=== PATIENT | female | born 1950 | race Caucasian/White ===

== ENCOUNTER 2019-07-02 12:49 | Outpatient (CLI) | payer MEDICARE, OTHER, SELFPAY ==
--- NOTE | ~2019-07-02 | US_ITS ---
. EXAMINATION: US FNA w image guidance DATE: 07/02/2019 13:57 INDICATION: Thyroid nodule. TECHNIQUE: The procedure and its benefits, risks, and benefits were discussed with the patient. Risks specifical ly discussed included bleeding. The patient verbalized understanding of the risks and agreed to proce ed. The neck was prepped and draped in the usual sterile manner. 1% lidocaine was used for local ane sthesia. 5 passes were made with a 25G needle into the lesion. Appropriate needle location was docu mented with continuous sonographic guidance. There were no immediate complications. FINDINGS: Grayscale ultrasound images demonstrate needles advanced into a 1.1 cm nodule in right thyroid lobe f or biopsy. IMPRESSION: 1. Ultrasound-guided fine needle aspiration of a right thyroid nodule. Reviewed, dictated and finalized at location A. 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
== END 2019-07-02 12:50 | disposition home or self-care (01) ==
LOC: ANHIMG 12:50
PROVIDERS: PCP Family Medicine; Visit Provider Otolaryngology
DX: E04.9 Nontoxic goiter, unspecified (principal)
CPT/HCPCS: 10005; 88108; 88173

== ENCOUNTER 2019-07-08 13:46 | Outpatient (RCR) | payer MEDICARE, OTHER, SELFPAY ==
--- NOTE | 2019-07-08 15:23 | PTOPEVAL ---
INITIAL PHYSICAL THERAPY EVALUATION Thank you for referring Krissy to [facility] [place]. PT eval this revealed + L Peggy Daniels for which Eply manuever was done. Will follow up with Krissy later this week to see if symptoms return and if further skilled PT is needed. If further PT is needed, plan of care will be done and forwarded to you for review and signing. I agree with Krissy's evaluation. Referring Physician Date Admitting Provider: Attending Provider: Douglas Gutierres MD Referring Provider: *PT Outpatient Evaluation Start: 07/08/19 14:13 Freq: Status: Active Protocol: Document 07/08/19 14:10 YUNIEL (Rec: 07/08/19 15:23 YUNIEL [id number]) Therapy Assessment Status Assessment Status Assessment Status Evaluation Outpatient Past Medical History Neurological History Hx Neurological Disorders No Significant History Cardiovascular History Hx Hypercholesterolemia Yes Hx Hypertension Yes Hx Other Cardiac Disorders Yes: carotid blockage via ultrasound Respiratory History Hx Chronic Obstructive Pulmonary Disease Yes: does have O2 as needed (COPD) Hx Sleep Apnea Yes: CPAP when sleeping, napping Gastrointestinal History Hx Appendectomy Yes: 1981 Hx Cholecystectomy Yes: 1981 Hx Other Gastrointestinal Disorders Yes: some liver disease - heriditary Genitourinary History Hx Genitourinary Disorders No Significant History Musculoskeletal History Hx Arthritis Yes Hx Back Pain Yes: bulging discs Hx Osteoporosis Yes: monthly injections Endocrine History Hx Diabetes Yes Hx Other Endocrine Disorders Yes: thyroid nodules, goiter HEENT History Hx Cataracts Yes: bilat Hx Dental Problems Yes: denture - upper Reproductive History Hx Tubal Ligation Yes Evaluation Information Problem Diagnosis BPPV, vertigo Onset 6 months - ongoing Subjective Information She has had short bouts of Query Text:As Reported By Patient/ BPPV - often in the past - but Family short lived This episode has been ongoing x 6 months Gets dizzy rolling over in bed - usually to the L side, but on occasions R side. Always gets dizziness looking down, occasionally when looks up. Lately - when gets up in middle of night to go bathroom - will have have increase in diz
--- NOTE | 2019-07-11 10:47 | PCPTNOTE ---
PHYSICAL THERAPY DISCHARGE NOTE Admitting Provider: Attending Provider: Douglas Gutierres MD Patient:Krissy Silva Date of :1950 Follow up phone call was made to Krissy this date. She is no longer having any dizziness - feeling really pleased that dizziness is gone. Reviewed with Krissy how to perform a modified Eply manuever in the event her symptoms return. In addition, she is to call if she has any questions or concerns. She is not in need of further skilled PT, therefore she will be discharged from physical therapy at this time. The goals have been achieved. Thank you for referring Krissy to [facility]. Please review, sign, date and return this discharge summary CINDY. I have been updated about Krissy's current status and I agree with discharge from the above service at this time. Referring Physician Date
== END 2019-07-15 09:44 | disposition home or self-care (01) ==
LOC: ANHPT 13:46
PROVIDERS: PCP Family Medicine; Visit Provider Otolaryngology
DX: R09.89 Other specified symptoms and signs involving the circulatory and respiratory systems (principal)
CPT/HCPCS: 97162

== ENCOUNTER 2019-12-25 12:29 | Outpatient (CLI) | payer MEDICARE, OTHER, SELFPAY ==
--- NOTE | ~2019-12-25 | CT_ITS ---
EXAMINATION: CT lung screening DATE: 12/25/2019 12:56 INDICATION: Personal history of nicotine dependence, prior smoker with 30 pack year history TECHNIQUE: Computed tomography (CT) of the chest was performed without intravenous contrast. The dose -length product (DLP) was 109.90 mGy-cm. 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 COMPARISON: 12/18/2018 FINDINGS: There is mild emphysema. There is a 2 mm nodule of the right lung apex on image 19. The ada gs are free of acute opacities. There is no pleural effusion or pneumothorax. No pathologically enlar ged thoracic lymph nodes are identified. The heart size is normal. There is calcified coronary artery atherosclerosis. Calcification of the mitral annulus is also noted. There are multiple thoracic comp ression deformities without significant change since the prior examination. IMPRESSION: 1. Lung-RADS category 2: Benign appearance or behavior. Continue annual screening with noncontrast lo w-dose chest CT in 12 months. Reviewed, dictated and finalized at location B. IMPRESSION: 1. Lung-RADS category 2: Benign appearance or behavior. Continue annual screeni ng with noncontrast low-dose chest CT in 12 months.
--- NOTE | ~2019-12-25 | XR_ITS ---
EXAMINATION: XR wrist RT min 3V DATE: 12/25/2019 13:03 INDICATION: Right wrist pain. TECHNIQUE: 4 views of right wrist were obtained. COMPARISON: Right hand radiographs 08/23/2016, right wrist radiographs 06/15/2008 FINDINGS: Bone alignment is normal. No acute fracture. There is an old healed fracture of distal radi us with neutral tilt of the distal articular surface. There is mild osteoarthritis of first carpometa carpal joint and first and fifth metacarpophalangeal joints and severe osteoarthritis of first interp halangeal joint and fifth proximal interphalangeal joint. There is a dystrophic calcification dorsal to radiocarpal compartment. IMPRESSION: 1. Polyarticular osteoarthritis. Reviewed, dictated and finalized at location A.
== END 2019-12-25 12:30 | disposition home or self-care (01) ==
PROVIDERS: PCP Physician Assistant; Visit Provider Nurse Practitioner Family
DX: Z12.2 Encounter for screening for malignant neoplasm of respiratory organs (principal); Z87.891 Personal history of nicotine dependence; M19.031 Primary osteoarthritis, right wrist
CPT/HCPCS: 73110; G0297

== ENCOUNTER 2019-12-26 09:38 | Outpatient (CLI) | payer MEDICARE, OTHER, SELFPAY ==
[2019-12-26 10:08] LABS: Basophils Percent Auto 0.6 % (0.2-1.2); Eosinophils Absolute Auto 0.1 K/mm3 (0-0.3); Eosinophils Percent Auto 1.5 % (0-4.4); Hematocrit 41.5 % (37.0-47.0); Hemoglobin 13.5 g/dL (12.0-15.0); Immature Granulocyte Absolute 0.01 K/mm3 (0.00-0.031); Immature Granulocyte Percent A 0.2 % (0-0.5); Lymphocytes Percent Auto 12.8 % (18.3-44.2); Mean Corpuscular HGB Conc 32.5 g/dl (32-36); Mean Corpuscular Hemoglobin 26.6 pg (26-34); Mean Corpuscular Volume 81.7 fl (80-100); Mean Platelet Volume 10.8 fl (7.4-10.4); Monocytes Absolute Auto 0.3 K/mm3 (0.1-0.6); Monocytes Percent Auto 5.5 % (2.6-8.5); Neutrophils Absolute Auto 4.3 K/mm3 (1.3-6.7); Neutrophils Percent Auto 79.4 % (45.5-73.1); Platelet Count Result 181 k/mm3 (150-375); Red Blood Count 5.08 M/mm3 (4.2-5.4); Red Cell Distribution Width 13.5 % (11.5-14.5); White Blood Count 5.5 K/mm3 (4.5-10.0)
[2019-12-26 15:31] LABS: Alanine Aminotransferase 20 U/L (4-35); Albumin Level 3.7 g/dL (3.5-5.1); Alkaline Phosphatase 113 U/L (38-126); Anion Gap 15.5 mmol/L (7-16); Aspartate Amino Transferase 22 U/L (14-36); Bilirubin,Total 0.9 mg/dL (0.2-1.3); Blood Urea Nitrogen 13 mg/dL (7-17); Calcium 9.1 mg/dL (8.4-10.2); Carbon Dioxide 26 mmol/L (22-30); Chloride 94 mmol/L (98-107); Cholesterol 250 mg/dL (0-200); Estimated Glomerular Filt Rate > 60; Glucose 593 mg/dL (65-105); HDL Direct 38 mg/dL; Potassium 4.5 mmol/L (3.4-5.0); Sodium 131 mmol/L (137-145); Triglycerides 405 mg/dL (<150)
[2019-12-26 15:35] LABS: LDL Cholesterol Direct 150 mg/dL
[2019-12-26 15:40] LABS: Free T4 Free Thyroxine 1.64 ng/mL (0.78-2.19)
[2019-12-26 15:45] LABS: Hemoglobin A1C 12.2 % (<5.7)
[2019-12-26 15:57] LABS: Thyroid Stimulating Hormone 0.957 uIU/mL (0.465-4.680)
== END 2019-12-26 09:39 | disposition home or self-care (01) ==
PROVIDERS: PCP Physician Assistant; Visit Provider Family Medicine
DX: E78.2 Mixed hyperlipidemia (principal); R60.9 Edema, unspecified; I10 Essential (primary) hypertension; E11.49 Type 2 diabetes mellitus with other diabetic neurological complication
CPT/HCPCS: 36415; 80053; 80061; 83036; 84439; 84443; 85025

== ENCOUNTER 2020-06-08 15:31 | Outpatient (CLI) | payer MEDICARE, OTHER, SELFPAY ==
--- NOTE | ~2020-06-08 | MM_ITS ---
EXAMINATION: MM screening [facility] BI w stacey HISTORY: Screening TECHNIQUE: Craniocaudal and mediolateral oblique 3-D tomosynthesis images were obtained and synthetic 2-D images were generated. CAD analysis was submitted and interpreted. COMPARISON: Comparison to multiple prior studies sequentially, with oldest reviewed study dated 01/2011. BREAST PARENCHYMAL COMPOSITION: There are scattered areas of fibroglandular density. FINDINGS: There is no evidence of suspicious mass, calcification, or architectural distortion to sugg est malignancy in either breast. There has been no suspicious interval change. IMPRESSION: 1. No mammographic evidence of malignancy. 2. Recommend routine screening mammography in one year. BI-RADS Category 1: Negative Reviewed, dictated and finalized at location A. 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
== END 2020-06-08 15:32 | disposition home or self-care (01) ==
LOC: ANHIMG 15:39
PROVIDERS: PCP Family Medicine; Visit Provider Family Medicine
DX: Z12.31 Encounter for screening mammogram for malignant neoplasm of breast (principal)
CPT/HCPCS: 77063; 77067

== ENCOUNTER 2020-10-31 13:25 | Emergency (ER) | payer MEDICARE, OTHER, SELFPAY ==
[2020-10-31 13:38] VITALS: BP 136/72; PULSE 111; RESP 18; TEMP 36.6; O2SAT 95
[2020-10-31] MEDS: SODIUM CHLORIDE 0.9% IV 1,000 ML 999 ML IV CONT (14:26)
[2020-10-31] MEDS: ONDANSETRON INJ 4 MG/2 ML VIAL IV PUSH (14:26)
[2020-10-31] MEDS: HYDROmorphone HCL INJ (*CRX) 1 MG/ML SYR 0.5 MG IV PUSH ×2 (14:28→17:33)
[2020-10-31 14:42] LABS: Basophils Percent Auto 0.4 % (0.2-1.2); Eosinophils Absolute Auto 0.1 K/mm3 (0-0.3); Eosinophils Percent Auto 0.9 % (0-4.4); Immature Granulocyte Absolute 0.02 K/mm3 (0.00-0.031); Immature Granulocyte Percent A 0.2 % (0-0.5); Lymphocytes Absolute Auto 0.92 K/mm3 (0.9-3.2); Lymphocytes Percent Auto 11.3 % (18.3-44.2); Mean Corpuscular HGB Conc 33.3 g/dl (32-36); Mean Corpuscular Hemoglobin 27.7 pg (26-34); Mean Platelet Volume 10.5 fl (7.4-10.4); Monocytes Absolute Auto 0.7 K/mm3 (0.1-0.6); Monocytes Percent Auto 8.1 % (2.6-8.5); Neutrophils Absolute Auto 6.5 K/mm3 (1.3-6.7); Neutrophils Percent Auto 79.1 % (45.5-73.1); Platelet Count Result 206 k/mm3 (150-375); Red Cell Distribution Width 15.4 % (11.5-14.5); White Blood Count 8.2 K/mm3 (4.5-10.0)
[2020-10-31 14:55] LABS: Lactic Acid Reflex 1.2 mmol/L (0.7-2.1)
[2020-10-31 14:57] LABS: Alanine Aminotransferase 15 U/L (4-35); Albumin Level 3.7 g/dL (3.5-5.1); Alkaline Phosphatase 137 U/L (38-126); Anion Gap 9 mmol/L (8-16); Aspartate Amino Transferase 20 U/L (14-36); Bilirubin,Total 0.9 mg/dL (0.2-1.3); Blood Urea Nitrogen 13 mg/dL (7-17); CRP 8.1 mg/dL (<1.0); Calcium 9.2 mg/dL (8.4-10.2); Carbon Dioxide 25 mmol/L (22-30); Chloride 96 mmol/L (98-107); Estimated CRCL calculation 70 ml/min; Estimated Glomerular Filt Rate > 60; Glucose 339 mg/dL (65-105); Potassium 4.7 mmol/L (3.4-5.0); Sodium 130 mmol/L (137-145)
--- NOTE | 2020-10-31 15:14 | ED.EXTPRO ---
HPI - Extremity Problem General Chief complaint: Extremity Problem,Nontraumatic Stated complaint: right groin pain/post op Time Seen by Provider: 10/31/20 13:55 Related Data Home Medications Medication Instructions Recorded Confirmed aspirin 325 mg tablet 325 mg PO DAILY 05/26/19 06/01/20 calcium carbonate-vitamin D3 1 tablet PO BID 06/27/19 06/01/20 [Calcium 500 + D] Allergies Allergy/AdvReac Type Severity Reaction Status Date / Time azithromycin Allergy Intermediate Rash Verified 07/14/20 13:36 erythromycin base Allergy Unknown Unknown Verified 07/14/20 13:36 iodine Allergy Unknown Skin Verified 07/14/20 13:36 Reaction Contrast Media Allergy Unknown HIVES Uncoded 07/14/20 13:36 PENDING SALE TO [facility] Past Medical History Medical History Hepatitis C antibody test negative History of hearing problem History of tobacco abuse Myocardial infarction Nonrheumatic aortic (valve) stenosis with insufficiency Obstructive sleep apnea (adult) (pediatric) Osteoarthrosis, unspecified whether generalized or localized, forearm Protrusion of intervertebral disc (~10/26/02) Surgical History Surgical History History of appendectomy (~07/26/1966) History of cholecystectomy (~07/26/05) History of hernia repair History of tonsillectomy and adenoidectomy Hx of CABG Family History Family History Mother Family history of arthritis Family history of osteoporosis Hypertension Asthma Family history of kidney disease Family history of Alzheimer's disease Sibling Family history of arthritis Family history of malignant neoplasm of esophagus Family history of primary malignant neoplasm of liver Diabetes mellitus Hypertension Family history of elevated blood lipids Family history of cardiovascular disease Acute myocardial infarction, Onset Age: 49 Cerebrovascular accident Family history of kidney disease Grandparent Family history of cardiovascular disease Father Family history of chronic obstructive pulmonary disease, Onset Age: 69 Family history of emphysema, Onset Age: 69 Other Family history of liver disease Social History Social History Smoking end date: 10/10/11 Alcohol intake: never Gender identity (if verbalized by the patient): Female Spiritual care concerns: No Course Consultations Consultation #1: [facility], no bed available at this time, probably tomorrow afternoon. Unable to get hold of their vascular surgeon on-call. Date: 10/31/20 Time: 17:11 Consultation #2: DR OCONNELL, vascular surgeon at [facility], who accepted patient transfer to the ED. Date: 10/31/20 Time: 17:34 Vital Signs Vital signs: Vital Signs Temperature 36.6 C 10/31/20 13:38 Pulse Rate 111 H 10/31/20 13:38 Respiratory Rate 18 10/31/20 13:38 Blood Pressure 136/72 10/31/20 13:38 Pulse Oximetry 95 10/31/20 13:38 Temperature 36.6 C 10/31/20 13:38 Pulse Rate 111 H 10/31/20 13:38 Respiratory Rate 18 10/31/20 13:38 Blood Pressure 136/72 10/31/20 13:38 Pulse Oximetry 95 10/31/20 13:38 MDM - Extremity (Nontraumatic) Lab Data Result diagrams: 10/31/20 14:32 10/31/20 14:32 Labs: Lab Results 10/31/20 10/31/20 10/31/20 Range/Units 14:32 14:32 14:32 WBC 8.2 (4.5-10.0) K/mm3 RBC 4.70 (4.2-5.4) M/mm3 Hgb 13.0 (12.0-15.0) g/dL Hct 39.0 (37.0-47.0) % MCV 83.0 (80-100) fl MCH 27.7 (26-34) pg MCHC 33.3 (32-36) g/dl RDW 15.4 H (11.5-14.5) % Plt Count 206 (150-375) k/mm3 MPV 10.5 H (7.4-10.4) fl Immature Gran % (Auto) 0.2 (0-0.5) % Neut % (Auto) 79.1 H (45.5-73.1) % Lymph % (Auto) 11.3 L (18.3-44.2) % Dukes % (Auto) 8.1 (2.6-8.5) %
[2020-10-31 16:00] VITALS: BP 128/57; PULSE 94; RESP 18; O2SAT 100
[2020-10-31 18:04] VITALS: BP 129/56; PULSE 95; RESP 18; O2SAT 97
== END 2020-10-31 18:06 | disposition short-term general hospital (02) ==
PROVIDERS: Emergency Provider Emergency Medicine; PCP Family Medicine
DX: T81.42XA Infection following a procedure, deep incisional surgical site, initial encounter (principal); E11.65 Type 2 diabetes mellitus with hyperglycemia; I25.2 Old myocardial infarction; I35.2 Nonrheumatic aortic (valve) stenosis with insufficiency; G47.33 Obstructive sleep apnea (adult) (pediatric); Z95.1 Presence of aortocoronary bypass graft; Z79.82 Long term (current) use of aspirin; Z79.4 Long term (current) use of insulin
CPT/HCPCS: 36415; 80053; 83605; 85025; 86140; 87040; 96365; 96367; 96375; 96376; 99285; J1170; J2405; J2543; J3370; J7030

== ENCOUNTER 2021-02-21 15:53 | Outpatient (CLI) | payer MEDICARE, OTHER, SELFPAY ==
--- NOTE | ~2021-02-21 | CT_ITS ---
EXAMINATION: CT lung screening EXAM DATE: 02/21/2021 16:15 INDICATION: Z87.891 - Personal history of nicotine dependence. TECHNIQUE: Spiral low dose CT of the chest without contrast. Axial, coronal and sagittal images were reviewed. The dose-length product (DLP) for this examination was 144.43 mGy-cm. The exposure was t ailored according to patient size (auto mA exposure control), and iterative reconstruction (ASIR) was used as additional dose reduction technique. Comparison is made to prior examination from 12/25/2019. FINDINGS: There is a new lobulated 6-7 mm right lower lobe nodule. Mild biapical scarring. Mild emph ysema and moderate hyperinflation. Tracheobronchial tree is patent. There is no mediastinal, hilar or axillary lymphadenopathy. There are no pleural or pericardial effusions. There is no pneumotho rax. Heart normal in size. There is moderate coronary arterial calcification, arterial sclerosis. Nodular cirrhotic liver. Left adrenal gland adenoma. There is thoracic spondylosis without osteobla stic or osteolytic lesions identified. IMPRESSION: Lung-RADS category 4A, suspicious (5-15 % chance of malignancy); recommend followup nonco ntrast chest CT 3 months. Reviewed, dictated and finalized at location A. IMPRESSION: Lung-RADS category 4A, suspicious (5-15 % chance of malignancy); re commend followup noncontrast chest CT 3 months.
== END 2021-02-21 15:54 | disposition home or self-care (01) ==
LOC: ANHIMG 15:58
PROVIDERS: PCP Family Medicine; Visit Provider Nurse Practitioner Family
DX: Z12.2 Encounter for screening for malignant neoplasm of respiratory organs (principal); Z87.891 Personal history of nicotine dependence; R91.8 Other nonspecific abnormal finding of lung field
CPT/HCPCS: 71271

== ENCOUNTER 2021-03-04 11:19 | Emergency (ER) | payer MEDICARE, OTHER, SELFPAY ==
[2021-03-04] VITALS (55 sets, daily range): BP systolic 105–162; BP diastolic 46–108; PULSE 89–106; RESP 13–30; TEMP 36.4–36.8; O2SAT 89–100
--- NOTE | ~2021-03-04 | NM_ITS ---
EXAMINATION: NM pulmonary perfusion DATE: 03/04/2021 15:40 INDICATION: Shortness of breath. TECHNIQUE: 5 mCi Tc-99m MAA was administered intravenously for perfusion images. Scintigraphic image s of the chest were obtained. COMPARISON: Chest 2 views 03/04/2021, chest CT 02/21/2021 FINDINGS: Perfusion images show large defects in all lobes with stripe signs. Prior imaging demonstrate emphyse ma and lower lung bronchiectasis. IMPRESSION: 1. Nondiagnostic (intermediate probability for pulmonary embolism). Reviewed, dictated and finalized at location A.
--- NOTE | ~2021-03-04 | XR_ITS ---
XR chest 2V DATE: 03/04/2021 12:31 INDICATION: Shortness of breath, cough. Fatigue. History of smoking. COPD, hypertension. TECHNIQUE: PA and lateral views COMPARISON: 02/21/2021 CT lung screening 12/27/2015 2 view chest FINDINGS: Normal heart size. Extensive thoracic and abdominal aortic calcification. No hilar or mediastinal enlargement. No pulmonary infiltrate or consolidation, pleural effusion or pulmonary vascular congestion or pneumo thorax. Diffuse osteopenia. Chronic compression fracture deformities of some thoracic and upper lumbar verteb ra. IMPRESSION: Bilateral moderate hyperinflation; no active cardiac pulmonary disease Reviewed, dictated and finalized at location A. IMPRESSION: Bilateral moderate hyperinflation; no active cardiac pulmonary dise ase
--- NOTE | 2021-03-04 11:56 | ECG_ITS ---
Measurements Intervals [place] Rate: 95 P: 78 CT: 124 QRS: 52 QRSD: 87 T: 66 QT: 319 QTc: 402 Interpretive Statements SINUS RHYTHM BASELINE ARTIFACT- I, II, III, AVR, AVL, V1-V2 NORMAL ECG Electronically Signed On 03-04-2021 12:21:11 CDT by Dony Pelayo D.O.
[2021-03-04 12:16] LABS: Basophils Absolute Auto 0.1 K/mm3 (0.0-0.1); Basophils Percent Auto 0.9 % (0.2-1.2); Eosinophils Absolute Auto 0.2 K/mm3 (0-0.3); Eosinophils Percent Auto 3.2 % (0-4.4); Hematocrit 39.6 % (37.0-47.0); Immature Granulocyte Absolute 0.02 K/mm3 (0.00-0.031); Immature Granulocyte Percent A 0.4 % (0-0.5); Lymphocytes Absolute Auto 0.72 K/mm3 (0.9-3.2); Lymphocytes Percent Auto 12.9 % (18.3-44.2); Mean Corpuscular HGB Conc 30.3 g/dl (32-36); Mean Corpuscular Hemoglobin 23.3 pg (26-34); Mean Corpuscular Volume 76.9 fl (80-100); Mean Platelet Volume 10.3 fl (7.4-10.4); Monocytes Absolute Auto 0.6 K/mm3 (0.1-0.6); Monocytes Percent Auto 10.2 % (2.6-8.5); Neutrophils Absolute Auto 4.1 K/mm3 (1.3-6.7); Neutrophils Percent Auto 72.4 % (45.5-73.1); Platelet Count Result 204 k/mm3 (150-375); Red Blood Count 5.15 M/mm3 (4.2-5.4); Red Cell Distribution Width 16.5 % (11.5-14.5); White Blood Count 5.6 K/mm3 (4.5-10.0)
--- NOTE | 2021-03-04 12:24 | PC.NURSE ---
Pt taken to radiology
[2021-03-04 12:26] LABS: Prothrombin Time 12.6 Seconds (11.1-14.7)
[2021-03-04 12:27] LABS: Partial Thromboplastin Time 24.3 SECONDS (22.3-36.8)
[2021-03-04 12:40] LABS: Anion Gap 7 mmol/L (8-16); Blood Urea Nitrogen 11 mg/dL (7-17); Calcium 8.8 mg/dL (8.4-10.2); Carbon Dioxide 30 mmol/L (22-30); Chloride 98 mmol/L (98-107); Estimated CRCL calculation 82 ml/min; Estimated Glomerular Filt Rate > 60; Glucose 182 mg/dL (65-110); Potassium 4.3 mmol/L (3.4-5.0); Sodium 135 mmol/L (137-145)
[2021-03-04 12:54] LABS: NT Pro B Type Natriuretic Pept 162 pg/mL (5-100); Troponin I < 0.012 ng/mL (0.000-0.034)
--- NOTE | 2021-03-04 13:06 | ED.SOB ---
HPI - SOB/Dyspnea General Chief Complaint: Shortness of Breath/Dyspnea Stated Complaint: sob Time Seen by Provider: 03/04/21 12:57 Source: patient Mode of arrival: ambulatory Limitations: no limitations History of Present Illness MD elicited complaint: shortness of breath and cough Pertinent past history: congestive heart failure Onset (ago): day(s) (2) Context: occurred during exertion Timing: constant and progressively worsening Severity: moderate Exacerbating factors: lying flat, exertion and inspiration Relieving factors: rest Known history of: congestive heart failure and diabetes Associated symptoms: pain with inspiration and cough Treatment prior to arrival: bronchodilator Related Data Home oxygen amount: none Home Medications Medication Instructions Recorded Confirmed aspirin 325 mg tablet 325 mg PO DAILY 05/26/19 11/09/20 calcium carbonate-vitamin D3 1 tablet PO BID 06/27/19 11/09/20 [Calcium 500 + D] Allergies Allergy/AdvReac Type Severity Reaction Status Date / Time azithromycin Allergy Intermediate Rash Verified 03/04/21 11:34 erythromycin base Allergy Unknown Unknown Verified 03/04/21 11:34 iodine Allergy Unknown Skin Verified 03/04/21 11:34 Reaction Contrast Media Allergy Unknown HIVES Uncoded 03/04/21 11:34 Review of Systems Review of Systems: CONSTITUTIONAL: no fever, no weight loss, no confusion EYES: no vision changes, no eye pain ENT: no rhinorrhea, no sore throat, no difficulty swallowing CARDIOVASCULAR: no chest pain, no leg edema, no palpitations RESPIRATORY: positive for cough, positive for shortness of breath, no hemoptysis GASTROINTESTINAL: no abdominal pain, no nausea, no vomiting, no diarrhea GENITOURINARY: no flank pain, no dysuria, no hematuria SKIN: no rash, no jaundice MUSCULOSKELETAL: no back pain, no trauma. NEUROLOGIC: No headache, no dizziness, no focal weakness PSYCHIATRIC: No hallucinations, no suicidal ideation PMFSH Past Medical History Medical History Hepatitis C antibody test negative History of hearing problem History of tobacco abuse Myocardial infarction Nonrheumatic aortic (valve) stenosis with insufficiency Obstructive sleep apnea (adult) (pediatric) Osteoarthrosis, unspecified whether generalized or localized, forearm Protrusion of intervertebral disc (~10/26/02) Surgical History Surgical History History of appendectomy (~07/26/1966) History of cholecystectomy (~07/26/05) History of hernia repair History of tonsillectomy and adenoidectomy Hx of CABG Family History Family History Mother Family history of arthritis Family history of osteoporosis Hypertension Asthma Family history of kidney disease Family history of Alzheimer's disease Sibling Family history of arthritis Family history of malignant neoplasm of esophagus Family history of primary malignant neoplasm of liver Diabetes mellitus Hypertension Family history of elevated blood lipids Family history of cardiovascular disease Acute myocardial infarction, Onset Age: 49 Cerebrovascular accident Family history of kidney disease Grandparent Family history of cardiovascular disease Father Family history of chronic obstructive pulmonary disease, Onset Age: 69 Family history of emphysema, Onset Age: 69 Other Family history of liver disease Social History Social History Smoking status: Former smoker Smoking end date: 10/10/11 Alcohol intake: never Gender identity (if verbalized by the patient): Female Spiritual care concerns: No Exam Narrative: General: alert, afebrile, answering all questions appropriately Head: normocephalic, atraumatic Eyes: EOMI bilaterally, anicteric, no injection ENT: moist mucous membranes, or
[2021-03-04] MEDS: ALBUTEROL SULFATE NEB 2.5 MG/0.5 ML INH INHALATION (13:17)
--- NOTE | 2021-03-04 15:13 | PC.NURSE ---
Pt taken to radiology
--- NOTE | 2021-03-04 15:49 | PC.NURSE ---
Pt returned from radiology
[2021-03-04 18:12] LABS: Alanine Aminotransferase 17 U/L (4-35); Albumin Level 3.8 g/dL (3.5-5.1); Alkaline Phosphatase 151 U/L (38-126); Aspartate Amino Transferase 28 U/L (14-36); Bilirubin,Total 0.9 mg/dL (0.2-1.3)
--- NOTE | 2021-03-04 19:07 | PC.NURSE ---
Report given to LAVONNE Romero
[2021-03-04] MEDS: APIXABAN 5 MG TABLET 10 MG PO (19:32)
== END 2021-03-04 19:46 | disposition home or self-care (01) ==
PROVIDERS: Emergency Medicine; Emergency Provider Emergency Medicine; PCP Family Medicine
DX: I26.99 Other pulmonary embolism without acute cor pulmonale (principal); I50.9 Heart failure, unspecified; E11.9 Type 2 diabetes mellitus without complications; I25.2 Old myocardial infarction; G47.33 Obstructive sleep apnea (adult) (pediatric); M19.90 Unspecified osteoarthritis, unspecified site; I35.2 Nonrheumatic aortic (valve) stenosis with insufficiency; Z79.82 Long term (current) use of aspirin; Z95.1 Presence of aortocoronary bypass graft; Z87.891 Personal history of nicotine dependence; Z79.4 Long term (current) use of insulin
CPT/HCPCS: 36415; 71046; 78580; 80048; 80076; 83880; 84484; 85025; 85610; 85730; 93005; 94640; 99284; A9270; A9540

== ENCOUNTER 2021-03-25 09:57 | Outpatient (CLI) | payer MEDICARE, OTHER, SELFPAY ==
--- NOTE | ~2021-03-25 | US_ITS ---
EXAMINATION: US venous doppler LE EXAM DATE: 03/25/2021 10:29 INDICATION: R60.9 - Edema, unspecified. TECHNIQUE: Multiple grayscale, color flow and Doppler images of the lower extremity deep venous syste ms bilaterally were obtained and reviewed. Comparison is made to prior examination from 08/10/2015. FINDINGS: Right side: The right common femoral, femoral and profunda veins demonstrate normal color flow, respi ratory variation, augmentation and compressibility. Compressibility, color flow confirmed within the right popliteal, posterior tibial, peroneal, and greater saphenous veins. Left side: The left common femoral, femoral and profunda veins demonstrate normal color flow, respira tory variation, augmentation and compressibility. Compressibility, color flow confirmed within the l eft popliteal, posterior tibial, peroneal, and greater saphenous veins. IMPRESSION: 1. No lower extremity deep venous thrombosis bilaterally. Reviewed, dictated and finalized at location B.
== END 2021-03-25 09:58 | disposition home or self-care (01) ==
LOC: ANHIMG 10:01
PROVIDERS: PCP Family Medicine; Visit Provider Nurse Practitioner Family
DX: R60.9 Edema, unspecified (principal)
CPT/HCPCS: 93970

== ENCOUNTER 2021-04-11 08:12 | Outpatient (CLI) | payer MEDICARE, OTHER, SELFPAY ==
--- NOTE | 2021-05-03 13:36 | WPDSLEEPSTUD ---
Sleep Study Date of Study: 04/11/21 <Gala Manning DO - Last Filed: 05/03/21 13:58> Ordering Provider: Horace Villa APRN <Gala Manning, DO - Last Filed: 05/03/21 13:58> Interpreting Physician: Gala Manning DO <Gala Manning DO - Last Filed: 05/03/21 13:58> Sleep Study Type: Split Polysomnogram <Gala Manning DO - Last Filed: 05/03/21 13:58> Height: 1.57 m <Gala Manning DO - Last Filed: 05/03/21 13:58> Weight: 80.286 kg <Gala Manning DO - Last Filed: 05/03/21 13:58> Body Mass Index: 32.3 <Gala Manning DO - Last Filed: 05/03/21 13:58> Neck Circumference (inches): 16 <Gala Manning DO - Last Filed: 05/03/21 13:58> [place]: 2 <Gala Manning DO - Last Filed: 05/03/21 13:58> Reason for Sleep Study The patient has known SAMIRA and has to have a sleep study to re-qualify for PAP Therapy. <Gala Manning, DO - Last Filed: 05/03/21 13:58> Sleep History The patient is a 71-year-old female with SAMIRA on PAP, Insulin Dependent diabetes, aortic stenosis, peripheral arterial disease, COPD, liver cirrhosis and history of myocardial infarction that had a sleep study ordered by her access rn because she needs to requalify for PAP therapy. The patient denies awakening from sleep short of breath. She denies awakening at night with heartburn, belching or cough. She denies snoring loudly enough that others complain. She occasionally has difficulty sleeping which she has a cold. She denies waking up gasping for air throughout the night. She denies sweating excessively at night. She denies falling asleep during the day and while driving. She denies sleep paralysis, cataplexy and hypnagogic / hypnopompic hallucinations. She denies having nightmares. She denies having thoughts race through her mind. She denies feeling sad or depressed. She rarely feels anxious. She denies noticing parts of her body jerk. She denies crawling and aching feelings in her legs. She occasionally has leg pain during the night. She denies grinding her teeth during sleep and awakening with morning jaw pain. She rarely wakes up feeling stiff in the morning with sore and achy muscles. The patient goes to bed at 11:00 p.m. on both weekdays and weekends. It takes her a significant amount of time to fall asleep. She typically wakes up 4 times per night. When she awakens, she will change positions and try to go back to sleep. She did not list a wake-up time. When she awakens, she does not stay in bed. She currently lives with her . She does not consume any caffeinated beverages within 2 hours of bedtime. She does not engage in physical exercise before bedtime. She will watch television before falling asleep. She will occasionally take naps in the afternoon or the evening but they are not refreshing. She has 2 cups of coffee per day. She denies tobacco, alcohol recreational drug use. <Gala Manning DO - Last Filed: 05/03/21 13:58> [facility] Past Medical History Medical History: Medical History Hepatitis C antibody test negative History of hearing problem History of tobacco abuse Myocardial infarction Nonrheumatic aortic (valve) stenosis with insufficiency Obstructive sleep apnea (adult) (pediatric) Osteoarthrosis, unspecified whether generalized or localized, forearm Protrusion of intervertebral disc (~10/26/02) <Gala Manning DO - Last Filed: 05/03/21 13:58> Surgical History Surgical History: Surgical History History of appendectomy (~07/26/1966) History of cholecystectomy (~07/26/05) History of hernia repair History of tonsillectomy and adenoidectomy Hx of CABG <Gala Manning DO - Last Filed: 05/03/21 13:58> Family History Family History: Family History (Reviewed 1
[2021-05-03 13:58] VITALS: BMI 32.3
== END 2021-04-12 01:04 | disposition home or self-care (01) ==
LOC: ANHCSM 08:15
PROVIDERS: PCP Family Medicine; Visit Provider Nurse Practitioner Family
DX: G47.33 Obstructive sleep apnea (adult) (pediatric) (principal); Z99.89 Dependence on other enabling machines and devices
CPT/HCPCS: 95810

== ENCOUNTER 2021-05-31 09:32 | Outpatient (CLI) | payer MEDICARE, OTHER, SELFPAY ==
--- NOTE | ~2021-05-31 | CT_ITS ---
EXAMINATION: CT diagnostic chest wo con EXAM DATE: 05/31/2021 10:01 INDICATION: R91.1 - Solitary pulmonary nodule. TECHNIQUE: Spiral CT of the chest without contrast. Axial, coronal and sagittal images of the chest were reviewed. Coronal maximum intensity pixel images of chest reviewed. The dose-length product ( DLP) for this examination was 359.96 mGy-cm. The exposure was tailored according to patient size (au to mA exposure control), and iterative reconstruction (ASIR) was used as additional dose reduction te chnique. Comparison is made to prior examination from 02/21/2021. FINDINGS: Previously seen newly developed right lower lobe lobular nodule has essentially resolved, c onsistent with postinfectious residua. Small amount of lingular, right middle lobe, right apical scar ring is unchanged. The lungs are hyperinflated which can be seen with chronic obstructive pulmonary d isease (a clinical diagnosis of functional impairment), but is not diagnostic of it. There is mild br onchiectasis and mild to moderate emphysema. There are no pleural or pericardial effusions. Trache obronchial tree is patent. There is no mediastinal, hilar or axillary lymphadenopathy. There is n o pneumothorax. Heart normal in size. There is moderate coronary arterial calcification, arterial sclerosis. There are dense mitral annular calcifications. Nodular cirrhotic liver. Left adrenal hyp erplasia. Probable cholecystectomy. Multiple chronic thoracic mild to moderate compression fractures, and at L1. IMPRESSION: 1. Nearly resolved right lower lobe nodule, postinfectious. No suspicious lung opacities. 2. Chronic emphysema, hyperinflation, bronchiectasis. 3. Cirrhosis. Reviewed, dictated and finalized at location A. [employer]KER GIFT WRAPPING
== END 2021-05-31 09:33 | disposition home or self-care (01) ==
LOC: ANHIMG 09:37
PROVIDERS: PCP Family Medicine; Visit Provider Nurse Practitioner Family
DX: R91.1 Solitary pulmonary nodule (principal); I25.10 Atherosclerotic heart disease of native coronary artery without angina pectoris; M48.54XA Collapsed vertebra, not elsewhere classified, thoracic region, initial encounter for fracture; K74.60 Unspecified cirrhosis of liver; J43.9 Emphysema, unspecified; J47.9 Bronchiectasis, uncomplicated
CPT/HCPCS: 71250

== ENCOUNTER 2021-06-08 07:36 | Outpatient (CLI) | payer MEDICARE, OTHER, SELFPAY ==
--- NOTE | 2021-06-13 10:50 | WPDSLEEPSTUD ---
Sleep Study Date of Study: 06/08/21 Ordering Provider: Lola Soto MD Interpreting Physician: Lola Soto MD Sleep Study Type: Polysomnogram Height: 1.57 m Weight: 74.843 kg Body Mass Index: 30.2 Neck Circumference (inches): 16 [place]: 3 Reason for Sleep Study The patient has known SAMIRA and has to have a sleep study to re-qualify for PAP Therapy * 04/11/2021 she attempted a split night sleep study however was not able to fall asleep; total recording time was 125.6 minutes without sleep; she left AMA at 11:07 pm. This patient has chronic respiratory failure on 2 L of oxygen in the day and with sleep, and 3 L with exertion. She is not a candidate for home sleep test due to her oxygen requirement. At the prior study in March, she took 2 tablets of trazodone at the sleep lab but was not able to fall asleep. She also says that she was unable to fall asleep because she always uses her CPAP. Without CPAP, she feels airway closing which prevents her from falling asleep. I talked to the patient and she agrees to come back to the sleep lab for an in-lab split titration and we will prescribed Lunesta which is more effective than trazodone to initiate and maintain sleep. Sleep History Krissy Silva is a 71-year-old female with SAMIRA on PAP, insulin dependent diabetes, aortic stenosis, peripheral arterial disease, COPD, liver cirrhosis and history of myocardial infarction that had a sleep study ordered by her reconsignment clerk because she needs to requalify for PAP therapy. The patient denies awakening from sleep short of breath. She denies awakening at night with heartburn, belching or cough. She denies snoring loudly enough that others complain. She occasionally has difficulty sleeping which she has a cold. She denies waking up gasping for air throughout the night. She denies sweating excessively at night. She denies falling asleep during the day and while driving. She denies sleep paralysis, cataplexy and hypnagogic / hypnopompic hallucinations. She denies having nightmares. She denies having thoughts race through her mind. She denies feeling sad or depressed. She rarely feels anxious. She denies noticing parts of her body jerk. She denies crawling and aching feelings in her legs. She occasionally has leg pain during the night. She denies grinding her teeth during sleep and awakening with morning jaw pain. She rarely wakes up feeling stiff in the morning with sore and achy muscles. The patient goes to bed at 11:00 p.m. on both weekdays and weekends. It takes her a significant amount of time to fall asleep. She typically wakes up 4 times per night. When she awakens, she will change positions and try to go back to sleep. She did not list a wake-up time. When she awakens, she does not stay in bed. She currently lives with her . She does not consume any caffeinated beverages within 2 hours of bedtime. She does not engage in physical exercise before bedtime. She will watch television before falling asleep. She will occasionally take naps in the afternoon or the evening but they are not refreshing. Habits: She has 2 cups of coffee per day. She denies tobacco, alcohol recreational drug use. [facility] Past Medical History Medical History (Updated 06/13/21 @ 13:12 by Lola Soto MD) Chronic hypoxemic respiratory failure Sees Dr Soto Chronic obstructive pulmonary disease, unspecified Essential (primary) hypertension Hepatitis C antibody test negative History of hearing problem History of tobacco abuse Myocardial infarction Nonalcoholic steatohepatitis (SHAH) Nonrheumatic aortic (valve) stenosis with insufficiency Obstructive sleep apnea (adult) (pediatric) Osteoarthrosis, unspecified whether generalized or localized, forearm Protrusion of intervertebral disc (~10/26/02) Type 2 diabetes mellitus with neurologic complication, without long-term current use of insulin Surgical History Surgical History (Reviewed 06/07/21 @
[2021-06-13 13:14] VITALS: BMI 30.2
== END 2021-06-09 07:05 | disposition home or self-care (01) ==
LOC: ANHCSM 07:37
PROVIDERS: PCP Family Medicine; Visit Provider Internal Medicine Critical Care Medicine
DX: G47.10 Hypersomnia, unspecified (principal); R06.83 Snoring; G47.33 Obstructive sleep apnea (adult) (pediatric)
CPT/HCPCS: 95810

== ENCOUNTER 2021-07-05 09:38 | Outpatient (CLI) | payer MEDICARE, OTHER, SELFPAY ==
[2021-07-05 11:01] LABS: Basophils Percent Auto 0.6 % (0.2-1.2); Eosinophils Absolute Auto 0.1 K/mm3 (0-0.3); Eosinophils Percent Auto 2.2 % (0-4.4); Hematocrit 39.7 % (37.0-47.0); Hemoglobin 11.7 g/dL (12.0-15.0); Immature Granulocyte Absolute 0.01 K/mm3 (0.00-0.031); Immature Granulocyte Percent A 0.2 % (0-0.5); Lymphocytes Absolute Auto 1.13 K/mm3 (0.9-3.2); Lymphocytes Percent Auto 22.4 % (18.3-44.2); Mean Corpuscular HGB Conc 29.5 g/dl (32-36); Mean Corpuscular Volume 81.4 fl (80-100); Mean Platelet Volume 10.7 fl (7.4-10.4); Monocytes Absolute Auto 0.5 K/mm3 (0.1-0.6); Monocytes Percent Auto 8.9 % (2.6-8.5); Neutrophils Absolute Auto 3.3 K/mm3 (1.3-6.7); Neutrophils Percent Auto 65.7 % (45.5-73.1); Platelet Count Result 184 k/mm3 (150-375); Red Blood Count 4.88 M/mm3 (4.2-5.4)
[2021-07-05 11:16] LABS: Alanine Aminotransferase 18 U/L (4-35); Albumin Level 3.6 g/dL (3.5-5.1); Alkaline Phosphatase 118 U/L (38-126); Anion Gap 3 mmol/L (8-16); Aspartate Amino Transferase 26 U/L (14-36); Bilirubin,Total 0.5 mg/dL (0.2-1.3); Blood Urea Nitrogen 13 mg/dL (7-17); Calcium 8.9 mg/dL (8.4-10.2); Carbon Dioxide 32 mmol/L (22-30); Chloride 101 mmol/L (98-107); Cholesterol 184 mg/dL (0-200); Estimated Glomerular Filt Rate > 60; Glucose 99 mg/dL (65-110); HDL Direct 56 mg/dL; Potassium 4.6 mmol/L (3.4-5.0); Sodium 136 mmol/L (137-145); Triglycerides 66 mg/dL (<150)
[2021-07-05 11:27] LABS: LDL Cholesterol Direct 101 mg/dL
[2021-07-05 11:39] LABS: Hemoglobin A1C 11.5 % (<5.7)
[2021-07-05 12:10] LABS: Free T4 Free Thyroxine 1.18 ng/mL (0.78-2.19)
== END 2021-07-05 09:39 | disposition home or self-care (01) ==
LOC: ANHLAB 09:44
PROVIDERS: PCP Family Medicine; Visit Provider Physician Assistant
DX: J44.9 Chronic obstructive pulmonary disease, unspecified (principal); E11.8 Type 2 diabetes mellitus with unspecified complications; Z79.4 Long term (current) use of insulin; E11.40 Type 2 diabetes mellitus with diabetic neuropathy, unspecified; K74.69 Other cirrhosis of liver; E66.09 Other obesity due to excess calories; Z68.30 Body mass index [BMI] 30.0-30.9, adult; I35.0 Nonrheumatic aortic (valve) stenosis
CPT/HCPCS: 36415; 80053; 80061; 83036; 84439; 84443; 85025

== ENCOUNTER 2021-07-27 14:58 | Outpatient (CLI) | payer MEDICARE, OTHER, SELFPAY ==
[2021-07-27 15:43] LABS: Prothrombin Time 12.5 Seconds (11.1-14.7)
[2021-07-27 17:23] LABS: Ferritin 9.02 ng/mL (11.1-264)
== END 2021-07-27 14:59 | disposition home or self-care (01) ==
PROVIDERS: PCP Family Medicine; Referring Provider Internal Medicine Gastroenterology; Visit Provider Nurse Practitioner Family
DX: G47.61 Periodic limb movement disorder (principal); K74.69 Other cirrhosis of liver
CPT/HCPCS: 36415; 82105; 82728; 85610

== ENCOUNTER 2021-08-11 02:46 | Day surgery (SDC) | payer MEDICARE, OTHER, SELFPAY ==
[2021-08-02 12:10] VITALS: BMI 28.7
--- NOTE | 2021-08-10 13:16 | WPDGICN ---
Assessment and Plan Assessment and plan (1) Colon cancer screening: Code(s): Z12.11 - Encounter for screening for malignant neoplasm of colon Status: Acute Assessment and Plan: Colonoscopy with possible biopsy or polypectomy or cautery or injection of substances. (2) Chronic diarrhea: Code(s): K52.9 - Noninfective gastroenteritis and colitis, unspecified Status: Acute Assessment and Plan: will start cholestyramine powder at bedtime GI Consult Note Consult date/time: 08/10/21 13:16 HPI: Krissy Silva is a 71 year old female referred for consideration for colon cancer screening. She does not have a family history of colon cancer. She has not seen blood in her stools. She states that she has had loose and sometimes uncontrollable bowel movements for several years. She had a cholecystectomy many years ago. Review of Systems Review of Systems: All systems reviewed & are unremarkable except as noted in HPI and below PMFSH Past Medical History Medical History Abnormal angiogram (~07/2020) right lower leg Chronic hypoxemic respiratory failure Sees Dr Soto Chronic obstructive pulmonary disease, unspecified Essential (primary) hypertension Hepatitis C antibody test negative History of hearing problem History of tobacco abuse History of vaginal delivery x3 Myocardial infarction Nonalcoholic steatohepatitis (SHAH) Nonrheumatic aortic (valve) stenosis with insufficiency Obstructive sleep apnea (adult) (pediatric) Osteoarthrosis, unspecified whether generalized or localized, forearm Protrusion of intervertebral disc (~10/26/02) Type 2 diabetes mellitus with neurologic complication, without long-term current use of insulin Surgical History Surgical History History of appendectomy (~1993) History of cholecystectomy (~1982) History of foot surgery removal of left great toe mass History of hernia repair (~1993) History of shoulder surgery right bicep tendon repair History of tonsillectomy and adenoidectomy (~1966) History of tubal ligation (~1982) Hx of CABG S/P cataract extraction (~2012) Family History Family History Mother Family history of arthritis Family history of osteoporosis Hypertension Asthma Family history of kidney disease Family history of Alzheimer's disease Sibling Family history of arthritis Family history of malignant neoplasm of esophagus Family history of primary malignant neoplasm of liver Diabetes mellitus Hypertension Family history of elevated blood lipids Family history of cardiovascular disease Acute myocardial infarction, Onset Age: 49 Cerebrovascular accident Family history of kidney disease Grandparent Family history of cardiovascular disease Father Family history of chronic obstructive pulmonary disease, Onset Age: 69 Family history of emphysema, Onset Age: 69 Other Family history of liver disease Social History Social History Smoking end date: 10/10/11 Alcohol intake: never Living arrangements: with family Gender identity (if verbalized by the patient): Female Spiritual care concerns: No Meds Home Medications and Allergies Home Medications Medication Instructions Recorded Confirmed Type denosumab 60 mg/mL subcutaneous 60 mg SUB-Q [id number] #1 ml 05/26/19 08/02/21 Rx syringe calcium carbonate-vitamin D3 1 tablet PO BID 06/27/19 08/02/21 History [Calcium 500 + D] betamethasone valerate 0.1 % 1 applic TOPICAL BID PRN #45 gm 09/09/19 08/02/21 Rx topical cream bupropion HCl 150 mg tablet,12 hr See Rx Instructions .ROUTE 03/22/21 08/02/21 Rx sustained-release .COMPLEX #90 tablet carvedilol 3.125 mg tablet 3.125 mg PO Q12H #180 tablet 03/22/21 08/02/21 Rx
[2021-08-11 06:55] VITALS: BP 152/61; PULSE 110; RESP 25; O2SAT 93; BMI 29.2
--- NOTE | 2021-08-11 07:13 | WPDANESEPPF ---
Anes - Initial Pre Proc Eval Procedure: Operation Date: 08/11/21 08:00 Proposed Procedures p Screening Colonoscopy - Fredo Denis MD Date/Time: 08/11/21 07:13 Surgeon: Fredo Denis MD Pre Op Diagnosis: neoplasm screening Patient Data Age: 71 Gender: F Height: 1.6 m Weight: 75 kg Last Vital Signs Pulse 110 H 08/11/21 06:55 Resp 25 H 08/11/21 06:55 BP 152/61 H 08/11/21 06:55 Pulse Ox 93 08/11/21 06:55 Allergies Allergy/AdvReac Type Severity Reaction Status Date / Time azithromycin Allergy Intermediate Rash Verified 08/11/21 06:54 erythromycin base Allergy Unknown Unknown Verified 08/11/21 06:54 iodine Allergy Unknown Skin Verified 08/11/21 06:54 Reaction Contrast Media Allergy Unknown HIVES Uncoded 08/11/21 06:54 Home Medications Medication Instructions Recorded Confirmed Type denosumab 60 mg/mL subcutaneous 60 mg SUB-Q [id number] #1 ml 05/26/19 08/02/21 Rx syringe calcium carbonate-vitamin D3 1 tablet PO BID 06/27/19 08/02/21 History [Calcium 500 + D] betamethasone valerate 0.1 % 1 applic TOPICAL BID PRN #45 gm 09/09/19 08/02/21 Rx topical cream bupropion HCl 150 mg tablet,12 hr See Rx Instructions .ROUTE 03/22/21 08/02/21 Rx sustained-release .COMPLEX #90 tablet carvedilol 3.125 mg tablet 3.125 mg PO Q12H #180 tablet 03/22/21 08/02/21 Rx ezetimibe 10 mg-simvastatin 40 mg 1 tablet PO DAILY #90 tablet 03/22/21 08/02/21 Rx tablet fluticasone 250 mcg-salmeterol 50 1 inh INHALATION BID #60 each 03/22/21 08/02/21 Rx mcg/dose blistr powdr for inhalation furosemide 20 mg tablet 20 mg PO BID #180 tablet 03/22/21 08/02/21 Rx insulin aspart U-100 100 unit/mL 5 unit SUBCUT TID #15 ml 03/22/21 08/02/21 Rx (3 mL) subcutaneous pen insulin glargine 100 unit/mL 40 unit SUB-Q DAILY 90 Days #36 ml 03/22/21 08/02/21 Rx subcutaneous solution lisinopril 10 mg tablet 10 mg PO DAILY #90 tablet 03/22/21 08/02/21 Rx ropinirole 0.5 mg tablet See Rx Instructions .ROUTE 03/22/21 08/02/21 Rx .COMPLEX #360 tablet tiotropium bromide 18 mcg capsule 1 cap INHALATION DAILY #90 03/22/21 08/02/21 Rx with inhalation device inhalation trazodone 50 mg tablet 50 mg PO .QHS #90 tablet 03/22/21 08/02/21 Rx apixaban 5 mg tablet 5 mg PO BID #60 tablet 04/01/21 07/06/21 Rx albuterol sulfate 90 mcg/actuation 2 inh INHALATION Q4H PRN #8.5 g 06/07/21 08/02/21 Rx aerosol inhaler Patient hx anesthesia problems: none Family hx anesthesia problems: none Results Review: All pre-operative results and documents have been reviewed as part of the pre-operative evaluation. [facility] Past Medical History Medical History Abnormal angiogram (~07/2020) right lower leg Chronic hypoxemic respiratory failure Sees Dr Soto Chronic obstructive pulmonary disease, unspecified Essential (primary) hypertension Hepatitis C antibody test negative History of hearing problem History of tobacco abuse History of vaginal delivery x3 Myocardial infarction Nonalcoholic steatohepatitis (SHAH) Nonrheumatic aortic (valve) stenosis with insufficiency Obstructive sleep apnea (adult) (pediatric) Osteoarthrosis, unspecified whether generalized or localized, forearm Protrusion of intervertebral disc (~10/26/02) Type 2 diabetes mellitus with neurologic complication, without long-term current use of insulin Surgical History Surgical History History of appendectomy (~1993) History of cholecystectomy (~1982) History of foot surgery removal of left great toe mass History of hernia repair (~1993) History of shoulder surgery right bicep tendon repair History of tonsillectomy and adenoidectomy (~1966) History of tubal ligation (~1982) Hx of CABG S/P cataract extraction (~2012) Family History Family History Mother Family history of arthritis Famil
[2021-08-11] MEDS: LACTATED RINGERS 1,000 ML 150 ML IV CONT (07:15)
[2021-08-11 07:31] LABS: Glucose Point of Care 114 mg/dl (65-105)
[2021-08-11 08:24] VITALS: BP 97/32; PULSE 101; RESP 20; O2SAT 100
[2021-08-11 08:34] VITALS: BP 84/32; PULSE 106; RESP 24; O2SAT 100
[2021-08-11 08:40] LABS: Glucose Point of Care 116 mg/dl (65-105)
[2021-08-11 08:44] VITALS: BP 115/57; PULSE 104; RESP 20; O2SAT 100
== END 2021-08-11 08:53 | disposition home or self-care (01) ==
PROVIDERS: PCP Family Medicine; Visit Provider Internal Medicine Gastroenterology
PROC: 0DJD8ZZ Inspection of Lower Intestinal Tract, Via Natural or Artificial Opening Endoscopic (ICD-10-PCS; CPT 45378; principal; 2021-08-11 08:00)
DX: Z12.11 Encounter for screening for malignant neoplasm of colon (principal); K62.1 Rectal polyp; R19.7 Diarrhea, unspecified; I10 Essential (primary) hypertension; J96.11 Chronic respiratory failure with hypoxia; J44.9 Chronic obstructive pulmonary disease, unspecified; I25.2 Old myocardial infarction; K75.81 Nonalcoholic steatohepatitis (NASH); I35.2 Nonrheumatic aortic (valve) stenosis with insufficiency; G47.33 Obstructive sleep apnea (adult) (pediatric); E11.49 Type 2 diabetes mellitus with other diabetic neurological complication; Z95.1 Presence of aortocoronary bypass graft; Z79.4 Long term (current) use of insulin; Z79.01 Long term (current) use of anticoagulants; Z79.51 Long term (current) use of inhaled steroids
CPT/HCPCS: 45385; 82948; 88305; J2704; J7120

== ENCOUNTER 2021-08-15 10:16 | Emergency (ER) | payer MEDICARE, OTHER, SELFPAY ==
--- NOTE | ~2021-08-15 | XR_ITS ---
EXAMINATION: XR chest 2V 08/15/2021 10:52 INDICATION: Nonproductive cough for 3 days PROCEDURE: 2 view chest COMPARISON: Comparison to multiple prior studies sequentially, with oldest reviewed study dated 08/08. FINDINGS: The lungs are clear. The cardiomediastinal silhouette is within normal limits. There are no pleural effusions. There is no pneumothorax suspected. The lungs are hyperinflated which is cons istent with, but not diagnostic of chronic obstructive pulmonary disease. There is atherosclerosis an d ectasia of the aorta. Chronic lingular infiltrate, likely scarring. IMPRESSION: 1: NO ACUTE CARDIOPULMONARY DISEASE. Reviewed, dictated and finalized at location A.
[2021-08-15 10:27] VITALS: BP 148/60; PULSE 99; RESP 24; TEMP 36.6; O2SAT 95
--- NOTE | 2021-08-15 10:58 | ED.URI ---
HPI - URI/Sore Throat General Chief Complaint: Upper Respiratory Infection Stated Complaint: Cough,Sore Throat Time Seen by Provider: 08/15/21 10:58 Source: patient, RN notes reviewed and old records reviewed Mode of arrival: ambulatory Limitations: no limitations History of Present Illness HPI Narrative: 71-year-old female who presents to [facility] with complaints of acute cough, nasal congestion with drainage since Sunday. Patient has history of COPD and uses oxygen per nasal cannula as needed at home, SAO2 95% on room air while in clinic but patient is somewhat tachypneic but able to speak in full sentences.. Patient states that she just doesn't feel well she has been sleeping a lot more lately and the cough is productive at times of greenish tinged mucous. Patient denies any increase in dyspnea denies any fevers, chills or sweats, reports no swelling of her extremities.Patient states that she took a rapid COVID test yesterday that was negative, has had COVID immunizations and flu shot.Patient states that she is using her inhalers as prescribed. MD elicited complaint: cough Pertinent past history: COPD Related Data Home Medications Medication Instructions Recorded Confirmed calcium carbonate-vitamin D3 1 tablet PO BID 06/27/19 08/15/21 [Calcium 500 + D] aspirin 81 mg PO DAILY 08/15/21 08/15/21 Allergies Allergy/AdvReac Type Severity Reaction Status Date / Time azithromycin Allergy Intermediate Rash Verified 08/15/21 10:27 erythromycin base Allergy Unknown Unknown Verified 08/15/21 10:27 iodine Allergy Unknown Skin Verified 08/15/21 10:27 Reaction Contrast Media Allergy Unknown HIVES Uncoded 08/15/21 10:27 Review of Systems Review of Systems: CONSTITUTIONAL: Denies fever, chills, or sweats. EYES: Denies visual changes, redness, or discharge. ENT: Positive rhinorrhea, congestion,no sore throat, or otalgia, is hoarse. CARDIOVASCULAR: Denies chest pain, palpitations, or edema. RESPIRATORY: Positive for cough or dyspnea. GASTROINTESTINAL: Denies abdominal pain, nausea, vomiting, or diarrhea. GENITOURINARY: Denies dysuria or hematuria. SKIN: Denies rash or itching. MUSCULOSKELETAL: Denies back pain, joint pain, or myalgia. NEUROLOGIC: Denies headache, numbness, or weakness. PSYCHIATRIC: Positive for history of anxiety or depression. All systems reviewed & are unremarkable except as noted in HPI and below PMFSH Past Medical History Medical History Abnormal angiogram (~07/2020) right lower leg Aortic stenosis echocardiogram 12- show valve area of 1.[address] Antoine Chronic hypoxemic respiratory failure Sees Dr Soto Hepatitis C antibody test negative History of hearing problem History of tobacco abuse History of vaginal delivery x3 Myocardial infarction Neck mass Nonalcoholic steatohepatitis (SHAH) Nonrheumatic aortic (valve) stenosis with insufficiency Osteoarthrosis, unspecified whether generalized or localized, forearm Protrusion of intervertebral disc (~10/26/02) Surgical History Surgical History History of appendectomy (~1993) History of cholecystectomy (~1982) History of foot surgery removal of left great toe mass History of hernia repair (~1993) History of shoulder surgery right bicep tendon repair History of tonsillectomy and adenoidectomy (~1966) History of tubal ligation (~1982) Hx of CABG S/P cataract extraction (~2012) Family History Family History Mother Family history of arthritis Family history of osteoporosis Hypertension Asthma Family history of kidney disease Family history of Alzheimer's disease Sibling Family history of arthritis Family history of malignant neoplasm of esophagus Family history of primary malignant neoplasm of liver Diabetes mellitus Hypertension Family history
[2021-08-15 18:38] VITALS: BP 148/60; PULSE 99; RESP 24; TEMP 36.6; O2SAT 95
[2021-08-15 19:10] VITALS: BP 148/60; PULSE 99; RESP 24; TEMP 36.6; O2SAT 95
== END 2021-08-15 11:28 | disposition home or self-care (01) ==
PROVIDERS: Emergency Provider Registered Nurse; PCP Family Medicine
DX: J44.1 Chronic obstructive pulmonary disease with (acute) exacerbation (principal); J00 Acute nasopharyngitis [common cold]; I35.0 Nonrheumatic aortic (valve) stenosis; I25.2 Old myocardial infarction; K75.81 Nonalcoholic steatohepatitis (NASH); M19.09 Primary osteoarthritis, other specified site; Z95.1 Presence of aortocoronary bypass graft; Z98.49 Cataract extraction status, unspecified eye; Z79.82 Long term (current) use of aspirin
CPT/HCPCS: 71046; 87880; 99213; G0463

== ENCOUNTER 2021-10-12 15:05 | Outpatient (CLI) | payer MEDICARE, OTHER, SELFPAY ==
--- NOTE | ~2021-10-12 | DEXA_ITS ---
Bone Density Report Name: FLACO BOO Age: 71 Sex: Female Ethnicity: White Date of : 1950 Indication: postmenopausal osteoporosis; monitoring treatment; height loss; prior fracture; asthma or emphysema; Referring Provider: ROMEL, LOLA Rousseau Study: Bone densitometry was performed. Exam Date: October 12, 2021 Accession number: [id number] Bone Density: Region BMD T-score Z-score Classification AP Spine(L1-L4) 0.755 -2.7 -0.4 Osteoporosis Femoral Neck (Left) 0.397 -4.1 -2.1 Osteoporosis Total Hip (Left) 0.575 -3.0 -1.4 Osteoporosis Femoral Neck (Right) 0.521 -3.0 -1.0 Osteoporosis Total Hip (Right) 0.553 -3.2 -1.5 Osteoporosis Total Hip Mean 0.564 -3.1 -1.5 Osteoporosis World Health Organization criteria for BMD impression classify patients as: Normal (T-score at or above -1.0), Osteopenia (T-score between -1.0 and -2.5), or Osteoporosis (T-score at or below -2.5). 10-year Fracture Risk: FRAX not reported because: Some T-score for Spine Total or Hip Total or Femoral Neck at or below -2.5 Prior hip or vertebral fracture Treated for osteoporosis Previous Exams: Region Exam Age BMD T-score BMD Change BMD Change Date g/cm2 vs Baseline vs Previous AP Spine (L1-L4) 10/12/2021 71 0.755 -2.7 0.046 (6.4%)# 0.058 (8.3%)* 01/03/2016 65 0.697 -3.2 -0.013 (-1.8%) -0.013 (-1.8%) 03/11/2013 63 0.709 -3.1 Total Hip(Left) 10/12/2021 71 0.575 -3.0 -0.037 (-6.1%) -0.043 (-6.9%) 01/03/2016 65 0.618 -2.7 0.005 (0.9%)# 0.005 (0.9%)# 03/11/2013 63 0.612 -2.7 Total Hip(Right) 10/12/2021 71 0.553 -3.2 -0.062 (-10.1% -0.078 (-12.4% 01/03/2016 65 0.631 -2.5 0.016 (2.6%)# 0.016 (2.6%)# 03/11/2013 63 0.615 -2.7 *Denotes significance at 95% confidence level, LSC for AP Spine = 0.022 g/cm2, LSC for Total Hip = 0.027 g/cm2 # Denotes dissimilar scan types or analysis methods Clinical Information Provided by Patient: Have had a previous hip or vertebral fracture Has had a low trauma fracture Is being treated for osteoporosis Has used the following medications: Prolia (i.e. denosumab), Vitamin D, Calcium Has the following medical conditions: Asthma or Emphysema Patient maximum height was 66 Menopause Age: 43 No regular weight bearing exercise Does not regularly consume dairy products Drinks caffeinated beverages Onset of menses at age 8 Number of children 3 Impression: The patient has established osteoporos
--- NOTE | ~2021-10-12 | MM_ITS ---
EXAMINATION: MM screening [facility] BI w stacey HISTORY: Screening mammogram TECHNIQUE: Craniocaudal and mediolateral oblique 3-D tomosynthesis images were obtained and synthetic 2-D images were generated. CAD analysis was submitted and interpreted. COMPARISON: 06/08/2020, 02/06/2018, 01/03/2016 BREAST PARENCHYMAL COMPOSITION: There are scattered areas of fibroglandular density. FINDINGS: There is no suspicious mass, calcification, or architectural distortion to suggest malignan cy in either breast. There has been no suspicious interval change. IMPRESSION: 1. No mammographic evidence of malignancy. 2. Recommend routine screening mammography in one year. BI-RADS Category 1: Negative Reviewed, dictated and finalized at location A.
== END 2021-10-12 15:06 | disposition home or self-care (01) ==
LOC: ANHIMG 15:06
PROVIDERS: PCP Family Medicine; Visit Provider Physician Assistant Medical
DX: Z12.31 Encounter for screening mammogram for malignant neoplasm of breast (principal); Z78.0 Asymptomatic menopausal state; M81.0 Age-related osteoporosis without current pathological fracture
CPT/HCPCS: 77063; 77067; 77080

== ENCOUNTER 2021-10-14 20:53 | Emergency (ER) | payer MEDICARE, OTHER, SELFPAY ==
[2021-10-14 21:09] VITALS: BP 141/52; PULSE 100; RESP 18; TEMP 36.4; O2SAT 96
[2021-10-14 22:45] LABS: Basophils Absolute Auto 0.1 K/mm3 (0.0-0.1); Basophils Percent Auto 0.8 % (0.2-1.2); Eosinophils Absolute Auto 0.1 K/mm3 (0-0.3); Eosinophils Percent Auto 1.8 % (0-4.4); Hematocrit 43.4 % (37.0-47.0); Immature Granulocyte Absolute 0.02 K/mm3 (0.00-0.031); Immature Granulocyte Percent A 0.3 % (0-0.5); Mean Corpuscular HGB Conc 32.3 g/dl (32-36); Mean Corpuscular Volume 83.6 fl (80-100); Mean Platelet Volume 10.1 fl (7.4-10.4); Monocytes Absolute Auto 0.5 K/mm3 (0.1-0.6); Monocytes Percent Auto 7.7 % (2.6-8.5); Neutrophils Absolute Auto 4.6 K/mm3 (1.3-6.7); Neutrophils Percent Auto 68.4 % (45.5-73.1); Platelet Count Result 167 k/mm3 (150-375); Red Blood Count 5.19 M/mm3 (4.2-5.4); Red Cell Distribution Width 15.3 % (11.5-14.5); White Blood Count 6.7 K/mm3 (4.5-10.0)
[2021-10-14 22:56] LABS: INR 1.1; Prothrombin Time 13.6 Seconds (11.1-14.7)
[2021-10-14 22:57] LABS: Alanine Aminotransferase 21 U/L (6-35); Albumin Level 3.7 g/dL (3.5-5.1); Alkaline Phosphatase 124 U/L (38-126); Anion Gap 7 mmol/L (8-16); Aspartate Amino Transferase 26 U/L (14-36); Bilirubin,Total 0.3 mg/dL (0.2-1.3); Blood Urea Nitrogen 20 mg/dL (7-17); Calcium 8.6 mg/dL (8.4-10.2); Carbon Dioxide 28 mmol/L (22-30); Chloride 101 mmol/L (98-107); Creatine Kinase 70 U/L (30-135); Estimated CRCL calculation 82 ml/min; Estimated Glomerular Filt Rate > 60; Glucose 173 mg/dL (65-110); Partial Thromboplastin Time 24.1 SECONDS (22.3-36.8); Potassium 3.8 mmol/L (3.4-5.0); Sodium 136 mmol/L (137-145)
[2021-10-14 22:59] LABS: D Dimer 0.64 ug/mL (<0.48)
--- NOTE | 2021-10-14 23:25 | ED.LOWEXIN ---
HPI - Extremity Injury (Lower) General Chief Complaint: Extremity Injury, Lower Stated Complaint: possible blood clot to leg Time Seen by Provider: 10/14/21 21:56 Source: patient History of Present Illness HPI Narrative: Patient presents with right lower extremity pain and swelling. Reports symptoms started today have been getting worse so she came to the ER for evaluation she is concerned maybe she had a blood clot. She denies any trauma to the area she denies any erythema or warmth. She reports her left leg is usually swollen but today's episode is on her right. She does report a history of poor perfusion to her bilateral lower extremities and does see a vascular surgeon. She denies any chest pain or shortness of breath denies any fevers chills nausea vomiting or cough. She denies any recent hospitalizations or surgeries denies prior history of blood clots. Related Data Home Medications Medication Instructions Recorded Confirmed calcium carbonate-vitamin D3 1 tablet PO BID 06/27/19 09/07/21 [Calcium 500 + D] aspirin 81 mg PO DAILY 08/15/21 09/07/21 Allergies Allergy/AdvReac Type Severity Reaction Status Date / Time azithromycin Allergy Intermediate Rash Verified 09/28/21 08:43 erythromycin base Allergy Unknown Unknown Verified 09/28/21 08:43 iodine Allergy Unknown Skin Verified 09/28/21 08:43 Reaction procaine [From Novocain] AdvReac Intermediate increased Verified 09/28/21 08:43 heart rate Contrast Media Allergy Unknown HIVES Uncoded 09/28/21 08:43 Review of Systems Review of Systems: CONSTITUTIONAL: Denies fever, chills, or sweats. EYES: Denies visual changes, redness, or discharge. ENT: Denies rhinorrhea, congestion, sore throat, or otalgia. CARDIOVASCULAR: Denies chest pain, palpitations, or edema. RESPIRATORY: Denies cough or dyspnea. GASTROINTESTINAL: Denies abdominal pain, nausea, vomiting, or diarrhea. GENITOURINARY: Denies dysuria or hematuria. SKIN: Denies rash or itching. MUSCULOSKELETAL: Denies back pain, joint pain, or myalgia. NEUROLOGIC: Denies headache, numbness, dizziness, or weakness. PSYCHIATRIC: Denies anxiety or depression. All systems reviewed & are unremarkable except as noted in HPI and below PMFSH Past Medical History Medical History Aortic stenosis echocardiogram - show valve area of 1.[address] Antoine Chronic hypoxemic respiratory failure Sees Dr Soto Hepatitis C antibody test negative History of tobacco abuse History of vaginal delivery x3 Neck mass Nonalcoholic steatohepatitis (SHAH) Nonrheumatic aortic (valve) stenosis with insufficiency Osteoarthrosis, unspecified whether generalized or localized, forearm Protrusion of intervertebral disc (~10/26/02) Wound infection Surgical History Surgical History History of appendectomy (~1993) History of cholecystectomy (~1982) History of foot surgery removal of left great toe mass History of hernia repair (~1993) x2 History of shoulder surgery right bicep tendon repair History of tonsillectomy and adenoidectomy (~1966) History of tubal ligation (~1982) S/P cataract extraction (~2012) both eyes Family History Family History Mother Family history of arthritis Family history of osteoporosis Hypertension Asthma Family history of kidney disease Family history of Alzheimer's disease Sibling Family history of arthritis Family history of malignant neoplasm of esophagus Family history of primary malignant neoplasm of liver Diabetes mellitus Hypertension Family history of elevated blood lipids Family history of cardiovascular disease Acute myocardial infarction, Onset Age: 49 Cerebrovascular accident Family history of kidney disease Grandparent Family history of cardiovascular disease Father Family history o
[2021-10-14 23:37] VITALS: BP 120/60; PULSE 95; RESP 20; O2SAT 95
== END 2021-10-14 23:43 | disposition home or self-care (01) ==
PROVIDERS: Emergency Provider Emergency Medicine; PCP Family Medicine
DX: M79.604 Pain in right leg (principal); J96.11 Chronic respiratory failure with hypoxia; I35.0 Nonrheumatic aortic (valve) stenosis; K75.81 Nonalcoholic steatohepatitis (NASH); M19.90 Unspecified osteoarthritis, unspecified site; Z98.42 Cataract extraction status, left eye; Z98.41 Cataract extraction status, right eye; Z87.891 Personal history of nicotine dependence
CPT/HCPCS: 36415; 80053; 82550; 85025; 85380; 85610; 85730; 99283

== ENCOUNTER 2021-10-15 07:21 | Outpatient (CLI) | payer MEDICARE, OTHER, SELFPAY ==
--- NOTE | ~2021-10-15 | US_ITS ---
EXAMINATION: US venous doppler LE RT DATE: 10/15/2021 08:04 INDICATION: Right lower limb pain and swelling TECHNIQUE: Grayscale ultrasound images without and with compression and Doppler ultrasound images of the right lower extremity veins were obtained. COMPARISON: 03/25/2021 FINDINGS: The visualized portions of right common femoral vein, profunda (deep) femoral vein, femoral vein, pop liteal vein, peroneal trunk, posterior tibial veins, peroneal veins, gastrocnemius vein, lesser saphe nous vein and greater saphenous vein outflow are patent. IMPRESSION: 1. No deep venous thrombosis in the right lower limb. Reviewed, dictated and finalized at location A.
== END 2021-10-15 07:22 | disposition home or self-care (01) ==
PROVIDERS: PCP Family Medicine; Visit Provider Family Medicine
DX: M79.89 Other specified soft tissue disorders (principal)
CPT/HCPCS: 93971

== ENCOUNTER 2021-10-26 14:19 | Outpatient (CLI) | payer MEDICARE, OTHER, SELFPAY | END 2021-10-26 14:20 | disposition home or self-care (01) | PROVIDERS: PCP Family Medicine; Visit Provider Nurse Practitioner Family | DX: G47.61 Periodic limb movement disorder (principal); E61.1 Iron deficiency | CPT/HCPCS: 36415; 82728 ==

== ENCOUNTER 2021-11-10 07:40 | Outpatient (CLI) | payer MEDICARE, OTHER, SELFPAY ==
--- NOTE | 2021-11-11 19:49 | WPDSLEEPSTUD ---
Sleep Study Date of Study: 11/10/21 Ordering Provider: Horace Villa APRN Interpreting Physician: Lola Soto MD Sleep Study Type: Polysomnogram Height: 1.57 m Weight: 66.224 kg Body Mass Index: 26.6 Neck Circumference (inches): 16 [place]: 3 Reason for Sleep Study patient has known SAMIRA and has to have a sleep study to re-qualify for PAP Therapy * 04/11/2021 she attempted a split night sleep study however was not able to fall asleep; total recording time was 125.6 minutes without sleep; she left AMA at 11:07 pm. This patient has chronic respiratory failure on 2 L of oxygen in the day and with sleep, and 3 L with exertion.? She is not a candidate for home sleep test due to her oxygen requirement.? At the prior study in March, she took 2 tablets of trazodone at the sleep lab but was not able to fall asleep.? She also says that she was unable to fall asleep because she always uses her CPAP. Without CPAP, she feels airway closing which prevents her from falling asleep. I talked to the patient and she agrees to come back to the sleep lab for an in-lab split titration and we will prescribed Lunesta which is more effective than trazodone to initiate and maintain sleep. * 06/08/2021 Basic PSG with hypoxemia, 10 minutes below 88% Sleep History Krissy Silva is a 71 year old with obstructive sleep apnea who had a basic sleep study on Jun 08, 2021 which show sustained hypoxemia but not enough apnea to qualify to start CPAP. That study showed fragmented sleep which is often seen with people to have severe sleep apnea with inability to accumulate enough sleep to qualify to start PAP.. insulin dependent diabetes, aortic stenosis, peripheral arterial disease, COPD, liver cirrhosis and history of myocardial infarction that had a sleep study ordered by her account collector? because she needs to requalify for PAP therapy.? The patient denies awakening from sleep short of breath.? She denies awakening at night with heartburn, belching or cough.? She denies snoring loudly enough that others complain.? She occasionally has difficulty sleeping which she has a cold.? She denies waking up gasping for air throughout the night.? She denies sweating excessively at night.? She denies falling asleep during the day and while driving.? She denies sleep paralysis, cataplexy and hypnagogic / hypnopompic hallucinations.? She denies having nightmares.? She denies having thoughts race through her mind.? She denies feeling sad or depressed.? She rarely feels anxious.? She denies noticing parts of her body jerk.? She denies crawling and aching feelings in her legs.? She occasionally has leg pain during the night.? She denies grinding her teeth during sleep and awakening with morning jaw pain.? She rarely wakes up feeling stiff in the morning with sore and achy muscles. The patient goes to bed at 11:00 p.m. on both weekdays and weekends.? It takes her a significant amount of time to fall asleep.? She typically wakes up 4 times per night.? When she awakens, she will change positions and try to go back to sleep.? She did not list a wake-up time.? When she awakens, she does not stay in bed.? She currently lives with her .? She does not consume any caffeinated beverages within 2 hours of bedtime.? She does not engage in physical exercise before bedtime.? She will watch television before falling asleep.? She will occasionally take naps in the afternoon or the evening but they are not refreshing.? Habits: She has 2 cups of coffee per day.? She denies tobacco, alcohol recreational drug use. [facility] Past Medical History Medical History Aortic stenosis echocardiogram 05-15 show valve area of 1.[address] Antoine Chronic hypoxemic respiratory failure Sees Dr Soto Hepatitis C antibody test negative History of tobacco abuse History of vaginal delivery x3 Neck mass Nonalcoholic steatohepatitis (SHAH) Nonrheumatic aortic (valve)
[2021-11-11 20:54] VITALS: BMI 26.6
== END 2021-11-11 07:53 | disposition home or self-care (01) ==
LOC: ANHCSM 07:41
PROVIDERS: PCP Family Medicine; Visit Provider Nurse Practitioner Family
DX: G47.33 Obstructive sleep apnea (adult) (pediatric) (principal); G47.61 Periodic limb movement disorder
CPT/HCPCS: 95810

== ENCOUNTER 2021-11-17 07:38 | Outpatient (CLI) | payer MEDICARE, OTHER, SELFPAY ==
--- NOTE | 2021-12-12 15:09 | WPDSLEEPSTUD ---
Sleep Study Date of Study: 11/17/21 Ordering Provider: Horace Villa APRN Interpreting Physician: Gala Manning, Sleep Study Type: BiPAP Titration Height: 1.57 m Weight: 75.296 kg Body Mass Index: 30.3 Neck Circumference (inches): 14.5 [place]: 4 Reason for Sleep Study The patient had a basic nocturnal polysomnogram on November 10, 2021 shows mild obstructive sleep apnea with an apnea hypopnea index 9.6, desaturation to 75% and 93.2% of the study spent below 88%, 432.4 minutes. Sleep History Krissy Silva is a 71 year old with obstructive sleep apnea who had a basic sleep study on Jun 08, 2021 which show sustained hypoxemia but not enough apnea to qualify to start CPAP.? That study showed fragmented sleep which is often seen with people to have severe sleep apnea with inability to accumulate enough sleep to qualify to start PAP..? insulin dependent diabetes, aortic stenosis, peripheral arterial disease, COPD, liver cirrhosis and history of myocardial infarction that had a sleep study ordered by her incident response analyst? because she needs to requalify for PAP therapy.? The patient denies awakening from sleep short of breath.? She denies awakening at night with heartburn, belching or cough.? She denies snoring loudly enough that others complain.? She occasionally has difficulty sleeping which she has a cold.? She denies waking up gasping for air throughout the night.? She denies sweating excessively at night.? She denies falling asleep during the day and while driving.? She denies sleep paralysis, cataplexy and hypnagogic / hypnopompic hallucinations.? She denies having nightmares.? She denies having thoughts race through her mind.? She denies feeling sad or depressed.? She rarely feels anxious.? She denies noticing parts of her body jerk.? She denies crawling and aching feelings in her legs.? She occasionally has leg pain during the night.? She denies grinding her teeth during sleep and awakening with morning jaw pain.? She rarely wakes up feeling stiff in the morning with sore and achy muscles. The patient goes to bed at 11:00 p.m. on both weekdays and weekends.? It takes her a significant amount of time to fall asleep.? She typically wakes up 4 times per night.? When she awakens, she will change positions and try to go back to sleep.? She did not list a wake-up time.? When she awakens, she does not stay in bed.? She currently lives with her .? She does not consume any caffeinated beverages within 2 hours of bedtime.? She does not engage in physical exercise before bedtime.? She will watch television before falling asleep.? She will occasionally take naps in the afternoon or the evening but they are not refreshing.? Habits: She has 2 cups of coffee per day.? She denies tobacco, alcohol recreational drug use. [facility] Past Medical History Medical History Aortic stenosis echocardiogram - show valve area of 1.[address] Antoine Chronic hypoxemic respiratory failure Sees Dr Soto Hepatitis C antibody test negative History of tobacco abuse History of vaginal delivery x3 Neck mass Nonalcoholic steatohepatitis (SHAH) Nonrheumatic aortic (valve) stenosis with insufficiency Osteoarthrosis, unspecified whether generalized or localized, forearm Protrusion of intervertebral disc (~10/26/02) Wound infection Surgical History Surgical History History of appendectomy (~1993) History of cholecystectomy (~1982) History of foot surgery removal of left great toe mass History of hernia repair (~1993) x2 History of shoulder surgery right bicep tendon repair History of tonsillectomy and adenoidectomy (~1966) History of tubal ligation (~1982) S/P cataract extraction (~2012) both eyes Family History Family History Mother Family history of arthritis Family h
[2021-12-12 18:02] VITALS: BMI 30.3
== END 2021-11-18 06:58 | disposition home or self-care (01) ==
LOC: ANHCSM 07:48
PROVIDERS: PCP Family Medicine; Visit Provider Nurse Practitioner Family
DX: G47.30 Sleep apnea, unspecified (principal); G47.33 Obstructive sleep apnea (adult) (pediatric)
CPT/HCPCS: 95811

== ENCOUNTER 2022-04-25 09:13 | Outpatient (CLI) | payer MEDICARE, OTHER, SELFPAY ==
--- NOTE | ~2022-04-25 | XR_ITS ---
XR chest 2V 04/25/2022 10:00 Indication: Abnormal weight loss. Procedure: PA and lateral views of the chest Comparison: Comparison to multiple prior studies sequentially, with oldest reviewed study dated 10/21. Findings: There is chronic lingular atelectasis/scarring. The lungs are hyperinflated which is consis tent with, but not diagnostic of chronic obstructive pulmonary disease. There is atherosclerosis of t he aorta. Right lung clear. There are multiple chronic compression fractures of the thoracic spine. Impression: 1: No acute cardiopulmonary disease. No significant interval change from prior studies. Reviewed, dictated and finalized at location A. MONIA DISTILLER Impression: 1: No acute cardiopulmonary disease. No significant interval change from prior studies.
[2022-04-25 09:54] LABS: Basophils Percent Auto 0.7 % (0.2-1.2); Eosinophils Absolute Auto 0.1 K/mm3 (0-0.3); Eosinophils Percent Auto 2.2 % (0-4.4); Hematocrit 41.6 % (37.0-47.0); Hemoglobin 14.3 g/dL (12.0-15.0); Immature Granulocyte Absolute 0.03 K/mm3 (0.00-0.031); Immature Granulocyte Percent A 0.5 % (0-0.5); Lymphocytes Absolute Auto 0.73 K/mm3 (0.9-3.2); Lymphocytes Percent Auto 12.5 % (18.3-44.2); Mean Corpuscular HGB Conc 34.4 g/dl (32-36); Mean Corpuscular Hemoglobin 28.8 pg (26-34); Mean Corpuscular Volume 83.7 fl (80-100); Mean Platelet Volume 9.7 fl (7.4-10.4); Monocytes Absolute Auto 0.5 K/mm3 (0.1-0.6); Monocytes Percent Auto 8.7 % (2.6-8.5); Neutrophils Absolute Auto 4.4 K/mm3 (1.3-6.7); Neutrophils Percent Auto 75.4 % (45.5-73.1); Platelet Count Result 258 k/mm3 (150-375); Red Blood Count 4.97 M/mm3 (4.2-5.4); White Blood Count 5.9 K/mm3 (4.5-10.0)
[2022-04-25 10:09] LABS: Alanine Aminotransferase 15 U/L (6-35); Albumin Level 3.6 g/dL (3.5-5.1); Alkaline Phosphatase 74 U/L (38-126); Anion Gap 8 mmol/L (8-16); Aspartate Amino Transferase 22 U/L (14-36); Blood Urea Nitrogen 8 mg/dL (7-17); Calcium 8.3 mg/dL (8.4-10.2); Carbon Dioxide 33 mmol/L (22-30); Chloride 96 mmol/L (98-107); Cholesterol 172 mg/dL (0-200); Estimated Glomerular Filt Rate > 60; Glucose 145 mg/dL (65-110); HDL Direct 33 mg/dL; Potassium 4.1 mmol/L (3.4-5.0); Sodium 137 mmol/L (137-145); Triglycerides 104 mg/dL (<150)
[2022-04-25 10:20] LABS: LDL Cholesterol Direct 102 mg/dL
[2022-04-25 10:37] LABS: Thyroid Stimulating Hormone 0.747 uIU/mL (0.465-4.680)
[2022-04-25 10:51] LABS: Creatinine Urine 156.6 mg/dL
[2022-04-25 10:56] LABS: MALB Creatinine Ratio 52.3 mg/g (0-30); Microalbumin Urine Random 81.9 mg/L (0-16.7)
== END 2022-04-25 09:14 | disposition home or self-care (01) ==
PROVIDERS: PCP Family Medicine; Visit Provider Physician Assistant
DX: R63.4 Abnormal weight loss (principal); E11.40 Type 2 diabetes mellitus with diabetic neuropathy, unspecified; K74.69 Other cirrhosis of liver; I35.0 Nonrheumatic aortic (valve) stenosis; E78.2 Mixed hyperlipidemia
CPT/HCPCS: 36415; 71046; 80053; 80061; 82043; 83036; 84436; 84443; 85025

== ENCOUNTER 2022-06-14 10:03 | Outpatient (CLI) | payer MEDICARE, OTHER, SELFPAY ==
--- NOTE | ~2022-06-14 | CT_ITS ---
EXAMINATION: CT lung screening DATE: 06/14/2022 10:23 INDICATION: ct lung screening TECHNIQUE: Computed tomography (CT) of the chest was performed without intravenous contrast. Addition al 3D reconstructions utilizing coronal maximum intensity projection (MIP) were performed. Automated exposure control and iterative reconstruction technique were employed. The dose-length product was 11 1.49 mGy-cm. COMPARISON: 05/31/2021 and 02/21/2021 FINDINGS: Mild apical emphysema. Mild bronchiectasis in the bilateral lower lungs. Stable appearance of chronic mild atelectasis/scarring at the inferior lingula. Unchanged 3 mm nodule in the left upper lobe on s eries 4, image 24. No new or enlarging pulmonary nodules. No pneumonia, pulmonary edema or pleural ef fusion. Heart size is normal. Atherosclerotic coronary artery calcifications. Aortic valve and mitral annular calcification. Additional atherosclerotic calcifications along the normal caliber thoracic a yakelin as well as the arteries arising from the arch No pathologically enlarged thoracic lymphadenopath y. Nodular liver surface consistent with cirrhosis. Likely cholecystectomy. Moderate thoracic spondyl osis with multiple chronic compression fractures in the mid to lower thoracic spine or lumbar spine. IMPRESSION: 1. Lung-RADS category 2: Benign appearance or behavior. Continue annual screening with noncontrast lo w-dose chest CT in 12 months. 2. Cirrhosis. Reviewed, dictated and finalized at location A. RV[facility] RESEARCH KENNEL IMPRESSION: 1. Lung-RADS category 2: Benign appearance or behavior. Continue annual screeni ng with noncontrast low-dose chest CT in 12 months. 2. Cirrhosis.
== END 2022-06-14 10:04 | disposition home or self-care (01) ==
PROVIDERS: PCP Family Medicine; Visit Provider Nurse Practitioner Family
DX: Z12.2 Encounter for screening for malignant neoplasm of respiratory organs (principal); Z87.891 Personal history of nicotine dependence; K76.0 Fatty (change of) liver, not elsewhere classified
CPT/HCPCS: 71271

== ENCOUNTER 2022-08-07 07:03 | Outpatient (CLI) | payer MEDICARE, OTHER, SELFPAY ==
[2022-08-07 09:07] LABS: Alanine Aminotransferase 24 U/L (6-35); Albumin Level 3.7 g/dL (3.5-5.1); Alkaline Phosphatase 62 U/L (38-126); Anion Gap 4 mmol/L (8-16); Aspartate Amino Transferase 28 U/L (14-36); Bilirubin,Total 0.8 mg/dL (0.2-1.3); Blood Urea Nitrogen 14 mg/dL (7-17); Calcium 8.3 mg/dL (8.4-10.2); Carbon Dioxide 28 mmol/L (22-30); Chloride 106 mmol/L (98-107); Estimated Glomerular Filt Rate > 60; Glucose 96 mg/dL (65-110); Potassium 3.9 mmol/L (3.4-5.0); Sodium 138 mmol/L (137-145)
[2022-08-07 09:15] LABS: Free T4 Free Thyroxine 1.58 ng/mL (0.78-2.19); Vitamin D 25 Hydroxy 20.5 ng/mL
[2022-08-11 04:53] LABS: C-Peptide 0.79 ng/mL (0.80-3.85)
[2022-08-11 20:13] LABS: Glutamic acid decarboxylase AA <5 IU/mL (<5)
== END 2022-08-07 07:04 | disposition home or self-care (01) ==
LOC: ANHLAB 07:05
PROVIDERS: PCP Family Medicine; Visit Provider Nurse Practitioner Family
DX: R79.89 Other specified abnormal findings of blood chemistry (principal); K75.81 Nonalcoholic steatohepatitis (NASH); I10 Essential (primary) hypertension; E83.51 Hypocalcemia; E11.9 Type 2 diabetes mellitus without complications; E78.2 Mixed hyperlipidemia
CPT/HCPCS: 36415; 80053; 82306; 82607; 84439; 84443; 84681; 86341

== ENCOUNTER 2022-10-19 16:16 | Emergency (ER) | payer MEDICARE, OTHER, SELFPAY ==
--- NOTE | ~2022-10-19 | CT_ITS ---
EXAMINATION: CT abdomen pelvis wo con DATE: 10/19/2022 17:23 INDICATION: Right flank pain. Nausea. TECHNIQUE: Computed tomography (CT) of the abdomen and pelvis was performed without intravenous contr ast. Automated exposure control and iterative reconstruction technique were employed. The dose-length product was 344.52 mGy-cm. COMPARISON: Chest CT 06/14/2022 FINDINGS: The visualized portions of the lung bases demonstrate mild atelectasis in lingula. No pleur al effusion. The heart size is normal. There are coronary artery calcifications. There are calcificat ions of aortic valve. No pericardial effusion. The liver demonstrates a nodular surface contour and h ypertrophy of left lateral segment, consistent with cirrhosis. There is a paraumbilical portacaval sh unt. The gallbladder is absent. The spleen is normal in size. The pancreas and right adrenal gland ar e normal. There is a 1.6 cm mass in left adrenal gland measuring low-attenuation, consistent with an adenoma. There is mild right hydronephrosis and hydroureter. There is a 2 mm stone at right ureterove sicular junction. There are two 1-2 mm stones in left kidney. There is calcified atherosclerosis of t he aorta and many of the other arteries. There are changes of ventral hernia repair. There are no dil ated loops of bowel. The appendix is not visualized. There are no pathologically enlarged lymph nodes . There is no free intraperitoneal fluid. There is subcutaneous scarring in right inguinal region. Th ere is severe lumbar spondylosis. There are multiple chronic vertebral body fractures. IMPRESSION: 1. 2 mm stone at right ureterovesicular junction with mild right hydronephrosis and hydroureter. 2. Small nonobstructing left kidney stones. 3. Cirrhosis of the liver with portal venous hypertension. Reviewed, dictated and finalized at location E.
[2022-10-19 16:19] VITALS: BP 172/78; PULSE 93; RESP 20; TEMP 36.4; O2SAT 97
[2022-10-19 16:54] LABS: Basophils Percent Auto 0.6 % (0.2-1.2); Eosinophils Absolute Auto 0.2 K/mm3 (0-0.3); Eosinophils Percent Auto 2.4 % (0-4.4); Hematocrit 43.8 % (37.0-47.0); Hemoglobin 14.6 g/dL (12.0-15.0); Immature Granulocyte Absolute 0.01 K/mm3 (0.00-0.031); Immature Granulocyte Percent A 0.1 % (0-0.5); Lymphocytes Absolute Auto 1.45 K/mm3 (0.9-3.2); Lymphocytes Percent Auto 21.5 % (18.3-44.2); Mean Corpuscular HGB Conc 33.3 g/dl (32-36); Mean Corpuscular Hemoglobin 29.4 pg (26-34); Mean Corpuscular Volume 88.3 fl (80-100); Mean Platelet Volume 10.6 fl (7.4-10.4); Monocytes Absolute Auto 0.5 K/mm3 (0.1-0.6); Monocytes Percent Auto 7.9 % (2.6-8.5); Neutrophils Absolute Auto 4.6 K/mm3 (1.3-6.7); Neutrophils Percent Auto 67.5 % (45.5-73.1); Platelet Count Result 168 k/mm3 (150-375); Red Blood Count 4.96 M/mm3 (4.2-5.4); Red Cell Distribution Width 13.1 % (11.5-14.5); White Blood Count 6.8 K/mm3 (4.5-10.0)
[2022-10-19 16:57] LABS: Appearance Urine Cloudy (Clear); Bacteria Urine 1+ /hpf; Bilirubin Urine Negative (Negative); Blood Urine 3+ (Negative); Color Urine Dark Yellow (Yellow); Glucose Urine UA 1+ mg/dL (Negative); Ketones Urine Trace mg/dL (Negative); Leukocyte Esterase Ur Trace LEU/UL (Negative); Nitrate Urine Negative (Negative); Non Pathogenic Casts 0-2; Protein Urine 1+ mg/dL (Negative); RBC Urine >100 /hpf (0-2); Specific Grav Ur 1.023 (1.001-1.035); Squamous Epithelial Cell Urine Moderate /hpf (Few); WBC Urine 0-5 /hpf; pH Urine 5.5 (5.0-9.0)
[2022-10-19 16:58] LABS: Add Urine Microscopic? YES
[2022-10-19] MEDS: ONDANSETRON INJ 4 MG/2 ML VIAL IV PUSH (17:15)
[2022-10-19] MEDS: HYDROmorphone HCL INJ (*CRX) 1 MG/ML SYR 0.25 MG IV PUSH (17:15)
[2022-10-19 17:54] LABS: Alanine Aminotransferase 26 U/L (6-35); Albumin Level 4.1 g/dL (3.5-5.1); Alkaline Phosphatase 78 U/L (38-126); Anion Gap 5 mmol/L (8-16); Aspartate Amino Transferase 31 U/L (14-36); Bilirubin,Total 0.9 mg/dL (0.2-1.3); Blood Urea Nitrogen 16 mg/dL (7-17); Calcium 8.7 mg/dL (8.4-10.2); Carbon Dioxide 30 mmol/L (22-30); Chloride 102 mmol/L (98-107); Estimated CRCL calculation 78 ml/min; Estimated Glomerular Filt Rate > 60; Glucose 93 mg/dL (65-110); Potassium 4.3 mmol/L (3.4-5.0); Sodium 137 mmol/L (137-145)
--- NOTE | 2022-10-19 17:57 | ED.GENADULT ---
HPI - General Adult General Chief complaint: Urogenital-Female Stated complaint: right flank pain Time Seen by Provider: 10/19/22 16:26 History of Present Illness HPI narrative: 72-year-old female with history of kidney stones presented to the ED for evaluation of cute onset of right flank pain. Patient denies any pain with urination. Patient denies any associate nausea vomiting or diarrhea. Patient states she did notice a spike in her blood sugars in response to the pain. Patient has had previous kidney stones and has had follow-up with urology previously. Related Data Home Medications Medication Instructions Recorded Confirmed calcium carbonate 500 mg-vitamin 1 tablet PO BID 06/27/19 10/17/22 D3 5 mcg (200 unit) tablet (Calcium 500 + D) aspirin 325 mg tablet 325 mg PO DAILY 06/07/22 10/17/22 insulin aspart U-100 100 unit/mL 40 unit subcut DAILY 10/17/22 10/17/22 (3 mL) subcutaneous pen (Novolog FlexPen U-100 Insulin aspart) Allergies Allergy/AdvReac Type Severity Reaction Status Date / Time azithromycin Allergy Intermediate Rash Verified 10/19/22 16:17 erythromycin base Allergy Unknown Unknown Verified 10/19/22 16:17 iodine Allergy Unknown Skin Verified 10/19/22 16:17 Reaction procaine [From Novocain] AdvReac Intermediate increased Verified 10/19/22 16:17 heart rate Contrast Media Allergy Unknown HIVES Uncoded 10/19/22 16:17 Review of Systems Review of Systems: All systems reviewed & are unremarkable except as noted in HPI and below PMFSH Past Medical History Medical History Abnormal glandular Papanicolaou smear of cervix Adjustment reaction with anxiety and depression Age-related osteoporosis without current pathological fracture Amaurosis fugax Aortic stenosis echocardiogram 12-19 show valve area of 1.[address] Antoine Benign essential HTN Benign neoplasm of colon Bilateral carotid bruits 1-28-20 U/S shows stenosis <50 Right , 50-69% Left Sees vascular Dr Vogel Cardiomegaly Chronic bilateral low back pain with bilateral sciatica Chronic hypoxemic respiratory failure Sees Dr Soto Chronic obstructive pulmonary disease, unspecified Degeneration of lumbar or lumbosacral intervertebral disc Dupuytrens contracture Essential (primary) hypertension Foot drop, right Gastro-esophageal reflux disease without esophagitis Heart disease, unspecified Hepatitis C antibody test negative Hereditary and idiopathic neuropathy, unspecified History of tobacco abuse History of vaginal delivery x3 Idiopathic progressive neuropathy IT band syndrome Long-term insulin use Lumbago with sciatica, right side Mixed hyperlipidemia Multinodular goiter recommended u/s Neck mass Nonalcoholic steatohepatitis (SHAH) Nonrheumatic aortic (valve) stenosis Echo 1-20-- 1.2cm2, repeat echo - 1.26cm2 Nonrheumatic aortic (valve) stenosis with insufficiency Obstructive sleep apnea SAMIRA on CPAP Osteoarthrosis, unspecified whether generalized or localized, forearm Other affections of shoulder region, not elsewhere classified Other chronic pain Other cirrhosis of liver Other intervertebral disc degeneration, lumbar region Other rheumatic mitral valve diseases Other specified diabetes mellitus with diabetic neuropathy, unspecified Overweight (BMI 25.0-29.9) PLMD (periodic limb movement disorder) Protrusion of intervertebral disc (~10/26/02) Psoriasis PVD (peripheral vascular disease) Sees Dr Chacko Renal cell carcinoma seen on mri in 2015, Stable on mri 2021 Seborrheic keratoses, inflamed Type 2 diabetes mellitus with neurologic complication, without long-term current use of insulin Wound infection Surgical History Surgical History History of appendectomy (~1993) History of cholecystectomy (~1982) History of foot surgery removal of left great toe mass History of hernia repair (~1993) x2
[2022-10-19] MEDS: traMADol HCL (*CRX) 50 MG TABLET PO (18:03)
[2022-10-19] MEDS: TAMSULOSIN HCL 0.4 MG CAPSULE PO (18:03)
[2022-10-19 18:05] VITALS: PULSE 94; RESP 16; O2SAT 98
[2022-10-19 18:44] VITALS: BP 140/61; PULSE 99; RESP 20; O2SAT 95
== END 2022-10-19 18:45 | disposition home or self-care (01) ==
PROVIDERS: Emergency Provider Emergency Medicine; PCP Family Medicine
DX: N13.2 Hydronephrosis with renal and ureteral calculous obstruction (principal); C64.9 Malignant neoplasm of unspecified kidney, except renal pelvis; I35.0 Nonrheumatic aortic (valve) stenosis; I10 Essential (primary) hypertension; J96.11 Chronic respiratory failure with hypoxia; J44.9 Chronic obstructive pulmonary disease, unspecified; E78.2 Mixed hyperlipidemia; K74.60 Unspecified cirrhosis of liver; E11.49 Type 2 diabetes mellitus with other diabetic neurological complication; E11.40 Type 2 diabetes mellitus with diabetic neuropathy, unspecified; E11.51 Type 2 diabetes mellitus with diabetic peripheral angiopathy without gangrene; I73.9 Peripheral vascular disease, unspecified; G47.33 Obstructive sleep apnea (adult) (pediatric); K21.9 Gastro-esophageal reflux disease without esophagitis; M21.371 Foot drop, right foot; M72.0 Palmar fascial fibromatosis [Dupuytren]; Z87.891 Personal history of nicotine dependence; Z87.442 Personal history of urinary calculi; Z90.49 Acquired absence of other specified parts of digestive tract; Z98.42 Cataract extraction status, left eye; Z98.41 Cataract extraction status, right eye; Z79.4 Long term (current) use of insulin; K76.6 Portal hypertension
CPT/HCPCS: 36415; 74176; 80053; 81001; 85025; 96365; 96375; 99284; A9270; J0696; J1170; J2405

== ENCOUNTER 2022-10-24 09:51 | Outpatient (CLI) | payer MEDICARE, OTHER, SELFPAY ==
--- NOTE | ~2022-10-24 | US_ITS ---
EXAMINATION: US thyroid DATE: 10/24/2022 10:22 INDICATION: Thyroid nodules. TECHNIQUE: Multiple ultrasound images of the thyroid were obtained. COMPARISON: Ultrasound 06/10/2019, 04/16/2014 FINDINGS: The right thyroid lobe measures 5.0 x 2.5 x 2.7 cm. The left thyroid lobe measures 5.8 x 2.8 x 3.1 c m. In the right thyroid lobe, there is a 10 mm cystic nodule (TI-RADS TR1). In the left thyroid lobe , there is a 2.0 cm predominantly solid, hyperechoic, wider than tall nodule with ill-defined margin without echogenic foci (TR3), increased from 1.4 cm on 06/10/19. There are multiple subcentimeter nodu les in the thyroid. IMPRESSION: 1. Thyroid nodules. Thyroid ultrasound is recommended in 2 years. Reviewed, dictated and finalized at location L.
== END 2022-10-24 09:52 | disposition home or self-care (01) ==
PROVIDERS: PCP Family Medicine; Visit Provider Internal Medicine Endocrinology, Diabetes & Metabolism
DX: E04.2 Nontoxic multinodular goiter (principal)
CPT/HCPCS: 76536

== ENCOUNTER 2022-11-02 09:30 | Outpatient (RCR) | payer MEDICARE, OTHER, SELFPAY ==
[2022-09-12 10:58] VITALS: BMI 31.1
[2022-09-13 09:31] VITALS: BMI 31.1
[2022-11-02 13:34] VITALS: BMI 31.1; BMI 31.6
== END 2022-11-06 09:06 | disposition home or self-care (01) ==
LOC: ANHDMC 09:30
PROVIDERS: PCP Family Medicine; Visit Provider Nurse Practitioner Family
DX: E11.69 Type 2 diabetes mellitus with other specified complication (principal); Z79.4 Long term (current) use of insulin; Z71.89 Other specified counseling; Z71.3 Dietary counseling and surveillance
CPT/HCPCS: 97802; 97803; G0108; G0109

== ENCOUNTER 2022-11-14 16:15 | Emergency (ER) | payer MEDICARE, OTHER, SELFPAY ==
[2022-11-14 16:28] VITALS: BP 174/67; PULSE 110; RESP 12; TEMP 36.6; O2SAT 98
--- NOTE | 2022-11-14 16:29 | ED.LOWEXIN ---
HPI - Extremity Injury (Lower) General Chief Complaint: Extremity Problem,Nontraumatic Stated Complaint: lt foot pain Time Seen by Provider: 11/14/22 16:30 Source: patient, RN notes reviewed and old records reviewed Mode of arrival: ambulatory Limitations: no limitations History of Present Illness HPI Narrative: 72 year old female who [facility] with complaints of pain to the bottom of her left foot which started yesterday evening, Reports that she was unable to sleep last night due to the pain. Patient reports that she had pedicure yesterday with no trauma or any open areas on left foot noted and after returning home from getting pedicure she started having pain. Patient reports history of neuropathy and muscle cramps but states pain is different and is aggravated with movement. Patient reports that she has taken Tylenol, used ice and elevation to left foot. MD complaint: other (left plantar foot pain) Onset (ago): day(s) (last pm) Type of Injury: other (none) Severity scale (1-10): 10 Exacerbating factors: movement Treatments prior to arrival: cold therapy and other (Tylenol and Elevation) Related Data Home Medications Medication Instructions Recorded Confirmed calcium carbonate 500 mg-vitamin 1 tablet PO BID 06/27/19 11/14/22 D3 5 mcg (200 unit) tablet (Calcium 500 + D) aspirin 325 mg tablet 325 mg PO DAILY 06/07/22 11/14/22 insulin aspart U-100 100 unit/mL 40 unit subcut DAILY 10/17/22 11/14/22 (3 mL) subcutaneous pen (Novolog FlexPen U-100 Insulin aspart) Allergies Allergy/AdvReac Type Severity Reaction Status Date / Time erythromycin base Allergy Mild Hives Verified 11/14/22 16:24 procaine [From Novocain] AdvReac Intermediate increased Verified 11/14/22 16:24 heart rate azithromycin AdvReac Mild Hives Verified 11/14/22 16:24 iodine AdvReac Mild Hives Verified 11/14/22 16:24 Contrast Media AdvReac Mild Hives Uncoded 11/14/22 16:24 Review of Systems Review of Systems: CONSTITUTIONAL: Denies fever, chills, or sweats. EYES: Denies visual changes, redness, or discharge. ENT: Denies rhinorrhea, congestion, sore throat, or otalgia. CARDIOVASCULAR: Denies chest pain, palpitations, or edema. RESPIRATORY: Denies cough or dyspnea. GASTROINTESTINAL: Denies abdominal pain, nausea, vomiting, or diarrhea. GENITOURINARY: Denies dysuria or hematuria. SKIN: Denies rash or itching.no trauma or open skin areas to left foot. MUSCULOSKELETAL: Denies back pain, joint pain, positive for pain to the bottom of her left foot which is sharp NEUROLOGIC: Denies headache, numbness, or weakness, does have peripheral neuropathy PSYCHIATRIC: Reports history of anxiety or depression. All systems reviewed & are unremarkable except as noted in HPI and below PMFSH Past Medical History Medical History Abnormal glandular Papanicolaou smear of cervix Adjustment reaction with anxiety and depression Age-related osteoporosis without current pathological fracture Amaurosis fugax Aortic stenosis echocardiogram 12-19 show valve area of 1.[address] Antoine Benign essential HTN Benign neoplasm of colon Bilateral carotid bruits 1-28-20 U/S shows stenosis <50 Right , 50-69% Left Sees vascular Dr Vogel Calcium oxalate calculus of kidney Cardiomegaly Chronic bilateral low back pain with bilateral sciatica Chronic hypoxemic respiratory failure Sees Dr Soto Chronic obstructive pulmonary disease, unspecified Degeneration of lumbar or lumbosacral intervertebral disc Dupuytrens contracture Essential (primary) hypertension Foot drop, right Gastro-esophageal reflux disease without esophagitis Heart disease, unspecified Hepatitis C antibody test negative Hereditary and idiopathic neuropathy, unspecified History of tobacco abuse History of vaginal delivery x3 Idiopathic progressive neuropathy IT band syndrome Long-term insulin use Lumbago with sciatica, right side M
== END 2022-11-14 17:15 | disposition home or self-care (01) ==
PROVIDERS: Emergency Provider Registered Nurse; PCP Family Medicine
DX: E11.42 Type 2 diabetes mellitus with diabetic polyneuropathy (principal); Z79.4 Long term (current) use of insulin; M81.0 Age-related osteoporosis without current pathological fracture; I35.0 Nonrheumatic aortic (valve) stenosis; I10 Essential (primary) hypertension; J44.9 Chronic obstructive pulmonary disease, unspecified; K21.9 Gastro-esophageal reflux disease without esophagitis; E78.2 Mixed hyperlipidemia; K75.81 Nonalcoholic steatohepatitis (NASH); E11.51 Type 2 diabetes mellitus with diabetic peripheral angiopathy without gangrene; Z98.42 Cataract extraction status, left eye; Z98.41 Cataract extraction status, right eye
CPT/HCPCS: 99213; G0463

== ENCOUNTER 2023-01-11 14:26 | Outpatient (RCR) | payer MEDICARE, OTHER, SELFPAY | END 2023-01-11 17:32 | disposition home or self-care (01) | LOC: ANHDMC 14:26 | PROVIDERS: PCP Family Medicine; Visit Provider Nurse Practitioner Family | DX: E11.69 Type 2 diabetes mellitus with other specified complication (principal); Z79.4 Long term (current) use of insulin; Z71.89 Other specified counseling | CPT/HCPCS: G0109 ==

== ENCOUNTER 2023-04-09 08:34 | Outpatient (CLI) | payer MEDICARE, OTHER, SELFPAY ==
[2023-04-09 09:40] LABS: Basophils Percent Auto 0.9 % (0.2-1.2); Eosinophils Absolute Auto 0.1 K/mm3 (0-0.3); Hematocrit 47.9 % (37.0-47.0); Hemoglobin 15.1 g/dL (12.0-15.0); Immature Granulocyte Absolute 0.01 K/mm3 (0.00-0.031); Immature Granulocyte Percent A 0.2 % (0-0.5); Immature Platelet Fraction Pct 5.5 % (0.9-11.2); Lymphocytes Absolute Auto 0.94 K/mm3 (0.9-3.2); Lymphocytes Percent Auto 20.4 % (18.3-44.2); Mean Corpuscular HGB Conc 31.5 g/dl (32-36); Mean Corpuscular Hemoglobin 28.3 pg (26-34); Mean Corpuscular Volume 89.7 fl (80-100); Mean Platelet Volume 10.9 fl (7.4-10.4); Monocytes Absolute Auto 0.3 K/mm3 (0.1-0.6); Monocytes Percent Auto 6.7 % (2.6-8.5); Neutrophils Absolute Auto 3.2 K/mm3 (1.3-6.7); Neutrophils Percent Auto 69.8 % (45.5-73.1); Platelet Count Result 145 k/mm3 (150-375); Red Blood Count 5.34 M/mm3 (4.2-5.4); Red Cell Distribution Width 14.4 % (11.5-14.5); White Blood Count 4.6 K/mm3 (4.5-10.0)
[2023-04-09 09:49] LABS: INR 0.9; Prothrombin Time 12.7 Seconds (11.1-14.7)
[2023-04-09 10:07] LABS: Alanine Aminotransferase 28 U/L (6-35); Alkaline Phosphatase 110 U/L (38-126); Aspartate Amino Transferase 36 U/L (14-36); Blood Urea Nitrogen 10 mg/dL (7-17); Carbon Dioxide 29 mmol/L (22-30); Chloride 101 mmol/L (98-107); Estimated Glomerular Filt Rate > 60; Glucose 118 mg/dL (65-110); Potassium 4.3 mmol/L (3.4-5.0)
[2023-04-09 10:11] LABS: Anion Gap 8 mmol/L (8-16); Sodium 138 mmol/L (137-145)
[2023-04-13 18:57] LABS: Alpha Fetoprotein Tumor Marker 1.8 ng/mL (<6.1)
== END 2023-04-09 08:35 | disposition home or self-care (01) ==
PROVIDERS: PCP Family Medicine
DX: K74.60 Unspecified cirrhosis of liver (principal)
CPT/HCPCS: 36415; 80053; 82105; 85025; 85055; 85610

== ENCOUNTER 2023-04-23 13:40 | Outpatient (CLI) | payer MEDICARE, OTHER, SELFPAY ==
[2023-04-23 13:50] VITALS: PULSE 90; O2SAT 97
[2023-04-23 13:55] VITALS: PULSE 105; O2SAT 86
[2023-04-23 14:00] VITALS: PULSE 104; O2SAT 87
[2023-04-23 14:05] VITALS: PULSE 106; O2SAT 91
[2023-04-23 14:10] VITALS: PULSE 90; O2SAT 94
--- NOTE | 2023-04-23 15:06 | HOMEO2EVAL ---
Evaluation was performed at [facility] Home Oxygen Evaluation RC: Home Oxygen (O2) Evaluation Start: 04/23/23 15:00 Freq: Status: Active Protocol: RPE Activity Type Activity Date Activity User E-sign Co-sign Detail Recorded Client Recorded Date Recorded By Document 04/23/23 13:50 [email or web address] 04/23/23 15:03 PKH Document 04/23/23 13:55 [email or web address] 04/23/23 15:03 PKH Document 04/23/23 14:00 [email or web address] 04/23/23 15:05 PKH Document 04/23/23 14:05 [email or web address] 04/23/23 15:03 PK Document 04/23/23 14:10 [email or web address] 04/23/23 15:03 PK 04/23/23 04/23/23 04/23/23 13:50 13:55 14:00 Home O2 Evaluation [Oxygen] -Test Phase Resting Exercise Exercise -Oxygen Delivery Room Air Room Air Nasal Cannula -Oxygen Flow Rate (L/min) -Fraction of Inspired Oxygen (%) 1 [Pulse Oximetry] -Pulse Oximetry (90-100 %) 97 86 L 87 L [Pulse Rate] -Pulse Rate (60-100 beats/min) 90 105 H 104 H [Charges] -Treatment Charges O2 Evaluation - Outpatient 04/23/23 04/23/23 14:05 14:10 Home O2 Evaluation [Oxygen] -Test Phase Exercise Resting -Oxygen Delivery Nasal Cannula Room Air -Oxygen Flow Rate (L/min) 2 -Fraction of Inspired Oxygen (%) [Pulse Oximetry] -Pulse Oximetry (90-100 %) 91 94 [Pulse Rate] -Pulse Rate (60-100 beats/min) 106 H 90 [Charges] -Treatment Charges
--- NOTE | 2023-04-24 09:19 | P.PCNPFT_ITS ---
PFT Procedure Performed PFT Procedure Performed Spirometry with Pre/Post Bronchodilator Plethysmography (Lung Vol) Diffusing Cap (DLCO) Flow Vol Loop PFT Interpretation This is a pulmonary function test with pre and post-bronchodilator spirometry, plethysmography and diffusing capacity. The test was performed and results interpreted in accordance with the 2019 and 2005 ATS/ERS Task Force guidelines respectively using the Global Lung Function Initiative-2012 reference equations. Patient demonstrated good effort and cooperation. Reproducibility criteria were met. The quality of the pre bronchodilator spirometry maneuver was Grade A and post bronchodilator spirometry maneuver was Grade A. Findings: Spirometry: There is decreased maximal expiratory airflow at all lung volumes with concave expiratory flow tracing. The contour the inspiratory flow tracing is normal. The pre bronchodilator FVC is 1.89 L, 75% predicted. The pre bronchodilator FEV1 is 0.75 L, 38% predicted. The pre bronchodilator FEV1: FVC ratio is 40%. The post bronchodilator FVC is 2.03 L, representing an 8% increase. The post bronchodilator FEV1 is 0.79 L, representing a 6% increase. The post bronchodilator FEV1: FVC ratio is 39%. Plethysmography: The total lung capacity is 6.13 L, 130% predicted. The functional residual capacity is 4.92 L, 182% predicted. The residual volume is 4.24 L, 196% predicted. Diffusing capacity: The diffusing capacity unadjusted for hemoglobin and carboxyhemoglobin is 9.9, 51% predicted. The diffusing capacity adjusted for alveolar volume is 4.23, 98% predicted. In comparison to previous pulmonary function testing on 09/23/2015 in which only a pre bronchodilator spirometry was performed the pre bronchodilator FVC is unchanged from 1.81 L to 1.89 L. The pre bronchodilator FEV1 is unchanged from 0.72 L to 0.75 L. The total lung capacity is unchanged from 5.72 L to 6.13 L. The functional residual capacity is unchanged from 4.37 L to 4.92 L. The residual volume is increased from 3.64 L to 4.24 L. The diffusing capacity unadjusted for hemoglobin and carboxyhemoglobin is decreased from 12.1 to 9.9. The diffusing capacity adjusted for alveolar volume is unchanged from 3.93 to 4.23. Impression: There is a severe obstructive abnormality without significant i mprovement after inhaling a single dose of albuterol. The increase in residual volume is consistent with air trapping from an obstructive abnormality. Hyperinflation is present as demonstrated by the increase in functional residual capacity and total lung capacity and is consistent with an obstructive abnormality. The diffusing capacity unadjusted for hemoglobin and carboxyhemoglobin is moderately decreased and normalizes when adjusted for alveolar volume. In comparison to previous pulmonary function testing on 09/23/2015 there has been a greater than anticipated time dependent increase in the residual volume. There has been a greater than anticipated time dependent decrease in the diffusing capacity unadjusted for hemoglobin and carboxyhemoglobin with no significant change in the FVC, FEV1, total lung capacity, functional residual capacity or diffusing capacity adjusted for alveolar volume. Clinical correlation is recommended.
== END 2023-04-23 13:41 | disposition home or self-care (01) ==
LOC: ANHPFT 13:41
PROVIDERS: PCP Family Medicine; Visit Provider Physician Assistant
DX: J44.9 Chronic obstructive pulmonary disease, unspecified (principal); J96.11 Chronic respiratory failure with hypoxia; R94.2 Abnormal results of pulmonary function studies
CPT/HCPCS: 94060; 94618; 94726; 94729

== ENCOUNTER 2023-06-15 13:41 | Outpatient (CLI) | payer MEDICARE, OTHER, SELFPAY ==
--- NOTE | ~2023-06-15 | CT_ITS ---
EXAMINATION: CT lung screening DATE: 06/15/2023 14:02 INDICATION: Personal history of nicotine dependence, prior smoker with 30 pack year history TECHNIQUE: Computed tomography (CT) of the chest was performed without intravenous contrast. The dose -length product (DLP) was 97.42 mGy-cm. 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 COMPARISON: 06/14/2022 FINDINGS: There is mild emphysema. There is a 2 mm nodule of the right lung apex on image 25. The ada gs are free of acute opacities. No pleural effusion or pneumothorax. No pathologically enlarged thora cic lymph nodes are identified. The heart size is normal. There is calcified coronary artery atherosc lerosis. There are mitral and aortic annulus calcifications. There is nodularity of the liver surface , consistent with cirrhosis. Multiple thoracic and lumbar compression fractures are again noted. IMPRESSION: 1. Lung-RADS category 2: Benign appearance or behavior. Continue annual screening with noncontrast lo w-dose chest CT in 12 months. Reviewed, dictated and finalized at location F. ET TRIMMER IMPRESSION: 1. Lung-RADS category 2: Benign appearance or behavior. Continue annual screeni ng with noncontrast low-dose chest CT in 12 months.
== END 2023-06-15 13:42 | disposition home or self-care (01) ==
LOC: ANHIMG 13:42
PROVIDERS: PCP Family Medicine; Visit Provider Nurse Practitioner Family
DX: Z12.2 Encounter for screening for malignant neoplasm of respiratory organs (principal); Z87.891 Personal history of nicotine dependence
CPT/HCPCS: 71271

== ENCOUNTER 2023-07-06 01:20 | Day surgery (SDC) | payer MEDICARE, OTHER, SELFPAY ==
[2023-07-05 12:31] VITALS: BMI 26.2
[2023-07-06] VITALS (19 sets, daily range): BP systolic 109–160; BP diastolic 52–86; PULSE 108–117; RESP 17–26; TEMP 36.4; O2SAT 90–96; BMI 26.2
[2023-07-06 07:57] LABS: Basophils Percent Auto 0.6 % (0.2-1.2); Hemoglobin 15.3 g/dL (12.0-15.0); Lymphocytes Absolute Auto 0.29 K/mm3 (0.9-3.2); Mean Corpuscular HGB Conc 32.6 g/dl (32-36); Mean Corpuscular Hemoglobin 27.7 pg (26-34); Mean Corpuscular Volume 85.1 fl (80-100); Mean Platelet Volume 10.1 fl (7.4-10.4); Monocytes Percent Auto 0.9 % (2.6-8.5); Neutrophils Absolute Auto 2.9 K/mm3 (1.3-6.7); Neutrophils Percent Auto 89.5 % (45.5-73.1); Platelet Count Result 236 k/mm3 (150-375); Red Blood Count 5.52 M/mm3 (4.2-5.4); Red Cell Distribution Width 13.2 % (11.5-14.5); White Blood Count 3.2 K/mm3 (4.5-10.0)
[2023-07-06 08:10] LABS: Anion Gap 8 mmol/L (8-16); Blood Urea Nitrogen 13 mg/dL (7-17); Calcium 9.5 mg/dL (8.4-10.2); Carbon Dioxide 26 mmol/L (22-30); Chloride 103 mmol/L (98-107); Estimated CRCL calculation 65 ml/min; Estimated Glomerular Filt Rate > 60; Glucose 193 mg/dL (65-110); Potassium 4.2 mmol/L (3.4-5.0); Sodium 137 mmol/L (137-145)
--- NOTE | 2023-07-06 09:13 | WPDMODSED ---
Moderate Sedation Note-Pt Data Patient Data Diagnosis: aortic stenosis significant by exam and recent echo severe COPD peripheral vascular disease hepatic cirrhosis Present Complaint: exertional dyspnea/chest pain recently worsening Procedure to be performed/Plan: right left heart catheterization Allergies Allergy/AdvReac Type Severity Reaction Status Date / Time iodine Allergy Severe Hives Verified 07/06/23 07:43 azithromycin Allergy Mild Hives Verified 07/06/23 07:43 erythromycin base Allergy Mild Hives Verified 07/06/23 07:43 procaine [From Novocain] AdvReac Intermediate increased Verified 07/06/23 07:43 heart rate Contrast Media Allergy Mild Hives Uncoded 07/06/23 07:43 Home Medications Medication Instructions Recorded Confirmed Type denosumab 60 mg/mL subcutaneous 60 mg subcut [id number] #1 mL 05/26/19 07/05/23 Rx syringe (Prolia) calcium carbonate 500 mg-vitamin 1 tablet PO BID 06/27/19 07/05/23 History D3 5 mcg (200 unit) tablet (Calcium 500 + D) albuterol sulfate 2.5 mg/3 mL 2.5 mg (3 mL) inhalation TID PRN 03/03/22 07/05/23 Rx (0.083 %) solution for nebulization shortness of breath or wheezing #270 mL cholestyramine-aspartame 4 gram 4 g PO DAILY #90 ea 04/21/22 07/05/23 Rx oral powder for susp in a packet (Cholestyramine Light) fluticasone 250 mcg-salmeterol 50 1 inh inhalation BID #60 ea 04/21/22 07/05/23 Rx mcg/dose blistr powdr for inhalation (Advair Diskus) tiotropium bromide 18 mcg capsule 1 cap inhalation DAILY #90 04/21/22 07/05/23 Rx with inhalation device (Spiriva inhalations with HandiHaler) aspirin 325 mg tablet 325 mg PO DAILY 06/07/22 07/05/23 History albuterol sulfate 90 mcg/actuation 1 - 2 inh inhalation Q4-6H PRN 10/12/22 07/05/23 Rx aerosol inhaler shortness of breath or wheezing #8.5 grams cholecalciferol (vitamin D3) 1,250 1,250 mcg PO WEEKLY #14 tabs 10/17/22 07/05/23 Rx mcg (50,000 unit) tablet ezetimibe 10 mg-simvastatin 80 mg 1 tablet PO DAILY #90 tabs 10/17/22 07/05/23 Rx tablet semaglutide 2 mg/dose (8 mg/3 mL) 2 mg (0.75 mL) subcut WEEKLY 90 11/02/22 07/05/23 Rx subcutaneous pen injector (Ozempic) days #9 mL empagliflozin 10 mg tablet 10 mg PO DAILY 90 days #90 tabs 11/23/22 07/05/23 Rx (Jardiance) blood-glucose sensor (FreeStyle #6 ea 01/17/23 06/01/23 Rx Porsche 3 Sensor device) ostomy supplies (Skin Prep Wipes) #50 ea 01/17/23 05/15/23 Rx bupropion HCl 150 mg tablet,12 hr 300 mg PO DAILY #180 tabs 03/16/23 07/05/23 Rx sustained-release trazodone 50 mg tablet 50 mg PO .QHS #90 tabs 03/16/23 07/05/23 Rx carvedilol 3.125 mg tablet (Coreg) 3.125 mg PO Q12H #180 tabs 05/02/23 07/05/23 Rx furosemide 20 mg tablet 20 mg PO BID #180 tabs 05/02/23 07/05/23 Rx lisinopril 5 mg tablet 5 mg PO DAILY #90 tabs 05/02/23 07/05/23 Rx benzonatate 200 mg capsule 200 mg PO TID PRN cough #90 caps 06/05/23 07/05/23 Rx insulin glargine 100 unit/mL (3 20 unit subcut QPM 07/05/23 07/05/23 History mL) subcutaneous pen (Lantus Solostar U-100 Insulin) ropinirole 0.5 mg tablet 1 mg PO BID 07/05/23 07/05/23 History Current Medications: Active Medications Sodium Chloride (Normal Saline Iv) 500 mls @ 100 mls/hr IV CONT .Q5H PRICILLA Sedation/Anesthesia: No previous sedation/anesthesia problems (including family history). [facility] Past Medical History Medical History Abnormal glandular Papanicolaou smear of cervix Adjustment reaction with anxiety and depression Age-related osteoporosis without current pathological fracture Amaurosis fugax Aortic stenosis echocardiogram 12- show valve area of 1.[address] Antoine Benign essential HTN Benign neoplasm of colon Bilateral carotid bruits -28-20 U/S shows stenosis <50 Right , 50-69% Left Sees vascular Dr Vogel Calcium oxalate calculus of kidney Cardiomegaly Chronic bilateral low back pain with bilateral sciatica Chronic
--- NOTE | 2023-07-06 10:24 | WPDCARDPROC ---
Cardiac Cath Procedure Note Date of procedure:: 07/06/23 Performing physician:: Vitaly Antoine MD Indication:: Severe / symptomatic aortic stenosis Brief clinical history:: this is a 73-year-old woman who has significant chronic COPD, hepatic cirrhosis and peripheral vascular disease. She has had mild aortic stenosis which has now progressed to severe resulting in symptoms of worsening exertional dyspnea with chest pain. Right left heart catheterization has now been recommended to determine if she is a candidate for aortic valve replacement Procedure Procedure performed:: right and left heart catheterization Sedation/Medication given:: fentanyl 25 mg Versed 2 mg case start time 9:40 a.m. case end time 10:18 a.m. sedation provided by Cassidy Willis RN, trained observer Access site:: right femoral artery right femoral vein Estimated blood loss:: 25 cc Procedure note:: patient was brought to the cardiac catheterization lab in the postabsorptive state where the right femoral triangle was prepared and draped in the normal fashion. Anesthesia was provided with 1% lidocaine infiltrated locally. Using the modified Seldinger technique the femoral artery was punctured and over the guidewire I placed Six Bulgarian a 45 cm sheath into the descending aorta. following this the femoral vein was punctured and a 7 Bulgarian vascular sheath was placed in standard fashion. I then used a balloon tip [place]-Cy catheter to document right-sided hemodynamics, inject thermodilution cardiac outputs and measure av O2 difference. Following this the [place]-Cy catheter was removed. The left coronary artery was then injected using a 5 Bulgarian FL4 catheter in multiple projections. The right coronary was then injected using a 5 Bulgarian JR4 catheter. JR4 catheter was then used with a straight wire to probe in cross the stenotic aortic valve and the catheter was advanced into the right ventricle. Using a long exchange J wire this was exchanged for a 5 Bulgarian angled pigtail catheter. Following this simultaneous pressures were recorded in the left ventricle and central aorta using the 45 cm sheath. Following this aortic valve area was calculated. A left ventriculogram was then injected using the pigtail catheter. The case was then terminated the catheters were removed patient was taken to the holding area for manual sheath removal. Findings:: Hemodynamics: Right atrial 8 mm of Hg, right ventricle 53 over 12, pulmonary artery 50 over 28, pulmonary capillary wedge pressure 22, central aorta 1 46 over 60, left ventricle 200 over 2 end-diastolic pressure 15. Thermodilution cardiac output measures 4.5 liters/minute giving an index of 2.7. Knee valve gradient is 44.8 mmHg valve area 0.59 cm2 left ventricle: The LV is hypertrophied and normal in size LV contractility is hyperdynamic with an ejection fraction of greater than 80%. the aortic valve is moderately calcified mitral valve annulus is heavily calcified The left main coronary artery is nicely patent the left anterior descending is a moderate caliber artery extending down to and just around the apex. The LAD in the mid portion has modest luminal irregularities but there is no angiographically significant disease identified. The circumflex is a moderate to large caliber artery giving rise to the marginal branches and a posterior branch. The circumflex also has modest luminal irregularities but no Angiographically significant disease is identified. The right coronary artery is large in caliber dominant to the posterior circulation. The ostium of the right coronary is calcified but there are no stenotic lesions seen. Conclusion:: 1. Right coronary dominant circulation with no significant coronary artery disease identified 2. left ventricular hypertrophy with hyperdynamic systolic function 3. severe aortic valve stenosis with mean gradient of 44 and valve area of 0.59 cm2
== END 2023-07-06 17:27 | disposition home or self-care (01) ==
PROVIDERS: PCP Family Medicine; Visit Provider Specialist
PROC: 4A023N8 Measurement of Cardiac Sampling and Pressure, Bilateral, Percutaneous Approach (ICD-10-PCS; CPT 93453; principal; 2023-07-06 09:00)
DX: Z01.810 Encounter for preprocedural cardiovascular examination (principal); I35.0 Nonrheumatic aortic (valve) stenosis; J44.9 Chronic obstructive pulmonary disease, unspecified; I73.9 Peripheral vascular disease, unspecified; K74.69 Other cirrhosis of liver; M81.0 Age-related osteoporosis without current pathological fracture; I10 Essential (primary) hypertension; J96.11 Chronic respiratory failure with hypoxia; G60.3 Idiopathic progressive neuropathy; E78.2 Mixed hyperlipidemia; K75.81 Nonalcoholic steatohepatitis (NASH); G47.33 Obstructive sleep apnea (adult) (pediatric); E11.40 Type 2 diabetes mellitus with diabetic neuropathy, unspecified; E11.51 Type 2 diabetes mellitus with diabetic peripheral angiopathy without gangrene; L40.9 Psoriasis, unspecified; Z79.51 Long term (current) use of inhaled steroids; Z79.82 Long term (current) use of aspirin; Z79.85 Long-term (current) use of injectable non-insulin antidiabetic drugs; Z79.4 Long term (current) use of insulin; Z79.01 Long term (current) use of anticoagulants
CPT/HCPCS: 36415; 80048; 85025; 93460; C1769; C1887; C1894; J1644; J2250; J3010; J7040

== ENCOUNTER 2023-07-07 16:16 | Emergency (ER) | payer MEDICARE, OTHER, SELFPAY ==
[2023-07-07 16:18] VITALS: BP 174/96; PULSE 122; RESP 24; O2SAT 99
--- NOTE | 2023-07-07 17:59 | ED.GENADULT ---
HPI - General Adult General Chief complaint: Wound/Laceration Stated complaint: FLUID FROM CARDIAC CATH SITE Time Seen by Provider: 07/07/23 17:21 Source: patient and family Mode of arrival: ambulatory Limitations: no limitations History of Present Illness HPI narrative: 73 YEARS OLD WHITE FEMALE CAME TO THE EMERGENCY ROOM BY PRIVATE CAR FROM HOME COMPLAINING OF THE PUNCTURE WOUND OF THE CARDIAC CATHETERIZATION AND RIGHT GROIN AREA YESTERDAY IS LEAKING CLEAR FLUID. SHE DENIES ANY PAIN, FEVER, CHILLS, NAUSEA, VOMITING, CHEST PAIN OR SHORTNESS OF BREATH. Related Data Home Medications Medication Instructions Recorded Confirmed calcium carbonate 500 mg-vitamin 1 tablet PO BID 06/27/19 07/05/23 D3 5 mcg (200 unit) tablet (Calcium 500 + D) aspirin 325 mg tablet 325 mg PO DAILY 06/07/22 07/05/23 insulin glargine 100 unit/mL (3 20 unit subcut QPM 07/05/23 07/05/23 mL) subcutaneous pen (Lantus Solostar U-100 Insulin) ropinirole 0.5 mg tablet 1 mg PO BID 07/05/23 07/05/23 Allergies Allergy/AdvReac Type Severity Reaction Status Date / Time iodine Allergy Severe Hives Verified 07/06/23 07:43 azithromycin Allergy Mild Hives Verified 07/06/23 07:43 erythromycin base Allergy Mild Hives Verified 07/06/23 07:43 procaine [From Novocain] AdvReac Intermediate increased Verified 07/06/23 07:43 heart rate Contrast Media Allergy Mild Hives Uncoded 07/06/23 07:43 Review of Systems Review of Systems: All systems reviewed & are unremarkable except as noted in HPI and below [facility] Past Medical History Medical History Abnormal glandular Papanicolaou smear of cervix Adjustment reaction with anxiety and depression Age-related osteoporosis without current pathological fracture Amaurosis fugax Aortic stenosis echocardiogram 12-19 show valve area of 1.[address] Antoine Benign essential HTN Benign neoplasm of colon Bilateral carotid bruits 1-28-20 U/S shows stenosis <50 Right , 50-69% Left Sees vascular Dr Vogel Calcium oxalate calculus of kidney Cardiomegaly Chronic bilateral low back pain with bilateral sciatica Chronic hypoxemic respiratory failure Sees Dr Soto Chronic obstructive pulmonary disease, unspecified Degeneration of lumbar or lumbosacral intervertebral disc Dupuytrens contracture Essential (primary) hypertension Foot drop, right Gastro-esophageal reflux disease without esophagitis Heart disease, unspecified Hepatitis C antibody test negative Hereditary and idiopathic neuropathy, unspecified History of tobacco abuse History of vaginal delivery x3 Idiopathic progressive neuropathy IT band syndrome Long-term insulin use Lumbago with sciatica, right side Mixed hyperlipidemia Multinodular goiter recommended u/s Neck mass Nonalcoholic steatohepatitis (SHAH) Nonrheumatic aortic (valve) stenosis Echo 1-20-- 1.2cm2, repeat echo - 1.26cm2 Nonrheumatic aortic (valve) stenosis with insufficiency Obstructive sleep apnea SAMIRA on CPAP Osteoarthrosis, unspecified whether generalized or localized, forearm Other affections of shoulder region, not elsewhere classified Other chronic pain Other cirrhosis of liver Other intervertebral disc degeneration, lumbar region Other rheumatic mitral valve diseases Other specified diabetes mellitus with diabetic neuropathy, unspecified Overweight (BMI 25.0-29.9) PLMD (periodic limb movement disorder) Protrusion of intervertebral disc (~10/26/02) Psoriasis PVD (peripheral vascular disease) Sees Dr Chacko Renal cell carcinoma seen on mri in 2015, Stable on mri 2021 Seborrheic keratoses, inflamed 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
[2023-07-07 18:21] VITALS: BP 124/51; PULSE 114; RESP 18; O2SAT 95
== END 2023-07-07 18:27 | disposition home or self-care (01) ==
PROVIDERS: Emergency Provider Emergency Medicine; PCP Family Medicine
DX: Z98.61 Coronary angioplasty status (principal); I10 Essential (primary) hypertension; E78.2 Mixed hyperlipidemia; J44.9 Chronic obstructive pulmonary disease, unspecified; E11.9 Type 2 diabetes mellitus without complications; Z79.82 Long term (current) use of aspirin; Z79.4 Long term (current) use of insulin; Z87.891 Personal history of nicotine dependence
CPT/HCPCS: 99282

== ENCOUNTER 2023-07-09 15:29 | Outpatient (CLI) | payer MEDICARE, OTHER, SELFPAY ==
[2023-07-09 16:21] LABS: Appearance Urine Clear (Clear); Bacteria Urine None Seen /hpf; Bilirubin Urine Negative (Negative); Blood Urine 2+ (Negative); Color Urine Yellow (Yellow); Glucose Urine UA 3+ mg/dL (Negative); Ketones Urine Negative (Negative); Leukocyte Esterase Ur Negative LEU/UL (Negative); Nitrate Urine Negative (Negative); Non Pathogenic Casts 0-2; Protein Urine Negative (Negative); Specific Grav Ur 1.028 (1.001-1.035); Squamous Epithelial Cell Urine None seen /hpf (Few); Urobilinogen Urine 0.2 mg/dL (<2.0); WBC Urine 0-5 /hpf; pH Urine 5.5 (5.0-9.0)
[2023-07-09 16:26] LABS: Add Urine Microscopic? YES
== END 2023-07-09 15:30 | disposition home or self-care (01) ==
LOC: ANHLAB 15:32
PROVIDERS: PCP Family Medicine; Visit Provider Nurse Practitioner Adult Health
DX: R33.9 Retention of urine, unspecified (principal)
CPT/HCPCS: 81001

== ENCOUNTER 2023-09-27 08:55 | Outpatient (CLI) | payer MEDICARE, OTHER, SELFPAY ==
[2023-09-27 19:17] LABS: Anion Gap 5 mmol/L (4-12); Blood Urea Nitrogen 16 mg/dL (7-17); Calcium 9.3 mg/dL (8.4-10.2); Carbon Dioxide 28 mmol/L (22-30); Chloride 103 mmol/L (98-107); Cholesterol 181 mg/dL (0-200); Estimated Glomerular Filt Rate > 60; Glucose 102 mg/dL (65-110); HDL Direct 61 mg/dL; Potassium 4.4 mmol/L (3.4-5.0); Sodium 136 mmol/L (137-145); Triglycerides 102 mg/dL (<150)
[2023-09-27 19:27] LABS: LDL Cholesterol Direct 95 mg/dL
[2023-09-27 19:49] LABS: Thyroid Stimulating Hormone 0.537 uIU/mL (0.465-4.680)
[2023-09-27 20:26] LABS: Free T4 Free Thyroxine 1.74 ng/mL (0.78-2.19)
== END 2023-09-27 08:56 | disposition home or self-care (01) ==
PROVIDERS: PCP Family Medicine; Visit Provider Nurse Practitioner Family
DX: E11.49 Type 2 diabetes mellitus with other diabetic neurological complication (principal); E78.2 Mixed hyperlipidemia; E83.51 Hypocalcemia; I10 Essential (primary) hypertension; K75.81 Nonalcoholic steatohepatitis (NASH); R79.89 Other specified abnormal findings of blood chemistry
CPT/HCPCS: 36415; 80048; 80061; 82607; 84439; 84443

== ENCOUNTER 2023-10-27 10:08 | Emergency (ER) | payer MEDICARE, OTHER, SELFPAY ==
[2023-10-27 10:22] VITALS: BP 150/52; PULSE 94; RESP 16; TEMP 36.6; O2SAT 97
--- NOTE | 2023-10-27 10:51 | ED.GENADULT ---
HPI - General Adult General Chief complaint: Extremity Problem,Nontraumatic Stated complaint: L FOOT PAIN Time Seen by Provider: 10/27/23 10:52 Source: patient Mode of arrival: ambulatory Limitations: no limitations History of Present Illness HPI narrative: 73-year-old female patient presents to the [facility] with complaints of a wound to her left foot. Patient states she got a pedicure about 6 days ago and they used a razor to her heel. Patient is a type 2 diabetic and does have vascular issues to the left leg. Patient states her heel now feels like knife pain and states that her foot has been redness faded very painful to try and walk on. Patient states she has been putting Neosporin to the wounds of the heel. Denies fevers, body aches or chills. Related Data Home Medications Medication Instructions Recorded Confirmed calcium carbonate 500 mg-vitamin 1 tablet PO BID 06/27/19 10/27/23 D3 5 mcg (200 unit) tablet (Calcium 500 + D) aspirin 325 mg tablet 325 mg PO DAILY 06/07/22 10/27/23 ropinirole 0.5 mg tablet 1 mg PO BID 07/05/23 10/27/23 carvedilol 3.125 mg tablet (Coreg) 3.125 mg PO Q12H 09/27/23 10/27/23 clopidogrel 75 mg tablet (Plavix) 75 mg PO DAILY 09/27/23 10/27/23 Allergies Allergy/AdvReac Type Severity Reaction Status Date / Time iodine Allergy Severe Hives Verified 10/27/23 10:16 azithromycin Allergy Mild Hives Verified 10/27/23 10:16 erythromycin base Allergy Mild Hives Verified 10/27/23 10:16 procaine [From Novocain] AdvReac Intermediate increased Verified 10/27/23 10:16 heart rate Contrast Media Allergy Mild Hives Uncoded 10/27/23 10:16 Review of Systems Review of Systems: CONSTITUTIONAL: Denies fever, chills, or sweats. EYES: Denies visual changes, redness, or discharge. ENT: Denies rhinorrhea, congestion, sore throat, or otalgia. CARDIOVASCULAR: Denies chest pain, palpitations, or edema. RESPIRATORY: Denies cough or dyspnea. GASTROINTESTINAL: Denies abdominal pain, nausea, vomiting, or diarrhea. GENITOURINARY: Denies dysuria or hematuria. SKIN: Denies rash or itching. positive wound to left foot times days. MUSCULOSKELETAL: Denies back pain, joint pain, or myalgia. NEUROLOGIC: Denies headache, numbness, or weakness. PSYCHIATRIC: Denies anxiety or depression. [facility] Past Medical History Medical History Abnormal glandular Papanicolaou smear of cervix Adjustment reaction with anxiety and depression Age-related osteoporosis without current pathological fracture Amaurosis fugax Aortic stenosis echocardiogram 12-19 show valve area of 1.[address] Antoine Benign essential HTN Benign neoplasm of colon Bilateral carotid bruits 06-24-20 U/S shows stenosis <50 Right , 50-69% Left Sees vascular Dr Vogel Calcium oxalate calculus of kidney Cardiomegaly Chronic bilateral low back pain with bilateral sciatica Chronic hypoxemic respiratory failure Sees Dr Soto Chronic obstructive pulmonary disease, unspecified Degeneration of lumbar or lumbosacral intervertebral disc Dupuytrens contracture Essential (primary) hypertension Foot drop, right Gastro-esophageal reflux disease without esophagitis Heart disease, unspecified Hepatitis C antibody test negative Hereditary and idiopathic neuropathy, unspecified History of tobacco abuse History of vaginal delivery x3 Idiopathic progressive neuropathy IT band syndrome Long-term insulin use Lumbago with sciatica, right side Mixed hyperlipidemia Multinodular goiter recommended u/s Neck mass Nonalcoholic steatohepatitis (SHAH) Nonrheumatic aortic (valve) stenosis Echo 120-- 1.2cm2, repeat echo 11-16 1.26cm2 Nonrheumatic aortic (valve) stenosis with insufficiency Obstructive sleep apnea SAMIRA on CPAP Osteoarthrosis, unspecified whether generalized or localized, forearm Other affections of shoulder region, not elsewhere classified Other chronic pain Other cirrhosis of liver Other
== END 2023-10-27 11:15 | disposition home or self-care (01) ==
PROVIDERS: Emergency Provider Nurse Practitioner Family; PCP Family Medicine
DX: L03.116 Cellulitis of left lower limb (principal); Z87.891 Personal history of nicotine dependence; M81.0 Age-related osteoporosis without current pathological fracture; I35.0 Nonrheumatic aortic (valve) stenosis; I10 Essential (primary) hypertension; R09.89 Other specified symptoms and signs involving the circulatory and respiratory systems; J44.9 Chronic obstructive pulmonary disease, unspecified; M51.36 Other intervertebral disc degeneration, lumbar region; M51.37 Other intervertebral disc degeneration, lumbosacral region; K21.9 Gastro-esophageal reflux disease without esophagitis; E78.2 Mixed hyperlipidemia; K75.81 Nonalcoholic steatohepatitis (NASH); G47.33 Obstructive sleep apnea (adult) (pediatric); I73.9 Peripheral vascular disease, unspecified; E11.9 Type 2 diabetes mellitus without complications; Z85.528 Personal history of other malignant neoplasm of kidney; Z85.828 Personal history of other malignant neoplasm of skin
CPT/HCPCS: 99213; G0463

== ENCOUNTER 2023-11-15 07:48 | Outpatient (CLI) | payer MEDICARE, OTHER, SELFPAY ==
--- NOTE | ~2023-11-15 | MM_ITS ---
EXAMINATION: MM screening yisel BI w stacey HISTORY: Screening TECHNIQUE: Craniocaudal and mediolateral oblique 3-D tomosynthesis images were obtained and synthetic 2-D images were generated. CAD analysis was submitted and interpreted. COMPARISON: Comparison to multiple prior studies sequentially, with oldest reviewed study dated 12/2015. BREAST PARENCHYMAL COMPOSITION: Not dense: There are scattered areas of fibroglandular density. FINDINGS: There is no evidence of suspicious mass, calcification, or architectural distortion to sugg est malignancy in either breast. There has been no suspicious interval change. IMPRESSION: 1. No mammographic evidence of malignancy. 2. Recommend routine screening mammography in one year. BI-RADS Category 1: Negative Reviewed, dictated and finalized at location B.
--- NOTE | ~2023-11-15 | DEXA_ITS ---
? Bone Density Report? Name:? FLACO BOO Patient ID:??? [id number] Age:? 73 Sex:? Female Ethnicity:? White Date of : 1950 Indication: postmenopausal; screening for osteoporosis; height loss; prior fracture; asthma or emphysema; Referring Provider: TAMMIE CANTU Study: Bone densitometry was performed. Exam Date: November 15, 2023 Accession number: [id number] Bone Density: Region?BMD??? T-score? Z-score?? Classification AP Spine(L1-L4)? 0.692?? -3.2? -0.8? Osteoporosis Femoral Neck (Left)? 0.384?? -4.2? -2.1? Osteoporosis Total Hip (Left)? 0.559?? -3.1? -1.4? Osteoporosis Femoral Neck (Right)? 0.488?? -3.2? -1.2? Osteoporosis Total Hip (Right)? 0.549?? -3.2? -1.5? Osteoporosis Femoral Neck Mean? 0.436?? -3.7? -1.7? Osteoporosis Total Hip Mean? 0.554?? -3.2? -1.4? Osteoporosis World Health Organization criteria for BMD impression classify patients as: Normal (T-score at or above -1.0), Osteopenia (T-score between -1.0 and -2.5), or Osteoporosis (T-score at or below -2.5). 10-year Fracture Risk: FRAX not reported because: ? Some T-score for Spine Total or Hip Total or Femoral Neck at or below -2.5 ? Prior hip or vertebral fracture ? Treated for osteoporosis Clinical Information Provided by Patient: Have had a previous hip or vertebral fracture Has had a low trauma fracture Is being treated for osteoporosis Has used the following medications: Fosamax (i.e. alendronate), Prolia (i.e. denosumab), Vitamin D, Calcium Has the following medical conditions: Asthma or Emphysema Patient maximum height was 65 Menopause Age: 49 Drinks caffeinated beverages Onset of menses at age 8 Number of children 3 Impression: The patient has established osteoporosis, based on the Left Femoral Neck T-score and the existence of a prior fracture. The patient has risk factors, including: previous fracture. Discussion: It is important to ask patients whether they are taking their medications and to encourage continued and appropriate compliance with their osteoporosis therapies to reduce fracture risk. It is also important to review their risk factors and encourage appropriate calcium and vitamin D intakes, exercise, fall prevention and other lifestyle measures. Follow-Up: Consider a repeat BMD and Vertebral Fracture Assessment (VFA) exam in 2 years or sooner if medically necessary, to reassess this patient's status. Reported by: Dr. Malik Brannon on 11/16/2023 2:42:00 PM. SAYDA
== END 2023-11-15 07:49 | disposition home or self-care (01) ==
LOC: CHSIMG 07:49
PROVIDERS: PCP Family Medicine; Visit Provider Nurse Practitioner Family
DX: Z12.31 Encounter for screening mammogram for malignant neoplasm of breast (principal); Z78.0 Asymptomatic menopausal state; M81.0 Age-related osteoporosis without current pathological fracture
CPT/HCPCS: 77063; 77067; 77080

== ENCOUNTER 2023-12-10 15:00 | Outpatient (RCR) | payer MEDICARE, OTHER, SELFPAY ==
[2023-08-31 09:04] VITALS: PULSE 89
== END 2023-12-10 15:27 | disposition home or self-care (01) ==
LOC: ANHCPREHAB 15:00
PROVIDERS: PCP Family Medicine; Visit Provider Specialist
DX: Z95.2 Presence of prosthetic heart valve (principal)
CPT/HCPCS: 93798

== ENCOUNTER 2024-01-15 08:59 | Outpatient (CLI) | payer MEDICARE, OTHER, SELFPAY ==
--- NOTE | ~2024-01-15 | US_ITS ---
EXAMINATION: US thyroid DATE: 01/15/2024 10:09 INDICATION: Nontoxic single thyroid nodule TECHNIQUE: Multiple ultrasound images of the thyroid were obtained. COMPARISON: None. FINDINGS: The right thyroid lobe measures 5.3 x 2.6 x 2.3 cm. The left thyroid lobe measures 5.7 x 2.6 x 2.4 c m. No significant interval change in a 1.8 cm solid isoechoic polyp than wide nodule with smooth and ill-defined margins and without echogenic foci in the left thyroid lobe (TI-RADS 4, moderately suspic ious , FNA if >=1.5 cm, annual followup is >=1 cm). No significant change in a few additional subcent imeter nodules in the thyroid the 2 largest an 8 mm mixed hypoechoic solid and cystic TI RADS 4 nodul e with echogenic foci in the left thyroid lobe and 5 mm cystic TI RADS 1 nodule in the right thyroid lobe. IMPRESSION: 1. Multinodular goiter. Recommend ultrasound-guided fine-needle aspiration of the 1.8 cm TI-RADS 4 le ft thyroid nodule. Reviewed, dictated and finalized at location A. IMPRESSION: 1. Multinodular goiter. Recommend ultrasound-guided fine-needle aspiration of t he 1.8 cm TI-RADS 4 left thyroid nodule.
== END 2024-01-15 09:00 | disposition home or self-care (01) ==
LOC: ANHIMG 09:01
PROVIDERS: PCP Family Medicine; Visit Provider Internal Medicine Endocrinology, Diabetes & Metabolism
DX: E04.2 Nontoxic multinodular goiter (principal)
CPT/HCPCS: 76536

== ENCOUNTER 2024-03-05 12:40 | Outpatient (CLI) | payer MEDICARE, OTHER, SELFPAY ==
--- NOTE | ~2024-03-05 | US_ITS ---
EXAMINATION: US FNA w image guidance DATE: 03/05/2024 13:45 INDICATION: Left thyroid nodule. TECHNIQUE: The procedure and its benefits and risks were discussed with the patient. Risks specifically discusse d included bleeding. The patient verbalized understanding of the risks and agreed to proceed. The nec k was prepped and draped in the usual sterile manner. 1% lidocaine was used for local anesthesia. 7 passes were made with a 25G needle into the lesion under ultrasound guidance. There were no immedia te complications. FINDINGS: Grayscale ultrasound images demonstrate needles advanced into a 1.8 cm nodule in left thyroid lobe fo r biopsy. IMPRESSION: 1. Ultrasound-guided fine needle aspiration of a left thyroid nodule. Reviewed, dictated and finalized at location A.
== END 2024-03-05 12:41 | disposition home or self-care (01) ==
LOC: ANHIMG 12:41
PROVIDERS: PCP Family Medicine; Visit Provider Internal Medicine Endocrinology, Diabetes & Metabolism
DX: E04.1 Nontoxic single thyroid nodule (principal)
CPT/HCPCS: 10005; 88172; 88173; 88305

== ENCOUNTER 2024-05-01 08:54 | Outpatient (CLI) | payer MEDICARE, OTHER, SELFPAY ==
[2024-05-01 13:22] LABS: Creatinine Urine 99.6 mg/dL
[2024-05-01 14:24] LABS: Microalbumin Urine Random 724.1 mg/L (0-16.7)
[2024-05-01 21:06] LABS: Vitamin D 25 Hydroxy 34.8 ng/mL
== END 2024-05-01 08:55 | disposition home or self-care (01) ==
LOC: ANHGOSHLAB 08:58
PROVIDERS: Internal Medicine Endocrinology, Diabetes & Metabolism; PCP Family Medicine; Visit Provider Nurse Practitioner Family
DX: E78.2 Mixed hyperlipidemia (principal); E83.51 Hypocalcemia; I10 Essential (primary) hypertension; K75.81 Nonalcoholic steatohepatitis (NASH); R79.89 Other specified abnormal findings of blood chemistry; Z79.899 Other long term (current) drug therapy; E11.49 Type 2 diabetes mellitus with other diabetic neurological complication
CPT/HCPCS: 36415; 82043; 82306

== ENCOUNTER 2024-05-26 13:44 | Outpatient (CLI) | payer MEDICARE, OTHER, SELFPAY ==
--- NOTE | ~2024-05-26 | CT_ITS ---
CT Scan of the Chest without Contrast: Clinical Indication: Lung cancer screening, nicotine dependence Technique: Contiguous sections were acquired throughout the chest without intravenous contrast. Dose reduction technique was used on this scan by utilizing automated exposure control and iterative recon struction technique. The dose-length product (DLP) was 138.02 mGy-cm. COMPARISON: 06/15/2023 Findings: There is no evidence of any significant mediastinal, hilar or axillary lymphadenopathy. There are ext ensive atherosclerotic calcifications of the aorta and coronary arteries. Aortic valve replacement pr esent. There is no evidence of pleural or pericardial effusion. Stable minimal right apical scarring. Stable focal scarring in the lingula. No suspicious pulmonary n odule. Images through the upper abdomen reveal nodular contour of liver. Numerous compression fractures are unchanged, involving T5, T6, T7, T8, T9, T12, and L2. Impression: Lung RADS 1-S: Negative. 12 month follow-up screening CT advised. Cirrhotic liver. Numerous compression fractures, as above, unchanged. Reviewed, dictated and finalized at location M. RAL SCIENCES PROFESSOR Impression: Lung RADS 1-S: Negative. 12 month follow-up screening CT advised. Cirrhotic liver. Numerous compression fractures, as above, unchanged.
== END 2024-05-26 13:45 | disposition home or self-care (01) ==
PROVIDERS: PCP Family Medicine; Visit Provider Physician Assistant
DX: Z12.2 Encounter for screening for malignant neoplasm of respiratory organs (principal); K74.60 Unspecified cirrhosis of liver; S22.050A Wedge compression fracture of T5-T6 vertebra, initial encounter for closed fracture; S22.060A Wedge compression fracture of T7-T8 vertebra, initial encounter for closed fracture; S22.070A Wedge compression fracture of T9-T10 vertebra, initial encounter for closed fracture; S22.080A Wedge compression fracture of T11-T12 vertebra, initial encounter for closed fracture; S32.020A Wedge compression fracture of second lumbar vertebra, initial encounter for closed fracture; Z87.891 Personal history of nicotine dependence; X58.XXXA Exposure to other specified factors, initial encounter
CPT/HCPCS: 71271

== ENCOUNTER 2024-08-15 08:54 | Outpatient (CLI) | payer MEDICARE, OTHER, SELFPAY ==
--- OUTSIDE RECORDS SUMMARY | 2024-08-15 09:58 | XMS_ITS ---
Author Organization [facility] [address] Address [address] [place] [address] Care Team Providers Care Sales Service Technician Name Role Phone Vitaly Frye MD Primary Care Provider [phone] Vitaly Antoine MD Unavailable [phone] Yao Al MD Unavailable Active Problems Problem Noted Date Diagnosed Date Rotator cuff arthropathy of right shoulder 07/15 Right shoulder pain 07/15/2024 Displaced fracture of proximal end of right bennie lino 07/15/2024 Status post transcatheter ao rtic valve replacement (TAVR) using bioprosthesis 08/06/2023 Assessment & Plan (08/01/2024 2:17 PM FINANCE TEACHER): S/p TAVR 1 year ago. The valve is functioning well. No additional TAVR follow up scheduled at this time. Assessment & Plan (09/07/2023 3:33 PM CDT): S/p TAVR 1 month ago. The valve is functioning well. We will plan for a 1 year TAVR follow up. Mixed hyperlipidemia 07/26/2023 Shortness of breath 07/26/2023 Encounter for examination fo r normal comparison and control in clinical research program 07/24/2023 History of procedure for peripheral vascular dis ease 08/10/2021 Assessment & Plan (08/09/2022 10:10 AM CDT): Her asymptomatic lower extremity arterial disease remains stable. We recommend repeat ABIs in one year. Assessment & Plan (08/10/2021 9:27 AM CDT): Stable lower extremity arterial disease. Monitor with repeat ABIs in one year. Certainly if there are interval problems, we would be happy to see her sooner. Thrombocytopenia 12/01/2020 Normochromic normocytic anemia 12/01/2020 PAD (peripheral artery disease) 12/01/2020 Assessment & Plan (08/06/2024 9:53 AM CDT): Stable lower extremity arterial disease both symptomatically and based on doppler studies. Repeat lower extremity arterial doppler in one year. Assessment & Plan (08/08/2023 8:55 AM CDT): Stable right leg arterial disease and some progression left leg arterial disease based on ABIs however she remains asymptomatic from a peripheral vascular disease perspective. She plans to enroll in cardiac rehab and remain as active as she can be s/p TAVR. She'll return in one year for repeat ABIs. Assessment & Plan (03/23/2021 2:20 PM CDT): Impression: Healed right groin incision. Plan: Patient follow-up in 3 months for re-evaluation and repeat lower extremity arterial Doppler surveillance. Hyponatremia 12/01/2020 Lactic acidosis 11/28/2020 Gastroesophageal reflux disease without esophagi tis 11/04/2020 Chronic respiratory failure 11/01/2020 Obstructive sleep apnea syndrome 11/01/2020 Hypertension 06/23/2020 Assessment & Plan (02/09/2021 3:49 PM CDT): Impression: Chronic, stable hypertension, controlled with medication. Blood pressure is stable this office visit. Plan: Medications reviewed, no changes made. Continue blood pressure management as per primary care provider. Assessment & Plan (08/20/2020 3:02 PM CDT): Impression: Stable chronic hypertension. Plan: Medications reviewed and recommend continuing daily antihypertensive regimen as directed by patient's primary care physician. Carotid stenosis, asymptomatic, bilateral 2019 Assessment & Plan (08/10/2021 9:24 AM CDT): Minimal disease based on Doppler study. Repeat in 2-5 years for observation. Assessment & Plan (08/20/2020 3:05 PM CDT): Impression: Stable asymptomatic bilateral carotid artery disease. No interim neurological deficits. Plan: Continue ongoing risk factor modifications and follow-up for her otherwise next annual surveillance visit. Assessment & Plan (06/22/2019 12:23 PM FINANCE TEACHER): Patient has mild to moderate carotid stenosis 50-79% on the left. This however remains asymptomatic and does not correlate with her positional symptoms. Most likely etiology is either orthostatic hypotension and or inner ear abnormality based upon the patient's history. Do recommend ongoing yearly carotid duplex surveillance and follow-up however. Benign paroxysmal positional vertigo due to bilateral vestibular disorder 06/22/2019 Assessment & Plan (06/22/2019 12:23 PM FINANCE TEACHER): Per patient she has been diagnosed with this prior and is set to see an ear nose and throat surgeon for evaluation for recently discovered thyroid nodule in addition to worsening dizziness. Diabetes mellitus 06/22/2019 Assessment & Plan (02/09/2021 3:48 PM CDT): Impression: Patient reports her blood sugars are well controlled with insulin. Plan: Medications reviewed, no changes made. Continue diabetic management as per primary care provider. Assessment & Plan (06/22/2019 12:24 PM FINANCE TEACHER): Per patient blood sugars well controlled. Continue current insulin regimen per primary care physician. 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 Functional gait disorder Weakness generalized Current Treatment and Therapy Plans No current plan information found. Past Treatment and Therapy Plans No past plan information found. Lifetime Dose Tracking * Chemical Lifetime Dose Automatic Entry Manual Entr y Air kerma at the reference point (Ka,r) 194 mGy 0 mGy 194 mGy Resolved Problems Problem Noted Date Diagnosed Date Resolved Date Aortic stenosis 08/03/2023 12/20/2023 Wound infection 11/28/2020 08/10/2021 Assessment & Plan (12/17/2020 1:22 PM CDT): Impression: Open surgical wound right groin status post incision and drainage of a large seroma. Her wound is clean and granulating and being treated with wound VAC therapy. Plan: Continue wound VAC treatment. Patient follow-up in 2 weeks for re- evaluation. Assessment & Plan (11/30/2020 8:56 AM CDT): Impression: Patient recovering status post I&D right groin. Her seroma drainage has significantly decreased. Plan: Continue incisional wound VAC therapy. Patient may require further debridement if her drainage persists. Patient also have arterial duplex studies performed prior to next visit. Other chest pain 11/04/2020 11/08/2020 Postoperative infection, initial encounter 10/31/2020 11/08/2020 Ischemic rest pain of lower extremity 08/20/2020 10/31/2020 Assessment & Plan (10/12/2020 3:36 PM CDT): Impression: Patient recovering status post right lower extremity angiogram with endovascular intervention. She also had a significant finding of a flow limiting right common femoral stenosis during her right lower extremity angiogram. She is having ongoing disabling claudication. Plan: Recommended further surgical treatment with a right femoral endarterectomy to be performed by Dr. Chacko over the next 1-2 weeks. The procedure and associated risks were discussed with the patient detail in which she acknowledged and agreed to proceed. Assessment & Plan (10/06/2020 8:39 AM CDT): Impression: Patient recovering status post right lower extremity angiogram with atherectomy balloon angioplasty of right anterior tibial artery to treat disabling claudication. Her symptoms have minimally improved. Plan: Will plan for follow-up in 2 weeks for re-evaluation with baseline lower extremity arterial duplex. Patient may require further open vascular reconstruction. Will discuss surgical treatment at that time. Assessment & Plan (08/20/2020 3:02 PM CDT): Impression: Patient with history of lower extremity arterial occlusive disease with recent worsening progression over the past 2-3 weeks. She currently has constant ischemic rest pain that is disrupting her sleep at night. No open ulcerations. Plan: I recommended further surgical treatment including a right lower extremity angiogram with possible intervention to be performed by Dr. Chacko. The procedure and associated risks were discussed with the patient in detail in which she acknowledged and agreed to proceed. Nonrheumatic aortic valve stenosis 04/25/2017 12/20/2023 HCC (hepatocellular carcinoma) 06/21/2016 10/31/2020 Pre-transplant evaluation fo r liver transplant 06/21/2016 10/31/2020 Overview (06/16/2019): Overview: Formatting of this note may be different from the original. Diagnosis: SHAH; HCC Referring Scrap Dealer: Danilo Arizmendi MELD: 01/22 Blood Type: A pos BMI: 30 Short H/P summary: DM type II since 1992: Htn x 8 years. Quit smoking 4 years ago; >1 ppd X 40 years. 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 Evaluation Testing Date and Results: Labs: 08/16/2016 A1c-12.6: Glucose-360: Chol-180 HDL-41: LDL-98: Triglycerides- 206: Serologies: CMV: Tox Screen-Neg: Alpha 1 Anti: AFP: [id number]: Ceruloplasmin: LEE: Anti Smooth muscle ab: Mitochondrial: Quant Gold-Neg: Tox Screen-neg: RPR: TSH- 1.376 : Radiology: 08/16/2016 CT chest w/o contrast: There is a left-sided three-vessel aortic arch. The aorta and main pulmonary arteries are normal in course and caliber. Calcific atherosclerosis of the coronary arteries and imaged portion of the aorta is present. Mild atelectasis or scarring is present within the anterior aspect of the right lung apex. Additionally groundglass attenuation and numerous grouped nodules measuring up to 4 mm are seen within the right lung apex medially. No pleural effusion or focal pleural thickening is identified. There is no evidence of pneumothorax. The trachea is patent and midline.Bone windows demonstrate no suspicious lytic or blastic lesions. Grouped right upper lobe pulmonary nodules with surrounding groundglass attenuation are favored to be infectious or inflammatory. Short-term follow-up chest CT in 3 months is recommended to ensure resolution. Emphysema Pano: Multiple dental restorations are identified, and numerous teeth are absent. No acute mandibular fracture is identified. Both temporomandibular joints are intact. No periapical abscess is present. IMPRESSION IMPRESSION: No evidence of periapical abscess. Dictated by Inga Boudreaux MD (residential energy auditor). This report was approved by Inga Boudreaux M.D. on 08/16/2016 3:36 PM . I, Dr. DUKE SKELTON M.D. have personally reviewed and interpreted this examination/study. MRI abdomen with and without contrast: 05/11/16 There is a new subcapsular 1.3 cm arterial enhancing observation in the anterior aspect of the hepatic segment 3 (series 8 image 66) with subtle washout (series 12 image 66 and series 13 image 66). There is mild central intrahepatic biliary dilatation. The mid common bile duct remains mildly dilated measuring 1.3 cm maximal diameter with gradual tapering, similar to the prior exam. The hepatic arterial anatomy is conventional. The portal vein and its major branches are patent. The hepatic veins are patent. The gallbladder is absent. Multiple perisplenic and paraesophageal varices are seen. Multiple subcentimeter cysts are seen in both kidneys. A 1.6 cm left adrenal adenoma is unchanged. A 10 mm right inferior pole cystic lesion with a thick enhancing rim is unchanged (series 8 image 62). The spleen, pancreas, right adrenal gland, and kidneys are otherwise normal. No free intraperitoneal fluid is identified. Mild degenerative changes in the thoracolumbar spine with Schmorl's nodes are seen. Chronic T12, L2 and L4 superior endplate deformities are unchanged 1. A new subcapsular 1.3 cm arterial enhancing observation in hepatic segment 3 with subtle washout (LR 5), consistent with a hepatocellular carcinoma. 2. Hepatic cirrhosis with sequela of portal hypertension. 3. Mild diffuse hepatic steatosis. 4. A 10 mm right inferior pole cystic lesion with a thick enhancing rim, unchanged. Renal cell carcinoma cannot be ruled out. 5. A 1.7 cm left adrenal adenoma, unchanged. A critical results message was sent to Dr. Arizmendi at 11:50 AM on 05/11/2016. Dictated by Mgiuelina Price MD (residential energy auditor). This report was approved by Miguelina Price M.D. on 05/11/2016 10:[address] VENKAT Rivera M.D. have personally reviewed and interpreted this examination/study. Ultrasound-retroperitoneal Right kidney: 12.6 x 5.5 x 4.9 cm Left kidney: 12.3 x 5.4 x 4.9 cm The renal parenchymal echogenicity is within normal limits. No hydronephrosis or urolithiasis is identified. In the lateral right lower pole is a solid, hyperechoic mass demonstrating internal flow measuring 1.3 x 1.4 x 1.3 cm corresponding to the lesion demonstrated on MRI. No suspicious masses are seen in the left kidney. Blood flow is seen within the renal arteries and veins. The bladder is nondistended. IMPRESSION IMPRESSION: 1. A 1.4 cm right inferior pole solid mass corresponding to the lesion demonstrated on MRI, suspicious for renal cell carcinoma. Report dictated by Vitaly Virk M.D. (resident). This report was approved by Vitaly Virk M.D. on 08/16/2016 9:[address] DUKE Rivera M.D. have personally reviewed and interpreted this examination/study Cardiology: Echo: 1. Rhythm is sinus rhythm. 2. There is severe concentric left ventricular hypertrophy. The left ventricular mass index is 144 gm/M . The left ventricular cavity size is normal (diastolic volume index 53 ml/M2). Normal global left ventricular systolic function and regional wall motion with ejection fraction of 71 %. 3. Abnormal relaxation filling pattern of the left ventricle for age (stage 1 diastolic dysfunction). Left atrial pressure and left ventricular end-diastolic pressure both mildly to moderately elevated. 4. Severe mitral annular calcification. No mitral regurgitation. No mitral valve stenosis. 5. Moderate aortic valve stenosis, peak gradient of 27 mmHg, mean gradient 14.5 mmHg, YOUSUF 1.3 cm /area index 0.68 cm2/M2. Trivial aortic regurgitation. 6. The left atrial cavity size is moderately severely increased (volume index 56 ml/M2). No evidence of iipaj-qk-fkks shunt with bubble study. 7. The right ventricular ejection fraction is normal. The right ventricular cavity size is normal. Normal estimated right ventricular systolic pressure of 27 mmHg. High normal mean PA pressure of 18-20 mmHg. 8. Trace tricuspid valve regurgitation. Normal pulmonary vascular resistance of 1.7 Wood units. 9. Normal right atrial size (volume index 30 ml/M2) with normal right atrial pressure (4 mmHg). 10. There is no pericardial or pleural effusion. 11. Findings consistent with moderate aortic stenosis, hypertrophic heart disease, diastolic dysfunction, mildly to moderately elevated left heart filling pressure, normal LV systolic function, calcified but normally functioning mitral valve, high normal pulmonary artery pressure, normal pulmonary vascular resistance, tanya venous pressure and tanya right heart chambers. 12. Acceptable candidate for dobutamine ECHO or pharm nuclear stress to screen for CAD/ischemia. 13. No prior ECHO for comparison. DSE: Cardiac Cath: ABGs: Component Value Flag Ref Range Units Status pH, Arterial 7.37 7.35 - 7.45 Final pCO2 Arterial 46 (H) 35 - 45 mmHg Final pO2 Arterial 30 (L) 71 - 95 mmHg Final HCO3 Arterial 26.0 22.0 - 26.0 mmol/L Final TCO2 Arterial 27.4 25.0 - 29.0 mmol/L Final Base Excess Arterial 0.4 -2.0 - 2.0 mmol/L Final Hgb Arterial 11.5 (L) 12.0 - 15.5 g/dL Final Oxyhemoglobin Arterial 50.5 (LL) 95.0 - 100.0 % Final Comment: Called ECHO, unable to locate patient. Called Out Patient testing and no answer. Carboxyhemoglobin 0.5 0.0 - 3.0 % Final Methemoglobin 0.0 0.0 - 2.0 % Final FIO2 Arterial 0.0 % Final Comment: no 08/16/16 Pulmonary consult; Dr. Lai ASSESSMENT: 1. Chronic hypoxemic respiratory failure due to: A. COPD, very severe (GOLD 4), category C B. Question of hepatopulmonary syndrome C. Other causes? 2. History of obstructive sleep apnea (SAMIRA) +/- Sleep-related hypoxemia disorder on CPAP at 10 cmH2O + O2 L/ min 3. History of valvular heart disease with severe aortic stenosis 4. History of cryptogenic cirrhosis 5. Family history of hemachromatosis (brother) 6. Hypertensive heart disease with stage 1 diastolic dysfunction 7. History of systemic hypertension 8. History of diabetes mellitus 9. History of depression and anxiety ASSESSMENT: 1. Chronic hypoxemic respiratory failure due to: A. COPD, very severe (GOLD 4), category C B. Question of hepatopulmonary syndrome C. Other causes? 2. History of obstructive sleep apnea (SAMIRA) +/- Sleep-related hypoxemia disorder on CPAP at 10 cmH2O + O2 L/ min 3. History of valvular heart disease with severe aortic stenosis 4. History of cryptogenic cirrhosis 5. Family history of hemachromatosis (brother) 6. Hypertensive heart disease with stage 1 diastolic dysfunction 7. History of systemic hypertension 8. History of diabetes mellitus 9. History of depression and anxiety PLAN: Diagnostic: 1. Complete PFT with bronchodilator 2. ABG 3. Oxygen desaturation study 4. Clinical shunt study 5. Does the patient have alpha-antitrypsin level and phenotype result? 6. Awaiting 2d echo result to rule out pulmonary hypertension/shunt Therapeutic: 1. Continue chronic obstructive pulmonary disease (COPD) regimen as per Emmanuel Mucker [place]: A. Salmeterol/fluticasone (Advair) 250 mcg 1 puff bid B. Start tiotropium (Spiriva) 1 capsule inhaled via handihaler daily. C. Albuterol MDI 2 puffs every 6 hrs as needed for cough, wheezing, or dyspnea. D. Consider roflumilast if she has 2 or more exacerbations per year. E. O2 at 2 L/min with exertion 2. Continue CPAP at 10 cmH2O + O2 at 2 L/min side flow as per Emmanuel Mucker [place] 3. Her very severe COPD may preclude her from liver transplantation 4. Follow-up with results Sourav Lai MD, [facility], [facility], [facility] Timber Management Professor, [facility] [employer] of Internal Medicine Division of Pulmonary, Critical Care, and Sleep Medicine [facility] EGD: 02/15/15 In the lower third esophagus, an abnormality was noted: no varices. The gastroesophageal junction (upper level of gastric fold) was located 40 cm from the incisors. In the whole stomach, mild chronic diffuse gastritis was seen. The gastritis had the following findings: erythematous, bile staining. The duodenum was examined and no abnormalities were seen. Continue present medications: Probiotic,eg align. Return to primary physician as needed. Colonoscopy: Mammo: Pap: SW: RD: BMI= 30.55, Class I Obesity. Based on last available A1C, pt is a marginal candidate for liver transplant from a Nutrition Standpoint until A1C is within Transplant guideline of < 9. Last A1C was 12.8 on 08/10/15. No recent A1C available. Recommendations/Interventions: 1. Pt needs to see an Calender Machine Operator Helper as she currently does not. 2. Pt (with her daughter, Cassidy) instructed on Cirrhosis Nutrition Therapy Guidlelines. Pt given handout along with RD contact information. 3. Recommended pt view Nutrition Facts for carb and sodium - content 60 g of Carb and 600 mg of sodium/ meal acceptable. Infection of superficial inc isional surgical site after procedure 08/10/2021 Right groin wound 08/10/2021 Assessment & Plan (02/09/2021 4:04 PM CDT): Impression: Patient is status post right femoral endarterectomy as well as multiple incision and drainage of right groin seroma. Right groin wound is healing with granulated tissue with no surrounding erythema or edema. Plan: Recommend daily dressing changes with triple antibiotic ointment and 4 x 4. Patient to follow-up in 4 weeks for re-evaluation. Assessment & Plan (01/28/2021 12:45 PM CDT): Impression: Patient is status post right femoral endarterectomy as well as multiple incision and drainage of right groin seroma. She has been utilizing a wound VAC to a right groin. Right groin wound is clean with granulating tissue with no surrounding erythema, or edema. Plan: Recommend daily dressing changes with wound gel, and 4 x 4. Patient to follow-up in 2 weeks for re-evaluation.
--- OUTSIDE RECORDS SUMMARY | 2024-08-15 09:59 | XMS_ITS | Clinical Summary ---
Author Organization [facility] [place] [address] [facility] [address] Address [address] [place] [address] Care Team Providers Care Farm Management Agent Name Role Phone Vitaly Frye MD Primary Care Provider [phone] Vitaly Antoine MD Unavailable [phone] Yao Al MD Unavailable [phone] Allergies Active Allergy Reactions Criticality Noted Date Comments Azithromycin Hives Medium 10/31/2020 Iodinated Contrast Media Anaphylaxis,Hives,Itch ing High 10/31/2020 Erythromycin Hives,Itching High 08/25/2020 Iodine Anaphylaxis,Hives High 08/25/2020 Iohexol Anaphylaxis,Swelling High 08/22/2012 Facial swelling-Iodinated contrast Procaine Palpitations Low 09/05/2021 Medications denosumab (PROLIA) 60 mg/mL syringe syringe inject 1 milliliter by subcutaneous route every 6 months in the upper arm, upper thigh or abdomen 0 Syringe 0 017 Active buPROPion SR (WELLBUTRIN SR) 150 mg 12 hr tablet take 1 tablet by oral route every day 0 0 017 Active albuterol HFA (PROAIR HFA) 90 mcg/actuation inhaler inhale 2 puff by inhalation route every 4 - 6 hours as needed 0 Inhaler 0 017 Active fluticasone-leonel meterol (ADVAIR DISKUS) 250-50 mcg/dose diskus inhaler inhale 2 puff by inhalation route 2 times every day in the morning and evening approximately 12 hours apart 0 0 017 Active furosemide (LASIX) 20 mg tablet Take 1 tablet (20 mg total) by mouth 2 (two) times a day Active rOPINIRole (REQUIP) 0.5 mg tablet Take 1 tablet (0.5 mg total) by mouth nightly Active cholecalciferol (VITAMIN D-3) 25 mcg (1,000 unit) tablet Take 2 tablets (2,000 Units total) by mouth every morning Active semaglutide (OZEMPIC SUBQ) Inject under the skin once a week Sunday Active traZODone (DESYREL) 50 mg tablet Take 1 tablet (50 mg total) by mouth as needed for sleep Active aspirin 81 mg enteric coated tablet Take 1 tablet (81 mg total) by mouth daily Active insulin glargine (LANTUS) 100 unit/mL vial for injection Inject 20 Units under the skin nightly for 24 days 2025 Active lisinopriL (PRINIVIL,ZESTR IL) 10 mg tablet Take 0.5 tablets (5 mg total) by mouth daily Active carvediloL (COREG) 6.25 mg tabletIndicatio ns:Primary hypertension Take 1 tablet (6.25 mg total) by mouth 2 (two) times a day with meals 180 tablet 3 Active glimepiride (AMARYL) 1 mg tabletIndicatio ns:type 2 diabetes mellitus Take 1 tablet (1 mg total) by mouth 2 (two) times a day Not start just received Active calcium carbonate/vitam in D3 (CALCIUM 500 + D ORAL) Take by mouth 2 (two) times a day Active ezetimibe-simva statin (VYTORIN) 10-80 mg per tablet Take 1 tablet by mouth every morning Active albuterol 2.5 mg /3 mL (0.083 %) nebulizer solution Take 3 mL (2.5 mg total) by nebulization as needed for wheezing Active docusate sodium (COLACE) 100 mg capsuleIndicati ons:constipatio n Take 1 capsule (100 mg total) by mouth every morning Active empagliflozin (JARDIANCE) 25 mg tablet Take 1 tablet (25 mg total) by mouth every morning Active tiotropium (SPIRIVA WITH HANDIHALER) 18 mcg per inhalation capsule inhale 1 capsule by inhalation route every day 0 0 017 2024 Discontinued(T herapy completed) empagliflozin (JARDIANCE) 10 mg tablet Take 2.5 tablets (25 mg total) by mouth breaker unit assembler before breakfast 2024 Discontinued Active Problems Problem Noted Date Diagnosed Date Rotator cuff arthropathy of right shoulder 07/15 Right shoulder pain 07/15/2024 Displaced fracture of proximal end of right bennie lino 07/15/2024 Status post transcatheter ao rtic valve replacement (TAVR) using bioprosthesis 08/06/2023 Assessment & Plan (08/01/2024 2:17 PM DEBURRER STRIP): S/p TAVR 1 year ago. The valve [...] visit. Assessment & Plan (06/22/2019 12:23 PM DEBURRER STRIP): Patient has mild to moderate carotid stenosis [...] 06/22/2019 Assessment & Plan (06/22/2019 12:23 PM DEBURRER STRIP): Per patient she has been diagnosed with [...] provider. Assessment & Plan (06/22/2019 12:24 PM DEBURRER STRIP): Per patient blood sugars well controlled. Continue current insulin regimen per primary care physician. 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 Functional gait disorder Weakness generalized Resolved Problems Problem Noted Date Diagnosed Date [...] from the original. Diagnosis: SHAH; HCC Referring Strategic Planning Director: Danilo Arizmendi MELD: 01/22 Blood Type: A pos BMI: 30 Short H/P summary: DM type II since 1992: Htn x 8 years. Quit smoking 4 years ago; >1 ppd X 40 years. 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 Evaluation Testing Date and Results: Labs: 08/16/2016 A1c-12.6: Glucose-360: Chol-180 HDL-41: LDL-98: Triglycerides- 206: Serologies: CMV: Tox Screen-Neg: Alpha 1 Anti: AFP: Ob28-2-70: Ceruloplasmin: LEE: Anti Smooth muscle ab: Mitochondrial: [...] abscess. Dictated by Inga Boudreaux MD (residential program coordinator). This report was approved by Inga Boudreaux [...] at 11:50 AM on 05/11/2016. Dictated by Miguelina Price MD (residential program coordinator). This report was approved by Miguelina Price M.D. on 05/11/2016 10:45 AM . I, Dr. VENKAT IBRAHIM M.D. have personally reviewed and interpreted this [...] Virk M.D. on 08/16/2016 9:01 AM . I, Dr. DUKE SKELTON M.D. have [...] (volume index 56 ml/M2). No evidence of ikhcm-gu-ksxg shunt with bubble study. 7. The right [...] pulmonary disease (COPD) regimen as per Emmanuel Photographic Machine Operator: A. Salmeterol/fluticasone (Advair) 250 mcg 1 puff [...] at 2 L/min side flow as per Payne Photographic Machine Operator 3. Her very severe COPD may preclude her from liver transplantation 4. Follow-up with results Sourav Lai MD, [facility], [facility], [facility] Chief Ophthalmic Technician, [facility] Aircraft Navigator of Internal Medicine Division of Pulmonary, Critical Care, and Sleep Medicine [facility] EGD: 02/15/15 In the lower third esophagus, [...] Recommendations/Interventions: 1. Pt needs to see an Stress Engineer as she currently does not. 2. Pt [...] to follow-up in 2 weeks for re-evaluation. Encounters Date Type Department Care Team Description 08/06/2024 10:36 AM CDT - 08/06/2024 11:59 PM CDT Hospital Encounter [facility] - Imaging [address] [place] [phone] Rotator cuff arthropathy of right shoulder; Right shoulder pain, unspecified chronicity; Displaced fracture of proximal end of right humerus Discharge Disposition: Discharge to home or self care 08/06/2024 8:45 AM CDT Office Visit [facility] Surgery [address] [phone] Tay Deras MD PAD (peripheral artery disease) (Primary Dx) 08/06/2024 8:00 AM CDT Ancillary Procedure [facility] [address] [phone] History of procedure for peripheral vascular disease; Peripheral vascular disease 07/31/2024 12:30 PM DEBURRER STRIP Office Visit Cardiovascular and Thoracic Surgery [address] [facility] [address] [place] [phone] Emmanuel Villaseñor NP Status post transcatheter aortic valve replacement (TAVR) using bioprosthesis (Primary Dx) 07/31/2024 10:58 AM DEBURRER STRIP - 07/31/2024 11:59 PM DEBURRER STRIP Hospital Encounter [facility] OP Cardiac Testing [address] [facility] [address] [place] [address] Status post transcatheter aortic valve replacement (TAVR) using bioprosthesis Discharge Disposition: Discharge to home or self care 07/31/2024 7:30 AM DEBURRER STRIP Pre-Admission Testing [facility] Pre-Anesthesia Testing [address] [address] Preoperative testing (Primary Dx) 07/31/2024 7:00 AM DEBURRER STRIP Lab [facility] [address] [address] Preoperative testing; Rotator cuff arthropathy of right shoulder; Right shoulder pain, unspecified chronicity; Displaced fracture of proximal end of right humerus; Vitamin D deficiency 07/15/2024 Orders Only [facility] Orthopaedic Surgery [address] [facility] 12th [place] [address] [place] [address] Kylah Kirkpatrick MD Rotator cuff arthropathy of right shoulder (Primary Dx); Right shoulder pain, unspecified chronicity; Displaced fracture of proximal end of right humerus 07/10/2024 3:15 PM DEBURRER STRIP Office Visit [facility] at [address] [place] [address] Vitaly Antoine MD Status post transcatheter aortic valve replacement (TAVR) using bioprosthesis (Primary Dx) 06/18/2024 2:39 PM DEBURRER STRIP - 06/18/2024 11:59 PM DEBURRER STRIP Hospital Encounter [facility] [address] [place] [address] Discharge Disposition: Discharge to home or self care 06/18/2024 10:30 AM DEBURRER STRIP Office Visit [facility] Orthopaedic Surgery [address] [facility] 2nd [address] [place] [address] Kylah Kirkpatrick MD Rotator cuff arthropathy of right shoulder (Primary Dx); Right shoulder pain, unspecified chronicity; Displaced fracture of proximal end of right humerus from Last 3 Months Immunizations Immunization Administration Dates Next Due Influenza, Quadrivalent, Rec ombinant, Egg Free, Preservative Free, Intramuscular 03/20/2019 Influenza, Trivalent, High D ose, Split, Preservative Free, Intramuscular 03/15/2018 Influenza, Trivalent, IM (MDV) 03/18/2016 Moderna SARS-CoV-2 Monovalent Vaccination (12+ Y RS) 08/06/2020,07/09/2020 Pneumococcal Polysaccharide PPV23 08/16/2012 ZOSTER LIVE 05/25/2015 Surgical History Surgery Date Site/Laterality Comments TUBAL LIGATION 05/28/1982 - 05/27/1983 HERNIA REPAIR 05/28/1993 - 05/27/1994 x 2 CHOLECYSTECTOMY 05/28/1982 - 05/27/1983 CATARACT EXTRACTION 05/28/2012 - 05/27/2013 Bilateral ANGIOPLASTY 09/10/2020 Right dcba atherectomy , NOELLE, PA FEMORAL ENDARTERECTOMY 10/13/2020 Right com-fem INCISION AND DRAINAGE OF WOUND 11/02/2020 Right I&D rt groin sermoa 7 debridement APPENDECTOMY 05/28/1993 - 05/27/1994 FOOT SURGERY removal of left great toe amss TONSILLECTOMY AND ADENOIDECTOMY 05/28/1966 - 05/27/1967 SHOULDER ARTHROSCOPY Right right bicep tendon repair TRANSCATHETER AORTIC VALVE REPLACEMENT 08/03/2023 23 Rosales Medical History Medical History Date Comments Carotid stenosis Vertigo COPD (chronic obstructive pulmonary disease) (HC C) on oxygen HTN (hypertension) DM (diabetes mellitus) (HCC) Osteoporosis Aortic stenosis Peripheral vascular disease foll ows with Tay Deras Sleep apnea Bipap Cancer (HCC) renal cell Family History Medical History Relation Name Comments Cancer Brother Heart disease Brother Sudden Brother COPD Father COPD; Cause of : COPD Alzheimer's disease Mother Alzheime r's disease; Cause of : Alzheimer's disease Hypertension Mother Heart disease Sister Anesthesia problems Neg Hx Relation Name Status Comments Brother Father (Age 72) Mother (Age 89) Sister Social History Tobacco Use Types Packs/Day Years Used Date Smoking Tobacco: Former Cigarettes 2 55 1 958 - 2013 Passive Smoke Exposure: Past Smokeless Tobacco: Never Tobacco Cessation:Counseling Given: Not Answered Comments:Smoking History Packs/day: 1 Packs Alcohol Use Standard Drinks/Week Comments No 0 (1 standard drink = 0.6 oz pur e alcohol) Social Connection and Isolat ion Panel [NHANES] Answer Date Recorded In a typical week, how many times do you talk on the phone with family, friends, or neighbors? More than three times a week 11/30/2020 How often do you get togethe r with friends or relatives? Once a week 11/30/2020 How often do you attend chur ch or yarsanism services? Never 11/30/2020 Do you belong to any clubs o r organizations such as mandaeism groups, unions, fraternal or athletic groups, or school groups? No 11/30/2020 How often do you attend meet ings of the clubs or organizations you belong to? Never 11/30/2020 Are you , , di vorced, , never , or living with a partner? 11/30/2020 AUDIT-C Answer Date Recorded Frequency of Alcohol Consumption Not on file 07/31/2024 Q2: How many drinks containi ng alcohol do you have on a typical day when you are drinking? Patient does not drink Frequency of Binge Drinking Not on file 10/2024 Overall Financial Resource Strain (CARDIA) Answe r Date Recorded How hard is it for you to pa y for the very basics like food, housing, medical care, and heating? Not hard at all 11/30/2020 PRAPARE - Transportation Answer Date Re corded In the past 12 months, has l ack of transportation kept you from medical appointments or from getting medications? No 10/2020 In the past 12 months, has l ack of transportation kept you from meetings, work, or from getting things needed for daily living? No 11/30/2020 Personal Safety Answer Date Recorded Have you ever been in or are you currently in a harmful physical or emotional relationship or is someone making you feel afraid or unsafe? Denies 07/31/2024 Comments No Sex and Gender Information Value Date Recorded Sex Assigned at Not on file Legal Sex Female 11:07 PM DEBURRER STRIP Gender Identity Not on file Sexual Orientation Not on file Obstetrics History Last Filed Vital Signs Vital Sign Reading Time Taken Comments Blood Pressure 158/70 08/06/2024 8:13 AM CDT Pulse 88 08/06/2024 8:13 AM CDT Temperature 37.1 C (98.7 F) 08/06/2024 8:13 AM CDT Respiratory Rate 18 07/31/2024 12:10 PM DEBURRER STRIP Oxygen Saturation 92% 08/06/2024 8:13 AM CDT Inhaled Oxygen Concentration - - Weight 67.6 kg (149 lb) 08/06/2024 8:13 AM CDT Height 157.5 cm (5' 2 ) 08/06/2024 8:13 AM CDT Body Mass Index 27.25 08/06/2024 8:13 AM CDT Plan of Treatment Upcoming Encounters Date Type Department Care Team (Latest Contact Info) Description 08/26/2024 10:15 AM CDT Hospital Encounter [facility] Operating Room [address] [address] Kylah Kirkpatrick MD [address] [place] [address] 08/26/2024 10:15 AM CDT Anesthesia Event [facility] Operating Room [address] [address] Germania Barry NP [phone] [place] [address] 08/26/2024 10:15 AM CDT - 08/26/2024 1:15 PM CDT Surgery [facility] Operating Room [address] [address] [address] Kylah Kirkpatrick MD [address] [facility] [address] Right Reverse Shoulder Arthroplasty Scheduled Procedures Name Priority Associated Diagnoses Date/Ti me ARTHROPLASTY SHOULDER - REVERSE TOTAL Rotator cuff arthropathy of right shoulder Right shoulder pain, unspecified chronicity Displaced fracture of proximal end of right humerus 08/26/2024 10:15 AM CDT Health Maintenance Due Date Last Done Comments Albumin Creatinine Ratio, Urine 1950 Colon Cancer Screening-Colonoscopy 1950 Depression Screening 1950 Hepatitis C Screening 1950 Osteoporosis Screening-Bone Density Scan 1950 Dilated Eye Exam 1950 Foot Exam 1950 DTaP/Tdap/Td Vaccine (1 - Tdap) 01/28/1960 Hepatitis B Screening 1967 Lung Cancer Screening 1999 Pneumococcal vaccine 65+ (2 of 2 - PCV) 08/16/2013 08/16/2012 Well Visit 65+ 2014 Zoster Vaccine (2 of 3) 07/20/2015 05/25/2015 Hemoglobin A1C 05/31/2021 11/28/2020, 10/14/2020 Lipid Panel 11/22/2023 11/21/2022, 10/27, 11/02/2020, Additional history exists Covid-19 Vaccine (3 - 2023-2 5 season) 2024 08/06/2020, 07/09/2020 Influenza Vaccine (#1) 2024 9, 03/15/2018, 03/18/2016 Fall Risk Assessment 07/31/2025 07/31/2024 eGFR 07/31/2025 07/31/2024, 03/0 01/2024, 07/26/2023, Additional history exists Medical Devices Implanted Type Area Nurse School Device Identifier Shelf Expiration Date Model / Serial / Lot [employer] Valve Heart 23mm Marlys 3 Transcatheter [id number] - [id number] - [id number] Implanted:Qty: 1 on 08/03/2023 by Mark Lemons MD at [facility] Prosthetic Valve Right: Aortic Valve [employer] 05/28/2026 [id number] / [id number] / Angulo Vascular Device Clsr Perclose Prostyle Sut-Mediatd Closure-Repair s [id number] - S0 - [id number] Implanted:Qty: 1 on 08/03/2023 by Mark Lemons MD at [facility] Vascular Closure Device [employer] 05/27/2025 [id number] / [id number] / [id number] Ang[employer] Vascular Device Clsr Perclose Prostyle Sut-Mediatd Closure-Repair Sys [id number] - S0 - [id number] Implanted:Qty: 1 on 08/03/2023 by Mark Lemons MD at [facility] Vascular Closure Device [employer] 05/27/2025 [id number] / 0 / [id number] Procedures Procedure Name Priority Date/Time Associated Diagnosis Comments CT SHOULDER RIGHT WO CONTRAST Schedule Routine, Read Routine (OP Routine) 08/06/2024 11:18 AM CDT Rotator cuff arthropathy of right shoulder Right shoulder pain, unspecified chronicity Displaced fracture of proximal end of right humerus US ARTERIAL DOPPLER LOWER EXTREMITY BILATERAL Schedule Routine, Read Routine (OP Routine) 08/06/2024 8:23 AM CDT History of procedure for peripheral vascular disease Peripheral vascular disease TRANSTHORACIC ECHO (TTE) COMPLETE W DOPPLER/CF WO CONTRAST Routine 07/31/2024 11:51 AM DEBURRER STRIP Status post transcatheter aortic valve replacement (TAVR) using bioprosthesis EGFR Routine 07/31/2024 9:19 AM DEBURRER STRIP Rotator cuff arthropathy of right shoulder Right shoulder pain, unspecified chronicity Displaced fracture of proximal end of right humerus DIFFERENTIAL AUTO Routine 07/31/2024 9:1 9 AM DEBURRER STRIP Preoperative testing COMPREHENSIVE METABOLIC PANEL Routine 07/31/2024 9:19 AM DEBURRER STRIP Rotator cuff arthropathy of right shoulder Right shoulder pain, unspecified chronicity Displaced fracture of proximal end of right humerus VITAMIN D 25 HYDROXY Routine 07/31/2024 9:19 AM DEBURRER STRIP Rotator cuff arthropathy of right shoulder Right shoulder pain, unspecified chronicity Displaced fracture of proximal end of right humerus Vitamin D deficiency CBC WITH AUTO DIFFERENTIAL Routine 07/31/2024 9:19 AM DEBURRER STRIP Preoperative testing ECG 12-LEAD Routine 07/31/2024 8:42 AM DEBURRER STRIP Preoperative testing XR TRANSFER OF OUTSIDE FILMS Routine 06/18/2024 2:39 PM DEBURRER STRIP POCT LIPID PANEL Routine 11/21/2022 8:22 AM CDT Lipid screening HEMOGLOBIN A1C Routine 11/28/2020 6:42 PM CDT from Last 3 Months or Most Recently Relevant to Health Maintenance Results * CT Shoulder Right WO Contrast (08/06/2024 11:18 AM CDT) Anatomical Region Laterality Modality Upper Extremities Right Computed Tomog morean 08/06/2024 11:5 1 AM CDT Impressions 08/06/2024 11:51 AM CDT Severe glenohumeral joint osteoarthritic change. Electronically signed by: Joe Herman M.D. Narrative 08/06/2024 11:51 AM CDT EXAM: CT SHOULDER RIGHT WO CONTRAST CLINICAL HISTORY: Right shoulder pain. Osteoarthritis. Preoperative planning. TECHNIQUE: Standard CT imaging of the right shoulder was performed. Sagittal and coronal reconstructions were performed. COMPARISON: None available. FINDINGS: There is severe glenohumeral joint osteoarthritic change. There is mild remodeling of the articular surface of the glenoid. There is generalized osteopenia. There is no evidence of acute fracture or malalignment. Old healed right rib fractures are noted. There is extensive atherosclerosis. The patient is status post TAVR procedure. Mild emphysematous changes are noted. Procedure Note Joe Herman MD - 08/06/2024 EXAM: CT SHOULDER RIGHT WO CONTRAST CLINICAL HISTORY: Right shoulder pain. Osteoarthritis. Preoperative planning. TECHNIQUE: Standard CT imaging of the right shoulder was performed. Sagittal and coronal reconstructions were performed. COMPARISON: None available. FINDINGS: There is severe glenohumeral joint osteoarthritic change. There is mild remodeling of the articular surface of the glenoid. There is generalized osteopenia. There is no evidence of acute fracture or malalignment. Old healed right rib fractures are noted. There is extensive atherosclerosis. The patient is status post TAVR procedure. Mild emphysematous changes are noted. IMPRESSION: Severe glenohumeral joint osteoarthritic change. Electronically signed by: Joe Herman M.D. Kylah Kirkpatrick MD IMG CT PROCEDURES Fin al Result * US Arterial Doppler Lower Extremity Bilateral (08/06/2024 8:23 AM CDT) Anatomical Region Laterality Modality Vascular Bilateral Ultrasound 08/06/2024 7:37 AM CDT Narrative 08/12/2024 10:18 AM CDT [facility] - Department of Vascular Surgery, Vascular Laboratory [address] [place] [address] Lower Extremity Arterial Doppler Report Patient Name: KRISSY SILVA : 1950 Study Date: 08/06/2024 7:37:00 AM Gender: F Tech: Margo Reyes RVT Location: [facility] Provider: PHI BOYLE Quality: Adequate Order Provider: PHI BOYLE PROCEDURES: Arterial Report: Bilateral lower extremity arterial Doppler exam at rest. INDICATIONS: Z98.890 Other specified postprocedural states and I73.9 Peripheral vascular disease, unspecified. MEASUREMENTS: Right Value Units Left Value Units Rt Brachial Pressure 131 mmHg Lt Brachial Pressure 134 mmHg Rt IBM WEBSPHERE COMMERCE CONSULTANT Pressure 78 mmHg Lt [employer] WEBSPHERE COMMERCE CONSULTANT Pressure 58 mmHg Rt DPA Pressure 73 mmHg Lt DPA Pressure 78 mmHg Rt 1st Digit Pressure 52 mmHg Lt 1st Digit Pressure 29 mmHg Rt PT ELVIRA Resting 0.58 Lt PT ELVIRA Resting 0.43 Rt AT ELVIRA Resting 0.54 Lt AT ELVIRA Resting 0.58 Rt Digit/Arm Index 0.39 Lt Digit/Arm Index 0.22 Right Value Units Left Value Units FINDINGS: Performing Coupon Manifest Clerk: Margo Reyes RVT. Right Common Femoral Artery Analysis: The common femoral artery waveform is multiphasic. Right Popliteal Artery Analysis: The popliteal waveform is multiphasic. Right Posterior Tibial Artery Analysis: The posterior tibial waveform is monophasic. Right Anterior Tibial Artery Analysis: The anterior tibial waveform is monophasic. Left Common Femoral Artery Analysis: The common femoral artery waveform is multiphasic. Left Popliteal Artery Analysis: The popliteal waveform is multiphasic. Left Posterior Tibial Artery Analysis: The posterior tibial waveform is monophasic. Left Anterior Tibial Artery Analysis: The anterior tibial waveform is monophasic. CONCLUSIONS: 1. The above listed Ankle/Brachial Indicies at rest are consistent with moderate peripheral arterial disease - claudication, bilaterally (for reference, claudication range is 0.50 -0.89). 2. Bilateral Digit/Arm Indices are abnormal (for reference, abnormal OLENA is <0.6). 3. There is evidence of arterial insufficiency bilaterally at the level of infrapopliteal arteries. 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 RT CORPORATE REPRESENTATIVE endarterectomy/angioplast - PREVIOUS STUDIES: Previous study on 08/08/2023 ELVIRA R 0.62 L 0.68 Previous study on 08/09/2022 ELVIRA R 0.76, L 1.31 - DISCLAIMER: The study images and the final report will be retained in the patient chart by the Vascular Laboratory for the legally required time period. This chart constitutes the legal record of any testing performed. ATTESTATION: I have reviewed and interpreted the pertinent images and measurements of this study. I attest to the conclusions in the final report that is provided above. Electronically Signed By: Tay Deras MD FACS 08/12/2024 10:14:04 AM CDT Procedure Note Tay Deras MD - 08/12/2024 [employer] [facility] [employer] [facility] - Department of Vascular Surgery,Vascular Laboratory [address] [place] [address] Lower Extremity Arterial Doppler Report Patient Name: KRISSY SILVA : 1950 Study Date: 08/06/2024 7:37:00 AM Gender: F Tech: Margo Reyes RVT Location: [facility] Provider: PHI BOYLE Quality: Adequate Order Provider: PHI BOYLE PROCEDURES: Arterial Report: Bilateral lower extremity arterial Doppler exam at rest. INDICATIONS: Z98.890 Other specified postprocedural states and I73.9 Peripheralvascular disease, unspecified. MEASUREMENTS: Right Value Units Left Value Units Rt Brachial Pressure 131 mmHg Lt Brachial Pressure 134 mmHg Rt [employer] Pressure 78 mmHg Lt [employer] Pressure 58 mmHg Rt DPA Pressure 73 mmHg Lt DPA Pressure 78 mmHg Rt 1st Digit Pressure 52 mmHg Lt 1st Digit Pressure 29 mmHg Rt PT ELVIRA Resting 0.58 Lt PT ELVIRA Resting 0.43 Rt AT ELVIRA Resting 0.54 Lt AT ELVIRA Resting 0.58 Rt Digit/Arm Index 0.39 Lt Digit/Arm Index 0.22 Right Value Units Left Value Units FINDINGS: Performing Coupon Manifest Clerk: Margo Reyes RVT. Right Common Femoral Artery Analysis: The common femoral artery waveform is multiphasic. Right Popliteal Artery Analysis: The popliteal waveform is multiphasic. Right Posterior Tibial Artery Analysis: The posterior tibial waveform is monophasic. Right Anterior Tibial Artery Analysis: The anterior tibial waveform is monophasic. Left Common Femoral Artery Analysis: The common femoral artery waveform is multiphasic. Left Popliteal Artery Analysis: The popliteal waveform is multiphasic. Left Posterior Tibial Artery Analysis: The posterior tibial waveform is monophasic. Left Anterior Tibial Artery Analysis: The anterior tibial waveform is monophasic. CONCLUSIONS: 1. The above listed Ankle/Brachial Indicies at rest are consistent withmoderate peripheral arterial disease - claudication, bilaterally (for reference,claudication range is 0.50 -0.89). 2. Bilateral Digit/Arm Indices are abnormal (for reference, abnormal DAIis <0.6). 3. There is evidence of arterial insufficiency bilaterally at the level ofinfrapopliteal arteries. 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 This chartconstitutes the legal record of any testing performed. ATTESTATION: I have reviewed and interpreted the pertinent images and measurements ofthis study. I attest to the conclusions in the final report that is provided above. Electronically Signed By: Tay Deras MD [facility] 08/12/2024 10:14:04 AM CDT us Phi CANDELARIA IMG US PROCEDURES Fin al Result * TRANSTHORACIC ECHO (TTE) COMPLETE W DOPPLER/CF WO CONTRAST (07/31/2024 11:51 AM DEBURRER STRIP) Anatomical Region Laterality Modality Ultrasound 07/31/2024 11:0 6 AM DEBURRER STRIP Narrative 07/31/2024 12:47 PM DEBURRER STRIP [facility] [address] [place] [id number] ECHOCARDIOGRAM Patient Name: KRISSY SILVA : 1950 (74y 6m) Gender: F Study Date: 07/31/2024 11:06:09 AM Ht(Inch): 62 Wt(Lb): 147.05 BSA: 1.71 Coupon Manifest Clerk: LAUREN Location: OPT Order Provider: EMMANUEL VILLASEÑOR BMI: 26.89 BP: 118/52 Ref Provider: EMMANUEL VILLASEÑOR - PROCEDURES: Echocardiographic Report: Transthoracic Echocardiogram with complete 2D, M-Mode, Spectral and Color Flow Doppler examination. 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 MEASUREMENTS: 2D/MM Value Range Doppler Value Range EF Mod BP 69 % [ 54 - 74 ] AV Peak Mihai 2.67 m/s [ 1.00 - 1.70 ] LA Dimen 2D 3.50 cm [ 2.70 - 3.80 ] AV Peak PG 28.5 mmHg RA Volume 21.00 ml AV Mean PG 15.6 mmHg TAPSE 2.10 cm [ 1.71 - 5.00 ] AV VTI 46.5 cm YOUSUF V max 1.4 cm2 YOUSUF VTI 1.8 cm2 LVOT Peak Mihai 1.40 m/s [ 0.70 - 1.10 ] LVOT Peak PG 7.9 mmHg LVOT VTI 31.1 cm MV Peak PG 10.9 mmHg MV Mean PG 3.9 mmHg MV E Peak Mihai 0.9 m/s [ 0.6 - 1.3 ] MV A Peak Mihai 1.5 m/s [ 1.0 - 1.2 ] MV PHT 179.6 ms [ 20.0 - 100.0 ] MV Decel Time 540.3 ms [ 104.0 - 258.0 ] MVA PHT 1.2 ms MV E/A Ratio 0.6 PV Peak PG 5.5 mmHg Lat E` Mihai 0.07 m/s [ 0.10 - 0.15 ] Sept E' Mihai 0.06 m/s [ 0.08 - 0.15 ] E/E` 12.86 RV S' 0.13 m/s 2D/MM Value Range Doppler Value Range - FINDINGS: BP: Blood pressure: 118/52 mmHg. Left Ventricle: Normal global and regional left ventricular systolic function. Ejection Fraction (Simpsons) is measured at 69 %. Right Ventricle: Normal right ventricular systolic function. Normal right ventricular size. Left Atrium: The left atrium is normal in size. Right Atrium: The right atrium is normal in size. Atrial Septum: Normal appearing atrial septum. Mitral Valve: Severe mitral annular calcification. Aortic Valve: There is no aortic regurgitation. Normal functioning bioprosthetic aortic valve. Tricuspid Valve: Normal tricuspid valve appearance and function. Pulmonic Valve: Normal appearance and function of the pulmonic valve. Pericardium: Normal appearing pericardial thickness. No significant pericardial effusion. Aortic Root and Aorta: The sinuses of Valsalva are normal. Normal caliber aortic root. Normal sized ascending aorta. Normal sized descending aorta. Aortic Arch: Normal caliber aortic arch. IVC: Normal appearance of the inferior vena cava. CONCLUSIONS: 1. Normal global and regional left ventricular systolic function. Ejection Fraction (Simpsons) is measured at 69 %. 2. Normal right ventricular systolic function. Normal right ventricular size. 3. Severe mitral annular calcification. 4. There is no aortic regurgitation. Normal functioning bioprosthetic aortic valve. 5. Normal appearing pericardial thickness. No significant pericardial effusion. Electronically Signed By: Mark Lemons MD 07/31/2024 12:46:30 PM DEBURRER STRIP Procedure Note Mark Lemons MD - 07/31/2024 [facility] [address] [place] [id number] ECHOCARDIOGRAM Patient Name: KRISSY SILVA : 1950 (74y 6m) Gender: F Study Date: 07/31/2024 11:06:09 AM Ht(Inch): 62 Wt(Lb): 147.05 BSA: 1.71 Coupon Manifest Clerk: LAUREN Location: OPT Order Provider: EMMANUEL VILLASEÑOR BMI: 26.89 BP: 118/52 Ref Provider: EMMANUEL VILLASEÑOR - PROCEDURES: Echocardiographic Report: Transthoracic Echocardiogram with complete 2D,M-Mode, Spectral and Color Flow Doppler examination. 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 MEASUREMENTS: 2D/MM Value Range Doppler ValueRange EF Mod BP 69 % [ 54 - 74 ] AV Peak Mihai 2.67 m/s[ 1.00 - 1.70 ] LA Dimen 2D 3.50 cm [ 2.70 - 3.80 ] AV Peak PG 28.5 mmHg RA Volume 21.00 ml AV Mean PG 15.6 mmHg TAPSE 2.10 cm [ 1.71 - 5.00 ] AV VTI 46.5 cm YOUSUF V max 1.4 cm2 YOUSUF VTI 1.8 cm2 LVOT Peak Mihai 1.40 m/s [ 0.70 - 1.10 ] LVOT Peak PG 7.9 mmHg LVOT VTI 31.1 cm MV Peak PG 10.9 mmHg MV Mean PG 3.9 mmHg MV E Peak Mihai 0.9 m/s [ 0.6 - 1.3 ] MV A Peak Mihai 1.5 m/s [ 1.0 - 1.2 ] MV PHT 179.6 ms [ 20.0 - 100.0 ] MV Decel Time 540.3 ms [ 104.0 - 258.0 ] MVA PHT 1.2 ms MV E/A Ratio 0.6 PV Peak PG 5.5 mmHg Lat E` Mihai 0.07 m/s [ 0.10 - 0.15 ] Sept E' Mihai 0.06 m/s [ 0.08 - 0.15 ] E/E` 12.86 RV S' 0.13 m/s 2D/MM Value Range Doppler ValueRange - FINDINGS: BP: Blood pressure: 118/52 mmHg. Left Ventricle: Normal global and regional left ventricular systolicfunction. Ejection Fraction (Simpsons) is measured at 69 %. Right Ventricle: Normal right ventricular systolic function. Normal rightventricular size. Left Atrium: The left atrium is normal in size. Right Atrium: The right atrium is normal in size. Atrial Septum: Normal appearing atrial septum. Mitral Valve: Severe mitral annular calcification. Aortic Valve: There is no aortic regurgitation. Normal functioningbioprosthetic aortic valve. Tricuspid Valve: Normal tricuspid valve appearance and function. Pulmonic Valve: Normal appearance and function of the pulmonic valve. Pericardium: Normal appearing pericardial thickness. No significantpericardial effusion. Aortic Root and Aorta: The sinuses of Valsalva are normal. Normal caliberaortic root. Normal sized ascending aorta. Normal sized descending aorta. Aortic Arch: Normal caliber aortic arch. IVC: Normal appearance of the inferior vena cava. CONCLUSIONS: 1. Normal global and regional left ventricular systolic function. EjectionFraction (Simpsons) is measured at 69 %. 2. Normal right ventricular systolic function. Normal right ventricularsize. 3. Severe mitral annular calcification. 4. There is no aortic regurgitation. Normal functioning bioprostheticaortic valve. 5. Normal appearing pericardial thickness. No significant pericardialeffusion. Electronically Signed By: Mark Lemons MD 07/31/2024 12:46:30 PM DEBURRER STRIP Emmanuel Villaseñor NP CV ECHO PROCEDURES Final R esult * eGFR (07/31/2024 9:19 AM DEBURRER STRIP) eGFR >90 >=60 mL/min/1. 73 m2 Comment: Interpretive Data Reference Interval Normal >/= 90 mL/min/1.73m2 Mildly decreased* 60 - 89 mL/min/1.73m2 Mildly to moderately decreased 45 - 59 mL/min/1.73m2 Moderately to severely decreased 30 - 44 mL/min/1.73m2 Severely decreased 15 - 29 mL/min/1.73m2 Kidney Failure < 15 mL/min/1.73m2 *Relative to young adult level Estimated glomerular filtration rate is determined by the 2020 CKD-EPI equation recommended by the National Kidney Foundation (A Unifying Approach to GFR Estimation: Recommendations of the NKF-ASK Task Force on Reassessing the Inclusion of Race in Diagnosing Kidney Disease, JASN 202). The CKD-EPI equation should not be used for patients with unstable renal function and has not been validated in children and those over 70. Current interpretive data was last reviewed 2021. Blood 07/31/2024 9:19 AM DEBURRER STRIP 07/31/2024 9:44 AM DEBURRER STRIP us Kylah Kirkpatrick MD LAB BLOOD ORDERABLES Final Result AMANDA MARTIN [address] [place] [address] * Differential, auto (07/31/2024 9:19 AM DEBURRER STRIP) Neutrophil abs 4.4 1.5 - 6.5 K/cumm Imm gran abs 0.0 0.0 - 0.1 K/cumm [facility] Lymphocyte abs 1.0 0.8 - 3.3 K/cumm [facility] Monocyte abs 0.5 0.2 - 0.8 K/cumm [facility] Eosinophil abs 0.2 0.0 - 0.5 K/cumm [facility] Basophil abs 0.1 0.0 - 0.1 K/cumm [facility] Neutrophil pct 72.4 % CERK[facility]A ALLISON[facility] Comment: Interpretive Data Percent cell count reference ranges are not reported, since discordance with absolute values may lead to misinterpretation of CBC data. Current Interpretive Data was last revised on 2017. Imm gran pct 0.2 % AMANDA MARTIN Comment: Interpretive Data Percent cell count reference ranges are not reported, since discordance with absolute values may lead to misinterpretation of CBC data. Current Interpretive Data was last revised on 2017. Lymphocyte pct 16.4 % AMANDA MARTIN Comment: Interpretive Data Percent cell count reference ranges are not reported, since discordance with absolute values may lead to misinterpretation of CBC data. Current Interpretive Data was last revised on 2017. Monocyte pct 7.5 % AMANDA MARTIN Comment: Interpretive Data Percent cell count reference ranges are not reported, since discordance with absolute values may lead to misinterpretation of CBC data. Current Interpretive Data was last revised on 2017. Eosinophil pct 2.7 % AMANDA ALLISONHERMES Comment: Interpretive Data Percent cell count reference ranges are not reported, since discordance with absolute values may lead to misinterpretation of CBC data. Current Interpretive Data was last revised on 2017. Basophil pct 0.8 % CERKANIKA ALLISONW Comment: Interpretive Data Percent cell count reference ranges are not reported, since discordance with absolute values may lead to misinterpretation of CBC data. Current Interpretive Data was last revised on 2017. Blood 07/31/2024 9:19 AM DEBURRER STRIP 07/31/2024 9:44 AM DEBURRER STRIP Cassandra Eng NP LAB BLOOD ORDERABLES F inal Result Performing Organization Address City/[facility]/ZIP Co de Phone Number AMANDA TRUJILLO [address] [place] [address] * CBC with auto differential (07/31/2024 9:19 AM DEBURRER STRIP) [facility] WBC 6.0 3.8 - 9.9 K/cumm Hgb 14.3 11.9 - 15.5 g/dL [facility] Hct 44.3 35.6 - 45.5 % [facility] Plt 188 150 - 400 K/cumm [facility] MPV 10.6 9.1 - 12.3 fL [facility] RBC 5.13 3.90 - 5.20 M/cumm [facility] MCV 86.4 81.3 - 96.4 fL [facility] MCH 27.9 27.1 - 33.3 pg [facility] MCHC 32.3 32.3 - 35.7 g/dL [facility] RDW CV 14.4 11.1 - 14.9 % [facility] RDW SD 45.8 35.7 - 48.1 fL [facility] NRBC abs 0.00 0.00 - 0.01 K/cumm [facility] Blood 07/31/2024 9:19 AM DEBURRER STRIP 07/31/2024 9:44 AM DEBURRER STRIP Cassandra Eng NP LAB BLOOD ORDERABLES F inal Result Performing Organization Address City/[facility]/ZIP Co de Phone Number AMANDA TRUJILLO [address] [address] [place] [address] * Vitamin D 25 hydroxy (07/31/2024 9:19 AM DEBURRER STRIP) Vitamin D 25-OH 40 30 - 80 ng/mL Blood 07/31/2024 9:19 AM DEBURRER STRIP 07/31/2024 9:44 AM DEBURRER STRIP us Kylah Kirkpatrick MD LAB BLOOD ORDERABLES Final Result [facility] [address] [facility]. Department [place] [address] * Comprehensive metabolic panel (07/31/2024 9:19 AM DEBURRER STRIP) Sodium 135 135 - 145 mmol/L Potassium, pl 4.7 3.3 - 4.9 mmol/L [facility] Chloride 98 97 - 110 mmol/L [facility] CO2 28 22 - 32 mmol/L [facility] Anion gap 10 2 - 15 mmol/L [facility] BUN 19 6 - 25 mg/dL [facility] Creatinine 0.65 0.60 - 1.10 mg/dL [facility] Glucose 114 70 - 199 mg/dL [facility] Comment: Interpretive Data Fasting glucose >/= 126 mg/dl is diagnostic for diabetes. Fasting is defined as no caloric intake for at least 8 hours. Fasting glucose between 100 mg/dl to 125 mg/dl is diagnostic of prediabetes. In a patient with classic symptoms of hyperglycemia or hyperglycemic crisis, a random glucose >/= 200 mg/dl is diagnostic for diabetes. In the absence of unequivocal hyperglycemia, results should be confirmed by repeat testing. The classification and Diagnosis of Diabetes Diabetes Care 202; 46: S19-S40. Current interpretive data was last revised 2022. Calcium 9.1 8.5 - 10.3 mg/dL [facility] Bilirubin, total 1.2 0.1 - 1.2 mg/dL [facility] Protein, pl 7.1 6.5 - 8.5 g/dL [facility] Albumin 3.8 3.5 - 5.0 g/dL [facility] Alk phos 82 40 - 130 Units/L [facility] ALT 20 7 - 45 Units/L [facility] AST 24 10 - 45 Units/L [facility] Blood 07/31/2024 9:19 AM DEBURRER STRIP 07/31/2024 9:44 AM DEBURRER STRIP us Kylah Kirkpatrick MD LAB BLOOD ORDERABLES Final Result Performing Organization Address [facility] Co de Phone Number AMANDA TRUJILLO [address] [facility] Department [place] [address] * ECG 12 lead (07/31/2024 8:42 AM DEBURRER STRIP) 07/31/2024 8:42 AM DEBURRER STRIP Narrative [facility] - 08/01/2024 9:59 AM DEBURRER STRIP Vent Rate: 92 bpm RR Interval: 649 msec [place] Interval: 148 msec QRS Duration: 81 msec QT Interval: 357 msec QTC Interval: 407 msec P-R-T Downs: 67 - 57 - 71 degrees IMPRESSION: SINUS RHYTHM NORMAL ECG Electronically Signed By: Tonio Loza MD us Cassandra Eng NP ECG ORDERABLES Final Result Performing Organization Address [facility] Phone Number [facility] * XR Outside Reference (06/18/2024 2:39 PM DEBURRER STRIP) Impressions [facility] - 06/18/2024 2:39 PM DEBURRER STRIP These images are for Reference purposes only and have not been reviewed by [facility]. There will be no report generated by a [facility] Radiologist. Narrative [facility] - 06/18/2024 2:39 PM DEBURRER STRIP EXAMINATION: Images For Reference Purposes Only us Kylah Kirkpatrick MD IMG XR PROCEDURES Fin al Result Performing Organization Address [facility] Co de Phone Number [email or web address] * POCT lipid panel (11/21/2022 8:22 AM CDT) Cholesterol, POC 190 mg/dL HDL, POC 54 mg/dL Triglycerides, POC 128 mg/dL LDL Cholesterol POC 110 mg/dL Chol/HDL Ratio, POC 2.0 Non-HDL Cholesterol, POC 136 mg/dL Cholesterol Total, POC 190 mg/dL Capillary blood 11/21/2022 8 :22 AM CDT Vitaly Antoine MD POINT OF CARE TEST ORDER RILEY Final Result * (ABNORMAL) Hemoglobin A1c (11/28/2020 6:42 PM CDT) Hgb A1C 8.5(H) 4.0 - 5.6 % AMANDA MITTAL Estimated Average Glucose 197 mg/dL AMANDA MITTAL Comment: The ADA recommends reporting an estimated Average Glucose (eAG) with all Hemoglobin A1c results using the equation derived from a study of 507 normal and diabetic adults. Minority populations were underrepresented and children were not included. (Diabetes Care 31:9316-9406, 2008). The eAG is not equivalent to a fasting glucose. Blood specimen (specimen) 11/28/2020 6:42 PM CDT 11/28/2020 7:14 PM CDT Ang Cuevas MD LAB BLOOD ORDERABLES Final Result AMANDA [address] [facility] Department [place] [address] from Last 3 Months or Most Recently Relevant to Health Maintenance Insurance MEDICARE [facility] [place] [address] [place] [address] Advance Directives For more information, please contact: [phone] * Full Code (Latest Code Status on File) Date Activated Date Inactivated Comments 08/03/2023 6:33 AM 08/04/2023 7:19 PM * Full Code Date Activated Date Inactivated Comments 11/28/2020 6:12 PM 12/06/2020 8:13 PM * Full Code Date Activated Date Inactivated Comments 11/03/2020 2:13 AM 11/08/2020 9:14 PM * Full Code Date Activated Date Inactivated Comments 10/31/2020 10:58 PM 11/03/2020 2:13 AM Care Teams Farm Management Agent Relationship Specialty Start Date End Date Vitaly Frye MD PCP - General Family Medicine 11/21/22 Vitaly Antoine MD [address] [address] Referring Physician Cardiology 07/09/23 Yao Al MD [address] [address] Consulting Physician Cardiothoracic Surgery 07/09/23
--- OUTSIDE RECORDS SUMMARY | 2024-08-15 09:59 | XMS_ITS | Encounter Summary ---
Author Organization [facility] Address [address] [place] [address] Care Team Providers Care Loader Operator/Ground Leader Name Role Phone Krunal Sanchez MD Primary Care Provider [phone] Krunal Sanchez MD Primary Care Provider [phone] Krunal Sanchez MD Unavailable Vitaly Frye MD Primary Care Provider [phone] Vitaly Antoine MD Unavailable [phone] Yao Al MD Unavailable [phone] Encounter Details Date Type Department Care Team (Late st Contact Info) Description 01/19/2016 Orders Only [facility] ProviderCristopher MD [address] [place] [address] Social History Tobacco Use Types Packs/Day Years Used Date Smoking Tobacco: Never Assessed Comments Unknown Sex and Gender Information Value Date Recorded Sex Assigned at Not on file 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 Gender Identity Not on file Sexual Orientation Not on file documented as of this encounter Plan of Treatment Upcoming Encounters Date Type Department Care Team (Latest Contact Info) Description 08/26/2024 10:15 AM CDT Hospital Encounter [facility] Operating Room [address] [place] [address] Kylah Kirkpatrick MD [address] [facility] [address] [place] [address] 08/26/2024 10:15 AM CDT Anesthesia Event [facility] Operating Room [address] [address] Germania Barry NP [id number] [place] [address] 08/26/2024 10:15 AM CDT - 08/26/2024 1:15 PM CDT Surgery [facility] Operating Room [address] [address] Kylah Kirkpatrick MD [address] [place] [address] Right Reverse Shoulder Arthroplasty Scheduled Procedures Name Priority Associated Diagnoses Date/Ti me ARTHROPLASTY SHOULDER - REVERSE TOTAL Rotator cuff arthropathy of right shoulder Right shoulder pain, unspecified chronicity Displaced fracture of proximal end of right humerus 08/26/2024 10:15 AM CDT documented as of this encounter Procedures Procedure Name Priority Date/Time Associated Diagnosis Comments CARDIOLOGY REPORT 01/19/2016 documented in this encounter Results * CARDIOLOGY REPORT (01/19/2016) Anatomical Region Laterality Modality Other Narrative 01/19/2016 Ordered by an unspecified provider. us Historical Provider [facility] MARVIN BROUSSARD Final Result documented in this encounter Visit Diagnoses Not on filedocumented in this encounter Care Teams Loader Operator/Ground Leader Relationship Specialty Start Date End Date rKunal Sanchez MD [address] [place] [address] PCP - General 09/20/16 06/17/19 Krunal Sanchez MD [address] [place] [address] PCP - General 06/18/19 11/20/22 Vitaly Frye MD [address] [place] [address] PCP - General Family Medicine 11/21/22 Krunal Sanchez MD [address] [place] [address] 06/18/19 11/20/22 Vitaly Antoine MD [address] [address] Referring Physician Cardiology 07/09/23 Yao Al MD [address] [address] Consulting Physician Cardiothoracic Surgery 07/09/23 documented as of this encounter
--- OUTSIDE RECORDS SUMMARY | 2024-08-15 09:59 | XMS_ITS | Encounter Summary ---
Author Organization [facility] Medical [facility] Address [address] [place] [address] Care Team Providers Care Document Review Specialist Name Role Phone Krunal Sanchez MD Primary Care Provider [phone] Krunal Sanchez MD Primary Care Provider [phone] Krunal Sanchez MD Unavailable Vitaly Frye MD Primary Care Provider [phone] Vitaly Antoine MD Unavailable [phone] Yao Al MD Unavailable [phone] Encounter Details Date Type Department Care Team (Late st Contact Info) Description 09/20/2016 Orders Only [facility] ProviderCristopher MD [address] [id number] Social History Tobacco Use Types Packs/Day Years Used Date Smoking Tobacco: Former Cigarettes Q uit: 05/28/2011 Comments:Smoking History Pac ks/day: 1 Packs Alcohol Use Standard Drinks/Week Comments No 0 (1 standard drink = 0.6 oz pur e alcohol) Comments Unknown Sex and Gender Information Value Date Recorded Sex Assigned at Not on file Legal Sex Female 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 [employer] Gender Identity Not on file Sexual Orientation Not on file documented as of this encounter Plan of Treatment Upcoming Encounters Date Type Department Care Team (Latest Contact Info) Description 08/26/2024 10:15 AM CDT Hospital Encounter [facility] [address] [address] Kylah Kirkpatrick MD [address] [facility] [address] [address] 08/26/2024 10:15 AM CDT Anesthesia Event [facility] [address] [address] [phone] Germania Barry SENIOR TRAINER [address] [id number] [place] [address] 08/26/2024 10:15 AM CDT - 08/26/2024 1:15 PM CDT Surgery [facility] [address] [address] [address] Kylah Kirkpatrick MD [email or web address] [place] [address] Right Reverse Shoulder Arthroplasty Scheduled Procedures Name Priority Associated Diagnoses Date/Ti me ARTHROPLASTY SHOULDER - REVERSE TOTAL Rotator cuff arthropathy of right shoulder Right shoulder pain, unspecified chronicity Displaced fracture of proximal end of right humerus 08/26/2024 10:15 AM CDT documented as of this encounter Procedures Procedure Name Priority Date/Time Associated Diagnosis Comments CARDIOLOGY REPORT 09/20/2016 documented in this encounter Results * CARDIOLOGY REPORT (09/20/2016) Anatomical Region Laterality Modality Other Narrative 09/20/2016 Ordered by an unspecified provider. us Historical Provider [facility] Final Result documented in this encounter Visit Diagnoses Not on filedocumented in this encounter Care Teams Document Review Specialist Relationship Specialty Start Date End Date Krunal Sanchez MD [address] [place] [address] PCP - General 09/20/16 06/17/19 Krunal Sanchez MD [address] [place] [address] PCP - General 06/18/19 11/20/22 Vitaly Frye MD [address] [place] [address] PCP - General Family Medicine 11/21/22 Krunal Sanchez MD [address] [place] [address] 06/18/19 11/20/22 Vitaly Antoine MD [address] [place] [id number] Referring Physician Cardiology 07/09/23 Yao Al MD [address] [place] [id number] Consulting Physician Cardiothoracic Surgery 07/09/23 documented as of this encounter
--- OUTSIDE RECORDS SUMMARY | 2024-08-15 09:59 | XMS_ITS | Referral Summary ---
Author Organization [facility] [address] Address [address] [place] [address] Care Team Providers Care Learning Disabled Teacher Name Role Phone Vitaly Frye MD Primary Care Provider [phone] Vitaly Antoine MD Unavailable [phone] Yao Al MD Unavailable [phone] Encounters Date Type Department Care Team Description 08/06/2024 10:36 AM CDT - 08/06/2024 11:59 PM CDT Hospital Encounter [facility] - [facility] [address] [place] [address] Rotator cuff arthropathy of right shoulder; Right shoulder pain, unspecified chronicity; Displaced fracture of proximal end of right humerus Discharge Disposition: Discharge to home or self care 08/06/2024 8:45 AM CDT Office Visit [facility] Surgery [address] [place] [phone] Tay Deras MD PAD (peripheral artery disease) (Primary Dx) 08/06/2024 8:00 AM CDT Ancillary Procedure [facility] [address] [place] [phone] History of procedure for peripheral vascular disease; Peripheral vascular disease 07/31/2024 7:00 AM LAUNDRY MARKER SUPERVISOR Lab [facility] [address] [place] [address] Preoperative testing; Rotator cuff arthropathy of right shoulder; Right shoulder pain, unspecified chronicity; Displaced fracture of proximal end of right humerus; Vitamin D deficiency 07/31/2024 7:30 AM LAUNDRY MARKER SUPERVISOR Pre-Admission Testing [facility] Pre-Anesthesia Testing [address] [address] Preoperative testing (Primary Dx) 07/31/2024 12:30 PM LAUNDRY MARKER SUPERVISOR Office Visit Cardiovascular and Thoracic Surgery [address] [place] [phone] Emmanuel Villaseñor NP Status post transcatheter aortic valve replacement (TAVR) using bioprosthesis (Primary Dx) 07/31/2024 10:58 AM LAUNDRY MARKER SUPERVISOR - 07/31/2024 11:59 PM LAUNDRY MARKER SUPERVISOR Hospital Encounter [facility] OP Cardiac Testing [address] [place] [address] Status post transcatheter aortic valve replacement (TAVR) using bioprosthesis Discharge Disposition: Discharge to home or self care 07/15/2024 Orders Only [facility] Orthopaedic Surgery [address] [facility] [address] [facility] 12[address] [place] [address] [place] [address] Kylah Kirkpatrick MD Rotator cuff arthropathy of right shoulder (Primary Dx); Right shoulder pain, unspecified chronicity; Displaced fracture of proximal end of right humerus 07/10/2024 3:15 PM LAUNDRY MARKER SUPERVISOR Office Visit [facility] Cardiology at [address] [place] [address] Vitaly Antoine MD Status post transcatheter aortic valve replacement (TAVR) using bioprosthesis (Primary Dx) 06/18/2024 2:39 PM LAUNDRY MARKER SUPERVISOR - 06/18/2024 11:59 PM LAUNDRY MARKER SUPERVISOR Hospital Encounter [facility] [address] [place] [address] Discharge Disposition: Discharge to home or self care 06/18/2024 10:30 AM LAUNDRY MARKER SUPERVISOR Office Visit [facility] Orthopaedic Surgery [address] 2[address] [place] [address] Kylah Kirkpatrick MD Rotator cuff arthropathy of right shoulder (Primary Dx); Right shoulder pain, unspecified chronicity; Displaced fracture of proximal end of right humerus from Last 3 Months Allergies Active Allergy Reactions Criticality Noted Date [...] by oral route every day 0 0 Active albuterol HFA (PROAIR HFA) 90 mcg/actuation [...] under the skin nightly for 24 days 03/09/2 024 02/13/ 2026 Active lisinopriL (PRINIVIL,ZESTR IL) 10 mg tablet Take 0.5 tablets (5 mg total) by mouth daily 024 Active carvediloL (COREG) 6.25 mg tabletIndicatio ns:Primary hypertension Take 1 tablet (6.25 mg total) by mouth 2 (two) times a day with meals 180 tablet 3 024 Active glimepiride (AMARYL) 1 mg tabletIndicatio ns:type [...] 2.5 tablets (25 mg total) by mouth chair inspector before breakfast 2024 Discontinued Active Problems Problem Noted Date Diagnosed Date Rotator cuff arthropathy of right shoulder 07/15 Right shoulder pain 07/15/2024 Displaced fracture of proximal end of right bennie lino 07/15/2024 Status post transcatheter ao rtic valve replacement (TAVR) using bioprosthesis 08/06/2023 Assessment & Plan (08/01/2024 2:17 PM LAUNDRY MARKER SUPERVISOR): S/p TAVR 1 year ago. The valve [...] visit. Assessment & Plan (06/22/2019 12:23 PM LAUNDRY MARKER SUPERVISOR): Patient has mild to moderate carotid stenosis [...] 06/22/2019 Assessment & Plan (06/22/2019 12:23 PM LAUNDRY MARKER SUPERVISOR): Per patient she has been diagnosed with [...] provider. Assessment & Plan (06/22/2019 12:24 PM LAUNDRY MARKER SUPERVISOR): Per patient blood sugars well controlled. Continue [...] from the original. Diagnosis: SHAH; HCC Referring Modeling Agent: Danilo Arizmendi MELD: 01/22 Blood Type: A pos BMI: 30 Short H/P summary: DM type II since 1992: Htn x 8 years. Quit smoking 4 years ago; >1 ppd X 40 years. 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 Evaluation Testing Date and Results: Labs: 08/16/2016 A1c-12.6: Glucose-360: Chol-180 HDL-41: LDL-98: Triglycerides- 206: Serologies: CMV: Tox Screen-Neg: Alpha 1 Anti: AFP: Pg98-3-30: Ceruloplasmin: LEE: Anti Smooth muscle ab: Mitochondrial: [...] periapical abscess. Dictated by Inga Boudreaux MD (radiology assistant). This report was approved by Inga Boudreaux [...] on 05/11/2016. Dictated by Miguelina Price MD (radiology assistant). This report was approved by Miguelina Price [...] (volume index 56 ml/M2). No evidence of yscyh-zp-vait shunt with bubble study. 7. The right [...] pulmonary disease (COPD) regimen as per Emmanuel Oven Heater Helper: A. Salmeterol/fluticasone (Advair) 250 mcg 1 puff [...] 2 L/min side flow as per Emmanuel Oven Heater Helper 3. Her very severe COPD may preclude her from liver transplantation 4. Follow-up with results Sourav Lai MD, [facility], [facility], [facility] Billing Clerk, [facility] Workday Consultant of Internal Medicine Division of Pulmonary, Critical Care, and Sleep Medicine [facility] EGD: 02/15/15 In the lower third esophagus, [...] Recommendations/Interventions: 1. Pt needs to see an Veterinary Anatomist as she currently does not. 2. Pt [...] to follow-up in 2 weeks for re-evaluation. Immunizations Immunization Administration Dates Next Due Influenza, Quadrivalent, Rec ombinant, Egg Free, Preservative Free, Intramuscular 03/20/2019 Influenza, Trivalent, High D ose, Split, Preservative Free, Intramuscular 03/15/2018 Influenza, Trivalent, IM (MDV) 03/18/2016 Moderna SARS-CoV-2 Monovalent Vaccination (12+ Y RS) 08/06/2020,07/09/2020 Pneumococcal Polysaccharide PPV23 08/16/2012 ZOSTER LIVE 05/25/2015 Social History Tobacco Use Types Packs/Day Years [...] often do you attend chur ch or uatsdin services? Never 11/30/2020 Do you belong to any clubs o r organizations such as anabaptist groups, unions, fraternal or athletic groups, or [...] on file Legal Sex Female 11:07 PM LAUNDRY MARKER SUPERVISOR Gender Identity Not on file Sexual Orientation Not on file Last Filed Vital Signs Vital Sign Reading Time Taken Comments Blood Pressure 158/70 08/06/2024 8:13 AM CDT Pulse 88 08/06/2024 8:13 AM CDT Temperature 37.1 C (98.7 F) 08/06/2024 8:13 AM CDT Respiratory Rate 18 07/31/2024 12:10 PM LAUNDRY MARKER SUPERVISOR Oxygen Saturation 92% 08/06/2024 8:13 AM CDT Inhaled Oxygen Concentration - - Weight 67.6 kg (149 lb) 08/06/2024 8:13 AM CDT Height 157.5 cm (5' 2 ) 08/06/2024 8:13 AM CDT Body Mass Index 27.25 08/06/2024 8:13 AM CDT Plan of Treatment Upcoming Encounters Date Type Department Care Team (Latest Contact Info) Description 08/26/2024 10:15 AM CDT Hospital Encounter [facility] Operating Room [address] [place] [address] Kylah Kirkpatrick MD [address] [place] [address] 08/26/2024 10:15 AM CDT Anesthesia Event [facility] Operating Room [address] [place] [address] Germania Barry NP [id number] [place] [address] 08/26/2024 10:15 AM CDT - 08/26/2024 1:15 PM CDT Surgery [facility] Operating Room [address] [place] [address] Kylah Kirkpatrick MD [address] [facility] [address] [place] [address] Right Reverse Shoulder Arthroplasty Scheduled Procedures Name Priority Associated Diagnoses Date/Ti me ARTHROPLASTY SHOULDER - REVERSE TOTAL Rotator cuff arthropathy of right shoulder Right shoulder pain, unspecified chronicity Displaced fracture of proximal end of right humerus 08/26/2024 10:15 AM CDT Medical Devices Implanted Type Area Hollow Core Door Frame Assembler Device Identifier Shelf Expiration Date Model / Serial / Lot [employer] Valve Heart 23mm Marlys 3 Transcatheter [id number] - [id number] - [id number] Implanted:Qty: 1 on 08/03/2023 by Mark Lemons MD at [facility] Prosthetic Valve Right: Aortic Valve [employer] 05/28/2026 [id number] / [id number] / Angulo Vascular Device Clsr Perclose Prostyle Sut-Mediatd Closure-Repair Sys 52958-46 - S0 - [id number] Implanted:Qty: 1 on 08/03/2023 by Mark Lemons MD at [facility] Vascular Closure Device [employer] 05/27/2025 [id number] / 0 / [id number] Angulo Vascular Device Clsr Perclose Prostyle Sut-Mediatd Closure-Repair Sys 19313-55 - S0 - [id number] Implanted:Qty: 1 on 08/03/2023 by Mark Lemons MD at [facility] Vascular Closure Device [employer] 05/27/2025 [id number] / 0 / [id number] Procedures Procedure Name Priority Date/Time Associated Diagnosis [...] DOPPLER/CF WO CONTRAST Routine 07/31/2024 11:51 AM LAUNDRY MARKER SUPERVISOR Status post transcatheter aortic valve replacement (TAVR) using bioprosthesis EGFR Routine 07/31/2024 9:19 AM LAUNDRY MARKER SUPERVISOR Rotator cuff arthropathy of right shoulder Right shoulder pain, unspecified chronicity Displaced fracture of proximal end of right humerus DIFFERENTIAL AUTO Routine 07/31/2024 9:1 9 AM LAUNDRY MARKER SUPERVISOR Preoperative testing COMPREHENSIVE METABOLIC PANEL Routine 07/31/2024 9:19 AM LAUNDRY MARKER SUPERVISOR Rotator cuff arthropathy of right shoulder Right shoulder pain, unspecified chronicity Displaced fracture of proximal end of right humerus VITAMIN D 25 HYDROXY Routine 07/31/2024 9:19 AM LAUNDRY MARKER SUPERVISOR Rotator cuff arthropathy of right shoulder Right shoulder pain, unspecified chronicity Displaced fracture of proximal end of right humerus Vitamin D deficiency CBC WITH AUTO DIFFERENTIAL Routine 07/31/2024 9:19 AM LAUNDRY MARKER SUPERVISOR Preoperative testing ECG 12-LEAD Routine 07/31/2024 8:42 AM LAUNDRY MARKER SUPERVISOR Preoperative testing XR TRANSFER OF OUTSIDE FILMS Routine 06/18/2024 2:39 PM LAUNDRY MARKER SUPERVISOR POCT LIPID PANEL Routine 11/21/2022 8:22 AM CDT Lipid screening HEMOGLOBIN A1C Routine 11/28/2020 6:42 PM CDT from Last 3 Months or Most Recently Relevant to Health Maintenance Results * CT Shoulder Right WO Contrast (08/06/2024 11:18 AM CDT) Anatomical Region Laterality Modality Upper Extremities Right Computed Tomog morena 08/06/2024 11:5 1 AM CDT Impressions 08/06/2024 [...] AM CDT Narrative 08/12/2024 10:18 AM CDT [employer] - Department of Vascular Surgery, Vascular Laboratory [address] [place] [address] Lower Extremity Arterial Doppler Report Patient Name: KRISSY SILVA : 1950 Study Date: 08/06/2024 7:37:00 AM Gender: F Tech: Margo Reyes [facility] [[email or web address]] Location: [facility] Provider: PHI BOYLE Quality: Adequate Order Provider: PHI BOYLE PROCEDURES: Arterial Report: Bilateral lower extremity arterial Doppler exam at rest. INDICATIONS: Z98.890 Other specified postprocedural states and I73.9 Peripheral vascular disease, unspecified. MEASUREMENTS: Right Value Units Left Value Units Rt Brachial Pressure 131 mmHg Lt Brachial Pressure 134 mmHg Rt PROPOSAL REP Pressure 78 mmHg Lt PROPOSAL REP Pressure 58 mmHg Rt DPA Pressure 73 mmHg Lt DPA Pressure 78 mmHg Rt 1st Digit Pressure 52 mmHg Lt 1st Digit Pressure 29 mmHg Rt PT ELVIRA Resting 0.58 Lt PT ELVIRA Resting 0.43 Rt AT ELVIRA Resting 0.54 Lt AT ELVIRA Resting 0.58 Rt Digit/Arm Index 0.39 Lt Digit/Arm Index 0.22 Right Value Units Left Value Units FINDINGS: Performing Cancer Program Director: Margo Reyes RVT. Right Common Femoral Artery [...] of infrapopliteal arteries. 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 RT INSIDE SALES endarterectomy/angioplast - PREVIOUS STUDIES: Previous study on [...] Procedure Note Tay Deras MD - 08/12/2024 [facility] - Department of Vascular Surgery,Vascular Laboratory [address] [place] [address] Lower Extremity Arterial Doppler Report Patient Name: KRISSY SILVA : 1950 Study Date: 08/06/2024 7:37:00 AM Gender: F Tech: Margo Reyes [facility] [[email or web address]] Location: [facility] Provider: PHI BOYLE Quality: Adequate Order Provider: PHI BOYLE PROCEDURES: Arterial Report: Bilateral lower extremity arterial Doppler exam at rest. INDICATIONS: Z98.890 Other specified postprocedural states and I73.9 Peripheralvascular disease, unspecified. MEASUREMENTS: Right Value Units Left Value Units Rt Brachial Pressure 131 mmHg Lt Brachial Pressure 134 mmHg Rt PROPOSAL REP Pressure 78 mmHg Lt PROPOSAL REP Pressure 58 mmHg Rt DPA Pressure 73 mmHg Lt DPA Pressure 78 mmHg Rt 1st Digit Pressure 52 mmHg Lt 1st Digit Pressure 29 mmHg Rt PT ELVIRA Resting 0.58 Lt PT ELVIRA Resting 0.43 Rt AT ELVIRA Resting 0.54 Lt AT ELVIRA Resting 0.58 Rt Digit/Arm Index 0.39 Lt Digit/Arm Index 0.22 Right Value Units Left Value Units FINDINGS: Performing Cancer Program Director: Margo Reyes RVT. Right Common Femoral Artery [...] level ofinfrapopliteal arteries. 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 RT INSIDE SALES endarterectomy/angioplast - PREVIOUS STUDIES: Previous study on [...] above. Electronically Signed By: Tay Deras MD [facility] 08/12/2024 10:14:04 AM CDT us Phi CANDELARIA IMG US PROCEDURES Fin al Result * TRANSTHORACIC ECHO (TTE) COMPLETE W DOPPLER/CF WO CONTRAST (07/31/2024 11:51 AM LAUNDRY MARKER SUPERVISOR) Anatomical Region Laterality Modality Ultrasound 07/31/2024 11:0 6 AM LAUNDRY MARKER SUPERVISOR Narrative 07/31/2024 12:47 PM LAUNDRY MARKER SUPERVISOR [facility] [address] [place] [address] ECHOCARDIOGRAM Patient Name: KRISSY SILVA : 1950 (74y 6m) Gender: F Study Date: 07/31/2024 11:06:09 AM Ht(Inch): 62 Wt(Lb): 147.05 BSA: 1.71 Cancer Program Director: LAUREN Location: [facility] Order Provider: EMMANUEL VILLASEÑOR [...] By: Mark Lemons MD 07/31/2024 12:46:30 PM LAUNDRY MARKER SUPERVISOR Procedure Note Mark Lemons MD - 07/31/2024 [facility] Testing [facility] [address] [place] [address] ECHOCARDIOGRAM Patient Name: KRISSY SILVA : 1950 (74y 6m) Gender: F Study Date: 07/31/2024 11:06:09 AM Ht(Inch): 62 Wt(Lb): 147.05 BSA: 1.71 Cancer Program Director: LAUREN Location: [facility] Order Provider: EMMANUEL VILLASEÑOR [...] By: Mark Lemons MD 07/31/2024 12:46:30 PM LAUNDRY MARKER SUPERVISOR Emmanuel Villaseñor BOTTLING SUPERVISOR CV ECHO PROCEDURES Final R esult * eGFR (07/31/2024 9:19 AM LAUNDRY MARKER SUPERVISOR) eGFR >90 >=60 mL/min/1. 73 m2 Comment: [...] of Race in Diagnosing Kidney Disease, JASN 2020). The CKD-EPI equation should not be used for patients with unstable renal function and has not been validated in children and those over 70. Current interpretive data was last reviewed 2021. Blood 07/31/2024 9:19 AM LAUNDRY MARKER SUPERVISOR 07/31/2024 9:44 AM LAUNDRY MARKER SUPERVISOR Kylah Kirkpatrick MD LAB BLOOD ORDERABLES Final Result [facility] [address] [facility] [address] * Differential, auto (07/31/2024 9:19 AM LAUNDRY MARKER SUPERVISOR) Neutrophil abs 4.4 1.5 - 6.5 K/cumm Imm gran abs 0.0 0.0 - 0.1 K/cumm [facility] Lymphocyte abs 1.0 0.8 - 3.3 K/cumm [facility] Monocyte abs 0.5 0.2 - 0.8 K/cumm [facility] Eosinophil abs 0.2 0.0 - 0.5 K/cumm [facility] Basophil abs 0.1 0.0 - 0.1 K/cumm [facility] Neutrophil pct 72.4 % [facility] Comment: Interpretive Data Percent cell count reference ranges are not reported, since discordance with absolute values may lead to misinterpretation of CBC data. Current Interpretive Data was last revised on 2017. Imm gran pct 0.2 % [facility] Comment: Interpretive Data Percent cell count reference ranges are not reported, since discordance with absolute values may lead to misinterpretation of CBC data. Current Interpretive Data was last revised on 2017. Lymphocyte pct 16.4 % [facility] Comment: Interpretive Data Percent cell count reference ranges are not reported, since discordance with absolute values may lead to misinterpretation of CBC data. Current Interpretive Data was last revised on 2017. Monocyte pct 7.5 % [facility] Comment: Interpretive Data Percent cell count reference ranges are not reported, since discordance with absolute values may lead to misinterpretation of CBC data. Current Interpretive Data was last revised on 2017. Eosinophil pct 2.7 % [facility] Comment: Interpretive Data Percent cell count reference ranges are not reported, since discordance with absolute values may lead to misinterpretation of CBC data. Current Interpretive Data was last revised on 2017. Basophil pct 0.8 % [facility] Comment: Interpretive Data Percent cell count reference ranges are not reported, since discordance with absolute values may lead to misinterpretation of CBC data. Current Interpretive Data was last revised on 2017. Blood 07/31/2024 9:19 AM LAUNDRY MARKER SUPERVISOR 07/31/2024 9:44 AM LAUNDRY MARKER SUPERVISOR us Cassandra Eng NP LAB BLOOD ORDERABLES F inal Result [facility] [address] [facility] [place] [address] * CBC with auto differential (07/31/2024 9:19 AM LAUNDRY MARKER SUPERVISOR) [facility] WBC 6.0 3.8 - 9.9 K/cumm Hgb 14.3 11.9 - 15.5 g/dL [facility] Hct 44.3 35.6 - 45.5 % [facility] Plt 188 150 - 400 K/cumm [facility] MPV 10.6 9.1 - 12.3 fL [facility] RBC 5.13 3.90 - 5.20 M/cumm [facility] MCV 86.4 81.3 - 96.4 fL [facility] MCH 27.9 27.1 - 33.3 pg [facility] MCHC 32.3 32.3 - 35.7 g/dL [facility] RDW CV 14.4 11.1 - 14.9 % [facility] RDW SD 45.8 35.7 - 48.1 fL [facility] NR[facility] abs 0.00 0.00 - 0.01 K/cumm [facility] Blood 07/31/2024 9:19 AM LAUNDRY MARKER SUPERVISOR 07/31/2024 9:44 AM LAUNDRY MARKER SUPERVISOR us Cassandra Eng NP LAB BLOOD ORDERABLES F inal Result [facility] [address] [employer] [facility] [place] [address] * Vitamin D 25 hydroxy (07/31/2024 9:19 AM LAUNDRY MARKER SUPERVISOR) [facility] Vitamin D 25-OH 40 30 - 80 ng/mL Blood 07/31/2024 9:19 AM LAUNDRY MARKER SUPERVISOR 07/31/2024 9:44 AM LAUNDRY MARKER SUPERVISOR Kylah Kirkpatrick MD LAB BLOOD ORDERABLES Final Result [facility] [address] [employer] [place] [place] [address] * Comprehensive metabolic panel (07/31/2024 9:19 AM LAUNDRY MARKER SUPERVISOR) Sodium 135 135 - 145 mmol/L Potassium, pl 4.7 3.3 - 4.9 mmol/L [facility] Chloride 98 97 - 110 mmol/L [facility] CO2 28 22 - 32 mmol/L [facility] Anion gap 10 2 - 15 mmol/L [facility] BUN 19 6 - 25 mg/dL [facility] Creatinine 0.65 0.60 - 1.10 mg/dL [facility] Glucose 114 70 - 199 mg/dL [facility] Comment: Interpretive Data Fasting glucose >/= 126 [...] classification and Diagnosis of Diabetes Diabetes Care 2021; 46: S19-S40. Current interpretive data was last [...] Units/L [facility] Blood 07/31/2024 9:19 AM LAUNDRY MARKER SUPERVISOR 07/31/2024 9:44 AM LAUNDRY MARKER SUPERVISOR us Kylah Kirkpatrick MD LAB BLOOD ORDERABLES Final Result [facility] [address] [facility] [address] * ECG 12 lead (07/31/2024 8:42 AM LAUNDRY MARKER SUPERVISOR) 07/31/2024 8:42 AM LAUNDRY MARKER SUPERVISOR Narrative [facility] - 08/01/2024 9:59 AM LAUNDRY MARKER SUPERVISOR Vent Rate: 92 bpm RR Interval: 649 msec TX Interval: 148 msec QRS Duration: 81 msec QT Interval: 357 msec QTC Interval: 407 msec P-R-T Marshall: 67 - 57 - 71 degrees IMPRESSION: SINUS RHYTHM NORMAL ECG Electronically Signed By: Tonio Loza MD us Cassandra Eng NP ECG ORDERABLES Final Result Performing Organization Address City/[facility]/ZIP Co de Phone Number [facility] [place] [facility] * XR Outside Reference (06/18/2024 2:39 PM LAUNDRY MARKER SUPERVISOR) Impressions [facility] - 06/18/2024 2:39 PM LAUNDRY MARKER SUPERVISOR These images are for Reference purposes only and have not been reviewed by [facility]. There will be no report generated by a [facility] Radiologist. Narrative [facility] - 06/18/2024 2:39 PM LAUNDRY MARKER SUPERVISOR EXAMINATION: Images For Reference Purposes Only Kylah Kirkpatrick MD IMG XR PROCEDURES Fin al Result Performing Organization Address [facility] Co de Phone Number [email or web address] * POCT lipid panel (11/21/2022 8:22 AM CDT) Cholesterol, POC 190 mg/dL HDL, POC 54 mg/dL Triglycerides, POC 128 mg/dL LDL Cholesterol POC 110 mg/dL Chol/HDL Ratio, POC 2.0 Non-HDL Cholesterol, POC 136 mg/dL Cholesterol Total, POC 190 mg/dL Capillary blood 11/21/2022 8 :22 AM CDT us Vitaly Antoine MD POINT OF CARE TEST [...] and children were not included. (Diabetes Care 31:5609-0743, 2008). The eAG is not equivalent to a fasting glucose. Blood specimen (specimen) 11/28/2020 6:42 PM CDT 11/28/2020 7:14 PM CDT Ang Cuevas MD LAB BLOOD ORDERABLES Final Result [facility] [address] [facility] Department [place] [address] from Last 3 Months or Most Recently Relevant to Health Maintenance Insurance MEDICARE [facility] [place] [address] MEDICARE [facility] Address: [id number] [place] [phone] [employer] [place] [address] MEDIC[place] [employer] [place] [address] Advance Directives For more information, please contact: [phone] * Full Code (Latest Code Status on File) Date Activated Date Inactivated Comments 08/03/2023 6:33 AM 08/04/2023 7:19 PM * Full Code Date Activated Date Inactivated Comments 11/28/2020 6:12 PM 12/06/2020 8:13 PM * Full Code Date Activated Date Inactivated Comments 11/03/2020 2:13 AM 11/08/2020 9:14 PM * Full Code Date Activated Date Inactivated Comments 10/31/2020 10:58 PM 11/03/2020 2:13 AM Care Teams Learning Disabled Teacher Relationship Specialty Start Date End Date Vitaly Frye MD PCP - General Family Medicine 11/21/22 Vitaly Antoine MD [address] [address] Referring Physician Cardiology 07/09/23 Yao Al MD [address] [address] Consulting Physician Cardiothoracic Surgery 07/09/23
--- OUTSIDE RECORDS SUMMARY | 2024-08-15 10:00 | XMS_ITS | Continuity of Care Document ---
Author Organization [facility] Address [address] [place] [address] Phone Care Team Providers Care Supervisor Coil Winding Name Role Phone Troy Eden Unavailable Unavailable Procedures Procedure Date Eye Exam Established Pt Ophthalmoscopy, Subsequent Ophthalmoscopy, Subsequent Office Consultation Ophthalmoscopy Ophthalmoscopy Office/outpatient Visit, Est Eye Exam & Treatment Advance Directives Directive Yes / No Effective Date File Name No Information Encounters Encounter Description Practice Location Reason(s) For Visit Diagnoses Date Provider Providers Copied on Encounter [facility], [address] [place] [address] [address], [place], [place], [id number], tel:[phone] [facility] No Information Aug-0 2-201 0 Karey Simmons. [address] [place], [address], [place]. tel:[phone] Office Consultation [facility], [address] [place] [address] [address], [place], [place], [id number], [place] tel:[phone] [facility] No Information Aug-0 3-200 9 Karey Simmons. [address] [place], [address], [place]. tel:[phone] Referring Provider: Ryan Richardson OD A, [address], [place], [place], [facility]. tel:[phone] Office/outpati ent Visit, Est [facility], [address], [place], [place], [id number], [place] tel:[phone] [facility] No Information 3-200 9 Richardson OD Ryan. [address] , [address], [place], [address], [place]. tel:[phone] [facility], [address], [place], [place], [id number], [place] tel:[phone] [facility] No Information 2-200 9 Richardson OD Ryan. [address] [facility] [address] , [address], [place], [address], [place]. tel:[phone] Family History Family Member Type Diagnosis Age At Onset No Information Payers Payer name Insurance type Covered constitution party ID Authoriza tion(s) No Information Social History Type Description Quantity Date Captured Comments Sex Female Smoking Status No Information Chief Complaint And Reason For Visit No Information Reason For Referral Reason For Referral No Information History Of Present Illness Encounter Date Complaint History Of Prese nt Illness No Information Functional Status Date Functional Assessmen t No Information Instructions Date Instruction Additional Infor mation No Information Assessments Type Assessment Date No Information Patient Care Teams Name Effective Dates (start - stop) Status Members No Information
--- OUTSIDE RECORDS SUMMARY | 2024-08-15 10:00 | XMS_ITS | Clinical Summary ---
Author Organization [facility] Address [address] [place] [address] Care Team Providers Care Customer Experience Manager Name Role Phone Fransisco Armas MD Unavailable Vitaly Frye MD Primary Care Provider [phone] Source Comments [facility],non-owned Affiliates and Associated Physician Practices is amultiple site organization consisting of ambulatory clinics and hospital sitesin [place], [place], [place] and [place]. This disclosure is being madepursuant to the Care Everywhere program and may not contain all information available regarding this patient. Last updated 18.[facility] Allergies Active Allergy Reactions Criticality Noted Date Comments Azithromycin Skin Reactions,Itching Medium 04/27/2016 Contrast-Iodinated Agents For Ct/Other Swelling Low 08/22/2012 Facial swelling Erythromycin Skin Reactions High 01/14/2024 hives Iodine Other Low 08/22/2012 Facial Swelling Iodine Anaphylaxis,Urticari a, Unknown High 08/25/2020 Reaction: ANAPHYLAXIS, Hives Hives Procaine Palpitations 09/05/2021 Medications * Be aware that medications may not be up to date on this document. Alwaysverify current medications with the patient. Medication Sig Dispensed Refills Start Date End Date Status traZODone (DESYREL) 50 MG tablet Take 1 (one) tablet by mouth 04/27/2016 Active albuterol HFA (PROVENTIL;VENTOLIN ;PROAIR) 108 (90 BASE) MCG/ACT inhaler Daily prn Active Aspirin 81 MG CAPS Take 1 tablet by mouth once daily Active buPROPion XL 24hr (WELLBUTRIN-XL) 150 MG tablet 1 (one) tablet 2 times daily Active Calcium Citrate-Vitamin D (CALCIUM + D PO) 2 TIMES DAILY. Acti ve denosumab (PROLIA) 60 MG/ML SC injection Inject 1 mL subcutaneously Every 6 months Active fluticasone-salmete rol (ADVAIR/WIXELA) 250-50 MCG/DOSE inhaler Inhale 1 (one) puff by mouth 2 times daily 09/20/2016 Active furosemide (LASIX) 20 MG tablet 2 TIMES DAILY. Active insulin glargine (LANTUS) vial Inject 20 (twenty) Units subcutaneously at bedtime Active lisinopril (PRINIVIL; ZESTRIL) 10 MG tablet Take 1 (one) tablet by mouth once daily Active Oxygen [place] into the nose as needed Up to 2L intermittent Active carvedilol (COREG) 3.125 MG tablet 1 tablet 2 TIMES DAILY (route: oral) 11/09/2020 Active ferrous sulfate 325 (65 FE) MG tablet Take 1 (one) tablet by mouth once daily Active tiotropium (Spiriva) 18 MCG inhalation capsule 18 mcg DAILY (route: inhalation) 11/09/2020 Active Prevalite 4 g packet DISSOLVE 4 G (1 PACKET)IN 2 OR 3 OZ OF WATER DAILY AT BEDTIME ON OTHERWISE EMPTY STOMACH. AVOID OTHER MEDS WITHIN 1 HOUR BEFORE OR 4-6 HOURS AFTER DOSE. 08/11/2021 Active ezetimibe-simvastat in (Vytorin) 10-40 MG tablet Take 1 tablet every day by oral route. 04/26/2022 Active rOPINIRole (Requip) 0.5 MG tablet Take 1 (one) tablet by mouth at bedtime Active Semaglutide (2 MG/DOSE) 8 MG/3ML Subcutaneous Solution Pen-injector (Ozempic (2 MG/DOSE)) Inject 2 (two) mg subcutaneously every 7 days Active empagliflozin (Jardiance) 10 MG tablet Take 1 (one) tablet by mouth once daily Active amoxicillin (Amoxil) 500 MG capsule Take 1 (one) capsule by mouth pre-Procedure once 11/27/2023 Active mupirocin (Bactroban) 2 % ointment Apply to affected area 2 times daily 10/27/2023 Active Active Problems Problem Noted Date Diagnosed Date Renal cell carcinoma of right kidney 10/29/2018 Right foot pain 06/24/2018 Right foot drop 03/20/2018 Encounter for other preprocedural examination Overview (08/27/2017): Diagnosis: SHAH; HCC Referring 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 Quit smoking 4 years ago; >1 ppd X 40 years. 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 Evaluation Testing Date and Results: Labs: 08/16/2016 A1c-12.6: Glucose-360: Chol-180 HDL-41: LDL-98: Triglycerides- 206: Serologies: CMV: Tox Screen-Neg: Alpha 1 Anti: AFP: [id number]: Ceruloplasmin: LEE: Anti Smooth muscle ab: Mitochondrial: [...] periapical abscess. Dictated by Inga Boudreaux MD (assistant to the vice president). This report was approved by Inga Boudreaux [...] on 05/11/2016. Dictated by Miguelina Price MD (assistant to the vice president). This report was approved by Miguelina Price [...] (volume index 56 ml/M2). No evidence of [id number] shunt with bubble study. 7. The right [...] pulmonary disease (COPD) regimen as per Emmanuel English Language Arts Teacher: A. Salmeterol/fluticasone (Advair) 250 mcg 1 puff [...] 2 L/min side flow as per Emmanuel English Language Arts Teacher 3. Her very severe COPD may preclude her from liver transplantation 4. Follow-up with results Sourav Lai MD, [facility], [facility], [facility] Videotape Sales Representative, [facility] Curber of Internal Medicine Division of Pulmonary, Critical Care, and Sleep Medicine [facility] EGD: 02/15/15 In the lower third [...] Recommendations/Interventions: 1. Pt needs to see an Pharmacy Grad Intern as she currently does not. 2. Pt (with her daughter, Cassidy) instructed on Cirrhosis Nutrition Therapy Guidlelines. Pt given handout along with RD contact information. 3. Recommended pt view Nutrition Facts for carb and sodium - content 60 g of Carb and 600 mg of sodium/ meal acceptable. Chronic obstructive pulmonary disease 06/21/2016 Age-related osteoporosis wit hout current pathological fracture 06/25/2014 Other cirrhosis of liver 06/25/2014 Overview (08/27/2017): 2011: Liver biopsy 11/2010: EGD: candidal esophagitis but no varices 02/2013: Liver MRI: No evidence of hepatocellular carcinoma. Resolved Problems Problem Noted Date Diagnosed Date Resolved Date Liver cell carcinoma 06/21/2016 019 Encounters Date Type Department Care Team Description 07/08/2024 Telephone [facility] [place] [address] [place] [address], [place] [phone] Boby Mims MD LABS ONLY 06/03/2024 Orders Only [facility] - Nephrology [address] [place] [address], [place] [phone] Charlotte Richardson, [employer] GU[employer]DER[employer]AT SPRAYER Other cirrhosis of liver from Last 3 Months Immunizations Name Administration Dates Next Due INFLUENZA VACCINE, TRIV. (AF LURIA, FLUZONE TRIVALENT; 6MO+) (IIV3) 03/18/2016 PNEUMOCOCCAL PPSV23 08/16/2012 Family History Medical History Relation Name Comments Cancer Brother 1 Rico Liver cancer; S tatus: Liver Disease Brother 1 Rico Heart Disease Brother 2 Donato Status: Deceas ed None Known Father Status: d None Known Mother Status: d Liver Disease Sister Liver cirrhosi s; Status: Cancer - Colon Neg Hx Relation Name Status Comments Brother 1 Rico Brother 2 Donato Father Mother Sister Social History Tobacco Use Types Packs/Day Years Used Date Smoking Tobacco: Former Cigarettes Q uit: 04/27/2013 Smokeless Tobacco: Never Tobacco Cessation:Counseling Given: No Alcohol Use Standard Drinks/Week Comments Not Currently 0 (1 standard drink = 0.6 oz pur e alcohol) rare mix drink Sex and Gender Information Value Date Recorded Sex Assigned at Not on file Gender Identity Not on file Sexual Orientation Not on file Last Filed Vital Signs Vital Sign Reading Time Taken Comments Blood Pressure 181/65 01/14/2024 11:20 AM CDT Pulse 81 01/14/2024 11:20 AM CDT Temperature 36.6 C (97.8 F) 01/14/2024 11:20 AM CDT Respiratory Rate 18 07/23/2023 10:44 AM 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 [address] [place] [address], [place] [phone] Charlotte Richardson, [employer] GUIDE-UNDERCOAT SPRAYER [address] [place] [address] [address] DIV OF GASTROENTEROLOGY [place], [place] [id number] Health Maintenance Due Date Last Done Comments BONE DENSITY TESTING 1950 COLOGUARD (AGES 45-75) - COL ON CA SCREENING 1949 COLON MONITORING 1949 COLONOSCOPY - COLON CA SCREENING 1949 CT COLONOGRAPHY - COLON CA SCREENING 1950 Colorectal Cancer Screening 1950 FIT - COLON CA SCREENING 1949 FLEX SIG - COLON CA SCREENING 1950 MAMMOGRAM 1950 MEDICARE AWV 12 MONTHS 1950 HEPATITIS C SCREENING 01/23/1967 DTAP/TDAP/TD VACCINES (1 - Tdap) 01/28/1968 ZOSTER VACCINE (1 of 2) 1999 HEPATITIS B VACCINE (1 of 3 - Risk 3-dose series) 2009 PNEUMOCOCCAL VACCINE 50+ (2 of 2 - PCV) 08/16/2013 08/16/2012 COVID-19 VACCINE (3 - 2023-2 5 season) 2024 08/06/2020, 07/09/2020 INFLUENZA VACCINE (#1) 2024 9, 03/15/2018, 03/18/2016 Respiratory Syncytial Virus (RSV) Vaccine Pt: or over 60 yrs (1 - 1-dose 75+ series) 01/28/2024 DEPRESSION SCREENING 05/28/2024 HIB VACCINE Aged Out No longer eligi ble based on patient's age to complete this topic HPV VACCINE Aged Out No longer eligi ble based on patient's age to complete this topic MENINGOCOCCAL (Group B) VACCINE SHARED DECISION-MAKING Aged Out No longer eligible based on patient's age to complete this topic MENINGOCOCCAL GROUPS A/C/Y/W VACCINE Aged Out No longer eligible b ased on patient's age to complete this topic Goals Goal Patient Goal Type Associated Problems Recent Progress Patient-Stated? Author Medication Management General On track( 024 11:16 AM CDT) Lucie Ortez, RN Note: Expected end date: Ongoing Interventions: Take all medications as prescribed Let your doctor know right away about any changes in your medications Make sure to request a refill of your medication at least one week prior to your last dose Care Teams Customer Experience Manager Relationship Specialty Start Date End Date Vitaly Frye MD [address] [place] [phone] PCP - General Family Medicine 01/22/23 Fransisco Armas MD [address] [facility] [address] [place] [address] Urology 08/09/21
--- OUTSIDE RECORDS SUMMARY | 2024-08-15 10:00 | XMS_ITS | Data Portability ---
Author Organization [place] [facility], Main Office Address [address] [place] [address] Assessment No assessment recorded. Plan of Treatment Reminders Order Date Submit Date Provider Last Modified By Organization Details Last Modified Time Details Appointments None record ed. Lab None record ed. Referral None record ed. Procedures None record ed. Surgeries None record ed. Imaging XR, should er, 2 or more view 023 08/16/19 23 [email or web address] [facility] [place], [address], [place], [address], 3 12:55:38 Medication Orders None record ed. Patient TargetsNo targets recorded. Patient InstructionsNo instructions recorded. Reason for Referral None Reported. Results Created Date Observation Date Name Description Value Unit Range Abnormal Flag Note LastModifiedBy Organization Detail LastModifiedTime 05/02/20 22 XR, hand No observ ation record ed. [id number] [facility] [place] [address], [place], [address], 07/26/2022 13:32:52 08/16/19 23 XR, shoul rashad, 2 or more view No observ ation record ed. [email or web address] [facility] [place] [address], [place], [address], 08/15/2022 12:55:37 Result Notes None recorded. Problems Name Problem SNOMED Code Status Onset Date Resolution Date Notes Provider Name and Address Organization Details Recorded Time Pain of left hand 96736099634582 3 Active 2021 Not Available [facility] 3 13:30:32 Pain of right shoulder joint 93378871964829 100 Active 2022 Richellejeet Juwan, RMMelissa null, [place] [facility] [place] 10:54:29 Carpal tunnel syndrome of left wrist 22435287118193 2 Active 2022 Kailash Soto MD [address] [facility], [address], [place], [address] , [facility] [employer] [place] 3 12:55:58 Dupuytren 's disease of palm 342886724 Active 2022 Kailash Soto MD [address] [facility], [facility] [address], [place], [address] , [facility] [place] 11:57:12 Problem Notes None recorded. Procedures Surgical History Date Name Laterality Status Provider Name and Address Organization Details Recorded Time Foot Surgery completed Not Available [facility] 07/26/2022 13:29:54 Cholecystectomy completed Not Available [facility] 07/26/2022 13:29:54 Tubal Ligation completed Not Available [facility] 07/26/2022 13:29:54 [facility]end[facility] completed [facility] 07/26/2022 13:29:54 Shoulder completed Not Available [facility] 13:29:54 Hernia Repair completed Not Available [facility] 07/26/2022 13:29:54 Tonsillectomy and/or Adenoidectomy completed Not Available [facility] 07/26/2022 13:29:54 Imaging Results Imaging Date Name Status LastModified by Organiz ation Details LastModified Time 05/02/2022 XR, hand completed [id number] [facility] [place] [address], [place], [address], 07/26/2022 13:32:52 08/15/2022 XR, shoulder, 2 or more view completed [email or web address] [facility] [place] [address], [place], [address], 08/15/2022 12:55:37 Procedure Notes None recorded. Medical Equipment None Reported. Allergies Allergen ID Allergen Name Allergen Category Reaction Reaction Severity Criticality Documentation Date Start Date Code Code System Note Provider Name and Address Organization Details Recorded Time 24768 iodine medicatio n Not available Not available Not available 07/26/2022 5933 RxNorm Not Available [facility] 3 13:32:49 Medications Name Sig Start Date Stop Date Status Note LastModified by Organization Details LastModified Time fluticasone 250 mcg-salmeter ol 50 mcg/dose blistr powdr for inhalation Inhale 1 puff twice a day by inhalation route. 2021 active Not Available Not Available Not Avai lable prednisone 10 mg tablet TAKE 6 TABLETS BY MOUTH ONCE DAILY ON DAY 1, THEN 5 TABS DAILY ON DAY 2, THEN 4 TABS DAILY ON DAY 3, THEN 3 TABS DAILY ON DAY 4, THEN 2 TABS DAILY ON DAY 5, THEN 1 TAB DAILY ON DAY 6. active Not Available Not Available No t Available trazodone 50 mg tablet Take 1 tablet every day by oral route. 2021 active Not Available Not Available Not Avai lable azithromycin 250 mg tablet TAKE 2 TABLETS BY MOUTH ON DAY 1, AND THEN TAKE 1 TABLET BY MOUTH ONCE A DAY ON DAY 2 THROUGH DAY 5 active Not Available Not Available No t Available benzonatate 200 mg capsule TAKE 1 CAPSULE BY MOUTH THREE TIMES DAILY NEEDED FOR COUGH active Not Available Not Available No t Available permethrin 5 % topical cream APPLY FROM CHIN TO TOES UNDER NAILS. LEAVE ON 8-14 HOURS AND RINSE. MAY REPEAT IN 7 DAYS IF NEEDED. active Not Available Not Available N ot Available carvedilol 3.125 mg tablet Take 1 tablet twice a day by oral route. 2021 active Not Available Not Available Not Avai lable lisinopril 10 mg tablet Take 1 tablet every day by oral route. 2021 active Not Available Not Available Not Avai lable Prevalite 4 gram powder for susp in a packet DISSOLVE 4 G (1 PACKET)IN 2 OR 3 OZ OF WATER DAILY AT BEDTIME ON OTHERWISE EMPTY STOMACH. AVOID OTHER MEDS WITHIN 1 HOUR BEFORE OR 4-6 HOURS AFTER DOSE. active Not Available Not Available Not Available zolpidem 5 mg tablet TAKE ONE TABLET BY MOUTH ONCE NEEDED FOR SLEEP. TAKE WITH YOU TO [facility] active Not Available Not Available Not Available furosemide 20 mg tablet Take 1 tablet every day by oral route. 2021 active Not Available Not Available Not Avai lable ergocalcifer ol (vitamin D2) 1,250 mcg (50,000 unit) capsule TAKE 1 CAPSULE BY MOUTH ONCE A WEEK FOR 8 WEEKS active Not Available Not Available No t Available ropinirole 5 mg tablet Take 1 tablet 3 times a day by oral route. 2021 active Not Available Not Available Not Avai lable cholestyrami ne (with sugar) 4 gram oral powder Take 1 scoop twice a day by oral route. 2021 active Not Available Not Available Not Avai lable tiotropium bromide 18 mcg capsule with inhalation device Inhale by inhalation route. 2021 active Not Available Not Available Not Avai lable ezetimibe 10 mg-simvastat in 40 mg tablet Take 1 tablet every day by oral route. 2021 active Not Available Not Available Not Avai lable eszopiclone 3 mg tablet TAKE 1 TABLET WITH YOU TO [facility] active Not Available Not Available Not Available eszopiclone 2 mg tablet TAKE ONE TABLET BY MOUTH ONCE FOR 1 DAY. active Not Available Not Available N ot Available Zostavax (PF) 19,400 unit/0.65 mL subcutaneous suspension active Not Available Not Available N ot Available Xiaflex 0.9 mg solution for injection active Not Available Not Available No t Available Eliquis 5 mg tablet TAKE 1 TABLET BY MOUTH TWICE DAILY active Not Available Not Available No t Available bupropion HCl 150 mg tablet,12 hr sustained-re lease(smokin g deterrent) Take 1 tablet twice a day by oral route. 2021 active Not Available Not Available Not Avai lable albuterol sulf 90 mcg/actuatio n breath activated powder inhaler,sens or Inhale 2 puffs every 4 hours by inhalation route. 2021 active Not Available Not Available Not Avai lable aspirin 81 mg capsule Take 1 capsule every day by oral route. 2021 active Not Available Not Available Not Avai lable Vitals Date Recorded Body mass index (BMI) Body height Pain severity - 0-10 verbal numeric rating [Score] - Reported Body weight Provider Name and Address Organization Details Last Updated DateTime 06/14/2022 30.6 kg/m2 154.94 cm 2 84126.96 g Not Available [facility] 07/26/2022 13:30:00 Date Recorded Body mass index (BMI) Body height Pain severity - 0-10 verbal numeric rating [Score] - Reported Body weight Provider Name and Address Organization Details Last Updated DateTime 07/18/2022 31 kg/m2 154.94 cm 0 39183.15 g Not Available [facility] 07/26/2022 13:30:00 Date Recorded Body height Body mass index (BMI) Body weight Provider Name and Address Organization Details Last Updated DateTime 08/15/2022 154.94 cm 31 kg/m2 05552.15 g Dave Echeverria, [facility] [employer] [facility] 08/15/2022 10:54:03 Date Recorded Body height Body mass index (BMI) Body weight Provider Name and Address Organization Details Last Updated DateTime 10/17/2022 154.94 cm 31.4 kg/m2 49595.33 g Cayla Mcnair, [facility] [employer] [facility] 10/17/2022 11:07:46 Social History None recorded. Functional Status None recorded. Mental Status None recorded. Family History Relationship Description Onset Age of this Age Resolved Age Notes LastModified by Organization Details LastModified Time Brother Heart disease [id number] Not available 07/26/2022 13:29:55 Brother Hypertensive disorder MIGRATION.357 [id number] Not available 07/26/2022 13:29:55 Brother Diabetes mellitus [id number].702 [id number] Not available 07/26/2022 13:29:55 Sister Heart disease [id number].087 [id number] Not available 07/26/2022 13:29:55 Sister Family history of stroke MIGRATION.415 [id number] Not available 07/26/2022 13:29:55 Sister Hypertensive disorder MIGRATION.586 [id number] Not available 07/26/2022 13:29:55 Sister Blood coagulation disorder MIGRATION.244 [id number] Not available 07/26/2022 13:29:55 Sister Diabetes mellitus MIGRATION.542 [id number] Not available 07/26/2022 13:29:55 Sister Kidney disease MIGRATION.990 [id number] Not available 07/26/2022 13:29:55 Medical History Condition Response OSTEOPOROSIS Y ARTHRITIS Y DIABETES, TYPE Y HYPERTENSION Y Gynecological HistoryNo gynecological history recorded. Obstetrics History GPAL:G 0 P 0 0 0 0 Past Encounters Encounter ID Performer Location Encounter Start Date Encounter Closed Date Diagnosis/Indication Diagnosis SNOMED-CT Code Diagnosis ICD10 Code Diagnosis Note [id number] [facility] [place] [address] [place] [address] 05/02/2022 00:00:00 05/02/2022 13:47:10 [id number] [facility] [place] [address] [place] [address] 06/14/2022 00:00:00 06/14/2022 17:03:12 [id number] [facility] [place] [address] [place] [address] 07/18/2022 00:00:00 07/18/2022 12:48:24 [id number] Kailash Soto MD [facility] [place] [address] [place] [address] 08/15/2022 10:51:48 08/15/2022 11:32:57 Pain of left hand 2165199127 52308 M79.642 Pain of ri ght shoulder joint 5032911041 8178414 M25.511 patient can work on a stretching program she can use heat or ice for the shoulder pain as well if worsening of symptoms we can consider a injection of the shoulder Carpal charo alexandre syndrome of left wrist 8056060248 17480 G56.02 continue with nerve and tendon glides and stretches and we will see her back in 2 months for follow-up [id number] Kailash Soto MD [facility] [place] [address] [place] [address] 10/17/2022 11:05:04 10/17/2022 11:16:14 Pain of right shoulder joint 2506117845 4299022 M25.511 Pain of left hand 626589 4412 82489 M79.642 Dupuytren' s disease of palm 248538223 M72.0 patient has Dupuytren' s looks good no signs of recurrence there is a 5% chance of recurrence in 5 years 10% or higher after 10 years Carpal charo alexandre syndrome of left wrist 5343493065 23437 G56.02 patient is doing well she can continue with strengthen ing of the hand as tolerated Health Concerns Section Related Observation LastModified by Organization Detai ls LastModified Time None Recorded Concern Status LastModified by Organization Details LastModified Time None Recorded Advance Directives Directive None Recorded Payers Encounter Date Sequence Insurance Name Policy Number Policy Skinner Covered Member ID Skinner Member ID Guarantor Name 08/15/2022 1 [place] Krissy Ricardo [id number] Krissy Ricardo 08/15/2022 2 () Krissy Ricardo [id number] Krissy Ricardo 10/17/2022 1 [place] Krissy Ricardo [id number] Krissy Ricardo 10/17/2022 2 () Krissy Ricardo [id number] Krissy Ricardo Notes Date Note Type Note Provider Name and Address Organization Details Recorded Time 08/15/2022 text/html patient underwent removal of some palmar Dupuytren's nodules and a carpal tunnel release on July 05, 2022 she is doing very nicely comes in today for follow-up Kailash Soto MD [address], [address], [place], [address], [employer] 08/15/2022 12:56:23 10/17/2022 text/html patient returns today for follow-up doing very well after the carpal tunnel release and excision of the Dupuytren's cords Kailash Soto MD [address], [place], [address], [employer] 10/17/2022 11:57:49 OBGyn Episode No OBEpisode recorded.
[2024-08-15 10:03] LABS: Albumin Level 3.8 g/dL (3.5-5.1); Anion Gap 6 mmol/L (4-12); Blood Urea Nitrogen 16 mg/dL (7-17); Calcium 8.5 mg/dL (8.4-10.2); Carbon Dioxide 30 mmol/L (22-30); Chloride 105 mmol/L (98-107); Estimated Glomerular Filt Rate > 60; Glucose 188 mg/dL (65-110); Phosphorus 3.5 mg/dL (2.5-4.5); Potassium 4.1 mmol/L (3.4-5.0); Sodium 141 mmol/L (137-145)
[2024-08-15 10:07] LABS: Prothrombin Time 13.4 Seconds (11.1-14.7)
[2024-08-15 10:09] LABS: Complement C3 111 mg/dL (88-165)
[2024-08-15 11:02] LABS: Vitamin D 25 Hydroxy 37.7 ng/mL
[2024-08-18 14:53] LABS: Protein, Total 6.1 g/dL (6.1-8.1)
[2024-08-18 20:39] LABS: Albumin 3.6 g/dL (3.8-4.8); Alpha 1 Globulin 0.3 g/dL (0.2-0.3); Alpha 2 Globulin 0.7 g/dL (0.5-0.9); Beta 1 Globulin 0.4 g/dL (0.4-0.6); Gamma Globulin 0.9 g/dL (0.8-1.7)
[2024-08-19 11:24] LABS: ANCA Screen NEGATIVE (NEGATIVE)
[2024-08-19 17:43] LABS: Alpha Fetoprotein Tumor Marker 1.5 ng/mL
== END 2024-08-15 08:55 | disposition home or self-care (01) ==
PROVIDERS: Internal Medicine Endocrinology, Diabetes & Metabolism; PCP Family Medicine; Referring Provider Internal Medicine Nephrology; Visit Provider Nurse Practitioner
DX: E11.29 Type 2 diabetes mellitus with other diabetic kidney complication (principal); E78.2 Mixed hyperlipidemia; I10 Essential (primary) hypertension; R79.89 Other specified abnormal findings of blood chemistry; E04.1 Nontoxic single thyroid nodule; R80.9 Proteinuria, unspecified; Z79.4 Long term (current) use of insulin; K74.69 Other cirrhosis of liver
CPT/HCPCS: 36415; 80069; 82105; 82306; 82607; 83520; 84155; 84165; 84443; 85610; 86036; 86038; 86039; 86160; 86225

== ENCOUNTER 2024-08-16 08:19 | Outpatient (CLI) | payer MEDICARE, OTHER, SELFPAY ==
--- OUTSIDE RECORDS SUMMARY | 2024-08-16 08:24 | XMS_ITS ---
Author Organization [facility] [address] Address [address] [place] [address] Care Team Providers Care Assisted Living Administrator Name Role Phone Vitaly Frye MD Primary Care Provider [phone] Vitaly Antoine MD Unavailable [phone] Yao Al MD Unavailable [phone] Active Problems Problem Noted Date Diagnosed Date Rotator cuff arthropathy of right shoulder 07/15 Right shoulder pain 07/15/2024 Displaced fracture of proximal end of right bennie lino 07/15/2024 Status post transcatheter ao rtic valve replacement (TAVR) using bioprosthesis 08/06/2023 Assessment & Plan (08/01/2024 2:17 PM ENFORCEMENT OFFICER): S/p TAVR 1 year ago. The valve [...] visit. Assessment & Plan (06/22/2019 12:23 PM ENFORCEMENT OFFICER): Patient has mild to moderate carotid stenosis [...] 06/22/2019 Assessment & Plan (06/22/2019 12:23 PM ENFORCEMENT OFFICER): Per patient she has been diagnosed with [...] provider. Assessment & Plan (06/22/2019 12:24 PM ENFORCEMENT OFFICER): Per patient blood sugars well controlled. Continue [...] from the original. Diagnosis: SHAH; HCC Referring Spot Machine Operator: Danilo Arizmendi MELD: 01/22 Blood Type: A pos BMI: 30 Short H/P summary: DM type II since 1992: Htn x 8 years. Quit smoking 4 years ago; >1 ppd X 40 years. 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 Evaluation Testing Date and Results: Labs: 08/16/2016 A1c-12.6: Glucose-360: Chol-180 HDL-41: LDL-98: Triglycerides- 206: Serologies: CMV: Tox Screen-Neg: Alpha 1 Anti: AFP: Tr87-6-60: Ceruloplasmin: LEE: Anti Smooth muscle ab: Mitochondrial: [...] abscess. Dictated by Inga Boudreaux MD (residential door unit installer). This report was approved by Inga Boudreaux [...] 05/11/2016. Dictated by Miguelina Price MD (residential door unit installer). This report was approved by Miguelina Price [...] (volume index 56 ml/M2). No evidence of pgzxr-aj-mrkl shunt with bubble study. 7. The right [...] pulmonary disease (COPD) regimen as per Emmanuel Email Developer: A. Salmeterol/fluticasone (Advair) 250 mcg 1 puff [...] 2 L/min side flow as per Emmanuel Email Developer 3. Her very severe COPD may preclude her from liver transplantation 4. Follow-up with results Sourav Lai MD, [facility], [facility], [facility] Filler Mixer, [facility] Data Processing Manager of Internal Medicine Division of Pulmonary, Critical Care, and Sleep Medicine [employer] EGD: 02/15/15 In the [...] Recommendations/Interventions: 1. Pt needs to see an Project Administrative Assistant as she currently does not. 2. Pt [...]
--- OUTSIDE RECORDS SUMMARY | 2024-08-16 08:24 | XMS_ITS | Continuity of Care Document ---
Author Organization [facility] Address [address] [place] [address] Phone Care Team Providers Care Transition Teacher Name Role Phone Troy Eden Unavailable Unavailable Procedures Procedure Date Eye Exam Established Pt Ophthalmoscopy, Subsequent Ophthalmoscopy, Subsequent Office Consultation Ophthalmoscopy Ophthalmoscopy Office/outpatient Visit, Est Eye Exam & Treatment Advance Directives Directive Yes / No Effective Date File Name No Information Encounters Encounter Description Practice Location Reason(s) For Visit Diagnoses Date Provider Providers Copied on Encounter [facility], [address] [place] [address] [address], [place], [place], [id number], tel:[phone] [facility] No Information Aug-0 2-201 0 Karey Simmons. [address] [place], [address], [place]. tel:[phone] Office Consultation [facility], [address] [place] [address] [address], [place], [place], [id number], [place] tel:[phone] [facility] No Information Aug-0 3-200 9 Karey Simmons. [address] [place], [address], [place]. tel:[phone] Referring Provider: Ryan Richardson OD A, [address], [place], [place], [facility] [place]. tel:[phone] Office/outpati ent Visit, Est [facility], [address], [place], [place], [id number], [place] tel:[phone] [facility] No Information 3-200 9 Richardson OD Ryan. [address] , [address], [place], [address], [place]. tel:[phone] [facility], [address], [place], [place], [id number], [place] tel:[phone] [facility] No Information 2-200 9 Richardson OD Ryan. [address] [facility] , [address], [place], [address], [place]. tel:[phone] Family History Family Member Type Diagnosis Age [...]
--- OUTSIDE RECORDS SUMMARY | 2024-08-16 08:24 | XMS_ITS | Encounter Summary ---
Author Organization [facility] Address [address] [place] [address] Care Team Providers Care Gag Writer Name Role Phone Krunal Sanchez MD Primary Care Provider [phone] Krunal Sanchez MD Primary Care Provider [phone] Krunal Sanchez MD Unavailable Vitaly Frye MD Primary Care Provider [phone] Vitaly Antoine MD Unavailable [phone] Yao Al MD Unavailable [phone] Encounter Details Date Type Department Care Team (Late st Contact Info) Description 01/19/2016 Orders Only [facility] ProviderCristopher MD [address] [place] [address] Social History Tobacco Use Types Packs/Day Years Used Date Smoking Tobacco: Never Assessed Comments Unknown Sex and Gender Information Value Date Recorded Sex Assigned at Not on file 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 Gender Identity Not on file Sexual Orientation Not on file documented as of this encounter Plan of Treatment Upcoming Encounters Date Type Department Care Team (Latest Contact Info) Description 08/26/2024 10:15 AM CDT Hospital Encounter [facility] Operating Room [address] [place] [address] Kylah Kirkpatrick MD [address] [facility] [address] [place] [address] 08/26/2024 10:15 AM CDT Anesthesia Event [facility] Operating Room [address] [address] Germania Barry NP [id number] [place] [address] 08/26/2024 10:15 AM CDT - 08/26/2024 1:15 PM CDT Surgery [facility] Operating Room [address] [address] Kylah Kirkpatrick MD [address] [place] [address] Right Reverse Shoulder Arthroplasty Scheduled Procedures Name [...] on filedocumented in this encounter Care Teams Gag Writer Relationship Specialty Start Date End Date Krunal Sanchez MD [address] [place] [address] PCP - General 09/20/16 06/17/19 Krunal Sanchez MD [address] [place] [address] PCP - General 06/18/19 11/20/22 Vitaly Frye MD [address] [place] [address] PCP - General Family Medicine 11/21/22 Krunal Sanchez MD [address] [place] [address] 06/18/19 11/20/22 Vitaly Antoine MD [address] [address] Referring Physician Cardiology 07/09/23 Yao Al MD [address] [address] Consulting Physician Cardiothoracic Surgery 07/09/23 documented as of this encounter
--- OUTSIDE RECORDS SUMMARY | 2024-08-16 08:24 | XMS_ITS | Clinical Summary ---
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 The valve [...] visit. Assessment & Plan (06/22/2019 12:23 PM LEARNING AND DEVELOPMENT CONSULTANT): Patient has mild to moderate carotid stenosis [...] 06/22/2019 Assessment & Plan (06/22/2019 12:23 PM LEARNING AND DEVELOPMENT CONSULTANT): Per patient she has been diagnosed with [...] provider. Assessment & Plan (06/22/2019 12:24 PM LEARNING AND DEVELOPMENT CONSULTANT): Per patient blood sugars well controlled. Continue [...] from the original. Diagnosis: SHAH; HCC Referring Team Member: Danilo Arizmendi MELD: 01/22 Blood Type: A pos BMI: 30 Short H/P summary: DM type II since 1992: Htn x 8 years. Quit smoking 4 years ago; >1 ppd X 40 years. 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. Evaluation Testing Date and Results: Labs: 08/16/2016 A1c-12.6: Glucose-360: Chol-180 HDL-41: LDL-98: Triglycerides- 206: Serologies: CMV: Tox Screen-Neg: Alpha 1 Anti: AFP: Ie59-5-87: Ceruloplasmin: LEE: Anti Smooth muscle ab: Mitochondrial: [...] periapical abscess. Dictated by Inga Boudreaux MD (vice president biostatistics). This report was approved by Inga Boudreaux [...] on 05/11/2016. Dictated by Miguelina Price MD (vice president biostatistics). This report was approved by Miguelina Price [...] (volume index 56 ml/M2). No evidence of wrmkf-ww-fgfc shunt with bubble study. 7. The right [...] pulmonary disease (COPD) regimen as per Emmanuel Machine Clerical Verifier: A. Salmeterol/fluticasone (Advair) 250 mcg 1 puff [...] at 2 L/min side flow as per Dawn Machine Clerical Verifier 3. Her very severe COPD may preclude her from liver transplantation 4. Follow-up with results Sourav Lai MD, [facility], [facility], [facility] Salary And Wage Administrator, [facility] [employer] of Internal Medicine Division of Pulmonary, Critical Care, and Sleep Medicine [facility] EGD: 02/15/15 In the lower [...] Recommendations/Interventions: 1. Pt needs to see an Airline Dispatcher as she currently does not. 2. Pt [...] - 08/06/2024 11:59 PM CDT Hospital Encounter [facility] - Imaging [address] [place] [phone] Rotator cuff arthropathy of right shoulder; Right shoulder pain, unspecified chronicity; Displaced fracture of proximal end of right humerus Discharge Disposition: Discharge to home or self care 08/06/2024 8:45 AM CDT Office Visit [facility] Surgery [address] [phone] Tay Deras MD PAD (peripheral artery disease) (Primary Dx) 08/06/2024 8:00 AM CDT Ancillary Procedure [facility] Surgery [address] [phone] History of procedure for peripheral vascular disease; Peripheral vascular disease 07/31/2024 12:30 PM LEARNING AND DEVELOPMENT CONSULTANT Office Visit Cardiovascular and Thoracic Surgery [address] [facility] [address] [place] [phone] Emmanuel Villaseñor NP Status post transcatheter aortic valve replacement (TAVR) using bioprosthesis (Primary Dx) 07/31/2024 10:58 AM LEARNING AND DEVELOPMENT CONSULTANT - 07/31/2024 11:59 PM LEARNING AND DEVELOPMENT CONSULTANT Hospital Encounter [facility] OP Cardiac Testing [address] [facility] [address] [place] [address] Status post transcatheter aortic valve replacement (TAVR) using bioprosthesis Discharge Disposition: Discharge to home or self care 07/31/2024 7:30 AM LEARNING AND DEVELOPMENT CONSULTANT Pre-Admission Testing [facility] Pre-Anesthesia Testing [address] [address] [address] Preoperative testing (Primary Dx) 07/31/2024 7:00 AM LEARNING AND DEVELOPMENT CONSULTANT Lab [facility] [address] [address] [address] Preoperative testing; Rotator cuff arthropathy of right shoulder; Right shoulder pain, unspecified chronicity; Displaced fracture of proximal end of right humerus; Vitamin D deficiency 07/15/2024 Orders Only [facility] Orthopaedic Surgery [address] [facility] Advanced Medicine 12th [place] [address] [place] [address] Kylah Kirkpatrick MD Rotator cuff arthropathy of right shoulder (Primary Dx); Right shoulder pain, unspecified chronicity; Displaced fracture of proximal end of right humerus 07/10/2024 3:15 PM LEARNING AND DEVELOPMENT CONSULTANT Office Visit [facility] Cardiology at [address] [place] [address] Vitaly Antoine MD Status post transcatheter aortic valve replacement (TAVR) using bioprosthesis (Primary Dx) 06/18/2024 2:39 PM LEARNING AND DEVELOPMENT CONSULTANT - 06/18/2024 11:59 PM LEARNING AND DEVELOPMENT CONSULTANT Hospital Encounter [facility] [address] [place] [address] Discharge Disposition: Discharge to home or self care 06/18/2024 10:30 AM LEARNING AND DEVELOPMENT CONSULTANT Office Visit [facility] Orthopaedic Surgery [address] [facility] 2nd [address] [place] [address] Kylah Kirkpatrick MD Rotator cuff arthropathy of [...] often do you attend chur ch or sabianist services? Never 11/30/2020 Do you belong to any clubs o r organizations such as jehovah's witness groups, unions, fraternal or athletic groups, or [...] on file Legal Sex Female 11:07 PM LEARNING AND DEVELOPMENT CONSULTANT Gender Identity Not on file Sexual Orientation Not on file Obstetrics History Last Filed Vital Signs Vital Sign Reading Time Taken Comments Blood Pressure 158/70 08/06/2024 8:13 AM CDT Pulse 88 08/06/2024 8:13 AM CDT Temperature 37.1 C (98.7 F) 08/06/2024 8:13 AM CDT Respiratory Rate 18 07/31/2024 12:10 PM LEARNING AND DEVELOPMENT CONSULTANT Oxygen Saturation 92% 08/06/2024 8:13 AM CDT Inhaled Oxygen Concentration - - Weight 67.6 kg (149 lb) 08/06/2024 8:13 AM CDT Height 157.5 cm (5' 2 ) 08/06/2024 8:13 AM CDT Body Mass Index 27.25 08/06/2024 8:13 AM CDT Plan of Treatment Upcoming Encounters Date Type Department Care Team (Latest Contact Info) Description 08/26/2024 10:15 AM CDT Hospital Encounter [facility] Operating Room [address] [address] Kylah Kirkpatrick MD [address] [place] [address] 08/26/2024 10:15 AM CDT Anesthesia Event [facility] Operating Room [address] [address] [address] Germania Barry NP [id number] [place] [address] 08/26/2024 10:15 AM CDT - 08/26/2024 1:15 PM CDT Surgery [facility] Operating Room [address] [address] [address] Kylah Kirkpatrick MD [address] [facility] [place] [address] Right Reverse Shoulder Arthroplasty Scheduled Procedures Name [...] history exists Medical Devices Implanted Type Area Ride Attendant Device Identifier Shelf Expiration Date Model / Serial / Lot [employer] Valve Heart 23mm Marlys 3 Transcatheter [id number] - [id number] - [id number] Implanted:Qty: 1 on 08/03/2023 by Mark Lemons MD at [facility] Prosthetic Valve Right: Aortic Valve [employer] 05/28/2026 [id number] / [id number] / Angulo Vascular Device Clsr Perclose Prostyle Sut-Mediatd Closure-Repair s 85125-55 - S0 - [id number] Implanted:Qty: 1 on 08/03/2023 by Mark Lemons MD at [facility] Vascular Closure Device [employer] 05/27/2025 [id number] / 0 / [id number] Angulo Vascular Device Clsr Perclose Prostyle Sut-Mediatd Closure-Repair Sys 48133-06 - S0 - [id number] Implanted:Qty: 1 on 08/03/2023 by Mark Lemons MD at [facility] Vascular Closure Device [employer] 05/27/2025 [id number] / 0 / [id number] Procedures Procedure Name Priority Date/Time Associated Diagnosis [...] DOPPLER/CF WO CONTRAST Routine 07/31/2024 11:51 AM LEARNING AND DEVELOPMENT CONSULTANT Status post transcatheter aortic valve replacement (TAVR) using bioprosthesis EGFR Routine 07/31/2024 9:19 AM LEARNING AND DEVELOPMENT CONSULTANT Rotator cuff arthropathy of right shoulder Right shoulder pain, unspecified chronicity Displaced fracture of proximal end of right humerus DIFFERENTIAL AUTO Routine 07/31/2024 9:1 9 AM LEARNING AND DEVELOPMENT CONSULTANT Preoperative testing COMPREHENSIVE METABOLIC PANEL Routine 07/31/2024 9:19 AM LEARNING AND DEVELOPMENT CONSULTANT Rotator cuff arthropathy of right shoulder Right shoulder pain, unspecified chronicity Displaced fracture of proximal end of right humerus VITAMIN D 25 HYDROXY Routine 07/31/2024 9:19 AM LEARNING AND DEVELOPMENT CONSULTANT Rotator cuff arthropathy of right shoulder Right shoulder pain, unspecified chronicity Displaced fracture of proximal end of right humerus Vitamin D deficiency CBC WITH AUTO DIFFERENTIAL Routine 07/31/2024 9:19 AM LEARNING AND DEVELOPMENT CONSULTANT Preoperative testing ECG 12-LEAD Routine 07/31/2024 8:42 AM LEARNING AND DEVELOPMENT CONSULTANT Preoperative testing XR TRANSFER OF OUTSIDE FILMS Routine 06/18/2024 2:39 PM LEARNING AND DEVELOPMENT CONSULTANT POCT LIPID PANEL Routine 11/21/2022 8:22 AM [...] AM CDT Narrative 08/12/2024 10:18 AM CDT [facility] - Department of Vascular Surgery, Vascular Laboratory [address] [place] [address] Lower Extremity Arterial Doppler Report Patient Name: KRISSY SILVA : 1950 Study Date: 08/06/2024 7:37:00 AM Gender: F Tech: Margo Reyes RVT Location: [facility] Provider: PHI BOYLE Quality: Adequate Order Provider: PHI BOYLE PROCEDURES: Arterial Report: Bilateral lower extremity arterial Doppler exam at rest. INDICATIONS: Z98.890 Other specified postprocedural states and I73.9 Peripheral vascular disease, unspecified. MEASUREMENTS: Right Value Units Left Value Units Rt Brachial Pressure 131 mmHg Lt Brachial Pressure 134 mmHg Rt CLINICAL QUALITY ASSURANCE SPECIALIST Pressure 78 mmHg Lt CLINICAL QUALITY ASSURANCE SPECIALIST Pressure 58 mmHg Rt DPA Pressure 73 mmHg Lt DPA Pressure 78 mmHg Rt 1st Digit Pressure 52 mmHg Lt 1st Digit Pressure 29 mmHg Rt PT ELVIRA Resting 0.58 Lt PT ELVIRA Resting 0.43 Rt AT ELVIRA Resting 0.54 Lt AT ELVIRA Resting 0.58 Rt Digit/Arm Index 0.39 Lt Digit/Arm Index 0.22 Right Value Units Left Value Units FINDINGS: Performing Home Care Aide: Margo Reyes RVT. Right Common Femoral Artery [...] of infrapopliteal arteries. 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 INDICATIONS: Z98.890 Other specified postprocedural states and I73.9 Peripheralvascular disease, unspecified. MEASUREMENTS: Right Value Units Left Value Units Rt Brachial Pressure 131 mmHg Lt Brachial Pressure 134 mmHg Rt CLINICAL QUALITY ASSURANCE SPECIALIST Pressure 78 mmHg Lt CLINICAL QUALITY ASSURANCE SPECIALIST Pressure 58 mmHg Rt DPA Pressure 73 mmHg Lt DPA Pressure 78 mmHg Rt 1st Digit Pressure 52 mmHg Lt 1st Digit Pressure 29 mmHg Rt PT ELVIRA Resting 0.58 Lt PT ELVIRA Resting 0.43 Rt AT ELVIRA Resting 0.54 Lt AT ELVIRA Resting 0.58 Rt Digit/Arm Index 0.39 Lt Digit/Arm Index 0.22 Right Value Units Left Value Units FINDINGS: Performing Home Care Aide: Margo Reyes RVT. Right Common Femoral Artery [...] level ofinfrapopliteal arteries. 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 Electronically Signed By: Tay Deras MD [facility] 08/12/2024 10:14:04 AM CDT us Phi CANDELARIA IMG US PROCEDURES Fin al Result * TRANSTHORACIC ECHO (TTE) COMPLETE W DOPPLER/CF WO CONTRAST (07/31/2024 11:51 AM LEARNING AND DEVELOPMENT CONSULTANT) Anatomical Region Laterality Modality Ultrasound 07/31/2024 11:0 6 AM LEARNING AND DEVELOPMENT CONSULTANT Narrative 07/31/2024 12:47 PM LEARNING AND DEVELOPMENT CONSULTANT [facility] [address] [place] [address] ECHOCARDIOGRAM Patient Name: KRISSY SILVA : 1950 (74y 6m) Gender: F Study Date: 07/31/2024 11:06:09 AM Ht(Inch): 62 Wt(Lb): 147.05 BSA: 1.71 Home Care Aide: LAUREN Location: [facility] Order Provider: EMMANUEL VILLASEÑOR BMI: 26.89 BP: 118/52 Ref Provider: EMMAUNEL VILLASEÑOR - PROCEDURES: Echocardiographic Report: Transthoracic Echocardiogram [...] By: Mark Lemons MD 07/31/2024 12:46:30 PM LEARNING AND DEVELOPMENT CONSULTANT Procedure Note Mark Lemons MD - 07/31/2024 [facility] [address] [place] [address] ECHOCARDIOGRAM Patient Name: KRISSY SILVA : 1950 (74y 6m) Gender: F Study Date: 07/31/2024 11:06:09 AM Ht(Inch): 62 Wt(Lb): 147.05 BSA: 1.71 Home Care Aide: LAUREN Location: [facility] Order Provider: EMMANUEL VILLASEÑOR [...] By: Mark Lemons MD 07/31/2024 12:46:30 PM LEARNING AND DEVELOPMENT CONSULTANT Emmanuel Villaseñor NP CV ECHO PROCEDURES Final R esult * eGFR (07/31/2024 9:19 AM LEARNING AND DEVELOPMENT CONSULTANT) eGFR >90 >=60 mL/min/1. 73 m2 Comment: [...] last reviewed 2021. Blood 07/31/2024 9:19 AM LEARNING AND DEVELOPMENT CONSULTANT 07/31/2024 9:44 AM LEARNING AND DEVELOPMENT CONSULTANT us Kylah Kirkpatrick MD LAB BLOOD ORDERABLES Final Result [facility]DA MARTIN [address] [address] Department [place] [address] * Differential, auto (07/31/2024 9:19 AM LEARNING AND DEVELOPMENT CONSULTANT) Neutrophil abs 4.4 1.5 - 6.5 K/cumm [...] revised on 2017. Blood 07/31/2024 9:19 AM LEARNING AND DEVELOPMENT CONSULTANT 07/31/2024 9:44 AM LEARNING AND DEVELOPMENT CONSULTANT Cassandra Eng NP LAB BLOOD ORDERABLES F inal Result Performing Organization Address City/[facility]/ZIP Co de Phone Number AMANDA TRUJILLO [address] [employer] [place] [address] * CBC with auto differential (07/31/2024 9:19 AM LEARNING AND DEVELOPMENT CONSULTANT) [facility] WBC 6.0 3.8 - 9.9 K/cumm Hgb 14.3 11.9 - 15.5 g/dL [facility] Hct 44.3 35.6 - 45.5 % [facility] Plt 188 150 - 400 K/cumm [facility] MPV 10.6 9.1 - 12.3 fL [facility] RBC 5.13 3.90 - 5.20 M/cumm [facility] MCV 86.4 81.3 - 96.4 fL [facility] MCH 27.9 27.1 - 33.3 pg [facility] MCHC 32.3 32.3 - 35.7 g/dL [facility] RDW CV 14.4 11.1 - 14.9 % [facility] RDW SD 45.8 35.7 - 48.1 fL [facility] NRBC abs 0.00 0.00 - 0.01 K/cumm [facility] Blood 07/31/2024 9:19 AM LEARNING AND DEVELOPMENT CONSULTANT 07/31/2024 9:44 AM LEARNING AND DEVELOPMENT CONSULTANT Cassandra Eng NP LAB BLOOD ORDERABLES F inal Result Performing Organization Address City/[facility]/ZIP Co de Phone Number AMANDA TRUJILLO [address] [employer] [address] * Vitamin D 25 hydroxy (07/31/2024 9:19 AM LEARNING AND DEVELOPMENT CONSULTANT) Vitamin D 25-OH 40 30 - 80 ng/mL Blood 07/31/2024 9:19 AM LEARNING AND DEVELOPMENT CONSULTANT 07/31/2024 9:44 AM LEARNING AND DEVELOPMENT CONSULTANT us Kylah Kirkpatrick MD LAB BLOOD ORDERABLES Final Result [facility] [address] [facility]. Department [place] [address] * Comprehensive metabolic panel (07/31/2024 9:19 AM LEARNING AND DEVELOPMENT CONSULTANT) Sodium 135 135 - 145 mmol/L Potassium, pl 4.7 3.3 - 4.9 mmol/L [facility] Chloride 98 97 - 110 mmol/L [facility] CO2 28 22 - 32 mmol/L [facility] Anion gap 10 2 - 15 mmol/L [facility] BUN 19 6 - 25 mg/dL [facility] Creatinine 0.65 0.60 - 1.10 mg/dL [facility] Glucose 114 70 - 199 mg/dL [facility] Comment: Interpretive Data Fasting glucose >/= [...] Units/L [facility] Blood 07/31/2024 9:19 AM LEARNING AND DEVELOPMENT CONSULTANT 07/31/2024 9:44 AM LEARNING AND DEVELOPMENT CONSULTANT us Kylah Kirkpatrick MD LAB BLOOD ORDERABLES Final Result Performing Organization Address [facility] Co de Phone Number AMANDA TRUJILLO [address] [facility] Department [place] [address] * ECG 12 lead (07/31/2024 8:42 AM LEARNING AND DEVELOPMENT CONSULTANT) 07/31/2024 8:42 AM LEARNING AND DEVELOPMENT CONSULTANT Narrative [facility] - 08/01/2024 9:59 AM LEARNING AND DEVELOPMENT CONSULTANT Vent Rate: 92 bpm RR Interval: 649 msec WV Interval: 148 msec QRS Duration: 81 msec QT Interval: 357 msec QTC Interval: 407 msec P-R-T Elsie: 67 - 57 - 71 degrees IMPRESSION: SINUS RHYTHM NORMAL ECG Electronically Signed By: Tonio Loza MD us Cassandra Eng NP ECG ORDERABLES Final Result Performing Organization Address [facility] Phone Number [facility] * XR Outside Reference (06/18/2024 2:39 PM LEARNING AND DEVELOPMENT CONSULTANT) Impressions [facility] - 06/18/2024 2:39 PM LEARNING AND DEVELOPMENT CONSULTANT These images are for Reference purposes only and have not been reviewed by [facility]. There will be no report generated by a [facility] Radiologist. Narrative [facility] - 06/18/2024 2:39 PM LEARNING AND DEVELOPMENT CONSULTANT EXAMINATION: Images For Reference Purposes Only us Kylah Kirkpatrick MD IMG XR PROCEDURES Fin al Result Performing Organization Address [facility] Co de [...] and children were not included. (Diabetes Care [id number], 2008). The eAG is not equivalent to a fasting glucose. Blood specimen (specimen) 11/28/2020 6:42 PM CDT 11/28/2020 7:14 PM CDT Ang Cuevas MD LAB BLOOD ORDERABLES Final Result AMANDA [address] [facility] Department [place] [address] from Last 3 Months or Most Recently Relevant to Health Maintenance Insurance MEDICARE [facility] [place] [address] Advance Directives For more information, please contact: [phone] * Full Code (Latest Code Status on File) Date Activated Date Inactivated Comments 08/03/2023 6:33 AM 08/04/2023 7:19 PM * Full Code Date Activated Date Inactivated Comments 11/28/2020 6:12 PM 12/06/2020 8:13 PM * Full Code Date Activated Date Inactivated Comments 11/03/2020 2:13 AM 11/08/2020 9:14 PM * Full Code Date Activated Date Inactivated Comments 10/31/2020 10:58 PM 11/03/2020 2:13 AM Care Teams Annealing Operator Relationship Specialty Start Date End Date Vitaly Frye MD PCP - General Family Medicine 11/21/22 Vitaly Antoine MD [address] [address] Referring Physician Cardiology 07/09/23 Yao Al MD [address] [address] Consulting Physician Cardiothoracic Surgery 07/09/23
--- OUTSIDE RECORDS SUMMARY | 2024-08-16 08:24 | XMS_ITS | Clinical Summary ---
Author Organization [facility] Address [address] [place] [address] Care Team Providers Care Hospice Manager Name Role Phone Fransisco Armas MD Unavailable Vitaly Frye MD Primary Care Provider [phone] Source Comments [facility],non-owned Affiliates and Associated Physician Practices is amultiple site organization consisting of ambulatory clinics and hospital sitesin [place] and [place]. This disclosure is being madepursuant to the Care Everywhere program and may not contain all information available regarding this patient. Last updated 18.[facility] Allergies Active Allergy Reactions Criticality Noted Date [...] tablet by mouth once daily Active Oxygen [place] into the nose as needed Up to [...] examination Overview (08/27/2017): Diagnosis: SHAH; HCC Referring Broadcast Operations Manager: Danilo Arizmendi MELD: 01/22 Blood Type: A pos BMI: 30 Short H/P summary: DM type II since 1992: Htn x 8 years. Quit smoking 4 years ago; >1 ppd X 40 years. 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 Evaluation Testing Date and Results: Labs: 08/16/2016 A1c-12.6: Glucose-360: Chol-180 HDL-41: LDL-98: Triglycerides- 206: Serologies: CMV: Tox Screen-Neg: Alpha 1 Anti: AFP: Dh24-2-82: Ceruloplasmin: LEE: Anti Smooth muscle ab: Mitochondrial: [...] abscess. Dictated by Inga Boudreaux MD (residential air sealing technician). This report was approved by Inga Boudreaux [...] 05/11/2016. Dictated by Miguelina Price MD (residential air sealing technician). This report was approved by Miguelina Price [...] (volume index 56 ml/M2). No evidence of wrmma-lh-ywbd shunt with bubble study. 7. The right [...] pulmonary disease (COPD) regimen as per Emmanuel [place] Cleaner: A. Salmeterol/fluticasone (Advair) 250 mcg 1 puff [...] 2 L/min side flow as per Emmanuel [place] Cleaner 3. Her very severe COPD may preclude her from liver transplantation 4. Follow-up with results Sourav Lai MD, [facility], [facility], [facility] Rand Butting Machine Operator, [facility] Management Professional of Internal Medicine Division of Pulmonary, Critical Care, and Sleep Medicine [facility] EGD: 02/15/15 In the lower third esophagus, [...] Recommendations/Interventions: 1. Pt needs to see an Training Technician as she currently does not. 2. Pt [...] 07/08/2024 Telephone [facility] [place] [address] [place] [address], [place] [phone] Boby Mims MD LABS ONLY 06/03/2024 Orders Only [facility] - Nephrology [address] [place] [address], [place] [phone] Charlotte Richardson, [employer]COMMUNICATIONS EQUIPMENT OPERATOR Other cirrhosis of liver from Last 3 [...] CDT Respiratory Rate 18 07/23/2023 10:44 AM FINAL ASSEMBLY INSPECTOR Oxygen Saturation 97% 01/14/2024 11:20 AM CDT Inhaled Oxygen Concentration - - Weight 67.2 kg (148 lb 3.2 oz) 01/14/2024 11:20 AM CDT Height 157.5 cm (5' 2 ) 01/14/2024 11:20 AM CDT Body Mass Index 27.11 01/14/2024 11:20 AM CDT Plan of Treatment Upcoming Encounters Date Type Department Care Team (Late st Contact Info) Description 08/18/2024 8:00 AM CDT Appointment [facility] [address] [place] [phone] Boby Mims MD [address] [place] [address] [address] [place] [address] 08/18/2024 9:00 AM CDT Office Visit [facility] [address] [place] [address], [place] [phone] Charlotte Richardson, [employer] EQUIPMENT OPERATOR [address] [place] [address] [address] DIV OF GASTROENTEROLOGY [place], [place] [id number] Health Maintenance Due Date Last Done Comments [...] prior to your last dose Care Teams Hospice Manager Relationship Specialty Start Date End Date Vitaly Frye MD [address] [place] [phone] PCP - General Family Medicine 01/22/23 Fransisco Armas MD [address] [facility] [address] [place] [address] Urology 08/09/21
--- OUTSIDE RECORDS SUMMARY | 2024-08-16 08:24 | XMS_ITS | Referral Summary ---
Author Organization [facility] [address] Address [address] [place] [address] Care Team Providers Care Biofuels Research Scientist Name Role Phone Vitaly Frye MD Primary Care Provider [phone] Vitaly Antoine MD Unavailable [phone] Yao Al MD Unavailable [phone] Encounters Date Type Department Care Team Description 08/06/2024 10:36 AM CDT - 08/06/2024 11:59 PM CDT Hospital Encounter [facility] - Imaging [address] [place] [address] Rotator cuff arthropathy of right shoulder; Right shoulder pain, unspecified chronicity; Displaced fracture of proximal end of right humerus Discharge Disposition: Discharge to home or self care 08/06/2024 8:45 AM CDT Office Visit [facility] [address] [place] [phone] Tay Deras MD PAD (peripheral artery disease) (Primary Dx) 08/06/2024 8:00 AM CDT Ancillary Procedure [facility] [address] [place] [phone] History of procedure for peripheral vascular disease; Peripheral vascular disease 07/31/2024 7:00 AM TRANSPORTATION ENGINEER Lab [facility] [address] [place] [address] Preoperative testing; Rotator cuff arthropathy of right shoulder; Right shoulder pain, unspecified chronicity; Displaced fracture of proximal end of right humerus; Vitamin D deficiency 07/31/2024 7:30 AM TRANSPORTATION ENGINEER Pre-Admission Testing [facility] Pre-Anesthesia Testing [address] [address] Preoperative testing (Primary Dx) 07/31/2024 12:30 PM TRANSPORTATION ENGINEER Office Visit Cardiovascular and Thoracic Surgery [address] [place] [id number] Emmanuel Villaseñor NP Status post transcatheter aortic valve replacement (TAVR) using bioprosthesis (Primary Dx) 07/31/2024 10:58 AM TRANSPORTATION ENGINEER - 07/31/2024 11:59 PM TRANSPORTATION ENGINEER Hospital Encounter [facility] OP Cardiac Testing [address] [place] [address] Status post transcatheter aortic valve replacement (TAVR) using bioprosthesis Discharge Disposition: Discharge to home or self care 07/15/2024 Orders Only [facility] Orthopaedic Surgery [address] 12[address] [place] [address] [place] [address] Kylah Kirkpatrick MD Rotator cuff arthropathy of right shoulder (Primary Dx); Right shoulder pain, unspecified chronicity; Displaced fracture of proximal end of right humerus 07/10/2024 3:15 PM TRANSPORTATION ENGINEER Office Visit [facility] Cardiology at [address] [place] [address] Vitaly Antoine MD Status post transcatheter aortic valve replacement (TAVR) using bioprosthesis (Primary Dx) 06/18/2024 2:39 PM TRANSPORTATION ENGINEER - 06/18/2024 11:59 PM TRANSPORTATION ENGINEER Hospital Encounter [facility] [address] [place] [address] Discharge Disposition: Discharge to home or self care 06/18/2024 10:30 AM TRANSPORTATION ENGINEER Office Visit [facility] Orthopaedic Surgery [address] 2[address] [place] [address] Kylah Kirkpatrick MD Rotator cuff arthropathy of [...] 2.5 tablets (25 mg total) by mouth editorial clerk before breakfast 2024 Discontinued Active Problems Problem Noted Date Diagnosed Date Rotator cuff arthropathy of right shoulder 07/15 Right shoulder pain 07/15/2024 Displaced fracture of proximal end of right bennie lino 07/15/2024 Status post transcatheter ao rtic valve replacement (TAVR) using bioprosthesis 08/06/2023 Assessment & Plan (08/01/2024 2:17 PM TRANSPORTATION ENGINEER): S/p TAVR 1 year ago. The valve [...] visit. Assessment & Plan (06/22/2019 12:23 PM TRANSPORTATION ENGINEER): Patient has mild to moderate carotid stenosis [...] 06/22/2019 Assessment & Plan (06/22/2019 12:23 PM TRANSPORTATION ENGINEER): Per patient she has been diagnosed with [...] provider. Assessment & Plan (06/22/2019 12:24 PM TRANSPORTATION ENGINEER): Per patient blood sugars well controlled. Continue [...] from the original. Diagnosis: SHAH; HCC Referring Shoulder Boner: Danilo Arizmendi MELD: 01/22 Blood Type: A pos BMI: 30 Short H/P summary: DM type II since 1992: Htn x 8 years. Quit smoking 4 years ago; >1 ppd X 40 years. 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 Evaluation Testing Date and Results: Labs: 08/16/2016 A1c-12.6: Glucose-360: Chol-180 HDL-41: LDL-98: Triglycerides- 206: Serologies: CMV: Tox Screen-Neg: Alpha 1 Anti: AFP: Lm15-2-20: Ceruloplasmin: LEE: Anti Smooth muscle ab: Mitochondrial: [...] periapical abscess. Dictated by Inga Boudreaux MD (manager of radiology). This report was approved by Inga Boudreaux [...] on 05/11/2016. Dictated by Miguelina Price MD (manager of radiology). This report was approved by Miguelina Price [...] (volume index 56 ml/M2). No evidence of dpkpm-da-hxyb shunt with bubble study. 7. The right [...] pulmonary disease (COPD) regimen as per Emmanuel Marketing And Outreach Coordinator: A. Salmeterol/fluticasone (Advair) 250 mcg 1 puff [...] 2 L/min side flow as per Emmanuel Marketing And Outreach Coordinator 3. Her very severe COPD may preclude her from liver transplantation 4. Follow-up with results Sourav Lai MD, [facility], [facility], [facility] Rubber Belt Splicer, [facility] Procurement Representative of Internal Medicine Division of Pulmonary, Critical Care, and Sleep Medicine [facility] EGD: 02/15/15 In the lower third [...] Recommendations/Interventions: 1. Pt needs to see an Caterpillar Tractor Operator as she currently does not. 2. Pt [...] often do you attend chur ch or mandaen services? Never 11/30/2020 Do you belong to any clubs o r organizations such as sabianist groups, unions, fraternal or athletic groups, or [...] on file Legal Sex Female 11:07 PM TRANSPORTATION ENGINEER Gender Identity Not on file Sexual Orientation Not on file Last Filed Vital Signs Vital Sign Reading Time Taken Comments Blood Pressure 158/70 08/06/2024 8:13 AM CDT Pulse 88 08/06/2024 8:13 AM CDT Temperature 37.1 C (98.7 F) 08/06/2024 8:13 AM CDT Respiratory Rate 18 07/31/2024 12:10 PM TRANSPORTATION ENGINEER Oxygen Saturation 92% 08/06/2024 8:13 AM CDT Inhaled Oxygen Concentration - - Weight 67.6 kg (149 lb) 08/06/2024 8:13 AM CDT Height 157.5 cm (5' 2 ) 08/06/2024 8:13 AM CDT Body Mass Index 27.25 08/06/2024 8:13 AM CDT Plan of Treatment Upcoming Encounters Date Type Department Care Team (Latest Contact Info) Description 08/26/2024 10:15 AM CDT Hospital Encounter [facility] Operating Room [address] [address] Kylah Kirkpatrick MD [address] [place] [address] 08/26/2024 10:15 AM CDT Anesthesia Event [facility] Operating Room [address] [place] [address] Germania Barry NP [address] [place] [address] 08/26/2024 10:15 AM CDT - 08/26/2024 1:15 PM CDT Surgery [facility] Operating Room [address] [address] Kylah Kirkpatrick MD [address] [facility] [address] [place] [address] Right Reverse Shoulder Arthroplasty Scheduled Procedures Name Priority Associated Diagnoses Date/Ti me ARTHROPLASTY SHOULDER - REVERSE TOTAL Rotator cuff arthropathy of right shoulder Right shoulder pain, unspecified chronicity Displaced fracture of proximal end of right humerus 08/26/2024 10:15 AM CDT Medical Devices Implanted Type Area Product Support Representative Device Identifier Shelf Expiration Date Model / Serial / Lot [employer] Valve Heart 23mm Marlys 3 Transcatheter [id number] - [id number] - [id number] Implanted:Qty: 1 on 08/03/2023 by Mark Lemons MD at [facility] Prosthetic Valve Right: Aortic Valve [employer] 05/28/2026 [id number] / [id number] / Angulo Vascular Device Clsr Perclose Prostyle Sut-Mediatd Closure-Repair Sys [id number] - S0 - [id number] Implanted:Qty: 1 on 08/03/2023 by Mark Lemons MD at [facility] Vascular Closure Device [employer] 05/27/2025 [id number] / 0 / [id number] Angulo Vascular Device Clsr Perclose Prostyle Sut-Mediatd Closure-Repair Sys 16970-58 - S0 - [id number] Implanted:Qty: 1 on 08/03/2023 by Mark Lemons MD at [facility] Vascular Closure Device [employer] 05/27/2025 [id number] / 0 / [id number] Procedures Procedure Name Priority Date/Time Associated Diagnosis [...] DOPPLER/CF WO CONTRAST Routine 07/31/2024 11:51 AM TRANSPORTATION ENGINEER Status post transcatheter aortic valve replacement (TAVR) using bioprosthesis EGFR Routine 07/31/2024 9:19 AM TRANSPORTATION ENGINEER Rotator cuff arthropathy of right shoulder Right shoulder pain, unspecified chronicity Displaced fracture of proximal end of right humerus DIFFERENTIAL AUTO Routine 07/31/2024 9:1 9 AM TRANSPORTATION ENGINEER Preoperative testing COMPREHENSIVE METABOLIC PANEL Routine 07/31/2024 9:19 AM TRANSPORTATION ENGINEER Rotator cuff arthropathy of right shoulder Right shoulder pain, unspecified chronicity Displaced fracture of proximal end of right humerus VITAMIN D 25 HYDROXY Routine 07/31/2024 9:19 AM TRANSPORTATION ENGINEER Rotator cuff arthropathy of right shoulder Right shoulder pain, unspecified chronicity Displaced fracture of proximal end of right humerus Vitamin D deficiency CBC WITH AUTO DIFFERENTIAL Routine 07/31/2024 9:19 AM TRANSPORTATION ENGINEER Preoperative testing ECG 12-LEAD Routine 07/31/2024 8:42 AM TRANSPORTATION ENGINEER Preoperative testing XR TRANSFER OF OUTSIDE FILMS Routine 06/18/2024 2:39 PM TRANSPORTATION ENGINEER POCT LIPID PANEL Routine 11/21/2022 8:22 AM [...] AM CDT Narrative 08/12/2024 10:18 AM CDT [employer] [facility] [employer] [facility] - Department of Vascular Surgery, Vascular Laboratory [address] [place] [address] Lower Extremity Arterial Doppler Report Patient Name: KRISSY SILVA : 1950 Study Date: 08/06/2024 7:37:00 AM Gender: F Tech: Margo Reyes [facility] Location: [facility] Provider: PHI BOYLE Quality: Adequate Order Provider: PHI BOYLE PROCEDURES: Arterial Report: Bilateral lower extremity arterial Doppler exam at rest. INDICATIONS: Z98.890 Other specified postprocedural states and I73.9 Peripheral vascular disease, unspecified. MEASUREMENTS: Right Value Units Left Value Units Rt Brachial Pressure 131 mmHg Lt Brachial Pressure 134 mmHg Rt AIRCRAFT ELECTRICAL SYSTEMS SPECIALIST Pressure 78 mmHg Lt AIRCRAFT ELECTRICAL SYSTEMS SPECIALIST Pressure 58 mmHg Rt DPA Pressure 73 mmHg Lt DPA Pressure 78 mmHg Rt 1st Digit Pressure 52 mmHg Lt 1st Digit Pressure 29 mmHg Rt PT ELVIRA Resting 0.58 Lt PT ELVIRA Resting 0.43 Rt AT ELVIRA Resting 0.54 Lt AT ELVIRA Resting 0.58 Rt Digit/Arm Index 0.39 Lt Digit/Arm Index 0.22 Right Value Units Left Value Units FINDINGS: Performing Laundry Folder: Margo Reyes RVT. Right Common Femoral Artery [...] of infrapopliteal arteries. 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 INDICATIONS: Z98.890 Other specified postprocedural states and I73.9 Peripheralvascular disease, unspecified. MEASUREMENTS: Right Value Units Left Value Units Rt Brachial Pressure 131 mmHg Lt Brachial Pressure 134 mmHg Rt AIRCRAFT ELECTRICAL SYSTEMS SPECIALIST Pressure 78 mmHg Lt AIRCRAFT ELECTRICAL SYSTEMS SPECIALIST Pressure 58 mmHg Rt DPA Pressure 73 mmHg Lt DPA Pressure 78 mmHg Rt 1st Digit Pressure 52 mmHg Lt 1st Digit Pressure 29 mmHg Rt PT ELVIRA Resting 0.58 Lt PT ELVIRA Resting 0.43 Rt AT ELVIRA Resting 0.54 Lt AT ELVIRA Resting 0.58 Rt Digit/Arm Index 0.39 Lt Digit/Arm Index 0.22 Right Value Units Left Value Units FINDINGS: Performing Laundry Folder: Margo Reyes RVT. Right Common Femoral Artery [...] level ofinfrapopliteal arteries. 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 Electronically Signed By: Tay Deras MD [facility] 08/12/2024 10:14:04 AM CDT us Phi CANDELARIA IMG US PROCEDURES Fin al Result * TRANSTHORACIC ECHO (TTE) COMPLETE W DOPPLER/CF WO CONTRAST (07/31/2024 11:51 AM TRANSPORTATION ENGINEER) Anatomical Region Laterality Modality Ultrasound 07/31/2024 11:0 6 AM TRANSPORTATION ENGINEER Narrative 07/31/2024 12:47 PM TRANSPORTATION ENGINEER [facility] [address] [place] [address] ECHOCARDIOGRAM Patient Name: KRISSY SILVA : 1950 (74y 6m) Gender: F Study Date: 07/31/2024 11:06:09 AM Ht(Inch): 62 Wt(Lb): 147.05 BSA: 1.71 Laundry Folder: LAUREN Location: [facility] Order Provider: EMMANUEL VILLASEÑOR [...] By: Mark Lemons MD 07/31/2024 12:46:30 PM TRANSPORTATION ENGINEER Procedure Note Mark Lemons MD - 07/31/2024 [facility] Testing [facility] [address] [place] [address] ECHOCARDIOGRAM Patient Name: KRISSY SILVA : 1950 (74y 6m) Gender: F Study Date: 07/31/2024 11:06:09 AM Ht(Inch): 62 Wt(Lb): 147.05 BSA: 1.71 Laundry Folder: LAUREN Location: [facility] Order Provider: EMMANUEL VILLASEÑOR [...] By: Mark Lemons MD 07/31/2024 12:46:30 PM TRANSPORTATION ENGINEER Emmanuel Villaseñor NETWORK SECURITY CONSULTANT CV ECHO PROCEDURES Final R esult * eGFR (07/31/2024 9:19 AM TRANSPORTATION ENGINEER) eGFR >90 >=60 mL/min/1. 73 m2 Comment: [...] last reviewed 2021. Blood 07/31/2024 9:19 AM TRANSPORTATION ENGINEER 07/31/2024 9:44 AM TRANSPORTATION ENGINEER Kylah Kirkpatrick MD LAB BLOOD ORDERABLES Final Result [facility] [address] [facility]. [place] [address] * Differential, auto (07/31/2024 9:19 AM TRANSPORTATION ENGINEER) Neutrophil abs 4.4 1.5 - 6.5 K/cumm Imm gran abs 0.0 0.0 - 0.1 K/cumm AMANDA MARTIN Lymphocyte abs 1.0 0.8 - 3.3 K/cumm [facility] Monocyte abs 0.5 0.2 - 0.8 K/cumm [facility] Eosinophil abs 0.2 0.0 - 0.5 K/cumm [facility] Basophil abs 0.1 0.0 - 0.1 K/cumm [facility] Neutrophil pct 72.4 % [facility] Comment: Interpretive Data Percent cell count reference ranges are not reported, since discordance with absolute values may lead to misinterpretation of CBC data. Current Interpretive Data was last revised on 2017. Imm gran pct 0.2 % [facility] Comment: Interpretive Data Percent cell count reference ranges are not reported, since discordance with absolute values may lead to misinterpretation of CBC data. Current Interpretive Data was last revised on 2017. Lymphocyte pct 16.4 % [facility] Comment: Interpretive Data Percent cell count reference ranges are not reported, since discordance with absolute values may lead to misinterpretation of CBC data. Current Interpretive Data was last revised on 2017. Monocyte pct 7.5 % [facility] Comment: Interpretive Data Percent cell count reference ranges are not reported, since discordance with absolute values may lead to misinterpretation of CBC data. Current Interpretive Data was last revised on 2017. Eosinophil pct 2.7 % [facility] Comment: Interpretive Data Percent cell count reference ranges are not reported, since discordance with absolute values may lead to misinterpretation of CBC data. Current Interpretive Data was last revised on 2017. Basophil pct 0.8 % [facility] Comment: Interpretive Data Percent cell count reference ranges are not reported, since discordance with absolute values may lead to misinterpretation of CBC data. Current Interpretive Data was last revised on 2017. Blood 07/31/2024 9:19 AM TRANSPORTATION ENGINEER 07/31/2024 9:44 AM TRANSPORTATION ENGINEER us Cassandra Eng NP LAB BLOOD ORDERABLES F inal Result [facility] [address] [facility] [place] [address] * CBC with auto differential (07/31/2024 9:19 AM TRANSPORTATION ENGINEER) [facility] WBC 6.0 3.8 - 9.9 K/cumm Hgb 14.3 11.9 - 15.5 g/dL [facility] Hct 44.3 35.6 - 45.5 % [facility] Plt 188 150 - 400 K/cumm [facility] MPV 10.6 9.1 - 12.3 fL [facility] RBC 5.13 3.90 - 5.20 M/cumm [facility] MCV 86.4 81.3 - 96.4 fL [facility] MCH 27.9 27.1 - 33.3 pg [facility] W MCHC 32.3 32.3 - 35.7 g/dL [facility] RDW CV 14.4 11.1 - 14.9 % [facility] RDW SD 45.8 35.7 - 48.1 fL [facility] NRBC abs 0.00 0.00 - 0.01 K/cumm [facility] Blood 07/31/2024 9:19 AM TRANSPORTATION ENGINEER 07/31/2024 9:44 AM TRANSPORTATION ENGINEER us Cassandra Eng NP LAB BLOOD ORDERABLES F inal Result [facility] [address] [facility] [place] [address] * Vitamin D 25 hydroxy (07/31/2024 9:19 AM TRANSPORTATION ENGINEER) [facility] Vitamin D 25-OH 40 30 - 80 ng/mL Blood 07/31/2024 9:19 AM TRANSPORTATION ENGINEER 07/31/2024 9:44 AM TRANSPORTATION ENGINEER Kylah Kirkpatrick MD LAB BLOOD ORDERABLES Final Result [facility] [address] [address] * Comprehensive metabolic panel (07/31/2024 9:19 AM TRANSPORTATION ENGINEER) Sodium 135 135 - 145 mmol/L Potassium, [...] Units/L [facility] Blood 07/31/2024 9:19 AM TRANSPORTATION ENGINEER 07/31/2024 9:44 AM TRANSPORTATION ENGINEER us Kylah Kirkpatrick MD LAB BLOOD ORDERABLES Final Result [facility] [address] [facility] [place] [place] [address] * ECG 12 lead (07/31/2024 8:42 AM TRANSPORTATION ENGINEER) 07/31/2024 8:42 AM TRANSPORTATION ENGINEER Narrative [facility] - 08/01/2024 9:59 AM TRANSPORTATION ENGINEER Vent Rate: 92 bpm RR Interval: 649 msec ND Interval: 148 msec QRS Duration: 81 msec QT Interval: 357 msec QTC Interval: 407 msec P-R-T [place]: 67 - 57 - 71 degrees IMPRESSION: SINUS RHYTHM NORMAL ECG Electronically Signed By: Tonio Loza MD us Cassandra Eng NP ECG ORDERABLES Final Result Performing Organization Address City/[facility]/ZIP Co de Phone Number [facility] [employer] [facility] * XR Outside Reference (06/18/2024 2:39 PM TRANSPORTATION ENGINEER) Impressions [facility] - 06/18/2024 2:39 PM TRANSPORTATION ENGINEER These images are for Reference purposes only and have not been reviewed by [facility]. There will be no report generated by a [facility] Radiologist. Narrative [facility] - 06/18/2024 2:39 PM TRANSPORTATION ENGINEER EXAMINATION: Images For Reference Purposes Only Kylah Kirkpatrick MD IMG XR PROCEDURES Fin al Result Performing Organization Address [facility] Co de Phone Number [email or web address] * POCT [...] and children were not included. (Diabetes Care 31:[id number], 2008). The eAG is not equivalent to a fasting glucose. Blood specimen (specimen) 11/28/2020 6:42 PM CDT 11/28/2020 7:14 PM CDT Ang Cuevas MD LAB BLOOD ORDERABLES Final Result [facility]DA [facility] [address] [facility] [place] [address] from Last 3 Months or Most Recently Relevant to Health Maintenance Insurance MEDICARE [facility] [place] [address] [place] [address] [place] [address] Advance Directives For more information, please contact: [phone] * Full Code (Latest Code Status on File) Date Activated Date Inactivated Comments 08/03/2023 6:33 AM 08/04/2023 7:19 PM * Full Code Date Activated Date Inactivated Comments 11/28/2020 6:12 PM 12/06/2020 8:13 PM * Full Code Date Activated Date Inactivated Comments 11/03/2020 2:13 AM 11/08/2020 9:14 PM * Full Code Date Activated Date Inactivated Comments 10/31/2020 10:58 PM 11/03/2020 2:13 AM Care Teams Biofuels Research Scientist Relationship Specialty Start Date End Date Vitaly Frye MD PCP - General Family Medicine 11/21/22 Vitaly Antoine MD [address] [address] Referring Physician Cardiology 07/09/23 Yao Al MD [address] [address] Consulting Physician Cardiothoracic Surgery 07/09/23
--- OUTSIDE RECORDS SUMMARY | 2024-08-16 08:24 | XMS_ITS | Encounter Summary ---
Author Organization [facility] Address [address] [place] [address] Care Team Providers Care Clam Grower Name Role Phone Krunal Sanchez MD Primary Care Provider [phone] Krunal Sanchez MD Primary Care Provider [phone] Krunal Sanchez MD Unavailable Vitaly Frye MD Primary Care Provider [phone] Vitaly Antoine MD Unavailable [phone] Yao Al MD Unavailable [phone] Encounter Details Date Type Department Care Team (Late st Contact Info) Description 09/20/2016 Orders Only [facility] ProviderCristopher MD [address] [phone] Social History Tobacco Use Types Packs/Day Years Used Date Smoking Tobacco: Former Cigarettes Q uit: 05/28/2011 Comments:Smoking History Pac ks/day: 1 Packs Alcohol Use Standard Drinks/Week Comments No 0 (1 standard drink = 0.6 oz pur e alcohol) Comments Unknown Sex and Gender Information Value Date Recorded Sex Assigned at Not on file 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 Gender Identity Not on file Sexual Orientation Not on file documented as of this encounter Plan of Treatment Upcoming Encounters Date Type Department Care Team (Latest Contact Info) Description 08/26/2024 10:15 AM CDT Hospital Encounter [facility] Operating Room [address] [address] Kylah Kirkpatrick MD [address] [address] 08/26/2024 10:15 AM CDT Anesthesia Event [facility] Operating Room [address] [address] [address] Germania Barry EDITING COMPUTER PUBLISHER [phone] [place] [address] 08/26/2024 10:15 AM CDT - 08/26/2024 1:15 PM CDT Surgery [facility] Operating Room 12[address] [id number] Kylah Kirkpatrick MD [address] [facility] [id number] [place] [address] Right Reverse Shoulder Arthroplasty Scheduled Procedures Name [...] on filedocumented in this encounter Care Teams Clam Grower Relationship Specialty Start Date End Date Krunal Sanchez MD [address] [place] [address] PCP - General 09/20/16 06/17/19 Krunal Sanchez MD [address] [place] [address] PCP - General 06/18/19 11/20/22 Vitaly Frye MD [address] [place] [address] PCP - General Family Medicine 11/21/22 Krunal Sanchez MD [address] [place] [address] 06/18/19 11/20/22 Vitaly Antoine MD [address] [place] [id number] Referring Physician Cardiology 07/09/23 Yao Al MD [address] [place] [id number] Consulting Physician Cardiothoracic Surgery 07/09/23 documented as of this encounter
[2024-08-16 08:53] LABS: Cholesterol 197 mg/dL (0-200); HDL Direct 54 mg/dL; Triglycerides 116 mg/dL (<150)
[2024-08-16 09:04] LABS: LDL Cholesterol Direct 99 mg/dL
[2024-08-18 15:02] LABS: Creatinine, Random Urine 125 mg/dL (20-275); Total Prot/Creat ratio mg/mg 0.152 (0.024-0.184); Total Protein/Creatinine Ratio 152 mg/g creat (24-184)
== END 2024-08-16 08:20 | disposition home or self-care (01) ==
LOC: ANHLAB 08:22
PROVIDERS: PCP Family Medicine; Visit Provider Internal Medicine Endocrinology, Diabetes & Metabolism
DX: E78.2 Mixed hyperlipidemia (principal); E11.29 Type 2 diabetes mellitus with other diabetic kidney complication; I10 Essential (primary) hypertension; E04.1 Nontoxic single thyroid nodule; R79.89 Other specified abnormal findings of blood chemistry; R80.9 Proteinuria, unspecified; Z79.4 Long term (current) use of insulin
CPT/HCPCS: 36415; 80061; 82570; 84156; 84166

== ENCOUNTER 2024-12-02 15:00 | Emergency (ER) | payer MEDICARE, OTHER, SELFPAY ==
--- NOTE | ~2024-12-02 | XR_ITS ---
EXAM/PROCEDURE: XR chest 1V - 12/02/2024 15:35 CDT HISTORY: 74 years old Female with headache, left side weak TECHNIQUE: Two view(s) of the chest. COMPARISON: 05/26/2024. FINDINGS: LUNGS/ PLEURA: No focal consolidation. No appreciable pneumothorax or large pleural effusion. Biapica l pleuroparenchymal scarring. Bibasilar scarring versus atelectasis. HEART/ MEDIASTINUM: Heart appears normal in size. BONES: Degenerative changes. Status post right shoulder arthroplasty with intact hardware. OTHER: Visualized upper abdomen is unremarkable. Aortic stent is seen. Atherosclerotic ulcerations ar e noted. IMPRESSION: No acute process. Biapical and bibasilar scarring. Reviewed, dictated and finalized at location A.
--- NOTE | ~2024-12-02 | CT_ITS ---
EXAM: CT brain wo con - 12/02/2024 15:20 CDT History: 74 years old Female with left arm and leg weakness COMPARISON: 09/13/2014 PROCEDURE: CT of the head without contrast. Axial, sagittal and coronal reformatted planes were dorian luated. Automatic exposure control was used for this study. FINDINGS: BRAIN PARENCHYMA: No acute hemorrhage. No mass effect or herniation. Gandhi-white matter differentiatio n is maintained. Mild chronic volume loss. Scattered hypodensities in subcortical and periventricular white matter, likely representing chronic microvascular ischemic changes in this age group. Atherosc lerotic calcification of the intracranial vessels is noted. VENTRICLES/ EXTRA-AXIAL SPACES: No hydrocephalus or extra-axial fluid collection. EXTRACRANIAL STRUCTURES: No calvarial fracture. IMPRESSION: No evidence for acute intracranial hemorrhage or calvarial fracture. Reviewed, dictated and finalized at location A.
[2024-12-02 15:05] VITALS: BP 164/79; PULSE 108; RESP 16; TEMP 36.6; O2SAT 95
--- NOTE | 2024-12-02 15:11 | ECG_ITS ---
Test Date: 2024-12-02 15:22:46 Measurements Intervals [place] Rate: 105 P: 65 SD: 147 QRS: 67 QRSD: 73 T: 75 QT: 309 QTc: 409 Interpretive Statements SINUS TACHYCARDIA WITH FREQUENT VENTRICULAR PREMATURE COMPLEXES IN A BIGEMINAL PATTERN SEPTAL MYOCARDIAL INFARCTION , PROBABLY OLD [40+ ms Q WAVE IN V1/V2] ABNORMAL ECG No previous ECG available for comparison Electronically Signed On 12-03-2024 07:39:34 CDT by Vitaly Antoine M.D.
[2024-12-02 15:22] LABS: Hematocrit 37.7 % (37.0-47.0); Hemoglobin 11.4 g/dL (12.0-15.0); Immature Granulocyte Percent A 0.3 % (0-0.5); Lymphocytes Absolute Auto 0.76 K/mm3 (0.9-3.2); Mean Corpuscular HGB Conc 30.2 g/dl (32-36); Mean Corpuscular Hemoglobin 24.5 pg (26-34); Mean Corpuscular Volume 81.1 fl (80-100); Nucleated Red Blood Cells Absolute Auto 0.000 K/mm3 (0.0-0.012); Nucleated Red Blood Cells Perc 0.0 % (0.0-0.2); Platelet Count Result 167 k/mm3 (150-375); Red Blood Count 4.65 M/mm3 (4.2-5.4); White Blood Count 7.4 K/mm3 (4.5-10.0)
[2024-12-02 15:35] LABS: Alanine Aminotransferase 22 U/L (6-35); Albumin Level 3.3 g/dL (3.5-5.1); Alkaline Phosphatase 73 U/L (38-126); Anion Gap 6 mmol/L (4-12); Aspartate Amino Transferase 28 U/L (14-36); Bilirubin,Total 0.4 mg/dL (0.2-1.3); Blood Urea Nitrogen 21 mg/dL (7-17); Calcium 8.7 mg/dL (8.4-10.2); Carbon Dioxide 29 mmol/L (22-30); Chloride 101 mmol/L (98-107); Estimated CRCL calculation 50 ml/min; Estimated Glomerular Filt Rate > 60; Glucose 217 mg/dL (65-110); Potassium 4.3 mmol/L (3.4-5.0); Sodium 136 mmol/L (137-145); Total Protein 6.2 g/dL (6.3-8.2)
[2024-12-02 15:47] LABS: Troponin I 0.015 ng/mL (0.000-0.034)
[2024-12-02 15:48] LABS: INR 1.1; Partial Thromboplastin Time 23.4 Seconds (22.3-36.8); Prothrombin Time 13.7 Seconds (11.1-14.7)
--- NOTE | 2024-12-02 16:15 | ED_ITS ---
HPI - General Adult General Chief complaint: Headache Stated complaint: headache, left sided weak Time Seen by Provider: 12/02/24 15:54 Source: patient Mode of arrival: ambulatory Limitations: no limitations History of Present Illness HPI narrative: 74 YEARS OLD WHITE FEMALE GOT DISCHARGED FROM [facility] 1 WEEK AGO TO REHAB BECAUSE OF WEAKNESS OF THE LEFT LOWER EXTREMITY WHICH STARTED TO HER DISCHARGE. PATIENT REPORTS INTERMITTENT SHARP STABBING PAIN LEFT PARIETAL AND LEFT OCCIPITAL AREA LAST BETWEEN FEW SECONDS UP TO 1 MINUTE FOR THE LAST 2 MONTHS. TODAY PATIENT NOTICED THAT SHE DOES HAVE NEW NUMBNESS OF THE LEFT LOWER EXTREMITY AND LEFT UPPER EXTREMITY WAS NOT ABLE TO PUSH THE WHEELCHAIR BY HER LEFT FOOT BECAUSE OF THE NUMBNESS. DENIES INCREASED WEAKNESS. PATIENT DENIES ANY FEVER, CHILLS, NAUSEA, VOMITING, CHEST PAIN, SHORTNESS OF BREATH OR BACK PAIN Related Data Home Medications ?Medication ?Instructions ?Recorded ?Confirmed ?Last Taken ?Type calcium 500 mg (as 1 tablet PO BID 06/27/19 10/14/24 07/06/23 History carbonate)-vitamin D3 5 mcg (200 unit) tablet (Calcium 500 + D) aspirin 81 mg tablet,delayed 81 mg PO DAILY 11/13/23 10/14/24 Unknown History release (Adult Aspirin Regimen) cholecalciferol (vitamin D3) 25 50 mcg PO DAILY 08/21/24 10/14/24 Unknown History mcg (1,000 unit) capsule Allergies Allergy/AdvReac Type Severity Reaction Status Date / Time iodine Allergy Severe Hives Verified 10/14/24 10:39 azithromycin Allergy Mild Hives Verified 10/14/24 10:39 erythromycin base Allergy Mild Hives Verified 10/14/24 10:39 procaine (From Novocain) AdvReac Intermediate increased Verified 10/14/24 10:39 heart rate Review of Systems 2 Review of Systems: All systems reviewed & are unremarkable except as noted in HPI and below PMFSH Past Medical History Medical History Squamous cell carcinoma of back Calcium oxalate calculus of kidney Long-term insulin use Overweight (BMI 25.0-29.9) IT band syndrome Other affections of shoulder region, not elsewhere classified Other chronic pain Lumbago with sciatica, right side Chronic bilateral low back pain with bilateral sciatica Abnormal glandular Papanicolaou smear of cervix Adjustment reaction with anxiety and depression History of vaginal delivery x3 PLMD (periodic limb movement disorder) Obstructive sleep apnea Wound infection Psoriasis Seborrheic keratoses, inflamed Renal cell carcinoma seen on mri in 2015, Stable on mri 2021 Aortic stenosis echocardiogram - show valve area of 1.[address] Antoine Multinodular goiter recommended u/s Neck mass Bilateral carotid bruits 1-28-20 U/S shows stenosis <50 Right , 50-69% Left Sees vascular Dr Vogel SAMIRA on CPAP Benign essential HTN Age-related osteoporosis without current pathological fracture Benign neoplasm of colon Degeneration of lumbar or lumbosacral intervertebral disc Gastro-esophageal reflux disease without esophagitis Other specified diabetes mellitus with diabetic neuropathy, unspecified PVD (peripheral vascular disease) Sees Dr Chacko Protrusion of intervertebral disc (~10/26/02) Hepatitis C antibody test negative Amaurosis fugax Cardiomegaly Chronic hypoxemic respiratory failure Sees Dr Soto Chronic obstructive pulmonary disease, unspecified Dupuytrens contracture Essential (primary) hypertension Foot drop, right Heart disease, unspecified Hereditary and idiopathic neuropathy, unspecified History of tobacco abuse Idiopathic progressive neuropathy Mixed hyperlipidemia Nonalcoholic steatohepatitis (SHAH) Nonrheumatic aortic (valve) stenosis Echo 1-20-- 1.2cm2, repeat echo 11-16 1.26cm2 Nonrheumatic aortic (valve) stenosis with insufficiency Osteoarthrosis, unspecified whether generalized or localized, forearm Other cirrhosis of liver Other intervertebral disc degeneration, lumbar region 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 Kylah Kirkpatrick S/P rotator cuff repair S/P TAVR (transcatheter aortic valve replacement) S/P cataract extraction (~2012) both eyes History of tubal ligation (~1982) History of shoulder surgery right bicep tendon repair History of foot surgery removal of left great toe mass History of tonsillectomy and adenoidectomy (~1966) History of appendectomy (~1993) History of cholecystectomy (~1982) History of hernia repair (~1993) x2 Family History Family History Mother Family history of arthritis Family history of osteoporosis Hypertension Asthma Family history of kidney disease Family history of Alzheimer's disease Sibling Family history of arthritis Family history of primary malignant neoplasm of liver Diabetes mellitus Hypertension Family history of elevated blood lipids Family history of cardiovascular disease Acute myocardial infarction, Onset Age: 49 Cerebrovascular accident Family history of kidney disease Family history of malignant neoplasm of esophagus Grandparent Family history of cardiovascular disease Father Family history of chronic obstructive pulmonary disease, Onset Age: 69 Family history of emphysema, Onset Age: 69 Other Family history of liver disease Social History Social History Social History: Caffeine- diet soda/coffee Smoking packs per day: 2 Smoking cigarettes per day: 40.0 Years smoked: 55 Smoking pack-years: 110.00 Smoking status: Former smoker Tobacco type: cigarettes Second hand tobacco smoke exposure: Yes Smoking end date: 05/28/12 Alcohol intake: current Alcohol use details: rare sip of wine Substance use: never Substance use type: does not use Lack of Transportation: No Lack of Food: Never True Current Housing: I Have Housing Concerned About Future Housing: No Difficulty Paying Gas/Electric Bills: No Difficulty Paying for Meds: No Currently Unemployed: No Education: High School Diploma/GED Difficulty w/ Childcare or Family Care: No Living arrangements: with family Gender identity (if verbalized by the patient): Female Spiritual care concerns: No Exam 2 Narrative: General appearance: Well-developed, well-nourished Skin: Normal color Head: Normocephalic, nontraumatic Eyes: Clear conjunctiva ENT: Oropharynx normal, ears normal, nose normal Neck: Supple, nontender Chest and respiratory: Airway patent, no respiratory distress, no accessory muscle use Heart: irregular heartbeat Abdomen: Soft, nontender, no organomegaly, quiet bowel sounds Vascular: Normal peripheral pulses, normal capillary refill. Musculoskeletal: Normal range of motion, nontender back Neurologic: Alert and oriented ?3, 4/ 5 motor strength of the left lower extremity, left upper extremity Course Vital Signs Vital signs: Vital Signs Temperature 36.6 C 12/02/24 15:05 Pulse Rate 108 H 12/02/24 15:05 Respiratory Rate 16 12/02/24 15:05 Blood Pressure 164/79 H 12/02/24 15:05 Pulse Oximetry 95 12/02/24 15:05 Oxygen Delivery Room Air 12/02/24 15:05 Temperature 36.6 C 12/02/24 18:58 Pulse Rate 90 12/02/24 18:58 Respiratory Rate 16 12/02/24 18:58 Blood Pressure 133/70 12/02/24 18:58 Pulse Oximetry 97 12/02/24 18:58 Oxygen Delivery Room Air 12/02/24 15:05 Medical Decision Making MDM Narrative Medical decision making narrative: patient came to the ED with numbness of the left upper and left lower extremity started few hours prior to arrival to the emergency room. History of weakness of the left lower extremity for unknown reason Vital signs showed blood pressure 164/79, heart rate 108 otherwise within normal limit Physical examination showing motor strength 4/5 of the left upper and left lower extremity no drift Differential diagnosis include acute CVA, stress, anxiety like symptoms, electrolyte imbalance, dehydration Blood workup today includes CBC, CMP, troponin , pro BnP showed BNP 566 otherwise within normal limit CT head without contrast showed no acute abnormality Chest x-ray showed no acute abnormalities, CTA head and neck could not be ordered, patient is allergic to contrast Patient requested to be transferred to [place] for continuation of medical care. Patient been hospitalized at that hospital numerous of time in the past Transfer [facility], discussed with Dr. Sanchez Differential Diagnosis Differential Diagnosis: as above Vital Signs Vital Signs: Vital Signs Temperature 36.6 C 12/02/24 15:05 Pulse Rate 108 H 12/02/24 15:05 Respiratory Rate 16 12/02/24 15:05 Blood Pressure 164/79 H 12/02/24 15:05 Pulse Oximetry 95 12/02/24 15:05 Oxygen Delivery Room Air 12/02/24 15:05 Temperature 36.6 C 12/02/24 18:58 Pulse Rate 90 12/02/24 18:58 Respiratory Rate 16 12/02/24 18:58 Blood Pressure 133/70 12/02/24 18:58 Pulse Oximetry 97 12/02/24 18:58 Oxygen Delivery Room Air 12/02/24 15:05 Lab Data 12/02/24 15:17 12/02/24 15:17 Labs: Lab Results 12/02/24 12/02/24 Range/Units 15:17 15:39 WBC 7.4 (4.5-10.0) K/mm3 RBC 4.65 (4.2-5.4) M/mm3 Hgb 11.4 L D (12.0-15.0) g/dL Hct 37.7 (37.0-47.0) % MCV 81.1 (80-100) fl MCH 24.5 L (26-34) pg MCHC 30.2 L (32-36) g/dl RDW 16.4 H (11.5-14.5) % Plt Count 167 (150-375) k/mm3 MPV 11.2 H (7.4-10.4) fl Immature Gran % (Auto) 0.3 (0-0.5) % Neut % (Auto) 79.5 H (45.5-73.1) % Lymph % (Auto) 10.3 L (18.3-44.2) % [place] % (Auto) 7.7 (2.6-8.5) % Eos % (Auto) 1.8 (0-4.4) % Baso % (Auto) 0.4 (0.2-1.2) % Lymph # (Auto) 0.76 L (0.9-3.2) K/mm3 [place] # (Auto) 0.6 (0.1-0.6) K/mm3 Eos # (Auto) 0.1 (0-0.3) K/mm3 Baso # (Auto) 0.0 (0.0-0.1) K/mm3 Abs Immat Gran (auto) 0.02 (0.00-0.031) K/mm3 Absolute Neuts (auto) 5.9 (1.3-6.7) K/mm3 Absolute Nucleated RBC 0.000 (0.0-0.012) K/mm3 Nucleated RBC % 0.0 (0.0-0.2) % ESR 16 (0-20) mm/hr PT 13.7 (11.1-14.7) Seconds INR 1.1 APTT 23.4 (22.3-36.8) Seconds Sodium 136 L (137-145) mmol/L Potassium 4.3 (3.4-5.0) mmol/L Chloride 101 (98-107) mmol/L Carbon Dioxide 29 (22-30) mmol/L Anion Gap 6 (4-12) mmol/L BUN 21 H (7-17) mg/dL Creatinine 0.78 (0.7-1.0) mg/dL Estim Creat Clear Calc 50 ml/min Estimated GFR > 60 (59 - ) Glucose 217 H (65-110) mg/dL POC Capillary Glucose 177 H (65-105) mg/dl Calcium 8.7 (8.4-10.2) mg/dL Total Bilirubin 0.4 (0.2-1.3) mg/dL AST 28 (14-36) U/L ALT 22 (6-35) U/L Alkaline Phosphatase 73 (38-126) U/L Troponin I 0.015 (0.000-0.034) ng/mL NT-Pro-B Natriuret Pep 566 H (19.9-100) pg/mL Total Protein 6.2 L (6.3-8.2) g/dL Albumin 3.3 L (3.5-5.1) g/dL Imaging Data Radiologist's impression: chest x-ray showed no acute abnormality CT head without contrast showed no acute abnormalities ECG Data EKG #1: Attestation: I personally reviewed and interpreted this ECG as follows: ECG completion date: 12/03/24 Interpretation: sinus tachycardia at 105 beats per minute with frequent PVCs, bigeminy pattern, septal myocardial infarction, probably old, normal EKG Discharge Plan Discharge Clinical Impression: Paresthesia Patient Disposition: Acute Care Hospital Condition: Stable Patient Language: [place] Prescriptions: No Action calcium carbonate-vitamin D3 [Calcium 500 + D] 500 mg(1,250mg) -200 unit Tablet 1 tablet PO BID Prolia 60 mg/mL syringe 60 mg SUB-Q [id number] Qty: 1 0RF albuterol sulfate 2.5 mg /3 mL (0.083 %) solution for nebulization 2.5 mg INHALATION TID PRN (Reason: shortness of breath or wheezing) Qty: 270 5RF fluticasone propion-salmeterol [Advair Diskus] 250-50 mcg/dose blister with device 1 inh INHALATION BID Qty: 180 3RF trazodone 50 mg tablet 50 mg PO .QHS Qty: 90 3RF aspirin [Adult Aspirin Regimen] 81 mg tablet,delayed release (DR/EC) 81 mg PO DAILY docusate sodium [Colace] 100 mg capsule 100 mg PO DAILY Qty: 90 1RF cholecalciferol (vitamin D3) 25 mcg (1,000 unit) capsule 50 mcg PO DAILY (DME) Skin Prep Wipes Misc See Rx Instructions .Route Qty: 50 3RF Rx Instructions: As directed (DME) FreeStyle Porsche 3 Sensor Device See Rx Instructions .ROUTE .MEDSUPPLY Qty: 6 4RF Rx Instructions: Use to Monitor glucose glimepiride 1 mg tablet 1 mg PO BID 90 Days Qty: 180 1RF Rx Instructions: administer before breakfast and before dinner empagliflozin 25 mg tablet 25 mg PO DAILY Qty: 90 3RF ezetimibe-simvastatin [Vytorin 10-80] 10-80 mg tablet See Rx Instructions .ROUTE .COMPLEX Qty: 90 3RF Dose Instruction: TAKE 1 TABLET BY MOUTH EVERY DAY ### Rx Instructions: TAKE 1 TABLET BY MOUTH EVERY DAY ### insulin glargine [Lantus Solostar U-100 Insulin] 100 unit/mL (3 mL) insulin pen 20 unit subcut QPM Qty: 18 3RF Ozempic 2 mg/dose (8 mg/3 mL) pen injector 2 mg subcut WEEKLY Qty: 9 3RF albuterol sulfate [ProAir HFA] 90 mcg/actuation HFA aerosol inhaler See Rx Instructions .ROUTE .COMPLEX Qty: 25.5 2RF Dose Instruction: INHALE ONE OR TWO PUFFS BY MOUTH EVERY 4 TO 6 HOURS NEEDED FOR SHORTNESS OF BREATH OR WHEEZING Rx Instructions: INHALE ONE OR TWO PUFFS BY MOUTH EVERY 4 TO 6 HOURS NEEDED FOR SHORTNESS OF BREATH OR WHEEZING ropinirole 0.5 mg tablet 1 mg PO BID Qty: 360 1RF bupropion HCl 150 mg tablet sustained-release 12 hr 150 mg PO DAILY Qty: 180 3RF furosemide 20 mg tablet 20 mg PO BID Qty: 180 1RF lisinopril 5 mg tablet See Rx Instructions .ROUTE .COMPLEX Qty: 90 1RF Dose Instruction: TAKE ONE TABLET BY MOUTH EVERY DAY Rx Instructions: TAKE ONE TABLET BY MOUTH EVERY DAY prednisone 10 mg tablet 10 mg PO DIRECTED Qty: 34 0RF Rx Instructions: Take 4 tablets by mouth daily for 4 days, then 3 tablets for 3 days, 2 tablets for 3 days, 1 tablet for 3 days Follow-up/Referrals: Vitaly Frye MD [Primary Care Provider] - Quality Stroke Scale Stroke Scale 1: 1a Level of consciousness: alert-0 1b Level of consciousness questions: answers both correctly-0 1c Level of consciousness commands: obeys both correctly-0 2 Best gaze: normal-0 3 Visual: no visual loss-0 4 Facial palsy: normal-0 5a Motor: left arm: no drift-0 5b Motor: right arm: no drift-0 6a Motor: left leg: no drift-0 6b Motor: right leg: no drift-0 7 Limb ataxia: absent-0 8 Sensory: pinprick less sharp-1 9 Best language: no aphasia-0 10 Dysarthria: normal-0 11 Extinction and inattention: no abnormality-0 Level:: 1
[2024-12-02] MEDS: MORPHINE SULFATE (*CRX) 4 MG/ML INJ IV PUSH (16:22)
--- OUTSIDE RECORDS SUMMARY | 2024-12-02 16:44 | XMS_ITS | Data Portability ---
Author Organization [facility] [email or web address], Main Office Address [address] [place] [address] Assessment No assessment recorded. Plan of Treatment Reminders Order Date Submit Date Provider Last Modified By Organization Details Last Modified Time Details Appointments None record ed. Lab None record ed. Referral None record ed. Procedures None record ed. Surgeries None record ed. Imaging XR, should er, 2 or more view 023 08/16/19 23 [email or web address] [facility] [place], [address], [place], [address], 3 12:55:38 Medication Orders None record ed. Patient TargetsNo targets recorded. Patient InstructionsNo instructions recorded. Reason for Referral None Reported. Results Created Date Observation Date Name Description Value Unit Range Abnormal Flag Note LastModifiedBy Organization Detail LastModifiedTime 05/02/20 22 XR, hand No observ ation record ed. [id number] [facility] [place] [address], [place], [address], 07/26/2022 13:32:52 08/16/19 23 XR, shoul rashad, 2 or more view No observ ation record ed. [email or web address] [facility] [place] [address], [place], [address], 08/15/2022 12:55:37 Result Notes None recorded. Problems Name Problem SNOMED Code Status Onset Date Resolution Date Notes Provider Name and Address Organization Details Recorded Time Pain of left hand 06633456032330 3 Active 2021 Not Available [facility] 3 13:30:32 Pain of right shoulder joint 47265096377532 100 Active 2022 Richellejeet Juwan, [place], [place] - [employer] 10:54:29 Carpal tunnel syndrome of left wrist 54378292623545 2 Active 2022 Kailash Soto MD [address] [facility], [facility] [address], [place], [address] , [facility] [employer] [facility] 12:55:58 Dupuytren 's disease of palm 219183839 Active 2022 Kailash Soto MD [address] [facility], [facility] [address], [place], [address] , [facility] 11:57:12 Problem Notes None recorded. Procedures Surgical History Date Name Laterality Status Provider Name and Address Organization Details Recorded Time Foot Surgery completed Not Available [facility] 07/26/2022 13:29:54 [facility]olecystectomy completed Not Available [facility] 07/26/2022 13:29:54 Tubal Ligation completed Not Available [facility] 07/26/2022 13:29:54 Appendectomy completed Not Available [facility] 07/26/2022 13:29:54 Shoulder completed Not Available [facility] 13:29:54 Hernia Repair completed Not Available [facility] 07/26/2022 13:29:54 Tonsillectomy and/or Adenoidectomy completed Not Available [facility] 07/26/2022 13:29:54 Imaging Results None recorded. Procedure Notes None recorded. Medical Equipment None Reported. Allergies Allergen ID Allergen Name Allergen Category Reaction Reaction Severity Criticality Documentation Date Start Date Code Code System Note Provider Name and Address Organization Details Recorded Time 60372 iodine medicatio n Not available Not available Not available 07/26/2022 5933 RxNorm Not Available [facility] 13:32:49 Medications Name Sig Start Date Stop [...] Avai lable Prevalite 4 gram powder for suspension in a packet DISSOLVE 4 G (1 [...] Recorded Body mass index (BMI) Body height Body weight Provider Name and Address Organization Details Last Updated DateTime 06/14/2022 30.6 kg/m2 154.94 cm 73852.96 g Not Available [facility] 07/26/2022 13:30:00 Date Recorded Body mass index (BMI) Body height Body weight Provider Name and Address Organization Details Last Updated DateTime 07/18/2022 31 kg/m2 154.94 cm 21464.15 g Not Available [facility] 07/26/2022 13:30:00 Date Recorded Body height Body mass index (BMI) Body weight Provider Name and Address Organization Details Last Updated DateTime 08/15/2022 154.94 cm 31 kg/m2 03627.15 g BROOLKYNN Castillo [place] - [facility] [employer] [facility] 08/15/2022 10:54:03 Date Recorded Body height Body mass index (BMI) Body weight Provider Name and Address Organization Details Last Updated DateTime 10/17/2022 154.94 cm 31.4 kg/m2 45592.33 g BR[place]NN Molina [place] - [facility] 10/17/2022 11:07:46 Social History None recorded. Functional Status None recorded. Mental Status None recorded. Family History Relationship Description Onset Age of this Age Resolved Age Notes LastModified by Organization Details LastModified Time Brother Heart disease [email or web address] [id number] Not available 07/26/2022 13:29:55 Brother Hypertensive disorder [email or web address].881 [id number] Not available 07/26/2022 13:29:55 Brother Diabetes mellitus [email or web address].191 [id number] Not available 07/26/2022 13:29:55 Sister Heart disease [email or web address].041 [id number] Not available 07/26/2022 13:29:55 Sister Family history of stroke [email or web address].570 [id number] Not available 07/26/2022 13:29:55 Sister Hypertensive disorder MIGRATION.556 [id number] Not available 07/26/2022 13:29:55 Sister Blood coagulation disorder [id number].440 [id number] Not available 07/26/2022 13:29:55 Sister Diabetes mellitus MIGRATION.167 [id number] Not available 07/26/2022 13:29:55 Sister Kidney disease MIGRATION.618 [id number] Not available 07/26/2022 13:29:55 Medical History Condition Response DIABETES, TYPE Y ARTHRITIS Y OSTEOPOROSIS Y HYPERTENSION Y Gynecological HistoryNo gynecological history recorded. Obstetrics History GPAL:G 0 P 0 0 0 0 Past Encounters Encounter ID Performer Location Encounter Start Date Encounter Closed Date Diagnosis/Indication Diagnosis SNOMED-CT Code Diagnosis ICD10 Code Diagnosis Note [id number] Kailash Soto MD [facility] [place] [address] [place] [address] 05/02/2022 00:00:00 05/02/2022 13:47:10 [id number] Kailash Soto MD [facility] [place] [address] [place] [address] 06/14/2022 00:00:00 06/14/2022 17:03:12 [id number] Kailash Soto MD [facility] [place] [address] [place] [address] 07/18/2022 00:00:00 07/18/2022 12:48:24 [id number] Kailash Soto MD [facility] [place] 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 3336640691 79702 G56.02 patient is doing well she can continue with strengthen ing of the hand as tolerated Health Concerns Section Related Observation LastModified by Organization Detai ls LastModified Time None Recorded Concern Status LastModified by Organization Details LastModified Time None Recorded Advance Directives Directive None Recorded Payers Insurance Date Sequence Insurance Name Policy Number Policy Skinner Covered Member ID Skinner Member ID Guarantor Name 10/14/2022 2 () Krissy Silva [id number] Krissy Silva 10/18/2022 1 [place] Krissy Sliva [id number] Krissy Silva Notes Date Note Type Note Provider Name and Address Organization Details Recorded Time 08/15/2022 text/html patient underwent removal of some palmar Dupuytren's nodules and a carpal tunnel release on July 05, 2022 she is doing very nicely comes in today for follow-up Kailash Soto MD [address] [address], [place], [address], [employer] [facility] 08/15/2022 12:56:23 10/17/2022 text/html patient returns today for follow-up doing very well after the carpal tunnel release and excision of the Dupuytren's cords Kailash Soto MD [address], [facility] [address], [place], [address], [employer] 10/17/2022 11:57:49 OBGyn Episode No OBEpisode recorded.
--- OUTSIDE RECORDS SUMMARY | 2024-12-02 16:44 | XMS_ITS | Clinical Summary ---
Author Organization [facility] [address] Address [address] [place] [address] Care Team Providers Care Spray Stainer Name Role Phone Vitaly Frye MD Primary Care Provider [phone] Vitaly Antoine MD Unavailable [phone] Yao Al MD Unavailable [phone] Allergies Active Allergy Reactions Criticality Noted Date [...] upper thigh or abdomen 0 Syringe 0 09/21/19 17 Active buPROPion SR (WELLBUTRIN SR) 150 mg 12 hr tablet take 1 tablet by oral route every day 0 0 09/21/19 17 Active albuterol HFA (PROAIR HFA) 90 mcg/actuation inhaler inhale 2 puff by inhalation route every 4 - 6 hours as needed 0 Inhaler 0 09/21/19 17 Active fluticasone-salm eterol (ADVAIR DISKUS) 250-50 mcg/dose diskus inhaler inhale 2 puff by inhalation route 2 times every day in the morning and evening approximately 12 hours apart 0 0 09/21/19 17 Active furosemide (LASIX) 20 mg tablet Take [...] by mouth as needed for sleep Active insulin glargine (LANTUS) 100 unit/mL vial for injection Inject 20 Units under the skin nightly for 24 days 08/04/19 24 026 Active lisinopriL (PRINIVIL,ZESTRI L) 10 mg tablet Take 0.5 tablets (5 mg total) by mouth daily 08/04/19 24 Active Additional Information Patient not taking.Informant: Self, Reported on 09/08/2024 carvediloL (COREG) 6.25 mg tabletIndication s:Primary hypertension Take 1 tablet (6.25 mg total) by mouth 2 (two) times a day with meals 180 tablet 3 08/14/19 24 Active Additional Information Patient not taking.Informant: Self, Reported on 09/08/2024 glimepiride (AMARYL) 1 mg tabletIndication s:type 2 diabetes mellitus Take 1 tablet (1 mg total) by mouth 2 (two) times a day Not start just received Active calcium carbonate/vitami n D3 (CALCIUM 500 + D ORAL) Take by mouth 2 (two) times a day Active ezetimibe-simvas tatin (VYTORIN) 10-80 mg per tablet Take 1 tablet by mouth every morning Active albuterol 2.5 mg /3 mL (0.083 %) nebulizer solution Take 3 mL (2.5 mg total) by nebulization as needed for wheezing Active empagliflozin (JARDIANCE) 25 mg tablet Take 1 tablet (25 mg total) by mouth every morning Active aspirin 81 mg enteric coated tabletIndication s:prevention of thrombosis Take 1 tablet (81 mg total) by mouth 2 (two) times a day for 14 days 28 tablet 08/27/19 25 Active celecoxib (CeleBREX) 100 mg capsuleIndicatio ns:Postoperative Acute Pain Take 1 capsule (100 mg total) by mouth 2 (two) times a day for 14 days 28 capsule 08/27/19 25 Active docusate sodium (COLACE) 100 mg capsuleIndicatio ns:constipation Take 1 capsule (100 mg total) by mouth 2 (two) times a day 30 capsule 08/27/19 25 Active acetaminophen (TYLENOL) 500 mg tabletIndication s:Pain Take 2 tablets (1,000 mg total) by mouth 2 (two) times a day 60 tablet 08/28/19 25 Active Active Problems Problem Noted Date Diagnosed Date Status post reverse arthroplasty of left shoulde r 08/26/2024 Diastolic dysfunction 08/21/2024 Rotator cuff arthropathy of right shoulder 07/15 Right shoulder pain 07/15/2024 Displaced fracture of proximal end of right bennie lino 07/15/2024 Status post transcatheter ao rtic valve replacement (TAVR) using bioprosthesis 08/06/2023 Assessment & Plan (08/01/2024 2:17 PM WIRE WEAVER): S/p TAVR 1 year ago. The valve [...] visit. Assessment & Plan (06/22/2019 12:23 PM WIRE WEAVER): Patient has mild to moderate carotid stenosis [...] 06/22/2019 Assessment & Plan (06/22/2019 12:23 PM WIRE WEAVER): Per patient she has been diagnosed with [...] provider. Assessment & Plan (06/22/2019 12:24 PM WIRE WEAVER): Per patient blood sugars well controlled. Continue [...] from the original. Diagnosis: SHAH; HCC Referring Caddie Supervisor: Danilo Arizmendi MELD: 01/22 Blood Type: A pos BMI: 30 Short H/P summary: DM type II since 1992: Htn x 8 years. Quit smoking 4 years ago; >1 ppd X 40 years. 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 Evaluation Testing Date and Results: Labs: 08/16/2016 A1c-12.6: Glucose-360: Chol-180 HDL-41: LDL-98: Triglycerides- 206: Serologies: CMV: Tox Screen-Neg: Alpha 1 Anti: AFP: [id number]: Ceruloplasmin: LEE: Anti Smooth muscle ab: Mitochondrial: [...] abscess. Dictated by Inga Boudreaux MD (radiology rn). This report was approved by Inga Boudreaux M.D. on 08/16/2016 3:36 PM . Nicole, Dr. DUKE SKELTON M.D. have personally reviewed [...] 05/11/2016. Dictated by Miguelina Price MD (radiology rn). This report was approved by Miguelina Price [...] (volume index 56 ml/M2). No evidence of mgdom-jm-zsyj shunt with bubble study. 7. The right [...] pulmonary disease (COPD) regimen as per Emmanuel Tool Honing Machine Set Up Operator: A. Salmeterol/fluticasone (Advair) 250 mcg 1 [...] 2 L/min side flow as per Emmanuel Tool Honing Machine Set Up Operator 3. Her very severe COPD may preclude her from liver transplantation 4. Follow-up with results Sourav Lai MD, [facility], [facility], [facility] Press Operator Apprentice, [facility] Beverage Manager of Internal Medicine Division of Pulmonary, Critical Care, and Sleep Medicine [facility] EGD: 02/15/15 In the lower third [...] Recommendations/Interventions: 1. Pt needs to see an Layboy Operator as she currently does not. 2. [...] Encounters Date Type Department Care Team Description 10/08/2024 11:15 AM CDT Office Visit [facility] Orthopaedic Surgery [address] [place] [address] [address]nd [address] [place] [address] Kylah Kirkpatrick MD Status post reverse arthroplasty of right shoulder (Primary Dx) 10/08/2024 10:50 AM CDT - 10/08/2024 11:59 PM CDT Hospital Encounter [facility] Radiology at the Orthopedic Center [address] [place] [address] Status post reverse arthroplasty of right shoulder Discharge Disposition: Discharge to home or self care 09/10/2024 11:15 AM CDT Office Visit [facility] Orthopaedic Surgery [address] [place] [address] [address] [place] [phone] Kylah Kirkpatrick MD Status post reverse arthroplasty of right shoulder (Primary Dx); Status post orthopedic surgery, follow-up exam 09/10/2024 11:06 AM CDT - 09/10/2024 11:59 PM CDT Hospital Encounter [facility] Radiology at the Orthopedic Center [address] [place] [address] Kylah Kirkpatrick MD Status post orthopedic surgery, follow-up exam Discharge Disposition: Discharge to home or self care 09/08/2024 2:30 PM CDT Office Visit [facility] Cardiology [address] [place] [address] Gilda Terrazas NP Mixed hyperlipidemia (Primary Dx); Hypertension, unspecified type; Status post transcatheter aortic valve replacement (TAVR) using bioprosthesis; Diastolic dysfunction 09/02/2024 Telephone [facility] Orthopaedic Surgery [address] [facility] 12th [place] [address] [place] [address] Kylah Kirkpatrick MD from Last 3 Months Immunizations Immunization Administration [...] Former Cigarettes 2 55 1 958 - 2012 Passive Smoke Exposure: Past Smokeless Tobacco: Never [...] often do you attend chur ch or yazdanism services? Never 11/30/2020 Do you belong to any clubs o r organizations such as religion groups, unions, fraternal or athletic groups, or school groups? No 11/30/2020 How often do you attend meet ings of the clubs or organizations you belong to? Never 11/30/2020 Are you , , di vorced, , never , or living with a partner? 11/30/2020 AUDIT-C Answer Date Recorded Q1: How often do you have a drink containing alcohol? Never 08/26/2024 Q2: How many drinks containi ng alcohol do you have on a typical day when you are drinking? Patient does not drink Q3: How often do you have si x or more drinks on one occasion? Never 08/26/2024 Overall Financial Resource Strain (CARDIA) Answe r [...] making you feel afraid or unsafe? Denies 08/26/2024 Comments No Sex and Gender Information Value Date Recorded Sex Assigned at Not on file Legal Sex Female 11:07 PM WIRE WEAVER Gender Identity Not on file Sexual Orientation Not on file Obstetrics History Last Filed Vital Signs Vital Sign Reading Time Taken Comments Blood Pressure 120/64 09/08/2024 2:39 PM CDT Pulse 91 09/08/2024 2:39 PM CDT Temperature 36.3 C (97.4 F) 08/29/2024 7:33 AM CDT Respiratory Rate 16 08/29/2024 7:33 AM CDT Oxygen Saturation 94% 09/08/2024 2:39 PM CDT Inhaled Oxygen Concentration - - Weight 68 kg (150 lb) 09/08/2024 2:39 PM CDT Height 157.5 cm (5' 2) 09/08/2024 2:39 PM CDT Body Mass Index 27.44 09/08/2024 2:39 PM CDT Plan of Treatment Health Maintenance Due Date Last Done Comments [...] 07/20/2015 05/25/2015 Hemoglobin A1C 05/31/2021 11/28/2020, 10/14/2020 Covid-19 Vaccine (3 - 2023-2 5 season) 2024 08/06/2020, 07/09/2020 Influenza Vaccine (#1) 2025 9, 03/15/2018, 03/18/2016 eGFR 08/27/2025 08/27/2024, 03/0 10/2024, 08/04/2023, Additional history exists Fall Risk Assessment 08/29/2025 08/29/2024 Lipid Panel 09/08/2025 09/08/2024, 10/27, 11/22/2021, Additional history exists Medical Devices Implanted Type Area Blending Tank Helper Device Identifier Shelf Expiration Date Model / Serial / Lot [employer] Valve Heart 23mm Marlys 3 Transcatheter [id number] - [id number] - [id number] Implanted:Qty: 1 on 08/03/2023 by Mark Lemons MD at [facility] Prosthetic Valve Right: Aortic Valve [employer] 05/28/2026 [id number] / [id number] / Angulo Vascular Device Clsr Perclose Prostyle Sut-Mediatd Closure-Repair Sys [id number] - S0 - [id number] Implanted:Qty: 1 on 08/03/2023 by Mark Lemons MD at [facility] Vascular Closure Device Ang[employer] V[employer] 05/27/2025 [id number] / 0 / [id number] Angulo Vascular Device Clsr Perclose Prostyle Sut-Mediatd Closure-Repair Sys 72954-25 - S0 - [id number] Implanted:Qty: 1 on 08/03/2023 by Mark Lemons MD at [facility] Vascular Closure Device Angulo Vascular 05/27/2025 [id number] 3 / 0 / [id number] [employer] Aequalis 4.5mm 26mm Lock Multidirectional Self Tap Shoulder Screw Latex Free [id number] - [id number] Implanted:Qty: 1 on 08/26/2024 at [facility] Right: Shoulder [employer] Inc [id number] / / [employer] Inc Screw Glenoid Non Locking Reverse Aequalis 4.5x20mm Titanium Vcc588 - [id number] Implanted:Qty: 2 on 08/26/2024 at [facility] Right: Shoulder [employer] [id number] / / [employer] Aequalis 25mm Shoulder Long Post Baseplate Glenoid Pacheco Tgn741 - [id number] Implanted:Qty: 1 on 08/26/2024 at [facility] Right: Shoulder [employer] 12/07/2027 [id number] / [id number] / [employer] Aequalis 36mm Reverse Center Shoulder Sphere Glenoid Cocr 25mm Sjo386 - [id number] Implanted:Qty: 1 on 08/26/2024 at [facility] Right: Shoulder [employer] 10/21/2028 [id number] / [id number] / [employer] Insert Humeral Size 1/2+0 Aequalis Perform 36mm [id number] - [id number] Implanted:Qty: 1 on 08/26/2024 at [facility] Right: Shoulder [employer] 08/22/2028 [id number] / [id number] / [employer] Stem Humeral Shoulder Reverse Aequalis Perform Dwx1pl - [id number] Implanted:Qty: 1 on 08/26/2024 at [facility] Right: Shoulder [employer] 01/02/2029 [id number] / [id number] / [employer] Screw Glenoid Locking Aequalis Reversed 4.5x32mm Titanium Hko923 - [id number] Implanted:Qty: 1 on 08/26/2024 at [facility] Right: Shoulder [employer] [id number] / / Explanted Type Area Blending Tank Helper Device Identifier Shelf Expiration Date Model / Serial / Lot [employer] Aequalis Reversed 4.5mm 18mm Compression Glenoid Screw Baseplate [id number] - [id number] Explanted:Qty: 1 on 08/26/2024 at [facility] Right: Shoulder [employer] [id number] / / Procedures Procedure Name Priority Date/Time Associated Diagnosis Comments XR SHOULDER RIGHT 2 OR MORE VIEWS Schedule Routine, Read Routine (OP Routine) 10/08/2024 10:59 AM CDT Status post reverse arthroplasty of right shoulder XR SHOULDER RIGHT 2 OR MORE VIEWS Schedule Routine, Read Routine (OP Routine) 09/10/2024 11:11 AM CDT Status post orthopedic surgery, follow-up exam POCT LIPID PANEL Routine 09/08/2024 2:46 PM CDT Mixed hyperlipidemia EGFR Routine 08/27/2024 3:07 AM CDT HEMOGLOBIN A1C Routine 11/28/2020 6:42 PM CDT from Last 3 Months or Most Recently Relevant to Health Maintenance Results * XR Shoulder Right 2 or More Views (10/08/2024 10:59 AM CDT) Anatomical Region Laterality Modality Upper Extremities, Shoulder Right Comp uted Radiography 10/08/2024 11:3 0 AM CDT Impressions 10/08/2024 11:30 AM CDT Reverse flww-rtj-gbetdy right total shoulder arthroplasty in near-anatomic position. Electronically signed by: Rob Zamora M.D. Narrative 10/08/2024 11:30 AM CDT EXAMINATION: XR SHOULDER RIGHT 2 OR MORE VIEWS HISTORY: Right shoulder pain FINDINGS: 4 views of the right shoulder were performed with comparison made to 09/10/2024. Aortic atherosclerosis and valve replacement are partially imaged. There is a reverse ueak-hun-dzhuyu right total shoulder arthroplasty in near-anatomic position. There is no periprosthetic lucency or fracture. Procedure Note Rob Zamora MD PhD - 10/08/2024 EXAMINATION: XR SHOULDER RIGHT 2 OR MORE VIEWS HISTORY: Right shoulder pain FINDINGS: 4 views of the right shoulder were performed with comparison made to 09/10/2024. Aortic atherosclerosis and valve replacement are partially imaged. There is a reverse xkcm-mow-kfhett right total shoulder arthroplasty in near-anatomic position. There is no periprosthetic lucency or fracture. IMPRESSION: Reverse qwnl-cfu-trnyrx right total shoulder arthroplasty in near-anatomic position. Electronically signed by: Rob Zamora M.D. Kylah Kirkpatrick MD IMG XR PROCEDURES Fin al Result * XR Shoulder Right 2 or More Views (09/10/2024 11:11 AM CDT) Anatomical Region Laterality Modality Upper Extremities, Shoulder Right Comp uted Radiography 09/10/2024 11:4 6 AM CDT Impressions 09/10/2024 11:46 AM CDT Unchanged reverse gdjm-oii-tonhel total right shoulder arthroplasty in near anatomic position. Electronically signed by: Brandon Niño MD Narrative 09/10/2024 11:46 AM CDT EXAMINATION: XR SHOULDER RIGHT 2 OR MORE VIEWS HISTORY: Right shoulder osteoarthritis FINDINGS: Comparison dated 08/28/2024. Unchanged reverse kcsj-xim-kzokwx total right shoulder arthroplasty in near anatomic position. No periprosthetic fracture. Heterotopic ossification is noted inferiorly. Widening of the right acromioclavicular joint. Procedure Note Brandon Niño MD - 09/10/2024 EXAMINATION: XR SHOULDER RIGHT 2 OR MORE VIEWS HISTORY: Right shoulder osteoarthritis FINDINGS: Comparison dated 08/28/2024. Unchanged reverse davt-zds-ytecgx total right shoulder arthroplasty in near anatomic position. No periprosthetic fracture. Heterotopic ossification is noted inferiorly. Widening of the right acromioclavicular joint. IMPRESSION: Unchanged reverse ivee-syp-qosoas total right shoulder arthroplasty in near anatomic position. Electronically signed by: Brandon Niño MD Kylah Kirkpatrick MD [facility] XR PROCEDURES Fin al Result * POCT lipid panel (09/08/2024 2:46 PM CDT) Cholesterol, POC <100 mg/dL HDL, POC 55 mg/dL Triglycerides, POC 124 mg/dL LDL Cholesterol POC 19 mg/dL Chol/HDL Ratio, POC N/A Non-HDL Cholesterol, POC N/A mg/dL Cholesterol Total, POC <100 mg/dL Capillary blood 09/08/2024 2 :46 PM CDT us Gilda Terrazas NP POINT OF CARE TEST ORDERABLE S Final Result * eGFR (08/27/2024 3:07 AM CDT) eGFR >90 >=60 mL/min/1. 73 m2 Comment: [...] interpretive data was last reviewed 2021. Blood 08/27/2024 3:07 AM CDT 08/27/2024 3:31 AM CDT us Kylah Kirkpatrick MD LAB BLOOD ORDERABLES Final Result Performing Organization Address City/State/[facility] Co pr Phone Number AMANDA BJW[facility] [address] [facility] Department of [employer] [place], [place] [id number] * (ABNORMAL) Hemoglobin A1c (11/28/2020 6:42 PM CDT) Hgb A1C 8.5(H) 4.0 - 5.6 % AMANDA MITTAL Estimated Average Glucose 197 mg/dL AMANDA MITTAL Comment: The ADA recommends reporting an estimated Average Glucose (eAG) with all Hemoglobin A1c results using the equation derived from a study of 507 normal and diabetic adults. Minority populations were underrepresented and children were not included. (Diabetes Care 31:6039-4500, 2008). The eAG is not equivalent to a fasting glucose. Blood specimen (specimen) 11/28/2020 6:42 PM CDT 11/28/2020 7:14 PM CDT Ang Cuevas MD LAB BLOOD ORDERABLES Final Result Performing Organization Address City/State/ZIP Co pr Phone Number [place] [address] [facility] Department [place] [address] from Last 3 Months or Most Recently Relevant to Health Maintenance Insurance MEDICARE [place] [address] MEDICARE [facility] MEDICARE [facility] Advance Directives For more information, please contact: [phone] * Full Code (Latest Code Status on File) Date Activated Date Inactivated Comments 08/26/2024 1:58 PM 08/29/2024 5:32 PM * Full Code Date Activated Date Inactivated Comments 08/03/2023 6:33 AM 08/04/2023 7:19 PM * Full Code Date Activated Date Inactivated Comments 11/28/2020 6:12 PM 12/06/2020 8:13 PM * Full Code Date Activated Date Inactivated Comments 11/03/2020 2:13 AM 11/08/2020 9:14 PM * Full Code Date Activated Date Inactivated Comments 10/31/2020 10:58 PM 11/03/2020 2:13 AM Care Teams Spray Stainer Relationship Specialty Start Date End Date Vitaly Frye MD PCP - General Family Medicine 11/21/22 Vitaly Antoine MD [address] [place] [address] Referring Physician Cardiology 07/09/23 Yao Al MD [address] [address] Consulting Physician Cardiothoracic Surgery 07/09/23
--- OUTSIDE RECORDS SUMMARY | 2024-12-02 16:44 | XMS_ITS ---
Author Organization [facility] [address] Address [address] [place] [address] Care Team Providers Care Group Insurance Specialist Name Role Phone Vitaly Frye MD Primary Care Provider [phone] Vitaly Antoine MD Unavailable [phone] Yao Al MD Unavailable Active Problems Problem Noted Date Diagnosed Date Status post reverse arthroplasty of left shoulde r 08/26/2024 Diastolic dysfunction 08/21/2024 Rotator cuff arthropathy of right shoulder 07/15 Right shoulder pain 07/15/2024 Displaced fracture of proximal end of right bennie lino 07/15/2024 Status post transcatheter ao rtic valve replacement (TAVR) using bioprosthesis 08/06/2023 Assessment & Plan (08/01/2024 2:17 PM SCRATCH FINISHER): S/p TAVR 1 year ago. The valve [...] visit. Assessment & Plan (06/22/2019 12:23 PM SCRATCH FINISHER): Patient has mild to moderate carotid stenosis [...] 06/22/2019 Assessment & Plan (06/22/2019 12:23 PM SCRATCH FINISHER): Per patient she has been diagnosed with [...] provider. Assessment & Plan (06/22/2019 12:24 PM SCRATCH FINISHER): Per patient blood sugars well controlled. Continue [...] from the original. Diagnosis: SHAH; HCC Referring Cartoonist Special Effects: Danilo Arizmendi MELD: 01/22 Blood Type: A pos BMI: 30 Short H/P summary: DM type II since 1992: Htn x 8 years. Quit smoking 4 years ago; >1 ppd X 40 years. 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 Evaluation Testing Date and Results: Labs: 08/16/2016 A1c-12.6: Glucose-360: Chol-180 HDL-41: LDL-98: Triglycerides- 206: Serologies: CMV: Tox Screen-Neg: Alpha 1 Anti: AFP: Ja61-3-72: Ceruloplasmin: LEE: Anti Smooth muscle ab: Mitochondrial: [...] Dictated by Inga Boudreaux MD (vice president of business development). This report was approved by nIga Boudreaux M.D. on 08/16/2016 3:36 PM . [...] Dictated by Miguelina Price MD (vice president of business development). This report was approved by Miguelina Price [...] (volume index 56 ml/M2). No evidence of nyoxa-ng-utdx shunt with bubble study. 7. The right [...] pulmonary disease (COPD) regimen as per Emmanuel System Designer: A. Salmeterol/fluticasone (Advair) 250 mcg 1 puff [...] 2 L/min side flow as per Emmanuel System Designer 3. Her very severe COPD may preclude her from liver transplantation 4. Follow-up with results Sourav Lai MD, [facility], [facility] Event Lighting Specialist, [facility] Finance Associate of Internal Medicine Division of Pulmonary, Critical Care, and Sleep Medicine [facility] EGD: 02/15/15 In the [...] Recommendations/Interventions: 1. Pt needs to see an Correspondence Dictator as she currently does not. 2. Pt [...]
--- OUTSIDE RECORDS SUMMARY | 2024-12-02 16:44 | XMS_ITS | Encounter Summary ---
Author Organization [facility] Address [address] [address] Care Team Providers Care Dairy Frozen Manager Name Role Phone Krunal Sanchez MD Primary Care Provider [phone] Krunal Sanchez MD Primary Care Provider [phone] Krunal Sanchez MD Unavailable Vitaly Frye MD Primary Care Provider [phone] Vitaly Antoine MD Unavailable [phone] Yao Al MD Unavailable [phone] Encounter Details Date Type Department Care Team (Late st Contact Info) Description 09/20/2016 Orders Only [facility] ProviderCristopher MD [address] [place] [address] Social History Tobacco Use Types Packs/Day Years Used Date Smoking Tobacco: Former Cigarettes Q uit: 05/28/2011 Comments:Smoking History Pac ks/day: 1 Packs Alcohol Use Standard Drinks/Week Comments No 0 (1 standard drink = 0.6 oz pur e alcohol) Comments Unknown Sex and Gender Information Value Date Recorded Sex Assigned at Not on file Legal Sex Female 11:07 PM INTERNET SOURCER Gender Identity Not on file Sexual Orientation Not on file documented as of this encounter Plan of Treatment Not on file documented as of this encounter Procedures Procedure Name Priority Date/Time Associated Diagnosis Comments CARDIOLOGY REPORT 09/20/2016 documented in this encounter Results * CARDIOLOGY REPORT (09/20/2016) Anatomical Region Laterality Modality Other Narrative 09/20/2016 Ordered by an unspecified provider. us Historical Provider [facility] MARVIN BROUSSARD Final Result documented in this encounter Visit Diagnoses Not on filedocumented in this encounter Care Teams Dairy Frozen Manager Relationship Specialty Start Date End Date Krunal Sanchez MD [address] [place], [place] [id number] PCP - General 09/20/16 06/17/19 Krunal Sanchez MD [address] [place] [address] PCP - General 06/18/19 11/20/22 Vitaly Frye MD [address] [place] [address] PCP - General Family Medicine 11/21/22 Krunal Sanchez MD [address] [place] [address] 06/18/19 11/20/22 Vitaly Antoine MD [address] [address] Referring Physician Cardiology 07/09/23 Yoa Al MD [address] [facility] [address] [place] [address] Consulting Physician Cardiothoracic Surgery 07/09/23 documented as of this encounter
--- OUTSIDE RECORDS SUMMARY | 2024-12-02 16:44 | XMS_ITS | Clinical Summary ---
Author Organization [facility] Address [address] [place] [address] Care Team Providers Care Warehouse Distribution Specialist Name Role Phone Velasquez Baltazar MD Primary Care Provider + [phone] Allergies Active Allergy Reactions Criticality Noted Date Comments Azithromycin Hives 11/19/2024 Erythromycin Hives 11/19/2024 Iodinated Contrast Media Anaphylaxis High 11/19/2024 Iodine Anaphylaxis High 11/19/2024 Procaine Palpitations Low 11/19/2024 Medications aspirin 81 MG chewable tablet Chew 1 tablet (81 mg total) by mouth daily. Active lisinopril (PRINIVIL) 10 MG tablet Take 1 tablet (10 mg total) by mouth daily. Active fluticasone-leonel meterol (ADVAIR DISKUS) 250-50 MCG/ACT inhaler Inhale 2 puffs into the lungs 2 (two) times daily. Active vitamin D3 (CHOLECALCIFERO L) 25 mcg tablet Take 1 tablet (25 mcg total) by mouth daily. Active empagliflozin (JARDIANCE) 25 MG tablet Take 1 tablet (25 mg total) by mouth daily. Active ezetimibe (ZETIA) 10 MG tablet Take 1 tablet (10 mg total) by mouth daily. Active albuterol sulfate HFA 108 (90 Base) MCG/ACT inhaler Inhale 2 puffs into the lungs every 6 (six) hours as needed for Wheezing. Active rOPINIRole (REQUIP) 0.5 MG tablet Take 1 tablet (0.5 mg total) by mouth nightly at bedtime. Active traZODone (DESYREL) 50 MG tablet Take 1 tablet (50 mg total) by mouth nightly at bedtime. Active buPROPion XL (WELLBUTRIN XL) 150 MG 24 hr tablet Take 1 tablet (150 mg total) by mouth 2 (two) times daily. Active furosemide (LASIX) 40 MG tabletIndicatio ns:Congestive Heart Failure Take 1 tablet (40 mg total) by mouth daily. Indications: Congestive Heart Failure 30 tablet 11/28/19 25 Active insulin glargine (LANTUS) 100 UNIT/ML injection (VIAL)Indicatio ns:Diabetes Mellitus Inject 20 Units into the skin daily. Indications: Diabetes 10 mL 11/28/19 25 Active furosemide (LASIX) 20 MG tablet Take 1 tablet (20 mg total) by mouth 2 (two) times daily. 025 Discontinu ed(Stop Taking at Discharge) glimepiride (AMARYL) 1 MG tablet Take 1 tablet (1 mg total) by mouth 2 (two) times daily before meals. 025 Discontinu ed(Stop Taking at Discharge) predniSONE (DELTASONE) 5 mg tabletIndicatio ns:Chronic Obstructive Pulmonary Disease Take 1 tablet (5 mg total) by mouth daily for 2 days. Indications: Chronic Obstructive Lung Disease 2 tablet 11/28/19 25 025 Active Problems Problem Noted Date Diagnosed Date Respiratory failure ([facility]) 11/19/2024 Encounters Date Type Department Care Team Description 11/25/2024 8:15 AM CDT Home Care Visit [facility] Care [address] [place] [address] Za Jaimes, RN MENTAL HEALTH VISIT 11/19/2024 3:32 PM CDT - 11/26/2024 12:39 PM CDT Hospital Encounter [facility] [address] Ishaan Sahni, Cassandra Taylor MD Lamonica, Kandace C, MD Goldberg, Deborah, MD Shortness Of Breath ; Leg Swelling Discharge Disposition: Intermediate Facility 11/19/2024 Travel from Last 3 Months Social History Tobacco Use Types Packs/Day Years Used Date Smoking Tobacco: Former Cigarettes Smokeless Tobacco: Former Tobacco Cessation:Counseling Given: No B1300 Health Literacy Answer Date Recor ded How often do you need to hav e someone help you when you read instructions, pamphlets, or other written material from your doctor or pharmacy? Never 11/20/2024 [facility] Utilities Answer Date Recorded In the past 12 months has th e electric, gas, oil, or water company threatened to shut off services in your home? No 11/20/2024 Humiliation, Afraid, Rape, and Kick questionnair e Answer Date Recorded Within the last year, have y ou been afraid of your partner or ex-partner? No 11/20/2024 Within the last year, have y ou been humiliated or emotionally abused in other ways by your partner or ex-partner? No Within the last year, have y ou been kicked, hit, slapped, or otherwise physically hurt by your partner or ex-partner? No 11/20/2024 Within the last year, have y ou been raped or forced to have any kind of sexual activity by your partner or ex-partner? No 11/20/2024 Social Connection and Isolat ion Panel [NHANES] Answer Date Recorded In a typical week, how many times do you talk on the phone with family, friends, or neighbors? More than three times a week 11/20/2024 How often do you get togethe r with friends or relatives? Once a week 11/20/2024 How often do you attend chur or amish services? More than 4 times per year 11/20/2024 Do you belong to any clubs o r organizations such as orthodoxy groups, unions, fraternal or athletic groups, or school groups? No 11/20/2024 How often do you attend meet ings of the clubs or organizations you belong to? Never 11/20/2024 Are you , , di vorced, , never , or living with a partner? 11/20/2024 AUDIT-C Answer Date Recorded Q1: How often do you have a drink containing alc ohol? Monthly or less 11/20/2024 Q2: How many drinks containi ng alcohol do you have on a typical day when you are drinking? 1 or 2 11/20/2024 Q3: How often do you have si x or more drinks on one occasion? Less than monthly 11/20/2024 Overall Financial Resource Strain (CARDIA) Answe r Date Recorded How hard is it for you to pa y for the very basics like food, housing, medical care, and heating? Not hard at all 11/20/2024 [facility] - Occupational Stress Questionnaire Answer Date Recorded Do you feel stress - tense, restless, nervous, or anxious, or unable to sleep at night because your mind is troubled all the time - these days? Only a little 11/20/2024 Exercise Vital Sign Answer Date Recorde d On average, how many days pe r week do you engage in moderate to strenuous exercise (like a brisk walk)? 1 day 11/20/2024 On average, how many minutes do you engage in exercise at this level? 60 min 11/20/2024 Hunger Vital Sign Answer Date Recorded Within the past 12 months, y ou worried that your food would run out before you got the money to buy more. Never true 11/21/19 25 Within the past 12 months, t he food you bought just didn't last and you didn't have money to get more. Never true 11/20/2024 PRAPARE - Transportation Answer Date Re corded In the past 12 months, has l ack of transportation kept you from medical appointments or from getting medications? No 10/27 In the past 12 months, has l ack of transportation kept you from meetings, work, or from getting things needed for daily living? No 11/20/2024 Housing Stability Vital Sign Answer Estevan e Recorded In the last 12 months, was t here a time when you were not able to pay the mortgage or rent on time? No 11/20/2024 In the past 12 months, how m any times have you moved where you were living? 0 11/20/2024 At any time in the past 12 m [facility], were you homeless or living in a penitentiary (including now)? No 11/20/2024 Comments No Sex and Gender Information Value Date Recorded Sex Assigned at Female 11/19/2024 3:37 PM CDT Legal Sex Female 2:22 PM CDT Gender Identity Not on file Sexual Orientation Not on file Last Filed Vital Signs Vital Sign Reading Time Taken Comments Blood Pressure 117/52 11/26/2024 11:11 AM CDT Pulse 83 11/26/2024 11:11 AM CDT nasal canula put back on pt Temperature 36.2 C (97.2 F) 11/26/2024 11:11 AM CDT Respiratory Rate 17 11/26/2024 11:1 1 AM CDT Oxygen Saturation 86% 11/26/2024 11: 11 AM CDT Inhaled Oxygen Concentration - - Weight 65.4 kg (144 lb 2.9 oz) 11/26/2024 3:22 AM CDT Height 157.5 cm (5' 2) 11/20/2024 12:3 2 AM CDT Body Mass Index 26.37 11/20/2024 12:32 AM CDT Plan of Treatment Health Maintenance Due Date Last Done Comments Colorectal Cancer Screening Colonoscopy (10 Years) 1950 Hepatitis C 1967 DTaP, Tdap and Td Vaccines ( 1 - Tdap) 01/28/1968 Pneumococcal Vaccine: 50+ Years (2 of 2 - PCV) 08/16/2013 08/16/2012 Annual Medicare Wellness Visit 2014 Dexa Scan (General) 2014 COVID-19 Vaccine (4 - 2023-2 5 season) 2024 04/12/2021, 08/06/2020, 07/09/2020 RSV Immunization or 60+ Years (1 - 1-dose 75+ series) 01/28/2024 Zoster Vaccines Completed 10/04/2021, 04/12/2021, 05/25/2015 Meningococcal B Vaccine Aged Out No l onger eligible based on patient's age to complete this topic Meningococcal Vaccine Aged Out No anayeli bryon eligible based on patient's age to complete this topic RSV Immunizations Under 20 Months Aged Out No longer eligible b ased on patient's age to complete this topic Procedures Procedure Name Priority Date/Time Associated Diagnosis Comments POCT GLUCOSE - DOCKED DEVICE Routine 11/26/2024 11:20 AM CDT POCT GLUCOSE - DOCKED DEVICE Routine 11/26/2024 6:05 AM CDT COMPREHENSIVE METABOLIC PANEL Routine 11/26/2024 5:54 AM CDT POCT GLUCOSE - DOCKED DEVICE Routine 11/25/2024 11:26 PM CDT POCT GLUCOSE - DOCKED DEVICE Routine 11/25/2024 7:58 PM CDT POCT GLUCOSE - DOCKED DEVICE Routine 11/25/2024 4:17 PM CDT POCT GLUCOSE - DOCKED DEVICE Routine 11/25/2024 11:09 AM CDT POCT GLUCOSE - DOCKED DEVICE Routine 11/25/2024 6:54 AM CDT COMPREHENSIVE METABOLIC PANEL Routine 11/25/2024 6:02 AM CDT POCT GLUCOSE - DOCKED DEVICE Routine 11/24/2024 8:34 PM CDT POCT GLUCOSE - DOCKED DEVICE Routine 11/24/2024 3:52 PM CDT POCT GLUCOSE - DOCKED DEVICE Routine 11/24/2024 11:21 AM CDT COMPREHENSIVE METABOLIC PANEL Routine 11/24/2024 5:56 AM CDT POCT GLUCOSE - DOCKED DEVICE Routine 11/24/2024 5:48 AM CDT POCT GLUCOSE - DOCKED DEVICE Routine 11/23/2024 7:04 PM CDT POCT GLUCOSE - DOCKED DEVICE Routine 11/23/2024 3:57 PM CDT POCT GLUCOSE - DOCKED DEVICE Routine 11/23/2024 11:23 AM CDT COMPREHENSIVE METABOLIC PANEL Routine 11/23/2024 7:06 AM CDT PRO-BRAIN NATRIURETIC PEPTIDE Routine 11/23/2024 7:05 AM CDT POCT GLUCOSE - DOCKED DEVICE Routine 11/23/2024 5:57 AM CDT POCT GLUCOSE - DOCKED DEVICE Routine 11/22/2024 7:20 PM CDT POCT GLUCOSE - DOCKED DEVICE Routine 11/22/2024 3:30 PM CDT POCT GLUCOSE - DOCKED DEVICE Routine 11/22/2024 11:10 AM CDT COMPREHENSIVE METABOLIC PANEL Routine 11/22/2024 6:33 AM CDT CBC W/DIFF AUTOMATED Routine 11/22/2024 6:33 AM CDT MAGNESIUM Routine 11/22/2024 6:33 AM CDT POCT GLUCOSE - DOCKED DEVICE Routine 11/22/2024 6:10 AM CDT POCT GLUCOSE - DOCKED DEVICE Routine 11/21/2024 8:37 PM CDT POCT GLUCOSE - DOCKED DEVICE Routine 11/21/2024 4:39 PM CDT POCT GLUCOSE - DOCKED DEVICE Routine 11/21/2024 11:34 AM CDT CBC W/DIFF AUTOMATED Routine 11/21/2024 6:05 AM CDT COMPREHENSIVE METABOLIC PANEL Routine 11/21/2024 6:05 AM CDT MAGNESIUM Routine 11/21/2024 6:05 AM CDT HEMOGLOBIN, GLYCOSYLATED Routine 11/21/2024 6:05 AM CDT POCT GLUCOSE - DOCKED DEVICE Routine 11/21/2024 5:53 AM CDT POCT GLUCOSE - DOCKED DEVICE Routine 11/20/2024 7:28 PM CDT POCT GLUCOSE - DOCKED DEVICE Routine 11/20/2024 4:35 PM CDT POCT GLUCOSE - DOCKED DEVICE Routine 11/20/2024 2:43 PM CDT USE ECHOCARDIOGRAM Today 11/20/2024 1: 56 PM CDT USV TEJINDER DUPLEX LOW EXT SUNDEEP STAT 11/20/2024 9:58 AM CDT POCT GLUCOSE - DOCKED DEVICE Routine 11/20/2024 9:00 AM CDT NM LUNG SCAN VENT+PERF STAT 8:52 AM CDT CBC W/DIFF AUTOMATED STAT 11/20/2024 5:22 AM CDT COMPREHENSIVE METABOLIC PANEL STAT 11/20/2024 5:22 AM CDT MAGNESIUM STAT 11/20/2024 5:22 AM CDT D-DIMER, QUANTITATIVE Routine 11/19/2024 8:56 PM CDT TROPONIN, QUANT STAT 11/19/2024 7:42 PM CDT XR CHEST PORTABLE STAT 11/19/2024 3:5 2 PM CDT ECG 12-LEAD Routine 11/19/2024 3:51 PM CDT PRO-BRAIN NATRIURETIC PEPTIDE STAT 11/19/2024 3:36 PM CDT TROPONIN, QUANT STAT 11/19/2024 3:36 PM CDT COMPREHENSIVE METABOLIC PANEL STAT 11/19/2024 3:36 PM CDT CBC W/DIFF AUTOMATED STAT 11/19/2024 3:36 PM CDT from Last 3 Months Results * (ABNORMAL) POCT glucose (11/26/2024 11:20 AM CDT) Only the most recent of27 resultswithin the time period is included. GLUCOSE POC 201(H) 70 - 99 mg/dL 11/26/2024 11:30 AM CDT [facility] 11/26/2024 11:2 0 AM CDT us Laura Shaffer MD POCT ORDERABLES - DEVICE Fin al Result [facility] [address] [place] [address], * (ABNORMAL) COMPREHENSIVE METABOLIC PANEL (11/26/2024 5:54 AM CDT) Only the most recent of8 resultswithin the time period is included. GLUCOSE 114(H) 70 - 99 MG/DL 11/26/2024 6:51 AM CDT [facility] BUN 21(H) 7 - 18 MG/DL 11/26/2024 6:51 AM CDT [facility] CREATININE S/P/B 0.61 0.55 - 1.02 MG/DL 11/26/2024 6:51 AM CDT [facility] SODIUM S/P/B 137 136 - 145 MMOL/L 11/26/2024 6:51 AM CDT [facility] POTASSIUM S/P/B 4.0 3.5 - 5.1 MMOL/L 11/26/2024 6:51 AM CDT [facility] CHLORIDE S/P/B 97 97 - 115 MMOL/L 11/26/2024 6:51 AM CDT [facility] CO2 37.8(H) 21 - 32 MMOL/L 11/26/2024 6:51 AM CDT [facility] CALCIUM S/P/B 9.0 8.5 - 10.1 MG/DL 11/26/2024 6:51 AM T [facility] BILIRUBIN TOTAL S/P/B 0.7 0.2 - 1.2 MG/DL 11/26/2024 6:51 AM T [facility] Comment: THIS ASSAY IS NOT RECOMMENDED FOR PATIENTS UNDERGOING TREATMENT WITH ELTROMBOPAG DUE TO THE POTENTIAL FOR FALSELY ELEVATED RESULTS. TOTAL PROTEIN S/P/B 5.5(L) 6.4 - 8.2 G/DL 11/26/2024 6:51 AM T [facility] ALBUMIN S/P/B 2.7(L) 3.4 - 5.0 G/DL 11/26/2024 6:51 AM T [facility] AST 16 15 - 37 U/L 11/26/2024 6:51 AM T [facility] ALT 24 14 - 55 U/L 11/26/2024 6:51 AM T [facility] ALKALINE PHOSPHATASE S/P/B 57 50 - 136 U/L 11/26/2024 6:51 AM [facility] ANION GAP 2.2 2 - 10 MMOL/L 11/26/2024 6:51 AM T [facility] BUN CREATININE RATIO 34.7(H) 6 - 11/26/2024 6:51 AM T [facility] A/G RATIO 1.0 1.0 - 2.0 RATIO 11/26/2024 6:51 AM T [facility] GFR ESTIMATE >90 >90 ML/MIN/1.7 3 M2 11/26/2024 6:51 AM T [facility] Comment: NOTE: eGFR is not calculated for patients <18 years of age or gender unknown. This is an estimated GFR calculation using the new CKD EPI creatinine equation without race and so does not require a correction factor for race. This estimated GFR should not be used for calculating drug doses. 11/26/2024 5:54 AM CDT Amy Sigala MD LABORATORY Final Resu lt Performing Organization Address [facility] Co de Phone Number [facility] [address] [place] [address], * (ABNORMAL) PRO-BRAIN NATRIURETIC PEPTIDE (11/23/2024 7:05 AM CDT) Only the most recent of2 resultswithin the time period is included. PRO-B TYPE NATRIURETIC PEPTIDE 555(H) <450 PG/ML 11/23/2024 9:12 AM CDT [facility] Comment: CUT POINTS ESTABLISHED BY [employer]NATIONAL [employer] ON NT PROBNP (ICON) STUDY (2006). AGE INDEPENDENT: <300 PG/ML HAS A 99% NEGATIVE PREDICTIVE VALUE FOR EXCLUDING ACUTE CHF <50 YEARS: >450 PG/ML IS CONSISTENT WITH ACUTE CHF 50-75 YEARS: >900 PG/ML IS CONSISTENT WITH ACUTE CHF >75 YEARS: >1800 PG/ML IS CONSISTENT WITH ACUTE CHF IN PATIENTS WITH RENAL INSUFFICIENCY (GFR <60), >1200 PG/ML YIELDS A DIAGNOSTIC SENSITIVITY AND SPECIFICITY OF 89% AND 72% FOR ACUTE CHF. 11/23/2024 7:05 AM CDT Grace Montano PEW[employer] FINISHER LABORATORY Final Result Performing Organization Address [facility] Co de Phone Number [facility] [address] [place] [address], * (ABNORMAL) CBC W/DIFF AUTOMATED (11/22/2024 6:33 AM CDT) Only the most recent of4 resultswithin the time period is included. WBC 5.52 4.5 - 11.0 x10'3/uL 11/22/2024 6:56 AM CDT [facility] RBC 4.45 4.20 - 5.40 x10'6/uL 11/22/2024 6:56 AM CDT [facility] HGB 10.8(L) 12.0 - 16.0 G/DL 11/22/2024 6:56 AM CDT [facility] HCT 36.0(L) 38.0 - 48.0 % 11/22/2024 6:56 AM CDT [facility] MCV 80.9(L) 81.0 - 99.0 FL 11/22/2024 6:56 AM CDT [facility] MCH 24.3(L) 27.0 - 31.0 PG 11/22/2024 6:56 AM CDT [facility] MCHC 30.0(L) 32.0 - 36.0 G/DL 11/22/2024 6:56 AM CDT [facility] RDW 14.9(H) 11.5 - 14.5 % 11/22/2024 6:56 AM CDT [facility] PLT 153 130 - 400 x10'3/uL 11/22/2024 6:56 AM CDT [facility] MPV 11.0 9.3 - 12.2 FL 11/22/2024 6:56 AM CDT [facility] DIFFERENTIAL TYPE AUTOMATED DIFFERENTIAL 11/22/2024 6:56 AM CDT [facility] NEUTROPHILS % 74.2 % 11/22/2024 6:56 AM CDT [facility] LYMPHOCYTES % 15.2 % 11/22/2024 6:56 AM CDT [facility] MONOCYTES % 8.2 % 11/22/2024 6:56 AM CDT [facility] EOSINOPHILS 1.8 % 11/22/2024 6:56 AM CDT [facility] BASOPHILS 0.4 % 11/22/2024 6:56 AM CDT [facility] IMMATURE GRANS % 0.2 % 11/23/19 6:56 AM CDT [facility] ABS. NEUTROPHILS 4.10 1.80 - 7.70 x10'3/uL 11/22/2024 6:56 AM CDT [facility] ABS. LYMPHOCYTES 0.84(L) 1.00 - 4.80 x10'3/uL 11/22/2024 6:56 AM CDT [facility] ABS. MONOCYTES 0.45 0.24 - 0.86 x10'3/uL 11/22/2024 6:56 AM CDT [facility] ABS. EOSINOPHILS 0.10 0.04 - 0.36 x10'3/uL 11/22/2024 6:56 AM CDT [facility] ABS. BASOPHILS 0.02 0.01 - 0.08 x10'3/uL 11/22/2024 6:56 AM CDT [facility] ABS. IMMATURE GRANULOCYTES 0.01 0.00 - 0.49 x10'3/uL 11/22/2024 6:56 AM CDT [facility] 11/22/2024 6:33 AM CDT us Amy Sigala MD LABORATORY Final Resu lt [facility] [address] [place] [address], * MAGNESIUM (11/22/2024 6:33 AM CDT) Only the most recent of3 resultswithin the time period is included. MAGNESIUM 2.2 1.8 - 2.4 MG/DL 11/22/2024 7:31 AM CDT [facility] 11/22/2024 6:33 AM CDT us Carrol Willis NP LABORATORY Final Result Performing Organization Address [facility] de Phone Number [facility] [address] [place] [address], * (ABNORMAL) HEMOGLOBIN, GLYCOSYLATED (11/21/2024 6:05 AM CDT) HGB A1C 9.1(H) <5.7 % 11/21/2024 7:59 AM CDT [facility] Comment: ADA GUIDELINES 2010 5.7 TO 6.4% INCREASED RISK OF DIABETES > OR = 6.5% CONSISTENT WITH DIABETES ESTIMATED AVG GLUCOSE 214 mg/dL 11/21/2024 7:59 AM CDT [facility] 11/21/2024 6:05 AM CDT us Carrol Willis NP LABORATORY Final Result Performing Organization Address [facility] de Phone Number [facility] [address] [place] [address], * USE ECHOCARDIOGRAM (11/20/2024 1:56 PM CDT) Anatomical Region Laterality Modality Cardiac Echocardiogram 11/20/2024 12:5 4 PM CDT Narrative 11/22/2024 7:40 AM CDT Echocardiography Report Pat.Name: KRISSY SILVA Pat.ID: [id number] .Date: 11/20/2024 Exam Time: 12:54:00 PM Study Type:ECHO WITH CARDIAC DOPPLER COMP Height: 62 in Weight: 164 lb BSA: 1.76 m2 Age: 9 1950,74Y Sex: F BP: 176/68 HR: 87 bpm Sonogrphr: Lucie Hernadez [facility] Pat. Stat.:Inpatient Room: 419 Reason for Study:Shortness of breath, Edema, Vascular congestion History / Clinical:bilateral lower extremity edema Procedures: 2D, M-mode, Doppler, Color Flow, The study quality is technically good. Race: W ++++++++++++++++++++++++++++++++++++ SUMMARY: ++++++++++++++++++++++++++++++++++++ The left ventricular size is normal. The left ventricular systolic function is normal. Estimated left ventricular ejection fraction is 65-70%. No concentric left ventricular hypertrophy. Left ventricular diastolic function is not reliably assessed. Wall motion appears normal in all segments. The right ventricular size is normal. Right ventricular systolic function is normal. No evidence of ventricular septal defect. Asymmetric hypertrophy of the left ventricular basal septum is noted. Inferior vena cava shows >50% collapse with respiration consistent with normal right atrial pressure. Trivial degree of prosthetic aortic valve stenosis. Mild mitral regurgitation. Calcified anterior and posterior mitral annulus. A trace of tricuspid regurgitation. Trivial pericardial effusion, without tamponade physiology. .Aortic valve prosthesis with normal function. ++++++++++++++++++++++++++++++++++++ FINDINGS: ++++++++++++++++++++++++++++++++++++ LV: The left ventricular size is normal. The left ventricular systolic function is normal. Estimated left ventricular ejection fraction is 65-70%. No concentric left ventricular hypertrophy. Left ventricular diastolic function is not reliably assessed. WM: Wall motion appears normal in all segments. RV: The right ventricular size is normal. Right ventricular systolic function is normal. IVS: No evidence of ventricular septal defect. Asymmetric hypertrophy of the left ventricular basal septum is noted. LA: The left atrial volume is moderately increased (42-48 ml/M2). RA: Right atrial size is normal. IAS: Atrial septum appears intact. KIRA: Circumferential pericardial effusion is noted. Trivial pericardial effusion, without tamponade physiology. AO: Normal aortic root. PA: Estimated right atrial pressure of 3 mmHg. SVn: Inferior vena cava shows >50% collapse with respiration consistent with normal right atrial pressure. AV: Bio prosthetic aortic valve seen. Aortic valve prosthesis with normal function. No evidence of kira-prosthetic aortic valve regurgitation. No evidence of central prosthetic aortic valve regurgitation. Trivial degree of prosthetic aortic valve stenosis. MV: Structurally normal mitral valve. Mild mitral regurgitation. Calcified anterior and posterior mitral annulus. TV: Structurally normal tricuspid valve. A trace of tricuspid regurgitation. No evidence of tricuspid valve stenosis. ++++++++++++++++++++++++++++++++++++ MEASUREMENTS: ++++++++++++++++++++++++++++++++++++ DOPPLER LVOT LVOTpkPG 6.68 mmHg LVOTmnPG 3.97 mmHg LVOTpkVel 129 cm/s (70-110)+* LVOT CO 6.03 l/min LVOT TVI 30.3 cm AV Forward Flow AV AC/ET 0.307 AV pkPG 21.5 mmHg AV mnPG 13.4 mmHg Area (TVI) 0.792 cm2 (3-5)* AV AT 88 msec (83-118)+ Area (Mihai) 0.735 cm2 (3-5)* AV ET 287 msec MV Forward Flow MV DeTm 195 msec MV E/A 1.15 MVA P1/2t 3.9 cm2 (4-6)* MV pkE 152 cm/s (60-130)* MV P1/2t 56 msec (30-60) MV pkA 132 cm/s MV Regurg Flow MV TVI 170 cm MV pkPG 126 mmHg MV mnPG 98.3 mmHg MV pkVel 562 cm/s (60-130)+* PV Regurg Flow PV pkVel 143 cm/s TV Regurg Flow TV pkPG 39.9 mmHg TV pkVel 316 cm/s (30-70)+* Lat E' Lat e 9.39 cm/s Lat E/E' Lat E/e 16.2 Med E' Med e 6.06 cm/s Med E/E' Med E/e 25.1 Aortic Valve Mean Velocity 175 cm/s AV TVI 50.4 cm Peak Velocity 232 cm/s AV Continuity Equation by Peak Velocity Area 1.29 cm2 AV Continuity Equation by Velocity Time Integral Area 1.39 cm2 Left Ventricle Left Ventricula 197 mmHg Composite heart 86 bpm Mitral Annulus PG mean 4.28 mmHg VTI 0.399 m Mitral Valve Decel [place] 773 cm/s2 Mitral Valve A 0.867 HR 84 bpm Pulmonic Valve AC 84.9 millisecond Peak Velocity 116 cm/s PG pk 5.35 mmHg PV Regurgitant Flow Peak Gradient ( 8.23 mmHg Tricuspid Valve HR 85 bpm TV Free Wall Sa 13.3 cm/s 2D Left Ventricle LV CI 3.15 l/m/m2 LV vol d MOD A4 2.55 cm LVIDd 4.14 cm (4.3-5.1)* LV vol d MOD A4 3.76 cm LVIDs 2.18 cm (2-4) LV vol d MOD A4 4.13 cm LV%fs 47.3 % (25-46)* LV vol d MOD A4 4.17 cm LV CI 2.71 l/m/m2 LV vol d MOD A4 4.11 cm LV CI 3.2 l/m/m2 LV vol d MOD A4 3.96 cm LV CO 4.76 l/min LV vol d MOD A4 3.76 cm LV CO 5.63 l/min LV vol d MOD A4 3.52 cm LV CO BP 5.1 l/min LV vol d MOD A4 3.23 cm LV SV 53.5 ml LV vol d MOD A4 2.77 cm LV SV 64.7 ml LV vol d MOD A4 2.14 cm LV SV BP 57.9 ml LV vol d MOD A4 1.29 cm Left Ventricle 7.75 cm LV vol d MOD A4 4.17 cm Left Ventricle 7.78 cm LV vol d MOD A4 4.44 cm LV Semi-major A 6.4 cm LV vol d MOD A4 4.39 cm Left Ventricle 6.87 cm LV vol d MOD A4 4.35 cm Left Ventricle 6.13 cm LV vol d MOD A4 4.24 cm Left Ventricle 6.87 cm LV vol d MOD A4 4.22 cm LV Trunc Semi-m 1.39 cm LV vol d MOD A4 4.2 cm LV Area alvarado 26.3 cm2 LV vol d MOD A4 4.13 cm LV Area alvarado 29 cm2 LV vol s MOD A2 1.94 cm LVA% 51.8 % LV vol s MOD A2 2.58 cm LVA% 58.4 % LV vol s MOD A2 1.96 cm LV Area sys 12.7 cm2 LV vol s MOD A2 1.92 cm LV Area sys 12.1 cm2 LV vol s MOD A2 1.82 cm LV EF 72.4 % LV vol s MOD A2 1.71 cm LV EF 74.5 % LV vol s MOD A2 1.45 cm LV EF BP 72.2 % LV vol s MOD A2 1.2 cm LV EDV 73.9 ml LV vol s MOD A2 1.02 cm LV EDV 86.9 ml LV vol s MOD A2 0.874 cm LVEDV BP 45.6 ml LV vol s MOD A2 0.644 cm LV ESV 20.4 ml LV vol s MOD A2 0.258 cm LV ESV 22.2 ml LV vol s MOD A2 2.56 cm LVESV BP 12.7 ml LV vol s MOD A2 2.56 cm LV Mass 0.794 g/cm LV vol s MOD A2 2.49 cm Composite heart 89 bpm LV vol s MOD A2 2.46 cm Composite heart 87 bpm LV vol s MOD A2 2.44 cm Composite heart 92 bpm LV vol s MOD A2 2.3 cm Composite heart 88 bpm LV vol s MOD A2 2.13 cm Composite heart 92 bpm LV vol s MOD A2 2.11 cm LV vol d MOD A2 2.91 cm LV vol s MOD A4 3.06 cm LV vol d MOD A2 3.76 cm LV vol s MOD A4 3.27 cm LV vol d MOD A2 3.83 cm LV vol s MOD A4 1.84 cm LV vol d MOD A2 3.76 cm LV vol s MOD A4 1.78 cm LV vol d MOD A2 3.64 cm LV vol s MOD A4 1.76 cm LV vol d MOD A2 3.49 cm LV vol s MOD A4 1.66 cm LV vol d MOD A2 3.42 cm LV vol s MOD A4 1.49 cm LV vol d MOD A2 3.23 cm LV vol s MOD A4 1.29 cm LV vol d MOD A2 2.82 cm LV vol s MOD A4 1.08 cm LV vol d MOD A2 2.26 cm LV vol s MOD A4 0.859 cm LV vol d MOD A2 1.58 cm LV vol s MOD A4 0.675 cm LV vol d MOD A2 0.891 cm LV vol s MOD A4 0.326 cm LV vol d MOD A2 3.97 cm LV vol s MOD A4 3.25 cm LV vol d MOD A2 3.93 cm LV vol s MOD A4 3.06 cm LV vol d MOD A2 3.95 cm LV vol s MOD A4 2.8 cm LV vol d MOD A2 4.04 cm LV vol s MOD A4 2.59 cm LV vol d MOD A2 4.02 cm LV vol s MOD A4 2.43 cm LV vol d MOD A2 3.99 cm LV vol s MOD A4 2.2 cm LV vol d MOD A2 4.02 cm LV vol s MOD A4 2.08 cm LV vol d MOD A2 4 cm LV vol s MOD A4 1.92 cm LVPW LVPWd 1.08 cm Left Atrium LA VOLBP 70.3 ml Major Norwood (Sys 5.53 cm Snyder Disk Nu 9 Major Norwood (Sys 6.58 cm Ratios IVS Ventricular Septum IVSd 0.82 cm Aorta AO Ds 2.87 cm LV Area-Length Biplane LVEDV 83.5 ml LVESV 19 ml LV Area-Length Single Plane LVEDV 75.9 ml LVESV 19.9 ml LVEDV 92.1 ml LVESV 20.2 ml LVOT LVOTArea 2.32 cm2 Cardiovascular 1.72 cm Pulmonary Veins Pul Vn A Dur 91.2 millisecond Pul Vn sys Vmax 71.6 cm/s Pul Vein Atrial 24.2 cm/s Pul Vn sys/alvarado 1.16 Pul Vn Alvarado Pk 61.8 cm/s Right Atrium Major Norwood (Sys 4.9 cm Snyder Disk Nu 9 HR 97 bpm RA Area-Length Single Plane Volume (Systole 25.1 ml/m2 RA Single Plane RA sys Area 15.9 cm2 Volume (Systole 41.9 ml Right Ventricle RVIDd 2.86 cm HR 97 bpm Major Norwood (Harini 6.86 cm Minor Norwood (Harini 2.91 cm TA Cardiovascular 3.93 cm MMODE Left Ventricle Heart Rate-Sarah 427 millisecond Composite HR fo 88 bpm Composite heart 88 bpm Tricuspid Valve Tricuspid annul 2 cm <Electronic Signature> 11/22/2024 07:40 AM Chava Rubio M.D. Procedure Note Chava Rubio MD - 11/22/2024 Echocardiography Report Pat.Name: KRISSY SILVA Pat.ID: [id number] .Date: 11/20/2024 Exam Time: 12:54:00 PM Study Type:ECHO WITH CARDIAC DOPPLER COMP Height: 62 in Weight: 164 lb BSA: 1.76 m2 Age: 9 1950,74Y Sex: F BP: 176/68 HR: 87 bpm Sonogrphr: Lucie Hernadez [facility] Pat. Stat.:Inpatient Room: [facility] Reason for Study:Shortness of breath, Edema, Vascular congestion History / Clinical:bilateral lower extremity edema Procedures: 2D, M-mode, Doppler, Color Flow, The study quality is technically good. Race: W ++++++++++++++++++++++++++++++++++++ SUMMARY: ++++++++++++++++++++++++++++++++++++ The left ventricular size is normal. The left ventricular systolic function is normal. Estimated left ventricular ejection fraction is 65-70%. No concentric left ventricular hypertrophy. Left ventricular diastolic function is not reliably assessed. Wall motion appears normal in all segments. The right ventricular size is normal. Right ventricular systolic function is normal. No evidence of ventricular septal defect. Asymmetric hypertrophy of the left ventricular basal septum is noted. Inferior vena cava shows >50% collapse with respiration consistent with normal right atrial pressure. Trivial degree of prosthetic aortic valve stenosis. Mild mitral regurgitation. Calcified anterior and posterior mitral annulus. A trace of tricuspid regurgitation. Trivial pericardial effusion, without tamponade physiology. .Aortic valve prosthesis with normal function. ++++++++++++++++++++++++++++++++++++ FINDINGS: ++++++++++++++++++++++++++++++++++++ LV: The left ventricular size is normal. The left ventricular systolic function is normal. Estimated left ventricular ejection fraction is 65-70%. No concentric left ventricular hypertrophy. Left ventricular diastolic function is not reliably assessed. WM: Wall motion appears normal in all segments. RV: The right ventricular size is normal. Right ventricular systolic function is normal. IVS: No evidence of ventricular septal defect. Asymmetric hypertrophy of the left ventricular basal septum is noted. LA: The left atrial volume is moderately increased (42-48 ml/M2). RA: Right atrial size is normal. IAS: Atrial septum appears intact. KIRA: Circumferential pericardial effusion is noted. Trivial pericardial effusion, without tamponade physiology. AO: Normal aortic root. PA: Estimated right atrial pressure of 3 mmHg. SVn: Inferior vena cava shows >50% collapse with respiration consistent with normal right atrial pressure. AV: Bio prosthetic aortic valve seen. Aortic valve prosthesis with normal function. No evidence of kira-prosthetic aortic valve regurgitation. No evidence of central prosthetic aortic valve regurgitation. Trivial degree of prosthetic aortic valve stenosis. MV: Structurally normal mitral valve. Mild mitral regurgitation. Calcified anterior and posterior mitral annulus. TV: Structurally normal tricuspid valve. A trace of tricuspid regurgitation. No evidence of tricuspid valve stenosis. ++++++++++++++++++++++++++++++++++++ MEASUREMENTS: ++++++++++++++++++++++++++++++++++++ DOPPLER LVOT LVOTpkPG 6.68 mmHg LVOTmnPG 3.97 mmHg LVOTpkVel 129 cm/s (70-110)+* LVOT CO 6.03 l/min LVOT TVI 30.3 cm AV Forward Flow AV AC/ET 0.307 AV pkPG 21.5 mmHg AV mnPG 13.4 mmHg Area (TVI) 0.792 cm2 (3-5)* AV AT 88 msec (83-118)+ Area (Mihai) 0.735 cm2 (3-5)* AV ET 287 msec MV Forward Flow MV DeTm 195 msec MV E/A 1.15 MVA P1/2t 3.9 cm2 (4-6)* MV pkE 152 cm/s (60-130)* MV P1/2t 56 msec (30-60) MV pkA 132 cm/s MV Regurg Flow MV TVI 170 cm MV pkPG 126 mmHg MV mnPG 98.3 mmHg MV pkVel 562 cm/s (60-130)+* PV Regurg Flow PV pkVel 143 cm/s TV Regurg Flow TV pkPG 39.9 mmHg TV pkVel 316 cm/s (30-70)+* Lat E' Lat e 9.39 cm/s Lat E/E' Lat E/e 16.2 Med E' Med e 6.06 cm/s Med E/E' Med E/e 25.1 Aortic Valve Mean Velocity 175 cm/s AV TVI 50.4 cm Peak Velocity 232 cm/s AV Continuity Equation by Peak Velocity Area 1.29 cm2 AV Continuity Equation by Velocity Time Integral Area 1.39 cm2 Left Ventricle Left Ventricula 197 mmHg Composite heart 86 bpm Mitral Annulus PG mean 4.28 mmHg VTI 0.399 m Mitral Valve Decel [place] 773 cm/s2 Mitral Valve A 0.867 HR 84 bpm Pulmonic Valve AC 84.9 millisecond Peak Velocity 116 cm/s PG pk 5.35 mmHg PV Regurgitant Flow Peak Gradient ( 8.23 mmHg Tricuspid Valve HR 85 bpm TV Free Wall Sa 13.3 cm/s 2D Left Ventricle LV CI 3.15 l/m/m2 LV vol d MOD A4 2.55 cm LVIDd 4.14 cm (4.3-5.1)* LV vol d MOD A4 3.76 cm LVIDs 2.18 cm (2-4) LV vol d MOD A4 4.13 cm LV%fs 47.3 % (25-46)* LV vol d MOD A4 4.17 cm LV CI 2.71 l/m/m2 LV vol d MOD A4 4.11 cm LV CI 3.2 l/m/m2 LV vol d MOD A4 3.96 cm LV CO 4.76 l/min LV vol d MOD A4 3.76 cm LV CO 5.63 l/min LV vol d MOD A4 3.52 cm LV CO BP 5.1 l/min LV vol d MOD A4 3.23 cm LV SV 53.5 ml LV vol d MOD A4 2.77 cm LV SV 64.7 ml LV vol d MOD A4 2.14 cm LV SV BP 57.9 ml LV vol d MOD A4 1.29 cm Left Ventricle 7.75 cm LV vol d MOD A4 4.17 cm Left Ventricle 7.78 cm LV vol d MOD A4 4.44 cm LV Semi-major A 6.4 cm LV vol d MOD A4 4.39 cm Left Ventricle 6.87 cm LV vol d MOD A4 4.35 cm Left Ventricle 6.13 cm LV vol d MOD A4 4.24 cm Left Ventricle 6.87 cm LV vol d MOD A4 4.22 cm LV Trunc Semi-m 1.39 cm LV vol d MOD A4 4.2 cm LV Area alvarado 26.3 cm2 LV vol d MOD A4 4.13 cm LV Area alvarado 29 cm2 LV vol s MOD A2 1.94 cm LVA% 51.8 % LV vol s MOD A2 2.58 cm LVA% 58.4 % LV vol s MOD A2 1.96 cm LV Area sys 12.7 cm2 LV vol s MOD A2 1.92 cm LV Area sys 12.1 cm2 LV vol s MOD A2 1.82 cm LV EF 72.4 % LV vol s MOD A2 1.71 cm LV EF 74.5 % LV vol s MOD A2 1.45 cm LV EF BP 72.2 % LV vol s MOD A2 1.2 cm LV EDV 73.9 ml LV vol s MOD A2 1.02 cm LV EDV 86.9 ml LV vol s MOD A2 0.874 cm LVEDV BP 45.6 ml LV vol s MOD A2 0.644 cm LV ESV 20.4 ml LV vol s MOD A2 0.258 cm LV ESV 22.2 ml LV vol s MOD A2 2.56 cm LVESV BP 12.7 ml LV vol s MOD A2 2.56 cm LV Mass 0.794 g/cm LV vol s MOD A2 2.49 cm Composite heart 89 bpm LV vol s MOD A2 2.46 cm Composite heart 87 bpm LV vol s MOD A2 2.44 cm Composite heart 92 bpm LV vol s MOD A2 2.3 cm Composite heart 88 bpm LV vol s MOD A2 2.13 cm Composite heart 92 bpm LV vol s MOD A2 2.11 cm LV vol d MOD A2 2.91 cm LV vol s MOD A4 3.06 cm LV vol d MOD A2 3.76 cm LV vol s MOD A4 3.27 cm LV vol d MOD A2 3.83 cm LV vol s MOD A4 1.84 cm LV vol d MOD A2 3.76 cm LV vol s MOD A4 1.78 cm LV vol d MOD A2 3.64 cm LV vol s MOD A4 1.76 cm LV vol d MOD A2 3.49 cm LV vol s MOD A4 1.66 cm LV vol d MOD A2 3.42 cm LV vol s MOD A4 1.49 cm LV vol d MOD A2 3.23 cm LV vol s MOD A4 1.29 cm LV vol d MOD A2 2.82 cm LV vol s MOD A4 1.08 cm LV vol d MOD A2 2.26 cm LV vol s MOD A4 0.859 cm LV vol d MOD A2 1.58 cm LV vol s MOD A4 0.675 cm LV vol d MOD A2 0.891 cm LV vol s MOD A4 0.326 cm LV vol d MOD A2 3.97 cm LV vol s MOD A4 3.25 cm LV vol d MOD A2 3.93 cm LV vol s MOD A4 3.06 cm LV vol d MOD A2 3.95 cm LV vol s MOD A4 2.8 cm LV vol d MOD A2 4.04 cm LV vol s MOD A4 2.59 cm LV vol d MOD A2 4.02 cm LV vol s MOD A4 2.43 cm LV vol d MOD A2 3.99 cm LV vol s MOD A4 2.2 cm LV vol d MOD A2 4.02 cm LV vol s MOD A4 2.08 cm LV vol d MOD A2 4 cm LV vol s MOD A4 1.92 cm LVPW LVPWd 1.08 cm Left Atrium LA VOLBP 70.3 ml Major Norwood (Sys 5.53 cm Snyder Disk Nu 9 Major Norwood (Sys 6.58 cm Ratios IVS Ventricular Septum IVSd 0.82 cm Aorta AO Ds 2.87 cm LV Area-Length Biplane LVEDV 83.5 ml LVESV 19 ml LV Area-Length Single Plane LVEDV 75.9 ml LVESV 19.9 ml LVEDV 92.1 ml LVESV 20.2 ml LVOT LVOTArea 2.32 cm2 Cardiovascular 1.72 cm Pulmonary Veins Pul Vn A Dur 91.2 millisecond Pul Vn sys Vmax 71.6 cm/s Pul Vein Atrial 24.2 cm/s Pul Vn sys/alvarado 1.16 Pul Vn Alvarado Pk 61.8 cm/s Right Atrium Major Norwood (Sys 4.9 cm Snyder Disk Nu 9 HR 97 bpm RA Area-Length Single Plane Volume (Systole 25.1 ml/m2 RA Single Plane RA sys Area 15.9 cm2 Volume (Systole 41.9 ml Right Ventricle RVIDd 2.86 cm HR 97 bpm Major Norwood (Harini 6.86 cm Minor Norwood (Harini 2.91 cm TA Cardiovascular 3.93 cm MMODE Left Ventricle Heart Rate-Sarah 427 millisecond Composite HR fo 88 bpm Composite heart 88 bpm Tricuspid Valve Tricuspid annul 2 cm <Electronic Signature> 11/22/2024 07:40 AM Chava Rubio M.D. Mckenzie Smith MOLD TECHNICIAN ECHO Final Result * USV TEJINDER DUPLEX LOW EXT SUNDEEP (11/20/2024 9:58 AM CDT) Anatomical Region Laterality Modality Extremity Vascular Ultraso und 11/20/2024 9:38 AM CDT Narrative 11/20/2024 11:18 PM CDT VENOUS DUPLEX IMAGING BILATERAL LOWER EXTREMITY VASCULAR LAB Pat.Name: RICARDO KRISSY Pat.ID: [id number] St.Date: 11/20/2024 Exam Time: 9:38:00 AM Study Type:TIESHA VS Venous Duplex Legs SUNDEEP Age: 9 1950,74Y Sex: F Sonogrphr: Chava Araiza Gt Pat. Stat.:Inpatient Room: ER 10 History / Clinical:bilateral lower extremity edema Procedures: Gandhi scale, Color Doppler imaging, Doppler Spectral Analysis Race: W ++++++++++++++++++++++++++++++++++++ SUMMARY: ++++++++++++++++++++++++++++++++++++ Right leg: There are NO apparent, deep or superficial vein, ACUTE character venous filling defects visualized in the femoral, popliteal, deep calf or proximal saphenous veins. Resting venous flow is normal phasic proximally. Left leg: There are NO apparent, deep or superficial vein, ACUTE character venous filling defects visualized in the femoral, popliteal, deep calf or proximal saphenous veins. Resting venous flow is normal phasic proximally. CONCLUSION: No evidence of deep vein thrombosis in the bilateral lower extremities. <Electronic Signature> 11/20/2024 11:18 PM Giovanna Nuñez M.D. Procedure Note Giovanna Nuñez MD - 11/20/2024 VENOUS DUPLEX IMAGING BILATERAL LOWER EXTREMITY VASCULAR LAB Pat.Name: KRISSY SILVA Pat.ID: [id number] St.Date: 11/20/2024 Exam Time: 9:38:00 AM Study Type:TIESHA VS Venous Duplex Legs SUNDEEP Age: 9 1950,74Y Sex: F Sonogrphr: Chava Araiza RVT Pat. Stat.:Inpatient Room: ER 10 History / Clinical:bilateral lower extremity edema Procedures: Gandhi scale, Color Doppler imaging, Doppler Spectral Analysis Race: W ++++++++++++++++++++++++++++++++++++ SUMMARY: ++++++++++++++++++++++++++++++++++++ Right leg: There are NO apparent, deep or superficial vein, ACUTE character venous filling defects visualized in the femoral, popliteal, deep calf or proximal saphenous veins. Resting venous flow is normal phasic proximally. Left leg: There are NO apparent, deep or superficial vein, ACUTE character venous filling defects visualized in the femoral, popliteal, deep calf or proximal saphenous veins. Resting venous flow is normal phasic proximally. CONCLUSION: No evidence of deep vein thrombosis in the bilateral lower extremities. <Electronic Signature> 11/20/2024 11:18 PM Giovanna Nuñez M.D. us Carrol Willis [facility] Final Result * NM LUNG SCAN VENT+PERF (11/20/2024 8:52 AM CDT) Anatomical Region Laterality Modality Chest Nuclear Medicine 11/20/2024 9:18 AM CDT Impressions 11/20/2024 9:26 AM CDT IMPRESSION: 1. Low likelihood ratio for acute pulmonary embolism. 2. Significant hypoventilation, greatest at the lung bases, and markedly heterogeneous pulmonary perfusion. There is significant air trapping which is greatest at the lung bases as well. Findings may be secondary to underlying pulmonary emphysema/COPD. Ordered By: CARROL WILLIS Interpreted By: Allegra Callahan MD, 11/20/2024 9:18 AM Narrative 11/20/2024 9:26 AM CDT [address] [address] EXAMINATION: VENTILATION-PERFUSION SCINTIGRAPHY DATE OF STUDY: 11/20/2024 RADIOPHARMACEUTICAL: Ventilation: 15.6 mCi Xe-133 gas by inhalation Perfusion: 5.3 mCi Tc-99m MAA i.v. HISTORY: Shortness of breath, elevated d-dimer COMPARISON: No prior ventilation perfusion scintigraphy FINDINGS: The comparison chest radiograph performed on 11/19/2024 demonstrates no pulmonary infiltrates or pleural fluid. Right shoulder arthroplasty. TAVR. The Xe-133 ventilation images show marked hypoventilation in the left lower lobe and right lung base on initial breath imaging with additional areas of hypoventilation on the right midlung laterally and at the right lung apex. There is abnormal Xe-133 retention during the washout phase which is relatively diffuse and greatest in the lower lobes. The perfusion images show a markedly heterogeneous distribution of pulmonary perfusion. Overall perfusion appears better than initial breath ventilation. There is relative oligemia throughout the lower lobes with an area of oligemia along the right midlung and right lung apex matching areas of hypoventilation. Photopenic defect from the patient's right shoulder arthroplasty noted on several views. No definite moderate or large unmatched segmental defect. Procedure Note Allegra Callahan MD - 11/20/[address] [address] EXAMINATION: VENTILATION-PERFUSION SCINTIGRAPHY DATE OF STUDY: 11/20/2024 RADIOPHARMACEUTICAL: Ventilation: 15.6 mCi Xe-133 gas by inhalation Perfusion: 5.3 mCi Tc-99m MAA i.v. HISTORY: Shortness of breath, elevated d-dimer COMPARISON: No prior ventilation perfusion scintigraphy FINDINGS: The comparison chest radiograph performed on 11/19/2024demonstrates no pulmonary infiltrates or pleural fluid. Right shoulderarthroplasty. TAVR. The Xe-133 ventilation images show markedhypoventilation in the left lower lobe and right lung base on initialbreath imaging with additional areas of hypoventilation on the rightmidlung laterally and at the right lung apex. There is abnormal Xe- 133retention during the washout phase which is relatively diffuse andgreatest in the lower lobes. The perfusion images show a markedlyheterogeneous distribution of pulmonary perfusion. Overall perfusionappears better than initial breath ventilation. There is relative oligemiathroughout the lower lobes with an area of oligemia along the rightmidlung and right lung apex matching areas of hypoventilation. Photopenicdefect from the patient's right shoulder arthroplasty noted on severalviews. No definite moderate or large unmatched segmental defect. IMPRESSION: 1. Low likelihood ratio for acute pulmonary embolism. 2. Significant hypoventilation, greatest at the lung bases, and markedlyheterogeneous pulmonary perfusion. There is significant air trapping whichis greatest at the lung bases as well. Findings may be secondary tounderlying pulmonary emphysema/COPD. Ordered By: CARROL WILLIS Interpreted By: Allegra Callahan MD, 11/20/2024 9:18 AM Carrol Willis MOLD TECHNICIAN [facility] Final Result * (ABNORMAL) D-DIMER, QUANTITATIVE (11/19/2024 8:56 PM CDT) D-DIMER 1,433(HH) 0 - 500 ng{FEU}/mL 11/19/2024 9:27 PM CDT [facility] Comment: D-Dimer values less than or equal to 500 ng/mL FEU have a negative predictive value of >95% for exclusion of deep vein thrombosis and pulmonary embolism. In patients over 50 (who tend to have higher normal baseline D-Dimer values), recent studies suggest age-adjusted D-Dimer cutoff values (calculated as: age [years] x 10 ng/mL) result in equivalent outcomes and no additional false negative findings. Successful Call: DDIMR called 11/19/2024 09:28 PM to ROOM [id number] ([id number]/VANDANA ONTIVEROS) by [id number]. Read Back: Yes 11/19/2024 8:56 PM CDT Ishaan Sahni DO LABORATORY Final Result [facility] [address] [place] [address], * TROPONIN, QUANT (11/19/2024 7:42 PM CDT) Only the most recent of2 resultswithin the time period is included. TROPONIN I HIGH SENSITIVITY 39 <54 ng/L 11/19/2024 8:24 PM CDT [facility] Comment: HIGH DOSES OF BIOTIN, TROPONIN-SPECIFIC AUTOANTIBODIES, AND ANTIBODY THERAPY CONTAINING HAMA MAY INTERFERE WITH THIS TEST RESULT. CORRELATION TO CLINICAL HISTORY AND PRESENTATION RECOMMENDED. 11/19/2024 7:42 PM CDT Ishaan Sahni DO LABORATORY Final Result Performing Organization Address [facility] Co de Phone Number [facility] [address] [place] [address], [place] [phone] * XR CHEST PORTABLE (11/19/2024 3:52 PM CDT) Anatomical Region Laterality Modality Chest Radiographic Sharlene ging 11/19/2024 3:54 PM CDT Impressions 11/19/2024 3:54 PM CDT IMPRESSION: No acute findings Ordered By: MARISOL COLEMAN Interpreted By: Richard Egan MD, 11/19/2024 3:54 PM Narrative 11/19/2024 3:54 PM CDT [facility] [address] [place], [place] [address] SINGLE VIEW OF THE CHEST Clinical history: Shortness of breath Comparison: None A single view of the chest demonstrates the cardiac silhouette to be normal in overall size. A TAVR prosthesis resides in the expected position. The pulmonary vessels appear normal. The Lungs are clear. No consolidations or effusions are seen. Procedure Note Richard Egan MD - 11/19/[address] [address] SINGLE VIEW OF THE CHEST Clinical history: Shortness of breath Comparison: None A single view of the chest demonstrates the cardiac silhouette to benormal in overall size. A TAVR prosthesis resides in the expectedposition. The pulmonary vessels appear normal. The Lungs are clear. Noconsolidations or effusions are seen. 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1950 Requested By: MARISOL COLEMAN Order Number: [id number] Reading MD: Jyoti Obrien Measurements Intervals Norwood Rate: 109 P: 63 AR: 113 QRS: 58 QRSD: 90 T: 55 QT: 309 QTc: 417 Interpretive Statements SINUS TACHYCARDIA WITH SHORT AR INTERVAL MINIMAL ST DEPRESSION [0.025+ mV ST DEPRESSION] Baseline artifact ABNORMAL RHYTHM ECG No previous ECG available for comparison us Marisol Coleman PA ECG ORDERABLES Final Resul t [facility] RAD from Last 3 Months Insurance MEDICARE [facility] Advance Directives * Full Code (Latest Code Status on File) Date Activated Date Inactivated Comments 11/20/2024 12:24 AM 11/26/2024 2:44 PM Care Teams Warehouse Distribution Specialist Relationship Specialty Start Date End Date Velasquez Baltazar MD [address] [place] [address] PCP - General INTERNAL MEDICINE 11/25/24
--- OUTSIDE RECORDS SUMMARY | 2024-12-02 16:44 | XMS_ITS | Continuity of Care Document ---
Author Organization [facility] Address [address] [place] [address] Phone Care Team Providers Care Paper Cleaner Name Role Phone Troy Eden Unavailable Unavailable Procedures Procedure Date Eye Exam Established Pt Ophthalmoscopy, Subsequent Ophthalmoscopy, Subsequent Office Consultation Ophthalmoscopy Ophthalmoscopy Office/outpatient Visit, Est Eye Exam & Treatment Advance Directives Directive Yes / No Effective Date File Name No Information Encounters Encounter Description Practice Location Reason(s) For Visit Diagnoses Date Provider Providers Copied on Encounter [facility], [address] [place] [address] [address], [place], [place], [id number], tel:[phone] [facility] No Information Aug-0 2-201 0 Karey Simmons. [address] [place], [address], [place]. tel:[phone] Office Consultation [facility], [address] [place] [address] [address], [place], [place], [id number], [place] tel:[phone] [facility] No Information Aug-0 3-200 9 Karey Simmons. [address] [place], [address], [place]. tel:[phone] Referring Provider: Ryan Richardson OD A, [address], [place], [place], [facility]. tel:[phone] Office/outpati ent Visit, Est [facility], [address], [place], [place], [id number], [place] tel:[phone] [facility] No Information 3-200 9 Richardson OD Ryan. [address] , [address], [place], [address], [place]. tel:[phone] [facility], [address], [place], [place], [id number], [place] tel:[phone] [facility] No Information 2-200 9 Richardson OD Ryan. [address] , [address], [place], [address], [place]. tel:[phone] Family History Family Member Type Diagnosis Age At Onset No Information Payers Payer name Insurance type Covered green party ID Authoriza tion(s) No Information Social [...]
--- OUTSIDE RECORDS SUMMARY | 2024-12-02 16:44 | XMS_ITS | Referral Summary ---
Author Organization [facility] [address] Address [address] [place] [address] Care Team Providers Care Clinical Rehab Specialist Name Role Phone Vitaly Frye MD Primary Care Provider [phone] Vitaly Antoine MD Unavailable [phone] Yao Al MD Unavailable [phone] Encounters Date Type Department Care Team Description 10/08/2024 10:50 AM CDT - 10/08/2024 11:59 PM CDT Hospital Encounter [facility] [address] [place] [address] Status post reverse arthroplasty of right shoulder Discharge Disposition: Discharge to home or self care 10/08/2024 11:15 AM CDT Office Visit [facility] Orthopaedic Surgery [address] [place] [address] 2nd Floor [address] [place] [address] Kylah Kirkpatrick MD Status post reverse arthroplasty of right shoulder (Primary Dx) 09/10/2024 11:06 AM CDT - 09/10/2024 11:59 PM CDT Hospital Encounter [facility] [address] [place] [address] Kylah Kirkpatrick MD Status post orthopedic surgery, follow-up exam Discharge Disposition: Discharge to home or self care 09/10/2024 11:15 AM CDT Office Visit [facility] Orthopaedic Surgery [address] 2nd Floor [address] [place] [address] Kylah Kirkpatrick MD Status post reverse arthroplasty of right shoulder (Primary Dx); Status post orthopedic surgery, follow-up exam 09/08/2024 2:30 PM CDT Office Visit [facility] Cardiology [address] [place] [address] Gilda Terrazas NP Mixed hyperlipidemia (Primary Dx); Hypertension, unspecified type; Status post transcatheter aortic valve replacement (TAVR) using bioprosthesis; Diastolic dysfunction 09/02/2024 Telephone [facility] Orthopaedic Surgery [address] [facility] 12th [place] [address] [place] [id number] Kylah Kirkpatrick MD from Last 3 Months Allergies Active Allergy [...] 08/06/2023 Assessment & Plan (08/01/2024 2:17 PM DREDGEMASTER): S/p TAVR 1 year ago. The valve [...] visit. Assessment & Plan (06/22/2019 12:23 PM DREDGEMASTER): Patient has mild to moderate carotid stenosis [...] 06/22/2019 Assessment & Plan (06/22/2019 12:23 PM DREDGEMASTER): Per patient she has been diagnosed with [...] provider. Assessment & Plan (06/22/2019 12:24 PM DREDGEMASTER): Per patient blood sugars well controlled. Continue [...] from the original. Diagnosis: SHAH; HCC Referring Chief Bank Examiner: Danilo Arizmendi MELD: 01/22 Blood Type: A pos BMI: 30 Short H/P summary: DM type II since 1992: Htn x 8 years. Quit smoking 4 years ago; >1 ppd X 40 years. 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 Evaluation Testing Date and Results: Labs: 08/16/2016 A1c-12.6: Glucose-360: Chol-180 HDL-41: LDL-98: Triglycerides- 206: Serologies: CMV: Tox Screen-Neg: Alpha 1 Anti: AFP: Ud79-1-95: Ceruloplasmin: LEE: Anti Smooth muscle ab: Mitochondrial: [...] abscess. Dictated by Inga Boudreaux MD (residential treatment specialist). This report was approved by Inga Boudreaux [...] 05/11/2016. Dictated by Miguelina Price MD (residential treatment specialist). This report was approved by Miguelina Price [...] (volume index 56 ml/M2). No evidence of ktnic-il-iwgc shunt with bubble study. 7. The right [...] pulmonary disease (COPD) regimen as per Emmanuel Steward Racetrack: A. Salmeterol/fluticasone (Advair) 250 mcg 1 puff [...] 2 L/min side flow as per Emmanuel Steward [employer]etrack 3. Her very severe COPD may preclude her from liver transplantation 4. Follow-up with results Sourav Lai MD, [facility], [facility], [facility] Burr Filer, [facility] Lacquer Spray Booth Operator of Internal Medicine Division of Pulmonary, Critical Care, and Sleep Medicine [facility] EGD: 02/15/15 In the [...] Recommendations/Interventions: 1. Pt needs to see an Punch Machine Operator as she currently does not. 2. [...] 11/30/2020 How often do you attend [employer]ur [employer] or synagogue services? Never 11/30/2020 Do you belong to any clubs o r organizations such as anglican groups, unions, fraternal or athletic groups, or [...] on file Legal Sex Female 11:07 PM DREDGEMASTER Gender Identity Not on file Sexual Orientation [...] 09/08/2024 2:39 PM CDT Plan of Treatment Not on file Medical Devices Implanted Type Area Electronic Gaming Device Supervisor Device Identifier Shelf Expiration Date Model / Serial / Lot Rosales [employer]iences Valve Heart 23mm Marlys 3 Transcatheter [id number] - [id number] - [id number] Implanted:Qty: 1 on 08/03/2023 by Mark Lemons MD at [facility] Prosthetic Valve Right: Aortic Valve [employer] 05/28/2026 [id number] / [id number] / Angulo Vascular Device Clsr Perclose Prostyle Sut-Mediatd Closure-Repair Sys 95098-57 - S0 - [id number] Implanted:Qty: 1 on 08/03/2023 by Mark Lemons MD at [facility] Vascular Closure Device Angulo Vascular 05/27/2025 [id number] / 0 / [id number] Angulo Vascular Device Clsr Perclose Prostyle Sut-Mediatd Closure-Repair Sys 68514-77 - S0 - [id number] Implanted:Qty: 1 on 08/03/2023 by Mark Lemons MD at [facility] Vascular Closure Device Angulo Vascular 05/27/2025 [id number] 3 / 0 / [id number] [employer] Aequalis 4.5mm 26mm Lock Multidirectional Self Tap Shoulder Screw Latex Free [id number] - [id number] Implanted:Qty: 1 on 08/26/2024 at [facility] Right: Shoulder [employer] [id number] / / [employer] Screw Glenoid Non Locking Reverse Aequalis 4.5x20mm Titanium [id number] - [id number] Implanted:Qty: 2 on 08/26/2024 at [facility] Right: Shoulder [employer] [id number] / / [employer] Aequalis 25mm Shoulder Long Post Baseplate Glenoid Pacheco [id number] - [id number] Implanted:Qty: 1 on 08/26/2024 at [facility] Right: Shoulder [employer] 12/07/2027 [id number] / [id number] / [employer] Aequalis 36mm Reverse Center Shoulder Sphere Glenoid Cocr 25mm [id number] - [id number] Implanted:Qty: 1 on 08/26/2024 at [facility] Right: Shoulder [employer] 10/21/2028 [id number] / [id number] / [employer] Insert Humeral Size 1/2+0 Aequalis Perform 36mm [id number] - [id number] Implanted:Qty: 1 on 08/26/2024 at [facility] Right: Shoulder [employer] 08/22/2028 [id number] / [id number] / [employer] Stem Humeral Shoulder Reverse Aequalis Perform [id number] - [id number] Implanted:Qty: 1 on 08/26/2024 at [facility] Right: Shoulder [employer] 01/02/2029 [id number] / [id number] / [employer] Screw Glenoid Locking Aequalis Reversed 4.5x32mm Titanium [id number] - [id number] Implanted:Qty: 1 on 08/26/2024 at [facility] Right: Shoulder [employer] [id number] / / Explanted Type Area Electronic Gaming Device Supervisor Device Identifier Shelf Expiration Date Model / Serial / Lot [employer] Aequalis Reversed 4.5mm 18mm Compression Glenoid Screw Baseplate [id number] - [id number] Explanted:Qty: 1 on 08/26/2024 at [facility] Right: Shoulder [employer] [id number] / / Procedures Procedure Name Priority Date/Time [...] CDT Impressions 10/08/2024 11:30 AM CDT Reverse odhc-kjr-siesdl right total shoulder arthroplasty in near-anatomic position. Electronically signed by: Rob Zamora M.D. Narrative 10/08/2024 11:30 AM CDT EXAMINATION: XR SHOULDER RIGHT 2 OR MORE VIEWS HISTORY: Right shoulder pain FINDINGS: 4 views of the right shoulder were performed with comparison made to 09/10/2024. Aortic atherosclerosis and valve replacement are partially imaged. There is a reverse dllp-zgw-synvdf right total shoulder arthroplasty in near-anatomic position. There is no periprosthetic lucency or fracture. Procedure Note Rob Zamora MD PhD - 10/08/2024 EXAMINATION: XR SHOULDER RIGHT 2 OR MORE VIEWS HISTORY: Right shoulder pain FINDINGS: 4 views of the right shoulder were performed with comparison made to 09/10/2024. Aortic atherosclerosis and valve replacement are partially imaged. There is a reverse ixvo-ffj-bcydke right total shoulder arthroplasty in near-anatomic position. There is no periprosthetic lucency or fracture. IMPRESSION: Reverse ukjm-pjb-auftvm right total shoulder arthroplasty in near-anatomic position. Electronically signed by: Rob Zamora M.D. Kylah Kirkpatrick MD IMG XR PROCEDURES Fin al Result * XR Shoulder Right 2 or More Views (09/10/2024 11:11 AM CDT) Anatomical Region Laterality Modality Upper Extremities, Shoulder Right Comp uted Radiography 09/10/2024 11:4 6 AM CDT Impressions 09/10/2024 11:46 AM CDT Unchanged reverse mvqm-ygw-jcfghv total right shoulder arthroplasty in near anatomic position. Electronically signed by: Brandon Niño MD Narrative 09/10/2024 11:46 AM CDT EXAMINATION: XR SHOULDER RIGHT 2 OR MORE VIEWS HISTORY: Right shoulder osteoarthritis FINDINGS: Comparison dated 08/28/2024. Unchanged reverse miii-eff-azigqg total right shoulder arthroplasty in near anatomic position. No periprosthetic fracture. Heterotopic ossification is noted inferiorly. Widening of the right acromioclavicular joint. Procedure Note Brandon Niño MD - 09/10/2024 EXAMINATION: XR SHOULDER RIGHT 2 OR MORE VIEWS HISTORY: Right shoulder osteoarthritis FINDINGS: Comparison dated 08/28/2024. Unchanged reverse ubbk-euh-nweofk total right shoulder arthroplasty in near anatomic position. No periprosthetic fracture. Heterotopic ossification is noted inferiorly. Widening of the right acromioclavicular joint. IMPRESSION: Unchanged reverse zddf-ejh-cwodeb total right shoulder arthroplasty in near anatomic position. Electronically signed by: Brandon Niño MD Kylah Kirkpatrick MD IMG XR PROCEDURES Fin al Result * POCT lipid panel (09/08/2024 2:46 PM CDT) Pathologist [facility] Cholesterol, POC <100 mg/dL HDL, POC 55 mg/dL Triglycerides, POC 124 mg/dL LDL Cholesterol POC 19 mg/dL Chol/HDL Ratio, POC N/A Non-HDL Cholesterol, POC N/A mg/dL Cholesterol Total, POC <100 mg/dL Capillary blood 09/08/2024 2 :46 PM CDT Gilda Terrazas NP POINT OF CARE TEST [...] BLOOD ORDERABLES Final Result Performing Organization Address City/[facility]/ZIP Co de Phone Number AMANDA BJWCH [address] [facility]. Department [place] [address] * (ABNORMAL) Hemoglobin A1c (11/28/2020 6:42 PM CDT) Hgb A1C 8.5(H) 4.0 - 5.6 % AMANDA MITTAL Estimated Average Glucose 197 mg/dL AMANDA MITTAL Comment: The ADA recommends reporting an estimated Average Glucose (eAG) with all Hemoglobin A1c results using the equation derived from a study of 507 normal and diabetic adults. Minority populations were underrepresented and children were not included. (Diabetes Care 31:2781-1579, 2008). The eAG is not equivalent to a fasting glucose. Blood specimen (specimen) 11/28/2020 6:42 PM CDT 11/28/2020 7:14 PM CDT Ang Cuevas MD LAB BLOOD ORDERABLES Final Result AMANDA MITTAL [address] [facility] Department [place] [address] from Last 3 Months or Most Recently Relevant to Health Maintenance [place] [address] [place] [address] [facility] Advance Directives For more information, please contact: [phone] * Full Code (Latest Code Status on [...] 10:58 PM 11/03/2020 2:13 AM Care Teams Clinical Rehab Specialist Relationship Specialty Start Date End Date Vitaly Frye MD PCP - General Family Medicine 11/21/22 Vitaly Antoine MD [address] [place] [address] Referring Physician Cardiology 07/09/23 Yao Al MD [address] [place] [address] Consulting Physician Cardiothoracic Surgery 07/09/23
--- OUTSIDE RECORDS SUMMARY | 2024-12-02 16:44 | XMS_ITS | Encounter Summary ---
Author Organization [facility] Address [address] [facility] [address] [place] [address] Care Team Providers Care Manager Branch Name Role Phone Krunal Sanchez MD Primary Care Provider [phone] Krunal Sanchez MD Primary Care Provider [phone] Krunal Sanchez MD Unavailable Vitaly Frye MD Primary Care Provider [phone] Vitaly Antoine MD Unavailable [phone] Yao Al MD Unavailable [phone] Encounter Details Date Type Department Care Team (Late st Contact Info) Description 01/19/2016 Orders Only [facility] ProviderCristopher MD [address] [place] [address] Social History Tobacco Use Types Packs/Day Years Used Date Smoking Tobacco: Never Assessed Comments Unknown Sex and Gender Information Value Date Recorded Sex Assigned at Not on file Legal Sex Female 11:07 PM SENIOR MARKET INTELLIGENCE CONSULTANT Gender Identity Not on file Sexual Orientation Not on file documented as of this encounter Plan of Treatment Not on file documented as of this encounter Procedures Procedure Name Priority Date/Time Associated Diagnosis Comments CARDIOLOGY REPORT 01/19/2016 documented in this encounter Results * CARDIOLOGY REPORT (01/19/2016) Anatomical Region Laterality Modality Other Narrative 01/19/2016 Ordered by an unspecified provider. Historical Provider CV CARDIAC SERVICES PROCE BOBO Final Result documented in this encounter Visit Diagnoses Not on filedocumented in this encounter Care Teams Manager Branch Relationship Specialty Start Date End Date Krunal Sanchez MD [address] [place] [address] PCP - General 09/20/16 06/17/19 Krunal Sanchez MD [address] [place] [address] PCP - General 06/18/19 11/20/22 Vitaly Frye MD [address] [place] [address] PCP - General Family Medicine 11/21/22 Krunal Sanchez MD [address] [place] [address] 06/18/19 11/20/22 Vitaly Antoine MD [address] [place] [address] Referring Physician Cardiology 07/09/23 Yao Al MD [address] [address] Consulting Physician Cardiothoracic Surgery 07/09/23 documented as of this encounter
--- OUTSIDE RECORDS SUMMARY | 2024-12-02 16:44 | XMS_ITS | Clinical Summary ---
Author Organization [facility] Address [address] [place] [address] Care Team Providers Care Referral Manager Name Role Phone Fransisco Armas MD Unavailable Vitaly Frye MD Primary Care Provider [phone] Source Comments [facility],non-owned Affiliates and Associated Physician Practices is amultiple site organization consisting of ambulatory clinics and hospital sitesin [place], [place], [place] and [place]. This disclosure is being madepursuant to the Care Everywhere program and may not contain all information available regarding this patient. Last updated 18.[facility] Allergies Active Allergy Reactions Criticality Noted Date Comments Azithromycin Itching,Skin Reactions,Urticaria Medium 04/27/2016 Contrast-Iodinated Agents For Ct/Other Swelling,Anaphylaxis,I tching High 08/22/2012 Facial swelling Facial swelling-Iodinated contrast Erythromycin Skin Reactions,Urticaria,It tolu High 08/25/2020 hives Iodine Swelling,Angioedema High 08/22/2012 Facial Swelling Iodine Anaphylaxis,Urticaria High 08/25/2020 Procaine Palpitations 09/05/2021 Medications * Be aware that medications may not be up to date on this document. Alwaysverify current medications with the patient. traZODone (DESYREL) 50 MG tablet Take 1 (one) tablet by mouth nightly as needed for Insomnia 04/27/20 16 Active albuterol HFA (PROVENTIL;MADHU AMPARO;PROAIR) 108 (90 BASE) MCG/ACT inhaler Daily prn Acti ve Aspirin 81 MG CAPS Take 1 tablet by mouth once daily Active buPROPion XL 24hr (WELLBUTRIN-XL) 150 MG tablet Take 1 (one) tablet by mouth 2 times daily Active Calcium Citrate-Vitamin D (CALCIUM + D PO) Take 1 tablet by mouth 2 times daily Active denosumab (PROLIA) 60 MG/ML SC injection Inject 1 mL subcutaneously Every 6 months Active fluticasone-salm eterol (ADVAIR/WIXELA) 250-50 MCG/DOSE inhaler Inhale 1 (one) puff by mouth 2 times daily 09/21/19 17 Active furosemide (LASIX) 20 MG tablet 2 TIMES DAILY. Activ e insulin glargine (LANTUS) vial Inject 20 (twenty) Units subcutaneously at bedtime Active lisinopril (PRINIVIL; ZESTRIL) 10 MG tablet Take 1 (one) tablet by mouth once daily Active Oxygen Nowata into the nose as needed Up to 2L intermittent Active ezetimibe-simvas tatin (Vytorin) 10-40 MG tablet Take 1 (one) tablet by mouth 04/26/20 22 Active rOPINIRole (Requip) 0.5 MG tablet Take 1 (one) tablet by mouth at bedtime Active Semaglutide (2 MG/DOSE) 8 MG/3ML Subcutaneous Solution Pen-injector (Ozempic (2 MG/DOSE)) Inject 2 (two) mg subcutaneously every 7 days Active amoxicillin (Amoxil) 500 MG capsule Take 1 (one) capsule by mouth pre-Procedure once 11/27/19 24 Active glimepiride (Amaryl) 1 MG tablet Take 1 (one) tablet by mouth 2 times daily Active carvedilol (Coreg) 6.25 MG tablet Take 1 (one) tablet by mouth 2 times daily with morning and evening meal Active empagliflozin (Jardiance) 25 MG tablet Take 1 (one) tablet by mouth once daily Active polyethylene glycol 3350 (Miralax) 17 GM/SCOOP powder Take 17 (seventeen) g by mouth once daily 510 g 3 08/19/19 25 025 Active Active Problems Problem Noted Date Diagnosed Date Renal cell carcinoma of right kidney 10/29/2018 Right foot pain 06/24/2018 Right foot drop 03/20/2018 Encounter for other preprocedural examination Overview (08/27/2017): Diagnosis: SHAH; HCC Referring Oiler And Greaser: Danilo Arizmendi MELD: 01/22 Blood Type: A pos BMI: 30 Short H/P summary: DM type II since 1992: Htn x 8 years. Quit smoking 4 years ago; >1 ppd X 40 years. 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 Evaluation Testing Date and Results: Labs: 08/16/2016 A1c-12.6: Glucose-360: Chol-180 HDL-41: LDL-98: Triglycerides- 206: Serologies: CMV: Tox Screen-Neg: Alpha 1 Anti: AFP: Jd40-2-13: Ceruloplasmin: LEE: Anti Smooth muscle ab: Mitochondrial: [...] periapical abscess. Dictated by Inga Boudreaux MD (campus president). This report was approved by Inga Boudreaux M.D. on 08/16/2016 3:36 PM . I, Dr. DUKE SKELTON M.D. have personally reviewed and interpreted this examination/study. MRI abdomen with and without contrast: 12/15/16 There is a new subcapsular 1.3 cm [...] on 05/11/2016. Dictated by Miguelina Price MD (campus president). This report was approved by Miguelina [...] (volume index 56 ml/M2). No evidence of esugf-oi-gcyy shunt with bubble study. 7. The right [...] pulmonary disease (COPD) regimen as per Emmanuel Web [employer]izer: A. Salmeterol/fluticasone (Advair) 250 mcg 1 puff [...] 2 L/min side flow as per Emmanuel [employer]izer 3. Her very severe COPD may preclude her from liver transplantation 4. Follow-up with results Sourav Lai MD, [facility], [facility], [facility] Clerk Stenographer, [facility] Spragger of Internal Medicine Division of Pulmonary, Critical Care, and Sleep Medicine [facility] EGD: 02/15/15 In the lower [...] Recommendations/Interventions: 1. Pt needs to see an Ladle Car Operator as she currently does not. 2. [...] Other cirrhosis of liver 06/25/2014 Overview (08/27/2017): 2010: Liver biopsy 11/2010: EGD: candidal esophagitis but no varices 02/2013: Liver MRI: No evidence of hepatocellular carcinoma. Resolved Problems Problem Noted Date Diagnosed Date Resolved Date Liver cell carcinoma 06/21/2016 019 Immunizations Immunization Administration Dates Next Due INFLUENZA VACCINE, TRIV. [...] oz pur e alcohol) rare mix drink Comments No Sex and Gender Information Value Date Recorded Sex Assigned at Not on file Legal Sex Female 5:13 PM IMPREGNATOR Gender Identity Not on file Sexual Orientation Not on file Last Filed Vital Signs Vital Sign Reading Time Taken Comments Blood Pressure 144/62 08/18/2024 8:37 AM CDT Pulse 50 08/18/2024 8:37 AM CDT Temperature 36.7 C (98 F) 08/18/2024 8:37 AM CDT Respiratory Rate 18 07/23/2023 10:44 AM IMPREGNATOR Oxygen Saturation 94% 08/18/2024 8:37 AM CDT Inhaled Oxygen Concentration - - Weight 67.3 kg (148 lb 6.4 oz) 08/18/2024 8:37 A M CDT Height 157.5 cm (5' 2) 08/18/2024 8:37 AM CDT Body Mass Index 27.14 08/18/2024 8:37 AM CDT Plan of Treatment Upcoming Encounters Date Type Department Care Team (Late st Contact Info) Description 12/18/2024 11:30 AM CDT Appointment [place] [address] [place] [phone] Charlotte Richardson, HOGSHEAD STOCK CLERK-METAL DRILLING MACHINE OPERATOR [address] [place] [address] [address] [place] [address] 12/18/2024 12:30 PM CDT Office [place] [facility] [place] [address] [place] [address], [facility] [place] [address] Charlotte Richardson, HOGSHEAD STOCK CLERK-METAL DRILLING MACHINE OPERATOR [address] [place] [address] [address] [place] [address] Health Maintenance Due Date Last Done Comments [...] - 2023-2 5 season) 2024 08/06/2020, 07/09/2020 Respiratory Syncytial Virus (RSV) Vaccine Pt: or over 60 yrs (1 - 1-dose 75+ series) 01/28/2024 DEPRESSION SCREENING 05/28/2024 INFLUENZA VACCINE (Season Ended) 2025 03/20/2019, 03/15/2018, 03/18/2016 HIB VACCINE Aged Out No longer eligi [...] On track( 024 11:16 AM CDT) Lucie Ortez RN Note: Expected end date: Ongoing Interventions: Take all medications as prescribed Let your doctor know right away about any changes in your medications Make sure to request a refill of your medication at least one week prior to your last dose Insurance MEDICARE [facility]ICARE [facility] Care Teams Referral Manager Relationship Specialty Start Date End Date Vitaly Frye MD [facility] [place] [phone] PCP - General Family Medicine 01/22/23 Fransisco Armas MD [address] [facility] [address] [facility] [address] [place], [place] [id number] Urology 08/09/21
[2024-12-02] MEDS: ASPIRIN 81 MG CHEWABLE TABLET 324 MG PO (16:49)
[2024-12-02 16:52] LABS: NT Pro B Type Natriuretic Pept 566 pg/mL (19.9-100)
--- NOTE | 2024-12-02 17:40 | PC.NURSE ---
attempted to call report to [facility], no answer
[2024-12-02 17:41] VITALS: BP 135/61; PULSE 95; RESP 16; TEMP 36.6; O2SAT 98
--- NOTE | 2024-12-02 17:50 | PC.NURSE ---
attempted to call report to [facility]', no answer
--- NOTE | 2024-12-02 18:05 | PC.NURSE ---
attempted to call report to [facility]', no answer
--- NOTE | 2024-12-02 18:20 | PC.NURSE ---
attempted to call report, RN states she is busy and will call back
[2024-12-02 18:58] VITALS: BP 133/70; PULSE 90; RESP 16; TEMP 36.6; O2SAT 97
== END 2024-12-02 19:02 | disposition short-term general hospital (02) ==
LOC: ANHED 16:42
PROVIDERS: Emergency Medicine; Emergency Provider Emergency Medicine; PCP Family Medicine
DX: R20.2 Paresthesia of skin (principal); R00.0 Tachycardia, unspecified; Z85.828 Personal history of other malignant neoplasm of skin; G89.29 Other chronic pain; G47.30 Sleep apnea, unspecified; Z85.528 Personal history of other malignant neoplasm of kidney; E78.5 Hyperlipidemia, unspecified; K75.81 Nonalcoholic steatohepatitis (NASH); M19.90 Unspecified osteoarthritis, unspecified site; E11.9 Type 2 diabetes mellitus without complications; Z79.4 Long term (current) use of insulin; K21.9 Gastro-esophageal reflux disease without esophagitis; J44.9 Chronic obstructive pulmonary disease, unspecified; M21.371 Foot drop, right foot; R94.31 Abnormal electrocardiogram [ECG] [EKG]; Z87.891 Personal history of nicotine dependence; I51.9 Heart disease, unspecified; I35.0 Nonrheumatic aortic (valve) stenosis; J96.11 Chronic respiratory failure with hypoxia
CPT/HCPCS: 36415; 70450; 71045; 80053; 82948; 83880; 84484; 85025; 85610; 85652; 85730; 93005; 96374; 99285; A9270; J2270